=== PATIENT | male | born 1935 | race Caucasian/White ===

== ENCOUNTER 2017-05-26 14:59 | Emergency (ER) | payer OTHER, MEDICARE ==
[2017-05-26] VITALS (9 sets, daily range): BP systolic 110–152; BP diastolic 53–69; PULSE 61–81; TEMP 36.5–37; O2SAT 95–99; Ht 182.9 cm; Wt 109.0 kg
[~2017-05-26] VITALS: Ht 182.9 cm; Wt 109.0 kg
[~2017-05-26 14:59] MED LIST: AMX500 PO; ASPI81TA28 PO; CYAN10005 PO; FOLI1TAB7 PO; FRS/40 PO; METO5TAB25 PO; POTA1POW PO; SIMV20TA5 PO
[2017-05-26 15:56] LABS: HEMATOCRIT 15.9 % (42-52); INR 1.1 (0.9-1.1); MEAN CELL VOLUME 101.3 fL (80-100); MEAN CORPUSCULAR HEMOGLOBIN 36.3 pg (25-34); MEAN CORPUSCULAR HGB CONC 35.8 g/dl (32-36); MEAN PLATELET VOLUME 9.2 fL (7.4-10.4); PARTIAL THROMBOPLASTIN RATIO 1.1; PLATELET COUNT 248 K/uL (130-400); PROTHROMBIN TIME (PATIENT) 11.4 SECONDS (9.0-12.0); RED BLOOD COUNT 1.57 M/uL (4.7-6.1); WHITE BLOOD COUNT 3.09 K/uL (4.8-10.8)
[2017-05-26 16:06] LABS: BUN/CREATININE RATIO 25.3 (10-20); CALCIUM 8.8 mg/dl (8.5-10.1); CREATININE 0.95 mg/dl (0.60-1.40)
[2017-05-26] MEDS ORDERED: PRED20TA PO (16:29)
[2017-05-26] MEDS ORDERED: POTA20TA16 PO (16:29)
[2017-05-26 16:52] LABS: ANISOCYTOSIS PRESENT; COMPLETE YES; IG% 1.3 %; LYMPH % 52.1 %; LYMPH ABS # 1.61 K/uL (1.2-3.4); MONO % 2.9 %; NEUT % 43.7 %
--- NOTE | 2017-05-26 17:55 | EMERGENCY ROOM VISIT NOTE ---
History Report prepared by Umm: Alesia Mcneil Under the Supervision of: Dr. Blade Junior D.O. First contact with patient: 15:11 Chief Complaint: REFERRED BY DOCTOR Stated Complaint: SENT FROM DR ROXANN WOOD FOR BLOOD TRANSFUSION History of Present Illness The patient is a 82 year old male who presents to the Emergency Room with complaints of a low hemoglobin level. The patient was diagnosed with CLL earlier this year. Since that time he has had 3 blood transfusions. Over the past few days the patient has been feeling dizzy and short of breath. He had blood work done this morning and his hemoglobin level was 5.2. His PCP sent him to the ED for a blood transfusion. The patient does not take any blood thinners. He denies melena and hematochezia. 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 Review of Systems See HPI for pertinent positives & negatives. A total of 10 systems reviewed and were otherwise negative. Past Medical & Surgical Medical Problems: (1) Anemia (2) CLL (chronic lymphocytic leukemia) Family History Non-pertinent due to advanced age. Social History Smoking Status: Former Smoker Marital Status: Housing Status: lives with significant other Occupation Status: retired Current/Historical Medications Scheduled Amoxicillin (Amoxicillin), 1 CAP PO Q2D Aspirin (Aspirin Ec), 81 MG PO DAILY Cyanocobalamin (Vitamin B-12), 2,000 MCG PO DAILY Folic Acid (Folvite), 1 TAB PO DAILY Furosemide (Lasix), 40 MG PO DAILY Potassium Ext Rel (Klor-Con), 80 MEQ PO DAILY Prednisone (Prednisone), 40 MG PO DAILY Simvastatin (Zocor), 1 TAB PO HS Scheduled PRN Metolazone (Zaroxolyn), 5 MG PO UD PRN for . Allergies Coded Allergies: No Known Allergies (Unverified , 05/26/17) Physical Exam Vital Signs Date Time Temp Pulse Resp B/P (MAP) Pulse Ox O2 Delivery O2 Flow Rate FiO2 05/26/17 17:46 36.7 81 18 110/53 99 Room Air 05/26/17 17:46 36.7 81 18 110/53 99 0.0 05/26/17 17:31 36.5 75 18 140/63 99 11/14/17 17:18 36.8 71 16 115/61 98 05/26/17 17:05 73 16 115/61 98 Room Air 05/26/17 15:01 36.6 79 20 157/73 98 Physical Exam CONSTITUTIONAL/VITAL SIGNS: Reviewed / noted above. GENERAL: Non-toxic in appearance. INTEGUMENTARY: Warm, dry, and [place]. HEAD: Normocephalic. EYES: without scleral icterus or trauma. ENT/OROPHARYNX: clear and moist. LYMPHADENOPATHY/NECK: Is supple without lymphadenopathy or meningismus. RESPIRATORY: Lungs clear and equal. CARDIOVASCULAR: Regular rate and rhythm. GI/ABDOMEN: Soft and nontender. No organomegaly or pulsatile mass. No rebound or guarding. Normal bowel sounds. EXTREMITIES: Warm and well perfused. BACK: No CVA tenderness. NEUROLOGICAL: Intact without focal deficits. PSYCHIATRIC: normal affect. MUSCULOSKELETAL: Normally developed with good muscle tone. Medical Decision & Procedures Laboratory Results 05/26/17 15:31 Red Blood Count 1.57, Mean Corpuscular Volume 101.3, Mean Corpuscular Hemoglobin 36.3, Mean Corpuscular Hemoglobin Concent 35.8, Mean Platelet Volume 9.2, Neutrophils (%) (Auto) 43.7, Lymphocytes (%) (Auto) 52.1, Monocytes (%) ( Auto) 2.9, Eosinophils (%) (Auto) 0.0, Basophils (%) (Auto) 0.0, Neutrophils # ( Auto) 1.35, Lymphocytes # (Auto) 1.61, Monocytes # (Auto) 0.09, Eosinophils # ( Auto) 0.00, Basophils # (Auto) 0.00 05/26/17 15:31 Test 05/26/17 15:31 White Blood Count 3.09 K/uL (4.8-10.8) Red Blood Count 1.57 M/uL (4.7-6.1) Hemoglobin 5.7 g/dL (14.0-18.0) Hematocrit 15.9 % (42-52) Mean Corpuscular Volume 101.3 fL (80-100) Mean Corpuscular Hemoglobin 36.3 pg (25-34) Mean Corpuscular Hemoglobin Concent 35.8 g/dl (32-36) Platelet Count 248 K/uL (130-400) Mean Platelet Volume 9.2 fL (7.4-10.4) Neutrophils (%) (Auto) 43.7 % Lymphocytes (%) (Auto) 52.1 % Monocytes (%) (Auto) 2.9 % Eosinophils (%) (Auto) 0.0 % Basophils (%) (Auto) 0.0 % Neutrophils # (Auto) 1.35 K/uL (1.4-6.5) Lymphocytes # (Auto) 1.61 K/uL (1.2-3.4) Monocytes # (Auto) 0.09 K/uL (0.11-0.59) Eosinophils # (Auto) 0.00 K/uL (0-0.5) Basophils # (Auto) 0.00 K/uL (0-0.2) RDW Standard Deviation 73.7 fL (36.4-46.3) RDW Coefficient of Variation 21.3 % (11.5-14.5) Immature Granulocyte % (Auto) 1.3 % Immature Granulocyte # (Auto) 0.04 K/uL (0.00-0.02) Nucleated RBC Absolute Count (auto) 0.02 K/uL (0-0) Nucleated Red Blood Cells % 0.7 % Anisocytosis PRESENT Prothrombin Time 11.4 SECONDS (9.0-12.0) Prothromb Time International Ratio 1.1 (0.9-1.1) Activated Partial Thromboplast Time 27.3 SECONDS (21.0-31.0) Partial Thromboplastin Ratio 1.1 Anion Gap 10.0 mmol/L (3-11) Est Creatinine Clear Calc Drug Dose 73.8 ml/min Estimated GFR () 84.9 Estimated GFR (Non- 73.2 BUN/Creatinine Ratio 25.3 (10-20) Calcium Level 8.8 mg/dl (8.5-10.1) Laboratory results as stated above per my review. ECG Indication: other Rate (beats per minute): 81 Rhythm: normal sinus Findings: no acute ischemic change, no ectopy ED Course 1511: Previous medical records were reviewed. The patient was evaluated in room B3B. A complete history and physical examination was performed. 1714: I consented the patient for blood and updated him on the results. He is in agreement with the treatment plan. 1800: The patient was signed out to Dr. Mcmahon at the change of shift. Medical Decision Differentials include: Acute coronary syndrome, myocardial infarction, CVA, TIA , anemia, infection, pneumonia, UTI, pyelonephritis, poor nutrition, dehydration , electrolyte disturbance, and hypoglycemia. This is an 82-year-old male who presents to the ED with a chief complaint of anemia. The patient had some outpatient blood work that revealed a hemoglobin around 5. The patient was sent here for blood transfusion by Dr. Acuna, the oncologist. The patient has no specific complaints other than some dizziness on occasion and exertional dyspnea. His vital signs here are normal. His physical exam was unremarkable. An EKG shows a normal sinus rhythm. Hemoglobin is 5.7. BUN is 24.. PRP is normal otherwise. The patient was transfused 2 units of packed RBCs. After this he will be discharged. He was told to have his blood rechecked in 1-2 days to see if he requires additional transfusion. Medication Reconcilliation Current Medication List: was personally reviewed by me Blood Pressure Screening Patient's blood pressure: Elevated blood pressure Blood pressure disposition: Referred to PCP Impression Primary Impression: Anemia Scribe Attestation The scribe's documentation has been prepared under my direction and personally reviewed by me in its entirety. I confirm that the note above accurately reflects all work, treatment, procedures, and medical decision making performed by me. Departure Information Dispostion Home / Self-Care Referrals No Doctor, Assigned (PCP) Patient Instructions My [facility] Additional Instructions See your doctor for recheck of your hemoglobin level in 1-2 days. Return for any concerns or new symptoms.
[2017-06-11] MEDS ORDERED: PRLSR20 PO (07:35)
--- NOTE | 2017-06-17 18:16 | EMERGENCY ROOM VISIT NOTE ---
ED Visit Note First contact with patient: 18:15 Pt signed out to me by Dr. Junior. Getting transfusion in the ER. Pt scheduled to be discharged and close outpt follow-up and repeat H/H. No transfusion reactions noted thus far.
== END 2017-05-26 20:37 | disposition home or self-care (01) ==
LOC: C.EDB 15:00
DX: D64.9 Anemia, unspecified (principal); C91.10 Chronic lymphocytic leukemia of B-cell type not having achieved remission; Z87.891 Personal history of nicotine dependence; Z79.82 Long term (current) use of aspirin

== ENCOUNTER → 2017-07-21 | Outpatient (CLI) | payer OTHER, MEDICARE ==
[~2017-07-21] MED LIST changes: -AMX500 PO; -CYAN10005 PO; -FOLI1TAB7 PO; -POTA1POW PO; +POTA20TA16 PO; +PRED20TA PO; +PRLSR20 PO
[2017-07-21 17:40] LABS: EOS % 0.3 %; EOS ABS # 0.01 K/uL (0-0.5); HEMOGLOBIN 7.9 g/dL (14.0-18.0); IG# 0.02 K/uL (0.00-0.02); LYMPH % 37.1 %; LYMPH ABS # 1.31 K/uL (1.2-3.4); MEAN CELL VOLUME 87.8 fL (80-100); MEAN CORPUSCULAR HEMOGLOBIN 30.2 pg (25-34); MEAN CORPUSCULAR HGB CONC 34.3 g/dl (32-36); MONO ABS # 0.07 K/uL (0.11-0.59); NEUT ABS # 2.12 K/uL (1.4-6.5); PLATELET COUNT 273 K/uL (130-400); RED CELL DISTRIBUTION WIDTH CV 16.5 % (11.5-14.5); WHITE BLOOD COUNT 3.53 K/uL (4.8-10.8)
[2017-07-21 17:45] LABS: ALT/SGPT 29 U/L (12-78); AST/SGOT 12 U/L (15-37); BLOOD UREA NITROGEN 32 mg/dl (7-18); CALCIUM 8.4 mg/dl (8.5-10.1); CARBON DIOXIDE 28 mmol/L (21-32); CREATININE 1.02 mg/dl (0.60-1.40); GLUCOSE 163 mg/dl (70-99); POTASSIUM 3.6 mmol/L (3.5-5.1); SODIUM 132 mmol/L (136-145)
[2017-07-21 17:48] LABS: ALKALINE PHOSPHATASE 66 U/L (45-117); TOTAL PROTEIN 7.4 gm/dl (6.4-8.2)
== END | disposition home or self-care (01) ==
LOC: C.LABPBG 13:25
PROVIDERS: ATTEND Internal Medicine Hematology & Oncology
DX: C91.Z0 Other lymphoid leukemia not having achieved remission (principal)

== ENCOUNTER 2017-08-17 20:02 | Inpatient (IN) | payer OTHER, MEDICARE ==
[~2017-08-17] VITALS: Ht 182.9 cm; Wt 106.3 kg
[2017-08-17 21:18] LABS: HEMATOCRIT 22.4 % (42-52); HEMOGLOBIN 7.6 g/dL (14.0-18.0); MEAN CELL VOLUME 88.2 fL (80-100); MEAN CORPUSCULAR HEMOGLOBIN 29.9 pg (25-34); MEAN CORPUSCULAR HGB CONC 33.9 g/dl (32-36); MEAN PLATELET VOLUME 10.1 fL (7.4-10.4); NUCLEATED RED BLOOD CELL ABS 0.15 K/uL (0-0); PLATELET COUNT 282 K/uL (130-400); RED CELL DISTRIBUTION WIDTH CV 16.3 % (11.5-14.5); RED CELL DISTRIBUTION WIDTH SD 52.3 fL (36.4-46.3); WHITE BLOOD COUNT 12.02 K/uL (4.8-10.8)
--- NOTE | 2017-08-17 21:27 | DIAGNOSTIC IMAGING REPORT ---
CHEST ONE VIEW PORTABLE CLINICAL HISTORY: shortness of breath COMPARISON STUDY: No previous studies for comparison. FINDINGS: The heart is enlarged. There is nonspecific basilar interstitial thickening. This could either be inflammatory, secondary to pulmonary vascular congestion, or atelectatic. Clinical correlation in this regard will be necessary. There are no significant pleural effusions. IMPRESSION: Cardiomegaly and nonspecific by basilar interstitial thickening Electronically signed by: Ran Celaya M.D. 08/17/2017 9:25 PM Dictated Date/Time: 08/17/2017 9:24 PM
[2017-08-17 21:29] LABS: ALBUMIN 2.8 gm/dl (3.4-5.0); CALCIUM 8.1 mg/dl (8.5-10.1); CREATININE 1.62 mg/dl (0.60-1.40); POTASSIUM 4.5 mmol/L (3.5-5.1)
[2017-08-17 21:31] LABS: TOTAL PROTEIN 7.6 gm/dl (6.4-8.2)
[2017-08-17 21:32] LABS: INR 1.2 (0.9-1.1); PTT PATIENT 29.6 SECONDS (21.0-31.0)
[2017-08-17] MEDS ORDERED: SODIUM CHLORIDE 0.9% 1000ML 1,000 ML IV STA (21:34)
[2017-08-17] MEDS ORDERED: ALBUT/IPRATROP 3MG/0.5MG NEB 3 ML VIAL INH STA (21:34)
[2017-08-17] MEDS ORDERED: ACETAMINOPHEN 500 MG TAB PO STA (21:34)
[2017-08-17 21:42] LABS: BASO % 0.1 %; BASO ABS # 0.01 K/uL (0-0.2); LYMPH % 20.5 %; LYMPH ABS # 2.47 K/uL (1.2-3.4); MONO % 5.1 %; MONO ABS # 0.61 K/uL (0.11-0.59); NEUT % 73.5 %; NEUT ABS # 8.83 K/uL (1.4-6.5)
[2017-08-17 22:27] LABS: INFLUENZA B ANTIGEN Neg for Influ B (NEG)
[2017-08-17 22:47] LABS: CKMB < 0.5 ng/ml (0.5-3.6)
[2017-08-17] MEDS ORDERED: LEVAQUIN 750MG / 150ML D5W IV STA (23:12)
[2017-08-18] VITALS (21 sets, daily range): BP systolic 95–128; BP diastolic 44–65; PULSE 75–97; TEMP 36.4–37; O2SAT 92–100; Ht 182.9 cm; Wt 106.3 kg
--- NOTE | 2017-08-18 00:18 | History and Physical ---
History & Physical Date & Time of Service: Aug 18, 2017 at 00:06 Chief Complaint: SOB Primary Care Physician: Ritesh Ervin M.D. History of Present Illness Source: patient 82 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 Patient started feeling acutely unwell around noon today. He was experiencing a sore throat, a loose cough with intermittent dyspnea for 2-3 days, but symptoms and weakness were worse today. At the point where he was unable to get up from a chair, even with the assistance of his , she called the ambulance and brought the patient to the ED for assessment. He did get the flu shot this year, and denies any sick contacts. Patient otherwise denies fevers/chills, headaches, CP, palpitations, abdominal pain, myalgias or rashes. He has had diminished appetite, but is denying nausea or vomiting. He has been unable to ambulate today, and usually ambulates independently. He states he is voiding and stooling appropriately. Patient lives at home with . 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 Patient states he is not currently taking any chemotherapy but is on steroids. He state he is "due for an injection on Thursday". ROS is unremarkable except as noted above. Past Medical/Surgical History Medical Problems: CLL (chronic lymphocytic leukemia) Anemia Edema HLD Surgical Problems: Right hip replacement 2 years ago Family History Non contributory Social History Smoking Status: Former Smoker Smokeless Tobacco Use: No Alcohol Use: none Drug Use: none Marital Status: Housing status: lives with significant other Occupational Status: retired Immunizations History of Influenza Vaccine: Unknown History of Tetanus Vaccine?: Unknown History of Pneumococcal: Unknown Multi-Drug Resistant Organisms History of MDRO: No Allergies Coded Allergies: No Known Allergies (Unverified , 08/17/17) Home Medications Scheduled Aspirin (Aspirin Ec), 81 MG PO DAILY Furosemide (Lasix), 40 MG PO DAILY Omeprazole (Prilosec), 20 MG PO DAILY Potassium Ext Rel (Klor-Con), 80 MEQ PO DAILY Prednisone (Prednisone), 40 MG PO DAILY Simvastatin (Zocor), 1 TAB PO HS Scheduled PRN Metolazone (Zaroxolyn), 5 MG PO UD PRN for . Physical Exam Vital Signs Date Time Temp Pulse Resp B/P (MAP) Pulse Ox O2 Delivery O2 Flow Rate FiO2 08/18/17 00:05 100 24 114/46 97 Nasal Cannula 2.0 08/17/17 21:59 108 25 98/47 97 Nasal Cannula 2.0 08/17/17 21:12 92 2.0 08/17/17 20:23 113 08/17/17 20:12 98 Nasal Cannula 2.0 08/17/17 20:12 38.8 118 24 101/65 99 Nasal Cannula 2.0 General Appearance: WD/WN, + mild distress Head: normocephalic, atraumatic Eyes: normal inspection ENT: + pertinent finding (Hard of hearing) Neck: supple, no carotid bruits Respiratory/Chest: no accessory muscle use, + respiratory distress (with coughing), + decreased breath sounds, + crackles, + rales, + rhonchi Cardiovascular: no murmur, + tachycardia Abdomen/GI: normal bowel sounds, non tender, + distended (with some early signs of caput medusa) Back: normal inspection Extremities/Musculoskelatal: no calf tenderness, no pedal edema (blisters on anterior [place]), + pedal edema, + swelling (2+ pitting to below knee) Neurologic/Psych: alert, normal mood/affect Skin: normal color, + pertinent finding Diagnostics Laboratory Results Results Past 24 Hours Test 08/17/17 19:32 08/17/17 21:32 08/17/17 22:04 Range/Units White Blood Count 12.02 4.8-10.8 K/uL Red Blood Count 2.54 4.7-6.1 M/uL Hemoglobin 7.6 14.0-18.0 g/dL Hematocrit 22.4 42-52 % Mean Corpuscular Volume 88.2 80-100 fL Mean Corpuscular Hemoglobin 29.9 25-34 pg Mean Corpuscular Hemoglobin Concent 33.9 32-36 g/dl Platelet Count 282 130-400 K/uL Mean Platelet Volume 10.1 7.4-10.4 fL Neutrophils (%) (Auto) 73.5 % Lymphocytes (%) (Auto) 20.5 % Monocytes (%) (Auto) 5.1 % Eosinophils (%) (Auto) 0.0 % Basophils (%) (Auto) 0.1 % Neutrophils # (Auto) 8.83 1.4-6.5 K/uL Lymphocytes # (Auto) 2.47 1.2-3.4 K/uL Monocytes # (Auto) 0.61 0.11-0.59 K/uL Eosinophils # (Auto) 0.00 0-0.5 K/uL Basophils # (Auto) 0.01 0-0.2 K/uL RDW Standard Deviation 52.3 36.4-46.3 fL RDW Coefficient of Variation 16.3 11.5-14.5 % Immature Granulocyte % (Auto) 0.8 % Immature Granulocyte # (Auto) 0.10 0.00-0.02 K/uL Nucleated RBC Absolute Count (auto) 0.15 0-0 K/uL Nucleated Red Blood Cells % 1.3 % Red Blood Cell Morphology Unremarkable Prothrombin Time 12.3 9.0-12.0 SECONDS Prothromb Time International Ratio 1.2 0.9-1.1 Activated Partial Thromboplast Time 29.6 21.0-31.0 SECONDS Partial Thromboplastin Ratio 1.1 Sodium Level 133 136-145 mmol/L Potassium Level 4.5 3.5-5.1 mmol/L Chloride Level 99 98-107 mmol/L Carbon Dioxide Level 21 21-32 mmol/L Anion Gap 13.0 3-11 mmol/L Blood Urea Nitrogen 26 7-18 mg/dl Creatinine 1.62 0.60-1.40 mg/dl Est Creatinine Clear Calc Drug Dose 43.9 ml/min Estimated GFR () 44.5 Estimated GFR (Non- 38.4 BUN/Creatinine Ratio 15.7 10-20 Random Glucose 158 70-99 mg/dl Calcium Level 8.1 8.5-10.1 mg/dl Total Bilirubin 0.8 0.2-1 mg/dl Aspartate Amino Transf (AST/SGOT) 13 15-37 U/L Alanine Aminotransferase (ALT/SGPT) 27 12-78 U/L Alkaline Phosphatase 76 45-117 U/L Total Creatine Kinase 40 39-308 U/L Creatine Kinase MB < 0.5 0.5-3.6 ng/ml Creatine Kinase MB Ratio 0-3.0 Troponin I 0.069 0-0.045 ng/ml Total Protein 7.6 6.4-8.2 gm/dl Albumin 2.8 3.4-5.0 gm/dl Globulin 4.8 2.5-4.0 gm/dl Albumin/Globulin Ratio 0.6 0.9-2 Influenza Type A Antigen Neg for Influ A NEG Influenza Type B Antigen Neg for Influ B NEG Lactic Acid Level 2.2 0.4-2.0 mmol/L Microbiology Results 08/17/17 Blood Culture, Received Pending 08/17/17 Blood Culture, Received Pending Diagnostic Radiology CHEST ONE VIEW PORTABLE CLINICAL HISTORY: shortness of breath COMPARISON STUDY: No previous studies for comparison. FINDINGS: The heart is enlarged. There is nonspecific basilar interstitial thickening. This could either be inflammatory, secondary to pulmonary vascular congestion, or atelectatic. Clinical correlation in this regard will be necessary. There are no significant pleural effusions. IMPRESSION: Cardiomegaly and nonspecific by basilar interstitial thickening Impression Assessment and Plan 82 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 Sepsis secondary to respiratory infection with acute hypoxic failure - febrile, tachycardic, hypotensive, leukocytosis. lactic acid 2.2. Flu negative. - O2 via NC as per protocol, wean as tolerated keeping sats >92% - IV abx: Levaquin to cover community acquired and atypical infection - IVF NSS @ 100cc/hr - Duonebs, guaifenesin ordered - Trace blood cultures. Sputum culture ordered - Trend CBC, lactic acid Elevated troponin 0.069 on admission - Serial troponin - ECHO ordered - Cardio consulted Chronic anemia - Type and cross matched, and for transfusion of 2 units pRBC given Hb 7.6 with evidence of ischemia (elevated troponin) - Trend CBC Hyponatremia - IVF as above - Trend BMP CLL - Hold prednisone for now, stress dose hydrocortisone as above Lower extremity pitting edema - Wound consulted - Unable to order Lasix post pRBC transfusion given hypotension - Consider replacing albumin if worsening swelling VTE ppx - SCDs Attending addendum: I have physically seen this patient, have supervised the medical residents activities, and agree with the H&P unless as otherwise noted. Assessment and Plan: Acute respiratory failure with hypoxia/sepsis-- Levaquin IV Guaifenesin 600 mg by mouth twice a day Duonebs every 4 hours while awake and every 2 hours when necessary. Sputum Gram stain and culture Titrate oxygen to keep pulse ox greater than or equal to 92%, humidify if above 2 L Elevated troponin-- The patient will be admitted to telemetry for serial cardiac enzymes, serial EKG's, cardiac rhythm monitoring and a 2-D echocardiogram with Dopplers. Consult cardiology CLL/anemia requiring transfusion-- Hemoglobin 7.6, transfusion orders written for 2 units. Repeat H&H after second unit completed Level of Care Telemetry Advanced Directives Existing Advance Directive: No Existing Living Will: No Existing Power of Medicaid Specialist: No Existing Health Care Proxy: Yes (: Kay) Resuscitation Status FULL RESUSCITATION VTE Prophylaxis VTE Risk Assessment Done? Y/N: Yes Risk Level: Moderate Given or contraindicated: SCD's Resident Tracking Resident Involvement: Resident Care Provided Care Provided: Adult Hospital Medicine
[2017-08-18] MEDS ORDERED: ONDANSETRON INJ 2 MG/ML 2 ML VIAL IV PRN (01:15)
[2017-08-18] MEDS ORDERED: MAGNESIUM HYDROXIDE SUSP 30 ML UDC PO PRN (01:15)
[2017-08-18] MEDS ORDERED: POLYETHYLENE (MIRALAX) 17 GM PACK PO PRN (01:15)
[2017-08-18] MEDS ORDERED: ALUMINUM/MAGNESIUM/SIMETH (MAALOX MAX) 30 ML UDC PO PRN (01:15)
[2017-08-18] MEDS ORDERED: NITROGLYCERIN 0.4 MG SL PER TAB CHARGE SL PRN (01:15)
[2017-08-18] MEDS ORDERED: ACETAMINOPHEN 325 MG TAB PO PRN (01:15)
[2017-08-18] MEDS ORDERED: SODIUM CHLORIDE 0.9% 1000ML 1,000 ML IV SCH (03:00)
--- NOTE | 2017-08-18 03:12 | EMERGENCY ROOM VISIT NOTE ---
History Report prepared by Umm: Seng Hernandez Under the Supervision of: Miguel A KerrO. First contact with patient: 21:30 Chief Complaint: SHORTNESS OF BREATH Stated Complaint: SOB Nursing Triage Summary: shortness of breath off and on all day. increased weakness History of Present Illness The patient is a 82 year old male who presents to the Emergency Room with complaints of intermittent shortness of breath that started 12 hours ago. His states that he is currently being treated for chronic leukemia. Per the , the states the patient has congestion, weakness, sore throat, and runny nose. She denies cough, chest pain, and body aches. He denies a history of Atrial Fibrillation. Source of History: patient, spouse/significant other Onset: 12 hours ago Position: other (global) Timing: intermittent Associated Symptoms: + sorethroat, + SOB, + weakness, No cough, No chest pain Note: Patient reports congestion. Patient denies body aches. Review of Systems See HPI for pertinent positives & negatives. A total of 10 systems reviewed and were otherwise negative. Past Medical & Surgical Medical Problems: (1) Anemia (2) CLL (chronic lymphocytic leukemia) (3) Elevated troponin (4) Symptomatic anemia Social History Smoking Status: Never Smoker Marital Status: Housing Status: lives with significant other Occupation Status: retired Current/Historical Medications Scheduled Aspirin (Aspirin Ec), 81 MG PO DAILY Furosemide (Lasix), 40 MG PO DAILY Omeprazole (Prilosec), 20 MG PO DAILY Potassium Ext Rel (Klor-Con), 80 MEQ PO DAILY Prednisone (Prednisone), 40 MG PO DAILY Simvastatin (Zocor), 1 TAB PO HS Scheduled PRN Metolazone (Zaroxolyn), 5 MG PO UD PRN for . Allergies Coded Allergies: No Known Allergies (Unverified , 08/17/17) Physical Exam Vital Signs Date Time Temp Pulse Resp B/P (MAP) Pulse Ox O2 Delivery O2 Flow Rate FiO2 08/18/17 00:12 94 08/18/17 00:05 100 24 114/46 97 Nasal Cannula 2.0 08/17/17 21:59 108 25 98/47 97 Nasal Cannula 2.0 08/17/17 21:12 92 2.0 08/17/17 20:23 113 08/17/17 20:12 98 Nasal Cannula 2.0 08/17/17 20:12 38.8 118 24 101/65 99 Nasal Cannula 2.0 Physical Exam CONSTITUTIONAL/VITAL SIGNS: Reviewed / noted above. GENERAL: Non-toxic in appearance. INTEGUMENTARY: Warm, dry, and [place]. HEAD: Normocephalic. EYES: without scleral icterus or trauma. ENT/OROPHARYNX: clear and moist. Mucous sounds in the throat. LYMPHADENOPATHY/NECK: Is supple without lymphadenopathy or meningismus. RESPIRATORY: Lungs clear and equal. Diminished breath sound bilaterally. Tachypnea. Mild increased work of breathing. CARDIOVASCULAR: Tachycardia and irregular rhythm. GI/ABDOMEN: Soft and nontender. No organomegaly or pulsatile mass. No rebound or guarding. Normal bowel sounds. EXTREMITIES: Warm and well perfused. BACK: No CVA tenderness. NEUROLOGICAL: Intact without focal deficits. PSYCHIATRIC: normal affect. MUSCULOSKELETAL: Normally developed with good muscle tone. Medical Decision & Procedures ER Provider Diagnostic Interpretation: Radiology results as stated below per my review and radiologist interpretation: CHEST ONE VIEW PORTABLE CLINICAL HISTORY: shortness of breath COMPARISON STUDY: No previous studies for comparison. FINDINGS: The heart is enlarged. There is nonspecific basilar interstitial thickening. This could either be inflammatory, secondary to pulmonary vascular congestion, or atelectatic. Clinical correlation in this regard will be necessary. There are no significant pleural effusions. IMPRESSION: Cardiomegaly and nonspecific by basilar interstitial thickening Electronically signed by: Ran Celaya M.D. 08/17/2017 9:25 PM Dictated Date/Time: 08/17/2017 9:24 PM Laboratory Results Test 08/17/17 19:32 08/17/17 21:32 RDW Standard Deviation 52.3 fL (36.4-46.3) RDW Coefficient of Variation 16.3 % (11.5-14.5) White Blood Count 12.02 K/uL (4.8-10.8) Red Blood Count 2.54 M/uL (4.7-6.1) Hemoglobin 7.6 g/dL (14.0-18.0) Hematocrit 22.4 % (42-52) Mean Corpuscular Volume 88.2 fL (80-100) Mean Corpuscular Hemoglobin 29.9 pg (25-34) Mean Corpuscular Hemoglobin Concent 33.9 g/dl (32-36) Platelet Count 282 K/uL (130-400) Mean Platelet Volume 10.1 fL (7.4-10.4) Neutrophils (%) (Auto) 73.5 % Lymphocytes (%) (Auto) 20.5 % Monocytes (%) (Auto) 5.1 % Eosinophils (%) (Auto) 0.0 % Basophils (%) (Auto) 0.1 % Neutrophils # (Auto) 8.83 K/uL (1.4-6.5) Lymphocytes # (Auto) 2.47 K/uL (1.2-3.4) Monocytes # (Auto) 0.61 K/uL (0.11-0.59) Eosinophils # (Auto) 0.00 K/uL (0-0.5) Basophils # (Auto) 0.01 K/uL (0-0.2) Immature Granulocyte % (Auto) 0.8 % Immature Granulocyte # (Auto) 0.10 K/uL (0.00-0.02) Nucleated RBC Absolute Count (auto) 0.15 K/uL (0-0) Nucleated Red Blood Cells % 1.3 % Red Blood Cell Morphology Unremarkable Prothrombin Time 12.3 SECONDS (9.0-12.0) Prothromb Time International Ratio 1.2 (0.9-1.1) Activated Partial Thromboplast Time 29.6 SECONDS (21.0-31.0) Partial Thromboplastin Ratio 1.1 Est Creatinine Clear Calc Drug Dose 43.9 ml/min Total Bilirubin 0.8 mg/dl (0.2-1) Aspartate Amino Transf (AST/SGOT) 13 U/L (15-37) Alanine Aminotransferase (ALT/SGPT) 27 U/L (12-78) Alkaline Phosphatase 76 U/L (45-117) Total Creatine Kinase 40 U/L (39-308) Creatine Kinase MB < 0.5 ng/ml (0.5-3.6) Creatine Kinase MB Ratio (0-3.0) Total Protein 7.6 gm/dl (6.4-8.2) Albumin 2.8 gm/dl (3.4-5.0) Globulin 4.8 gm/dl (2.5-4.0) Albumin/Globulin Ratio 0.6 (0.9-2) Influenza Type A Antigen Neg for Influ A (NEG) Influenza Type B Antigen Neg for Influ B (NEG) Laboratory results as stated above per my review. Medications Administered Medications (Trade) Dose Ordered Sig/Rosendo Route Start Time Stop Time Status Last Admin Dose Admin Sodium Chloride 1,000 ml @ 999 mls/hr Q1H1M STAT IV 08/17/17 21:34 08/17/17 22:34 DC 08/17/17 21:50 999 MLS/HR Acetaminophen (Tylenol Tab) 1,000 mg NOW STAT PO 08/17/17 21:34 08/17/17 21:36 DC 08/17/17 21:44 1,000 MG Albuterol/ Ipratropium (Duoneb) 3 ml NOW STAT INH 08/17/17 21:34 08/17/17 21:36 DC 08/17/17 21:44 3 ML Levofloxacin (Levaquin / D5W) 750 mg NOW STAT IV 08/17/17 23:12 08/17/17 23:13 DC 08/18/17 00:03 750 MG ECG Indication: SOB/dyspnea Rate (beats per minute): 112 Rhythm: sinus tachycardia Findings: PAC, PVC, other (No acute injury) Change: Patient's EKG interpreted by me. ED Course 0: Previous medical records were reviewed. The patient was evaluated in room B8. A complete history and physical examination was performed. 2134: Duoneb 3 ml INH, Tylenol Tab 1,000 mg, Sodium Chloride 1000 ml @ 999 mls/ hr IV. 2312: Levaquin/D5W 750 mg IV. 2313: I discussed the patient's case with Dr. Derrick Woo. The patient will be evaluated for further treatment and disposition. 2330: On reevaluation, the patient is doing well. I discussed the results and findings with the patient. He verbalized agreement of the treatment plan. I spoke with Dr. Derrick Woo of the [facility] Hospitalist Service. The patient will be evaluated for further management and care. Medical Decision the differential was considered includes acute myocardial infarction, acute coronary syndrome, myocarditis, pericarditis, pericardial effusions /tamponad, esophageal perforation, pulmonary embolism, pneumonia, pneumothorax, cardiomyopathy, congestive heart, anemia , COPD/asthma exacerbation. This is an 82-year-old male who presents to the ED with a chief complaint of fever, cough, congestion, shortness of breath and weakness as well as a sore throat. The patient has had the symptoms for several days. He is currently being treated for leukemia as well. Temperature is 38.8. Patient is tachycardic. Blood pressure is 101/65. Oxygen saturations are 99% on supplemental oxygen. The patient's exam is noted above. EKG shows sinus tach. Troponin is slightly elevated. Hemoglobin reveals anemia with hemoglobin is 7.6. Creatinine is 1.6. The patient was treated as above with IV fluids, IV antibiotics he was given a DuoNeb treatment. He was also given oral Tylenol. He was given IV Levaquin. Because of the significant anemia and elevated troponin, the patient was ordered 2 units of packed RBCs and a transfusion was started here in the ED. Consent was signed. The patient will be seen by the hospital service for further care and evaluation. Medication Reconcilliation Current Medication List: was personally reviewed by me Blood Pressure Screening Patient's blood pressure: Normal blood pressure Blood pressure disposition: Did not require urgent referral Consults Time Called: 2311 Consulting Physician: Dr. Derrick Woo Returned Call: [phone] Discussed the patient's case. The patient will be evaluated for further treatment and disposition. Impression Primary Impression: Flu-like symptoms Additional Impressions: Elevated troponin Anemia Critical Care I have personally spent 35 minutes of critical care time in the direct management of this patient. This includes bedside care, interpretation of diagnostic studies, and testing, discussion with consultants, patient, and family members, and other required patient management activities. This 30 minutes is in excess of all separately billable procedures. Scribe Attestation The scribe's documentation has been prepared under my direction and personally reviewed by me in its entirety. I confirm that the note above accurately reflects all work, treatment, procedures, and medical decision making performed by me. Departure Information Referrals Ritesh Ervin M.D. (PCP) Patient Instructions My [facility] Problem Qualifiers
[2017-08-18] MEDS: HYDROCORTISONE IV 100 MG in SYRINGE 0 ML IV SCH ×3 (03:47→19:54)
[2017-08-18] MEDS: GUAIFENESIN 200 MG TAB PO SCH ×6 (05:01→23:43)
[2017-08-18 07:08] LABS: CALCIUM 7.8 mg/dl (8.5-10.1); CREATININE 0.91 mg/dl (0.60-1.40); POTASSIUM 3.9 mmol/L (3.5-5.1)
--- NOTE | 2017-08-18 07:42 | Family Medicine Progress Note ---
Progress Note Date of Service Aug 18, 2017. Subjective Pt evaluation today including: conversation w/ patient, physical exam, chart review, conversation w/ securities consultant, review of inpatient medication list Pain: none PO Intake: poor Voiding: no voiding problems Patient is feeling a little better this morning Still short of breath with exertion and with a productive cough Denies any fevers chills or chest pain Constitutional: No fever, No chills Respiratory: + cough, + sputum, + dyspnea on exertion, No hemoptysis Cardiovascular: + edema, No chest pain, No palpitations Abdomen: No pain, No nausea, No vomiting, No diarrhea Male : No dysuria, No urinary frequency, No incontinence Medications Current Inpatient Medications Medications (Trade) Dose Ordered Sig/Rosendo Route Start Time Stop Time Status Last Admin Dose Admin Sodium Chloride 1,000 ml @ 100 mls/hr Q10H IV 08/18/17 03:00 09/17/17 02:59 08/18/17 05:01 100 MLS/HR Acetaminophen (Tylenol Tab) 650 mg Q4H PRN PO 08/18/17 01:15 09/17/17 01:14 Al Hydrox/Mg Hydrox/Simethicone (Maalox Max Susp) 15 ml Q4H PRN PO 08/18/17 01:15 09/17/17 01:14 Magnesium Hydroxide (Milk Of Magnesia Susp) 30 ml Q12H PRN PO 08/18/17 01:15 09/17/17 01:14 Ondansetron HCl (Zofran Inj) 4 mg Q6H PRN IV 08/18/17 01:15 09/17/17 01:14 Nitroglycerin (Nitrostat Tab) 0.4 mg UD PRN SL 08/18/17 01:15 09/17/17 01:14 Polyethylene (Miralax Powder Packet) 17 gm DAILY PRN PO 08/18/17 01:15 09/17/17 01:14 Levofloxacin 500 mg/Prmx 100 ml @ 100 mls/hr Q24H IV 08/19/17 00:00 08/24/17 00:59 Hydrocortisone Sodium Succinate 100 mg/Syringe 2 ml @ 4 mls/min Q8H IV 08/18/17 03:00 08/21/17 02:59 08/18/17 03:47 4 MLS/MIN Guaifenesin (Organidin Nr Tab) 200 mg Q4H PO 08/18/17 04:00 09/17/17 03:59 08/18/17 05:01 200 MG Aspirin (Ecotrin Tab) 81 mg DAILY PO 08/18/17 09:00 09/17/17 08:59 UNV Potassium Chloride (Klor-Con Tab) 80 meq DAILY PO 08/18/17 09:00 09/17/17 08:59 UNV Simvastatin (Zocor Tab) 20 mg HS PO 08/18/17 21:00 09/17/17 20:59 UNV Non-Formulary Medication (Omeprazole (Prilosec)) 20 mg DAILY PO 08/18/17 09:00 09/17/17 08:59 UNV Objective Vital Signs Date Time Temp Pulse Resp B/P (MAP) Pulse Ox O2 Delivery O2 Flow Rate FiO2 08/18/17 06:37 75 104/56 08/18/17 05:37 75 97/46 08/18/17 05:07 36.7 82 111/58 08/18/17 04:49 36.7 89 22 126/59 98 2.0 08/18/17 04:15 36.7 90 18 120/54 99 2.0 08/18/17 04:00 Nasal Cannula 2.0 08/18/17 03:15 85 18 103/49 97 2.0 08/18/17 02:40 36.5 86 22 95/44 95 Nasal Cannula 2.0 08/18/17 02:15 36.8 77 22 105/53 100 08/18/17 02:02 36.6 92 22 103/50 99 08/18/17 01:58 36.8 85 19 99/49 96 08/18/17 01:53 36.6 97 22 96/49 96 08/18/17 01:46 36.6 98 22 96/49 97 Nasal Cannula 2.0 08/18/17 00:12 94 08/18/17 00:05 100 24 114/46 97 Nasal Cannula 2.0 08/17/17 21:59 108 25 98/47 97 Nasal Cannula 2.0 08/17/17 21:12 92 2.0 08/17/17 20:23 113 08/17/17 20:12 98 Nasal Cannula 2.0 08/17/17 20:12 38.8 118 24 101/65 99 Nasal Cannula 2.0 Physical Exam General Appearance: WD/WN, no apparent distress ENT: hearing grossly normal, pharynx normal Neck: no JVD, trachea midline Respiratory/Chest: + crackles, + rhonchi Cardiovascular: regular rate, rhythm, no murmur Abdomen: normal bowel sounds, non tender, soft Extremities: no calf tenderness, normal capillary refill, + pedal edema (+2 to mid valencia with lower extremity blisters of anterior valencia) Neurologic/Psychiatric: alert, normal mood/affect, oriented x 3 Skin: normal color, warm/dry, no rash Laboratory Results Results Past 24 Hours Test 08/17/17 19:32 08/17/17 21:32 08/17/17 22:04 08/18/17 04:44 Range/Units White Blood Count 12.02 4.8-10.8 K/uL Red Blood Count 2.54 4.7-6.1 M/uL Hemoglobin 7.6 14.0-18.0 g/dL Hematocrit 22.4 42-52 % Mean Corpuscular Volume 88.2 80-100 fL Mean Corpuscular Hemoglobin 29.9 25-34 pg Mean Corpuscular Hemoglobin Concent 33.9 32-36 g/dl Platelet Count 282 130-400 K/uL Mean Platelet Volume 10.1 7.4-10.4 fL Neutrophils (%) (Auto) 73.5 % Lymphocytes (%) (Auto) 20.5 % Monocytes (%) (Auto) 5.1 % Eosinophils (%) (Auto) 0.0 % Basophils (%) (Auto) 0.1 % Neutrophils # (Auto) 8.83 1.4-6.5 K/uL Lymphocytes # (Auto) 2.47 1.2-3.4 K/uL Monocytes # (Auto) 0.61 0.11-0.59 K/uL Eosinophils # (Auto) 0.00 0-0.5 K/uL Basophils # (Auto) 0.01 0-0.2 K/uL RDW Standard Deviation 52.3 36.4-46.3 fL RDW Coefficient of Variation 16.3 11.5-14.5 % Immature Granulocyte % (Auto) 0.8 % Immature Granulocyte # (Auto) 0.10 0.00-0.02 K/uL Nucleated RBC Absolute Count (auto) 0.15 0-0 K/uL Nucleated Red Blood Cells % 1.3 % Red Blood Cell Morphology Unremarkable Prothrombin Time 12.3 9.0-12.0 SECONDS Prothromb Time International Ratio 1.2 0.9-1.1 Activated Partial Thromboplast Time 29.6 21.0-31.0 SECONDS Partial Thromboplastin Ratio 1.1 Sodium Level 133 136-145 mmol/L Potassium Level 4.5 3.5-5.1 mmol/L Chloride Level 99 98-107 mmol/L Carbon Dioxide Level 21 21-32 mmol/L Anion Gap 13.0 3-11 mmol/L Blood Urea Nitrogen 26 7-18 mg/dl Creatinine 1.62 0.60-1.40 mg/dl Est Creatinine Clear Calc Drug Dose 43.9 ml/min Estimated GFR () 44.5 Estimated GFR (Non- 38.4 BUN/Creatinine Ratio 15.7 10-20 Random Glucose 158 70-99 mg/dl Calcium Level 8.1 8.5-10.1 mg/dl Total Bilirubin 0.8 0.2-1 mg/dl Aspartate Amino Transf (AST/SGOT) 13 15-37 U/L Alanine Aminotransferase (ALT/SGPT) 27 12-78 U/L Alkaline Phosphatase 76 45-117 U/L Total Creatine Kinase 40 39-308 U/L Creatine Kinase MB < 0.5 0.5-3.6 ng/ml Creatine Kinase MB Ratio 0-3.0 Troponin I 0.069 0-0.045 ng/ml Total Protein 7.6 6.4-8.2 gm/dl Albumin 2.8 3.4-5.0 gm/dl Globulin 4.8 2.5-4.0 gm/dl Albumin/Globulin Ratio 0.6 0.9-2 Influenza Type A Antigen Neg for Influ A NEG Influenza Type B Antigen Neg for Influ B NEG Lactic Acid Level 2.2 0.4-2.0 mmol/L Test 08/18/17 06:17 Range/Units Sodium Level 134 136-145 mmol/L Potassium Level 3.9 3.5-5.1 mmol/L Chloride Level 102 98-107 mmol/L Carbon Dioxide Level 24 21-32 mmol/L Anion Gap 8.0 3-11 mmol/L Blood Urea Nitrogen 23 7-18 mg/dl Creatinine 0.91 0.60-1.40 mg/dl Est Creatinine Clear Calc Drug Dose 77.3 ml/min Estimated GFR () 89.4 Estimated GFR (Non- 77.1 BUN/Creatinine Ratio 25.2 10-20 Random Glucose 177 70-99 mg/dl Lactic Acid Level 1.7 0.4-2.0 mmol/L Calcium Level 7.8 8.5-10.1 mg/dl Troponin I 0.039 0-0.045 ng/ml Microbiology Results 08/17/17 Blood Culture, Received Pending 08/17/17 Blood Culture, Received Pending 08/18/17 Gram Stain, Received Pending 08/18/17 Sputum Culture, Received Pending Assessment and Plan 82 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 Sepsis - ? sec to Community acquired pneumonia - IV abx: Levaquin to cover community acquired and atypical infection - IVF NSS @ 100cc/hr - Duonebs, guaifenesin ordered - Trace blood cultures. 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 Consider restarting as dehydration improves - Consider replacing albumin if worsening swelling - echo pending VTE ppx - SCDs FULL Code Dispo: not ready for PT, but will order when ready Continued [facility] stay due to: ambulation difficulties, multiple IV medications needed Discharge planning: uncertain Reviewed: Pt Seen/Exam by Me History still feeling very sick. coughing a lot. unable to bring up phlegm. Constitutional: denies: fever Cardiovascular: denies chest pain Gastrointestinal/Abdominal: negative: abdominal pain General Appearance: mild distress Respiratory: no respiratory distress, decreased breath sounds, rhonchi Cardiovascular: regular rate, rhythm Neurologic/Psychiatric: alert, oriented x 3 Skin Characteristics: warm/dry Assessment/Plan Resident Physician Supervision Note: I independently interviewed and examined the patient and verified the more history and physical, reviewed labs and image studies, discussed the case with the resident Dr. Lyle and agree with the findings and care plan.
[2017-08-18] MEDS ORDERED: BENZONATATE 100MG CAP PO ONE (08:00)
[2017-08-18 08:45] LABS: HEMATOCRIT 23.8 % (42-52); HEMOGLOBIN 8.4 g/dL (14.0-18.0); MEAN CELL VOLUME 85.3 fL (80-100); MEAN CORPUSCULAR HEMOGLOBIN 30.1 pg (25-34); MEAN CORPUSCULAR HGB CONC 35.3 g/dl (32-36); MEAN PLATELET VOLUME 9.2 fL (7.4-10.4); PLATELET COUNT 189 K/uL (130-400); RED CELL DISTRIBUTION WIDTH CV 16.1 % (11.5-14.5); RED CELL DISTRIBUTION WIDTH SD 49.6 fL (36.4-46.3); WHITE BLOOD COUNT 11.22 K/uL (4.8-10.8)
[2017-08-18 08:52] LABS: INFLUENZA A PCR Neg for Influ A (NEG); INFLUENZA B PCR Neg for Influ B (NEG)
[2017-08-18] MEDS ORDERED: POTASSIUM CHLORIDE 20 MEQ TABCR PO SCH (09:00)
[2017-08-18 09:14] LABS: IG# 0.07 K/uL (0.00-0.02); LYMPH % 12.4 %; LYMPH ABS # 1.39 K/uL (1.2-3.4); MONO % 2.8 %; MONO ABS # 0.31 K/uL (0.11-0.59); NEUT % 84.2 %; NEUT ABS # 9.45 K/uL (1.4-6.5)
[2017-08-18] MEDS: PANTOprazole SOD 40 MG TAB PO SCH (09:56)
[2017-08-18] MEDS: ASPIRIN 81 MG ECTAB PO SCH (09:56)
[2017-08-18] MEDS: ALBUT/IPRATROP 3MG/0.5MG NEB 3 ML VIAL INH SCH ×4 (10:01→20:00)
[2017-08-18] MEDS ORDERED: LIDOCAINE HCL 2% 2 ML VIAL (20MG/ML) ONE (11:04)
[2017-08-18] MEDS ORDERED: PROPOFOL IV EMULSION 10 MG/ML 20 ML VIAL IV ONE ×2 (11:04→12:47)
[2017-08-18] MEDS ORDERED: MIDAZOLAM HCL 1 MG/ML 2ML VIAL ONE ×2 (11:05→11:45)
[2017-08-18] MEDS ORDERED: FENTANYL CITRATE INJ 50 MCG/1 ML 2 ML VIAL ONE (11:05)
[2017-08-18 11:17] LABS: HEMATOCRIT 24.6 % (42-52); HEMOGLOBIN 8.6 g/dL (14.0-18.0)
[2017-08-18] MEDS ORDERED: ENDOSCOPIC MARKER 5 ML SYR ONE (12:38)
[2017-08-18] MEDS ORDERED: EpHEDrine SULFATE INJ 50 MG/ML AMP ONE (12:39)
[2017-08-18] MEDS ORDERED: VANCOMYCIN IV STA (13:07)
[2017-08-18] MEDS ORDERED: SODIUM CHLORIDE 0.9% IV STA (13:07)
[2017-08-18] MEDS ORDERED: VANCOMYCIN CONSULT ACTIVE PRN ×2 (13:15)
[2017-08-18] MEDS ORDERED: VANCOMYCIN INJ 2,750 MG in SODIUM CHLORIDE 0.9% 500ML 500 ML IV STA (13:28)
--- NOTE | 2017-08-18 14:11 | Pharmacy Progress Note ---
Pharmacy Antibiotic Consult Date of Service: Aug 18, 2017. Pharmacy Dosing Scope Pharmacy is consulted to initiate vancomycin IV dosing therapy, order appropriate labs and adjust drug dose/frequency. Subjective The patient is a 82 year old male admitted on Aug 18, 2017 at 01:32. Objective Height (Feet): 6 Height (Inches): 0.00 Weight (Kilograms): 109.600 Lab Results (24hrs): Test 08/17/17 19:32 08/17/17 21:32 08/17/17 22:04 08/18/17 00:00 White Blood Count 12.02 K/uL (4.8-10.8) Red Blood Count 2.54 M/uL (4.7-6.1) Hemoglobin 7.6 g/dL (14.0-18.0) Hematocrit 22.4 % (42-52) Mean Corpuscular Volume 88.2 fL (80-100) Mean Corpuscular Hemoglobin 29.9 pg (25-34) Mean Corpuscular Hemoglobin Concent 33.9 g/dl (32-36) Platelet Count 282 K/uL (130-400) Mean Platelet Volume 10.1 fL (7.4-10.4) Neutrophils (%) (Auto) 73.5 % Lymphocytes (%) (Auto) 20.5 % Monocytes (%) (Auto) 5.1 % Eosinophils (%) (Auto) 0.0 % Basophils (%) (Auto) 0.1 % Neutrophils # (Auto) 8.83 K/uL (1.4-6.5) Lymphocytes # (Auto) 2.47 K/uL (1.2-3.4) Monocytes # (Auto) 0.61 K/uL (0.11-0.59) Eosinophils # (Auto) 0.00 K/uL (0-0.5) Basophils # (Auto) 0.01 K/uL (0-0.2) RDW Standard Deviation 52.3 fL (36.4-46.3) RDW Coefficient of Variation 16.3 % (11.5-14.5) Immature Granulocyte % (Auto) 0.8 % Immature Granulocyte # (Auto) 0.10 K/uL (0.00-0.02) Nucleated RBC Absolute Count (auto) 0.15 K/uL (0-0) Nucleated Red Blood Cells % 1.3 % Red Blood Cell Morphology Unremarkable Prothrombin Time 12.3 SECONDS (9.0-12.0) Prothromb Time International Ratio 1.2 (0.9-1.1) Activated Partial Thromboplast Time 29.6 SECONDS (21.0-31.0) Partial Thromboplastin Ratio 1.1 Sodium Level 133 mmol/L (136-145) Potassium Level 4.5 mmol/L (3.5-5.1) Chloride Level 99 mmol/L (98-107) Carbon Dioxide Level 21 mmol/L (21-32) Anion Gap 13.0 mmol/L (3-11) Blood Urea Nitrogen 26 mg/dl (7-18) Creatinine 1.62 mg/dl (0.60-1.40) Est Creatinine Clear Calc Drug Dose 43.9 ml/min Estimated GFR () 44.5 Estimated GFR (Non- 38.4 BUN/Creatinine Ratio 15.7 (10-20) Random Glucose 158 mg/dl (70-99) Calcium Level 8.1 mg/dl (8.5-10.1) Total Bilirubin 0.8 mg/dl (0.2-1) Aspartate Amino Transf (AST/SGOT) 13 U/L (15-37) Alanine Aminotransferase (ALT/SGPT) 27 U/L (12-78) Alkaline Phosphatase 76 U/L (45-117) Total Creatine Kinase 40 U/L (39-308) Creatine Kinase MB < 0.5 ng/ml (0.5-3.6) Creatine Kinase MB Ratio (0-3.0) Total Protein 7.6 gm/dl (6.4-8.2) Albumin 2.8 gm/dl (3.4-5.0) Globulin 4.8 gm/dl (2.5-4.0) Albumin/Globulin Ratio 0.6 (0.9-2) Influenza Type A Antigen Neg for Influ A (NEG) Influenza Type B Antigen Neg for Influ B (NEG) Lactic Acid Level 2.2 mmol/L (0.4-2.0) Influenza Type A (RT-PCR) Neg for Influ A (NEG) Influenza Type B (RT-PCR) Neg for Influ B (NEG) Test 08/18/17 06:17 08/18/17 08:32 08/18/17 11:02 Sodium Level 134 mmol/L (136-145) Potassium Level 3.9 mmol/L (3.5-5.1) Chloride Level 102 mmol/L (98-107) Carbon Dioxide Level 24 mmol/L (21-32) Anion Gap 8.0 mmol/L (3-11) Blood Urea Nitrogen 23 mg/dl (7-18) Creatinine 0.91 mg/dl (0.60-1.40) Est Creatinine Clear Calc Drug Dose 77.3 ml/min Estimated GFR () 89.4 Estimated GFR (Non- 77.1 BUN/Creatinine Ratio 25.2 (10-20) Random Glucose 177 mg/dl (70-99) Lactic Acid Level 1.7 mmol/L (0.4-2.0) Calcium Level 7.8 mg/dl (8.5-10.1) Troponin I 0.039 ng/ml (0-0.045) 0.034 ng/ml (0-0.045) White Blood Count 11.22 K/uL (4.8-10.8) Red Blood Count 2.79 M/uL (4.7-6.1) Hemoglobin 8.4 g/dL (14.0-18.0) 8.6 g/dL (14.0-18.0) Hematocrit 23.8 % (42-52) 24.6 % (42-52) Mean Corpuscular Volume 85.3 fL (80-100) Mean Corpuscular Hemoglobin 30.1 pg (25-34) Mean Corpuscular Hemoglobin Concent 35.3 g/dl (32-36) Platelet Count 189 K/uL (130-400) Mean Platelet Volume 9.2 fL (7.4-10.4) Neutrophils (%) (Auto) 84.2 % Lymphocytes (%) (Auto) 12.4 % Monocytes (%) (Auto) 2.8 % Eosinophils (%) (Auto) 0.0 % Basophils (%) (Auto) 0.0 % Neutrophils # (Auto) 9.45 K/uL (1.4-6.5) Lymphocytes # (Auto) 1.39 K/uL (1.2-3.4) Monocytes # (Auto) 0.31 K/uL (0.11-0.59) Eosinophils # (Auto) 0.00 K/uL (0-0.5) Basophils # (Auto) 0.00 K/uL (0-0.2) RDW Standard Deviation 49.6 fL (36.4-46.3) RDW Coefficient of Variation 16.1 % (11.5-14.5) Immature Granulocyte % (Auto) 0.6 % Immature Granulocyte # (Auto) 0.07 K/uL (0.00-0.02) Toxic Granulation 1+ Dohle Bodies 1+ Spherocytes 1+ Assessment & Plan Assessment * 82 yo M admitted with sepsis 2nd pulmonary source (?CAP) on 08/17, started on levofloxacin. Now with 2/2 blood cultures with GPC - vancomycin added. Hx CLL diagnosed 3 months ago - no chemotherapy. * SCr acutely elevated yesterday, now back to baseline. Vancomycin * Goal vancomycin trough 15-20 mcg/mL * Will be aggressive with dosing (dose on t1/2) 2nd immunocompromised state and confirmed 2/2 GPC bacteremia. * 25 mg/kg IV loading dose * 14 mg/kg IV q10h maintenance dose * Will obtain early level (prior to 3rd overall dose) to ensure dosing is not too aggressive - note that this will not be a steady state level Plan * Vancomycin 2750 mg IV x1 then 1500 mg IV q10h * Trough 08/19 @ 0930 Pharmacy will continue to follow and will adjust dose/frequency as necessary. Thank you
--- NOTE | 2017-08-18 15:10 | Progress Note ---
Progress Note Date of Service Aug 18, 2017. 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 He has been treated with MTX once weekly and prednisone for immunosuppression for the hope of improvement in hgb levels recommendations include continuing steroids with taper up to his home dose of 40 mg once appropriate To continue his once weekly PO dose of MTX of 20 mg To initiate as Procrit as already decided at 40,000 IU Sq once tomorrow The patient is completely unaware of which day he takes his MTX so will attempt to contact next of kin for this information. The patient was also was found to have two positive for gram positive cocci. Most likely source is lesions that were noted by Dr Lyle on bilat LE shins. Addition of Vanco and cultures pending. Wound care consult had already melanie placed previously Patient also received a lot of IVF for septic protocol and exp wheezes and LS were decreased throughout. CXR more reflective of cephalization, will give his prn Metolazone dose with lasix 40 mg home dose and reassess his respiratory status in the am. Without any consolidation it seems unlikely that the patient is suffering from a pulmonary source of bacteremia especially with gram positive cocci however the current abx will cover well for lung infection from strep and MRSA as well as atypical source
[2017-08-18] MEDS ORDERED: METOLAZONE 5 MG TAB PO ONE (15:15)
[2017-08-18] MEDS ORDERED: METH10TA32 PO (15:21)
[2017-08-18] MEDS ORDERED: FUROSEMIDE 40 MG TAB PO ONE (15:30)
--- NOTE | 2017-08-18 15:41 | ECHOCARDIOGRAM REPORT ---
*NOTICE TO RECEIVING LIBERTARIAN AGENCY This information is strictly Confidential and protected under [place] law. [place] law prohibits you from making any further disclosure of this information unless further disclosure is expressly permitted by the written consent of the person to whom it pertains or is authorized by law. A general authorization for the release of medical or other information is not sufficient for this purpose. Hospital accepts no responsibility if the information is made available to any other person, INCLUDING THE PATIENT. Interpretation Summary * Name: QUINCY PAUL Study Date: 08/18/2017 06:22 AM BP: 97/46 mmHg * Patient Location: C.2E\S\E205\S\1 HR: 70 * : 1935 (M/d/yyyy) Gender: Male Height: 72 in * Age: 82 yrs Ethnicity: [place] Weight: 247 lb * Ordering Physician: Yumiko Dominguez. * Referring Physician: Self, Referred * Performed By: Sherie Salinas RCS * * Reason For Study: ELEVATED TROPONIN * BSA: 2.3 m2 * -- Conclusions -- * Left ventricular systolic function is normal. * No regional wall motion abnormalities noted. * Ejection Fraction = 55-60%. * There is borderline concentric left ventricular hypertrophy. * Grade I diastolic dysfunction, (abnormal relaxation pattern). * There is mild mitral regurgitation. * There is mild tricuspid regurgitation. Procedure Details * A complete two-dimensional transthoracic echocardiogram was performed (2D, M-mode, Doppler and color flow Doppler). * The study was technically difficult. * There were technical limitations due to patient'spoor positioning * A contrast injection of Definity was performed to improve assessment of LV function. * Contrast was injected into an intravenous site in the right arm. * One vial of Definity ultrasound contrast was diluted in normal saline to a total volume of 10 ml. A total of '2' ml of solution was administered during imaging. * Lot # [id number] of Definity utilized for procedure. * Expiration date 1 AUG 31. * The attending nurse who injected the contrast agent was BERHANE HEART RN. Left Ventricle * The left ventricle is normal in size. * There is borderline concentric left ventricular hypertrophy. * Left ventricular systolic function is normal. * Ejection Fraction = 55-60%. * No regional wall motion abnormalities noted. Right Ventricle * The right ventricle is not well visualized. Atria * The left atrial size is normal. * Right atrium not well visualized. * No ASD detected; PFO is not assessed. Mitral Valve * The mitral valve is grossly normal. * There is no mitral valve stenosis. * There is mild mitral regurgitation. Tricuspid Valve * The tricuspid valve is not well visualized, but is grossly normal. * There is mild tricuspid regurgitation. Aortic Valve * The aortic valve is trileaflet. * The aortic valve opens well. * Aortic valve sclerosis mild, without significant aortic valvular stenosis. * Trace aortic regurgitation. Pulmonic Valve * The pulmonary valve is not well seen, but the Doppler examination is normal without significant regurgitation or stenosis. Great Vessels * The aortic root is normal size. * The pulmonary is not well visualized. Pericardium/Pleural * There is no pericardial effusion. Great Vessels * Normal inferior vena cava size and collapsability with sniff indicates a normal right atrial pressure of 3 mmHg Left Ventricular Diastolic Function * Grade I diastolic dysfunction, (abnormal relaxation pattern). MMode 2D Measurements and Calculations IVSd 1.7 cm IVSs 1.7 cm LVIDd 5.0 cm LVIDs 3.2 cm LVPWd 1.2 cm LVPWs 1.6 cm IVS/LVPW 1.4 FS 36.2 % EDV(Teich) 118.2 ml ESV(Teich) 40.6 ml EF(Teich) 65.6 % EDV(cubed) 124.9 ml ESV(cubed) 32.4 ml EF(cubed) 74.0 % % IVS thick 2.4 % % LVPW thick 32.5 % LV mass(C)d 308.7 grams LV mass(C)dI 132.5 grams/m\S\2 LV mass(C)s 206.0 grams LV mass(C)sI 88.4 grams/m\S\2 SV(Teich) 77.6 ml SI(Teich) 33.3 ml/m\S\2 SV(cubed) 92.5 ml SI(cubed) 39.7 ml/m\S\2 Ao root diam 3.8 cm Ao root area 11.5 cm\S\2 ACS 2.1 cm LA dimension 2.6 cm LA/Ao 0.67 LVOT diam 2.0 cm LVOT area 3.1 cm\S\2 LVAd ap4 40.0 cm\S\2 LVLd ap4 8.8 cm EDV(MOD-sp4) 147.2 ml EDV(sp4-el) 154.0 ml LVAs ap4 27.8 cm\S\2 LVLs ap4 7.6 cm ESV(MOD-sp4) 83.8 ml ESV(sp4-el) 86.0 ml EF(MOD-sp4) 43.1 % EF(sp4-el) 44.1 % LVAd ap2 33.4 cm\S\2 LVLd ap2 7.8 cm EDV(MOD-sp2) 115.8 ml EDV(sp2-el) 121.2 ml LVAs ap2 19.1 cm\S\2 LVLs ap2 6.7 cm ESV(MOD-sp2) 45.0 ml ESV(sp2-el) 46.3 ml EF(MOD-sp2) 61.1 % EF(sp2-el) 61.8 % LVLd %diff -12.63 % EDV(MOD-bp) 138.8 ml LVLs %diff -13.99 % ESV(MOD-bp) 64.0 ml EF(MOD-bp) 53.9 % SV(MOD-sp4) 63.4 ml SI(MOD-sp4) 27.2 ml/m\S\2 SV(MOD-sp2) 70.8 ml SI(MOD-sp2) 30.4 ml/m\S\2 SV(MOD-bp) 74.8 ml SI(MOD-bp) 32.1 ml/m\S\2 SV(sp4-el) 67.9 ml SI(sp4-el) 29.2 ml/m\S\2 SV(sp2-el) 74.9 ml SI(sp2-el) 32.2 ml/m\S\2 Doppler Measurements and Calculations MV E max gualberto 88.4 cm/sec MV A max gualberto 110.4 cm/sec MV E/A 0.80 MV P1/2t max gualberto 97.5 cm/sec MV P1/2t 98.5 msec MVA(P1/2t) 2.2 cm\S\2 MV dec slope 289.9 cm/sec\S\2 MV dec time 0.25 sec Ao V2 max 155.4 cm/sec Ao max PG 9.7 mmHg Ao max PG (full) 4.8 mmHg FELIPE(V,A) 2.2 cm\S\2 FELIPE(V,D) 2.2 cm\S\2 AI max gualberto 274.3 cm/sec AI max PG 30.1 mmHg AI dec slope 107.3 cm/sec\S\2 AI P1/2t 748.7 msec LV V1 max PG 4.8 mmHg LV V1 max 110.0 cm/sec TR max gualberto 270.9 cm/sec
[2017-08-18] MEDS: BENZONATATE 100MG CAP PO SCH ×2 (16:20→21:14)
[2017-08-18 19:08] LABS: HEMATOCRIT 22.5 % (42-52); HEMOGLOBIN 7.9 g/dL (14.0-18.0)
[2017-08-18] MEDS ORDERED: VANCOMYCIN INJ 1,000 MG in SODIUM CHLORIDE 0.9% 250ML 250 ML IV SCH (21:00)
--- NOTE | 2017-08-18 21:03 | CARDIOLOGY CONSULTATION ---
DATE OF CONSULTATION: 08/18/2017 REFERRING PHYSICIAN: Yumiko Dominguez M.D. ATTENDING PHYSICIAN: Vidhi Winn M.D. CONSULTATION: Stepan Benjamin MD HISTORY OF PRESENT ILLNESS: The patient is an 82-year-old white male. No prior history of any heart disease. No history of cerebrovascular or peripheral vascular disease. No history of hypertension or diabetes mellitus. He does have a history of dyslipidemia. Remote history of cigarette smoking. No family history of premature coronary artery disease. The patient's history is significant for chronic lymphocytic leukemia. This does cause him to have severe anemia. This has required blood transfusions over the past 3 months. His hemoglobin has been as low as 5.7 on 05/26/2017. His CLL is being [facility] It is being treated with steroidal injections. The patient states that when his hemoglobin is low, he has weakness and increased dyspnea. He has had these symptoms over the past few days. They were progressively worsening. He was short of breath just walking a few feet. Over the past few days, he has also developed a cough. He has a sensation of congestion. Yesterday, he had a sore throat. He also reports that he felt that he had a fever. The cough has been productive of relatively clear sputum. He describes the sputum as a scant amount. No hemoptysis. He has chronic peripheral edema in his legs, ankles, and feet. This is worse at the end of the day. The edema has been present for at least 3-4 years. He states that he has been stable in that timeframe. He denies edema elsewhere in his body. Prior cardiac testing included a transesophageal echocardiogram, approximately 5 years ago. Performed at [facility]. This was following what was felt to be an embolic event to his left eye. No cardiac embolic source was identified. He was not placed on anticoagulation therapy. He denies any history of arrhythmia. Despite his severe weakness and dyspnea yesterday, he had no complaints of any chest pain. No other anginal type pains. Because of his symptoms, he came to the Emergency Department for evaluation. On arrival to the Emergency Department, his blood pressure was 101/65. His pulse rate was 118 beats per minute. His pulse oximetry on 2 liters permanent nasal cannula oxygen was 98%. An electrocardiogram was performed in the Emergency Department and revealed sinus tachycardia at a rate of 112 beats per minute. Premature ventricular beats and premature supraventricular beats. No ischemic ST or T-wave abnormalities. A troponin I was obtained and was mildly elevated at 0.069. Repeat troponin I since then have been 0.039 and 0.034. His hemoglobin on arrival to the Emergency Department was 7.6. Since then, he has been transfused 2 units of packed red blood cells. He was admitted to the telemetry unit. Since admission, he continues to deny any chest pain or other anginal type pains. He feels that his dyspnea and weakness have improved. He still has dyspnea with minimal exertion. He also continues to complain of coughing and congestion in his chest. He no longer has a sore throat. He denies any headache. No earache. He denies any myalgias. No pain in his legs. His peripheral edema in his legs is stable compared to edema over the past few years. He denies any acute cerebrovascular complaints. 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 This involves the lower eye field. PAST MEDICAL HISTORY: 1. Chronic lymphocytic leukemia. 2. Dyslipidemia. 3. Anemia requiring blood transfusions. 4. Status post right hip replacement. ALLERGIES AND ADVERSE DRUG REACTIONS: None. SOCIAL HISTORY: The patient is . Lives with his . Remote history of cigarette smoking. He has not smoked cigarettes for 30-40 years. He states that at most, he smoked 1 pack a week. FAMILY HISTORY: No history of coronary artery disease. ADDITIONAL REVIEW OF SYSTEMS: He denies any palpitations. No syncope. He does have occasional lightheadedness. CURRENT MEDICATIONS: Levofloxacin 500 mg IV daily, vancomycin 1500 mg IV q. 10 hours, simvastatin 20 mg at bedtime, Tessalon Perles 100 mg t.i.d., DuoNeb 3 mL q.i.d., aspirin 81 mg daily, potassium 8 mEq daily, pantoprazole 40 mg daily, guaifenesin 200 mg q. 4 hours, hydrocortisone 100 mg IV q. 8 hours, and several p.r.n. medications. PHYSICAL EXAMINATION: GENERAL: The patient was sitting up in his bed. He appears slightly dyspneic. Frequent episodes of coughing. VITAL SIGNS: This morning with oral temperature 36.7, pulse 81, blood pressure 112/65, pulse oximetry 100% on 2 liters per nasal cannula oxygen. Monitor history reviewed by me. Sinus rhythm with premature supraventricular beats. HEAD: Normal. EYES: Pupils equal and round. Anicteric. Conjunctivae normal. NECK: No obvious jugular venous distention. Assessment of jugular venous pressure difficult secondary to neck size. Carotids 2/2 bilaterally. Normal upstroke. No bruits. LUNGS: Increased respiratory rate. Mild increased respiratory effort. Scattered rhonchi. Wheezes in lower lung donato. No rales. HEART: PMI normal. No lifts or heaves. Regular rate and rhythm. S1, S2 normal. No murmur, gallop or rub. ABDOMEN: Soft. Nontender. No palpable masses or organomegaly. No bruits. EXTREMITIES: No cyanosis or clubbing. 3+ pitting pretibial, ankle, and pedal edema bilaterally. NEUROLOGIC: Alert and oriented x3. Motor grossly intact. PSYCHIATRIC: Affect is normal. DATA: Electrocardiograms as reported above. Sinus rhythm and sinus tachycardia. Premature supraventricular and premature ventricular beats on the August 17 electrocardiogram. PACs on today's electrocardiogram. No ischemic ST or T-wave abnormalities on either electrocardiogram. Chest x-ray on admission revealed increased heart size. Increased interstitial markings at the bases. Chest x-ray reviewed by me. No evidence of congestive heart failure. CBC on admission with WBC 12.02, hemoglobin 7.6, hematocrit 22.4, platelet count 282. INR yesterday 1.2, PTT 29.6. Metabolic profile today was sodium 134, potassium 3.9, chloride 102, carbon dioxide 24, BUN 23, creatinine 0.91, random glucose 177. Troponin I's on this admission 0.069, 0.039, and 0.034. CK-MB yesterday less than 0.5. Albumin yesterday 2.8. Total protein was 7.6. AST 13. ALT 27. His CK total yesterday was 40. ASSESSMENT: 1. Minimally increased initial troponin I. Repeat troponin I is normal. The minimally increased troponin I consistent with demand ischemia. He had a very low hemoglobin on arrival to the Emergency Department. This was in the presence of an elevated heart rate. He has had no anginal type pains. Electrocardiogram without any ischemic ST or T-wave abnormalities. No history of coronary artery disease. 2. Pulmonary infection. This is associated with bronchospasm. Evidence of bronchospasm on exam this morning. Serology for influenza has been negative. 3. No symptoms of pulmonary vascular congestion in regards to heart failure. He normally has no orthopnea or PND. No evidence of any significant valvular disease on exam. 4. Chronic peripheral edema. Likely significant primary venous insufficiency in both legs. The edema could be exacerbated by his low serum albumin. Cannot exclude elevated right heart pressures. The patient does have a habitus for sleep apnea. Cannot exclude that he has pulmonary hypertension at this time. Echocardiogram is still pending. RECOMMENDATIONS: 1. No further cardiac workup. 2. Management of underlying infection and anemia. 3. Await echocardiogram results. This is mostly to evaluate right heart function and right heart pressures. The minimal troponin I elevation would not be high enough to cause any new left ventricular wall motion abnormalities. Certainly cannot exclude previously existing LV wall motion abnormalities. However, no history of myocardial infarction. No evidence of prior myocardial infarction on his electrocardiogram. At this time, cardiology will sign off this patient's case. If any further cardiology assistance is necessary, please contact the covering physician for [facility]. Thank you for asking us to see this patient in cardiology consultation.
[2017-08-18] MEDS: SIMVASTATIN 20 MG TAB PO SCH (21:14)
[2017-08-18] MEDS: LEVOFLOXACIN / D5W 500 MG in PREMIXED IN D5W 100 ML IV SCH (23:43)
[2017-08-19] VITALS (10 sets, daily range): BP systolic 94–125; BP diastolic 46–59; PULSE 59–95; TEMP 36.4–36.8; O2SAT 91–97
[2017-08-19 00:57] LABS: HEMATOCRIT 23.1 % (42-52)
[2017-08-19] MEDS: VANCOMYCIN INJ 1,500 MG in SODIUM CHLORIDE 0.9% 500ML 500 ML IV SCH ×3 (01:06→19:09)
[2017-08-19] MEDS: GUAIFENESIN 200 MG TAB PO SCH ×5 (03:52→18:22)
[2017-08-19] MEDS: HYDROCORTISONE IV 100 MG in SYRINGE 0 ML IV SCH ×2 (03:52→11:22)
[2017-08-19 06:55] LABS: HEMOGLOBIN 7.6 g/dL (14.0-18.0); MEAN CELL VOLUME 84.3 fL (80-100); MEAN CORPUSCULAR HEMOGLOBIN 29.1 pg (25-34); MEAN CORPUSCULAR HGB CONC 34.5 g/dl (32-36); MEAN PLATELET VOLUME 9.1 fL (7.4-10.4); PLATELET COUNT 182 K/uL (130-400); RED CELL DISTRIBUTION WIDTH CV 16.2 % (11.5-14.5); WHITE BLOOD COUNT 5.55 K/uL (4.8-10.8)
[2017-08-19 07:16] LABS: INR 1.1 (0.9-1.1); PTT PATIENT 29.9 SECONDS (21.0-31.0)
[2017-08-19] MEDS: ALBUT/IPRATROP 3MG/0.5MG NEB 3 ML VIAL INH SCH ×4 (07:20→19:07)
[2017-08-19 07:34] LABS: ALBUMIN 2.2 gm/dl (3.4-5.0); CALCIUM 8.3 mg/dl (8.5-10.1); CREATININE 0.81 mg/dl (0.60-1.40); POTASSIUM 2.4 mmol/L (3.5-5.1); TOTAL PROTEIN 6.3 gm/dl (6.4-8.2)
[2017-08-19] MEDS: BENZONATATE 100MG CAP PO SCH ×3 (07:51→18:22)
[2017-08-19] MEDS: ASPIRIN 81 MG ECTAB PO SCH (07:52)
[2017-08-19] MEDS: PANTOprazole SOD 40 MG TAB PO SCH (07:52)
[2017-08-19] MEDS ORDERED: NURSING VERBAL MED ORDER ONE (08:00)
[2017-08-19] MEDS ORDERED: POTASSIUM CHLORIDE PWD 20 MEQ PACK PO ONE ×2 (08:15→17:30)
--- NOTE | 2017-08-19 08:29 | Family Medicine Progress Note ---
Progress Note Date of Service Aug 19, 2017. Subjective Pt evaluation today including: conversation w/ patient, physical exam, chart review, lab review, conversation w/ consultant teacher, review of inpatient medication list Pain: none PO Intake: good Voiding: no voiding problems Patient notes that he is feeling much better today, shortness of breath has improved. Cough also improved. Denies any fevers or chills overnight Having difficulty swallowing meds and food as he feels that food sticks in throat Constitutional: No fever, No chills ENT: + sore throat, No hearing loss, No nasal symptoms Respiratory: + cough, No sputum, No shortness of breath, No hemoptysis Cardiovascular: + edema, No chest pain, No palpitations Abdomen: No pain, No nausea, No vomiting, No diarrhea, No constipation, No GI bleeding Male : No dysuria, No urinary frequency, No hematuria Skin: No rash, No itch Medications Current Inpatient Medications Medications (Trade) Dose Ordered Sig/Rosendo Route Start Time Stop Time Status Last Admin Dose Admin Acetaminophen (Tylenol Tab) 650 mg Q4H PRN PO 08/18/17 01:15 09/17/17 01:14 Al Hydrox/Mg Hydrox/Simethicone (Maalox Max Susp) 15 ml Q4H PRN PO 08/18/17 01:15 09/17/17 01:14 Magnesium Hydroxide (Milk Of Magnesia Susp) 30 ml Q12H PRN PO 08/18/17 01:15 09/17/17 01:14 Ondansetron HCl (Zofran Inj) 4 mg Q6H PRN IV 08/18/17 01:15 09/17/17 01:14 Nitroglycerin (Nitrostat Tab) 0.4 mg UD PRN SL 08/18/17 01:15 09/17/17 01:14 Polyethylene (Miralax Powder Packet) 17 gm DAILY PRN PO 08/18/17 01:15 09/17/17 01:14 Levofloxacin 500 mg/Prmx 100 ml @ 100 mls/hr Q24H IV 08/19/17 00:00 08/24/17 00:59 08/18/17 23:43 100 MLS/HR Hydrocortisone Sodium Succinate 100 mg/Syringe 2 ml @ 4 mls/min Q8H IV 08/18/17 03:00 08/21/17 02:59 08/19/17 03:52 4 MLS/MIN Guaifenesin (Organidin Nr Tab) 200 mg Q4H PO 08/18/17 04:00 09/17/17 03:59 08/19/17 07:51 200 MG Aspirin (Ecotrin Tab) 81 mg DAILY PO 08/18/17 09:00 09/17/17 08:59 08/19/17 07:52 81 MG Potassium Chloride (Klor-Con Tab) 80 meq DAILY PO 08/18/17 09:00 09/17/17 08:59 08/18/17 09:57 80 MEQ Simvastatin (Zocor Tab) 20 mg HS PO 08/18/17 21:00 09/17/17 20:59 08/18/17 21:14 20 MG Pantoprazole Sodium (Protonix Tab) 40 mg QAM PO 08/18/17 09:00 09/17/17 08:59 08/19/17 07:52 40 MG Benzonatate (Tessalon Perles Cap) 100 mg TID PO 08/18/17 14:00 09/17/17 13:59 08/19/17 07:51 100 MG Albuterol/ Ipratropium (Duoneb) 3 ml QIDR INH 08/18/17 12:00 09/17/17 11:59 08/19/17 07:20 3 ML Miscellaneous Information (Consult) 1 ea UD PRN N/A 08/18/17 13:15 09/17/17 13:14 Vancomycin HCl 1500 mg/Sodium Chloride 530 ml @ 200 mls/hr Q10H IV 08/19/17 00:00 09/02/17 00:00 08/19/17 01:06 200 MLS/HR Epoetin Andrea (Procrit Inj) 40,000 units TODAY@1500 SQ 08/19/17 15:00 08/19/17 18:00 Furosemide (Lasix Tab) 40 mg DAILY PO 08/19/17 09:00 09/18/17 08:59 08/19/17 07:52 40 MG Miscellaneous Information (Nursing Verbal Med Order) 1 ea ONE ONCE N/A 08/19/17 08:00 08/19/17 08:01 UNV Potassium Chloride (Klor-Con Pwd) 80 meq ONE ONCE PO 08/19/17 08:15 08/19/17 08:16 Objective Vital Signs Date Time Temp Pulse Resp B/P (MAP) Pulse Ox O2 Delivery O2 Flow Rate FiO2 08/19/17 07:59 36.5 82 20 125/59 (81) 94 Room Air 08/19/17 07:20 89 18 93 Room Air 08/19/17 04:00 Room Air 08/19/17 03:50 36.7 89 20 96/53 (67) 92 Room Air 08/19/17 00:01 Room Air 08/18/17 23:40 37.0 85 19 106/54 (71) 92 Room Air 08/18/17 20:00 95 Room Air 08/18/17 18:55 36.4 78 24 128/56 (80) 95 Room Air 08/18/17 16:00 95 Room Air 08/18/17 15:54 81 16 95 Room Air 08/18/17 15:22 36.5 82 22 117/53 (74) 96 Room Air 08/18/17 12:32 36.7 83 23 124/55 (78) 97 Room Air 08/18/17 12:00 Nasal Cannula 2.0 08/18/17 11:24 85 16 97 Room Air 08/18/17 10:01 78 20 94 Room Air Physical Exam General Appearance: WD/WN, no apparent distress ENT: hearing grossly normal, pharynx normal Neck: supple, no carotid bruits, trachea midline Respiratory/Chest: lungs clear, no respiratory distress, no accessory muscle use Cardiovascular: no JVD, no murmur, + irregularly irregular Abdomen: normal bowel sounds, non tender, soft Extremities: non-tender, no calf tenderness, + pedal edema (+2 to just below knee), + pertinent finding (blister like lesions on anterior valencia) Neurologic/Psychiatric: alert, normal mood/affect, oriented x 3 Laboratory Results Results Past 24 Hours Test 08/18/17 08:32 08/18/17 11:02 08/18/17 18:35 08/19/17 00:14 Range/Units White Blood Count 11.22 4.8-10.8 K/uL Red Blood Count 2.79 4.7-6.1 M/uL Hemoglobin 8.4 8.6 7.9 8.0 14.0-18.0 g/dL Hematocrit 23.8 24.6 22.5 23.1 42-52 % Mean Corpuscular Volume 85.3 80-100 fL Mean Corpuscular Hemoglobin 30.1 25-34 pg Mean Corpuscular Hemoglobin Concent 35.3 32-36 g/dl Platelet Count 189 130-400 K/uL Mean Platelet Volume 9.2 7.4-10.4 fL Neutrophils (%) (Auto) 84.2 % Lymphocytes (%) (Auto) 12.4 % Monocytes (%) (Auto) 2.8 % Eosinophils (%) (Auto) 0.0 % Basophils (%) (Auto) 0.0 % Neutrophils # (Auto) 9.45 1.4-6.5 K/uL Lymphocytes # (Auto) 1.39 1.2-3.4 K/uL Monocytes # (Auto) 0.31 0.11-0.59 K/uL Eosinophils # (Auto) 0.00 0-0.5 K/uL Basophils # (Auto) 0.00 0-0.2 K/uL RDW Standard Deviation 49.6 36.4-46.3 fL RDW Coefficient of Variation 16.1 11.5-14.5 % Immature Granulocyte % (Auto) 0.6 % Immature Granulocyte # (Auto) 0.07 0.00-0.02 K/uL Toxic Granulation 1+ Dohle Bodies 1+ Spherocytes 1+ Troponin I 0.034 0.027 0-0.045 ng/ml Test 08/19/17 06:39 08/19/17 08:04 Range/Units White Blood Count 5.55 4.8-10.8 K/uL Red Blood Count 2.61 4.7-6.1 M/uL Hemoglobin 7.6 14.0-18.0 g/dL Hematocrit 22.0 42-52 % Mean Corpuscular Volume 84.3 80-100 fL Mean Corpuscular Hemoglobin 29.1 25-34 pg Mean Corpuscular Hemoglobin Concent 34.5 32-36 g/dl RDW Standard Deviation 49.0 36.4-46.3 fL RDW Coefficient of Variation 16.2 11.5-14.5 % Platelet Count 182 130-400 K/uL Mean Platelet Volume 9.1 7.4-10.4 fL Prothrombin Time 11.4 9.0-12.0 SECONDS Prothromb Time International Ratio 1.1 0.9-1.1 Activated Partial Thromboplast Time 29.9 21.0-31.0 SECONDS Partial Thromboplastin Ratio 1.2 Sodium Level 136 136-145 mmol/L Potassium Level 2.4 3.5-5.1 mmol/L Chloride Level 101 98-107 mmol/L Carbon Dioxide Level 26 21-32 mmol/L Anion Gap 9.0 3-11 mmol/L Blood Urea Nitrogen 22 7-18 mg/dl Creatinine 0.81 0.60-1.40 mg/dl Est Creatinine Clear Calc Drug Dose 86.4 ml/min Estimated GFR () 94.6 Estimated GFR (Non- 81.6 BUN/Creatinine Ratio 26.9 10-20 Random Glucose 150 70-99 mg/dl Lactic Acid Level 1.0 0.4-2.0 mmol/L Calcium Level 8.3 8.5-10.1 mg/dl Total Bilirubin 0.7 0.2-1 mg/dl Aspartate Amino Transf (AST/SGOT) 15 15-37 U/L Alanine Aminotransferase (ALT/SGPT) 29 12-78 U/L Alkaline Phosphatase 53 45-117 U/L Total Protein 6.3 6.4-8.2 gm/dl Albumin 2.2 3.4-5.0 gm/dl Globulin 4.1 2.5-4.0 gm/dl Albumin/Globulin Ratio 0.5 0.9-2 Procalcitonin 1.17 0-0.5 ng/ml Vancomycin Level Trough 13.6 SEE COMMENT mcg/ml Assessment and Plan 82 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 Patient went into atrial fibrillation this morning. Was given 5mg of metoprolol and 12.5mg of metoprolol orally. He reconverted to sinus rhythm. Discussed this with Dr. Nguyen and Dr. Patterson. Due to patients low hgb, it was suggested by Cardiology to hold off on anticoagulation today and to discuss case with Dr. Benjamin tomorrow. GBS Bacteremia ? secondary to lower valencia ulcers versus respiratory source in the setting of immunosuppression - Positive sputum culture with GBS - Continue Levaquin and vanco until final culture sensitivity back. - Duken ingramaifenesin ordered - Trend CBC 12 --->5.5 - Lactic acid improved from 2.2 to 1.7 to 1.0 - No longer needing oxygen via nasal cannula - gisellesalon pearles for cough Atrial fibrillation - Paroxysmal Afib this morning - 5mg of IV metoprolol given and 12.5 mg of metoprolol po - Reconverted back to sinus rhythm - [id number] of 2 - Discuss anticoagulation tomorrow w/ Zoda Hypokalemia - 2.4 this morning - ordered repeat lab and stat EKG - supplement with 80 meq PO Elevated troponin 0.069 on admission - Repeat trop .039 and .027 likely demand ischaemia from infection - ECHO showed grade 1 DD - Cardio consulted - continue aspirin and statin 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 ? Pyoderma Gangrenosum? source of bacteremia? VTE ppx - SCDs - Heparin FULL Code Dispo: PT/OT Continued [facility] stay due to: multiple IV medications needed Discharge planning: uncertain Reviewed: Pt Seen/Exam by Me History breathing much improved. no fever Constitutional: denies: fever Respiratory: negative: short of breath Cardiovascular: denies chest pain General Appearance: no apparent distress (sitting at the edge of bed) Respiratory: no respiratory distress, crackles (base) Cardiovascular: irregularly irregular Extremities: other (bilateral valencia - with raised plaqued patches) Neurologic/Psychiatric: alert, oriented x 3 Assessment/Plan Resident Physician Supervision Note: I independently interviewed and examined the patient and verified the more history and physical, reviewed labs and image studies, discussed the case with the resident Dr. Lyle and agree with the findings and care plan.
[2017-08-19] MEDS ORDERED: FUROSEMIDE 40 MG TAB PO SCH (09:00)
[2017-08-19] MEDS ORDERED: METOPROLOL TARTRATE 1 MG/ML VIAL IV STA (09:03)
[2017-08-19] MEDS ORDERED: VANCOMYCIN TROUGH ONE (09:30)
--- NOTE | 2017-08-19 09:51 | Pharmacy Progress Note ---
Pharmacy Abx Dose Short Note Date of Service Aug 19, 2017. Assessment & Plan Assessment 82 year old male receiving vancomycin for treatment of Gm pos bacteremia due to CAP vs lower valencia ulcers. Also on Levaquin. Day # 2 of antimicrobial therapy. WBC is down and patient feels better. Trough level drawn several hours earlier than ordered so difficult to interpret. Plan Vancomycin * Trough level of 13.6 mcg/mL is not supratherapeutic or steady-state, so it should be safe, and renal function is improving. * Will continue dose of vancomycin 1500 mg IV every 10 hours, and recheck trough level tomorrow at steady state. * Goal trough level for bacteremia/pneumonia : 15 to 20 mcg/mL * Trough ordered for: 08/20/17 before 0600 dose. Pharmacy will continue to follow and will adjust dose/frequency as necessary. Thank you.
--- NOTE | 2017-08-19 09:55 | Clinical Documentation Query ---
PATRICIA Gagnon : CLINICAL DOCUMENTATION QUERY Admission BUN, creatinine, and estimated GFR were 26 mg/dl, 1.62 mg/dl, and 38 ml/min. No documented history of CKD. He was treated with IVF and repeat testing 08/18 demonstrated improvement to 23 mg/dl, 0.91 mg/dl, and 77 ml/min. Please clarify as clinically appropriate. In your clinical opinion is this patient being managed for: ( x ) Acute kidney failure, POA, resolved ( ) Not Agree ( ) Other explanation of clinical findings (Please Explain) ( ) Unable to determine (Please Define) ( ) Need to Discuss The medical record reflects the following clinical findings, treatment, and risk factors. Clinical Indicators: As above Treatment: IVF, serial chemistries Risk Factors: Sepsis, poor intake Please clarify and document your clinical opinion in the progress notes and discharge summary. Terms such as "probable", "suspected", "likely", "questionable", "possible", or "still to be ruled out" are acceptable. IF IN AGREEMENT, YOU MUST DOCUMENT ABOVE DIAGNOSTIC STATEMENT IN DAILY PROGRESS NOTES AND DISCHARGE SUMMARY. This document is not part of the patient's record. Thank You, Salty Mendez, RN [phone]
--- NOTE | 2017-08-19 09:56 | Clinical Documentation Query ---
Dr. SUÁREZ [facility] : CLINICAL DOCUMENTATION QUERY Admission BUN, creatinine, and estimated GFR were 26 mg/dl, 1.62 mg/dl, and 38 ml/min. No documented history of CKD. He was treated with IVF and repeat testing 08/18 demonstrated improvement to 23 mg/dl, 0.91 mg/dl, and 77 ml/min. Please clarify as clinically appropriate. In your clinical opinion is this patient being managed for: ( x) Acute kidney failure, POA, resolved ( ) Not Agree ( ) Other explanation of clinical findings (Please Explain) ( ) Unable to determine (Please Define) ( ) Need to Discuss The medical record reflects the following clinical findings, treatment, and risk factors. Clinical Indicators: As above Treatment: IVF, serial chemistries Risk Factors: Sepsis, poor intake Please clarify and document your clinical opinion in the progress notes and discharge summary. Terms such as "probable", "suspected", "likely", "questionable", "possible", or "still to be ruled out" are acceptable. IF IN AGREEMENT, YOU MUST DOCUMENT ABOVE DIAGNOSTIC STATEMENT IN DAILY PROGRESS NOTES AND DISCHARGE SUMMARY. This document is not part of the patient's record. Thank You, Salty Mendez, RN [phone]
[2017-08-19] MEDS: POTASSIUM CHLR 10 MEQ / WTR 10 MEQ in PREMIXED WATER 100 ML IV SCH ×4 (10:14→13:28)
[2017-08-19 12:17] LABS: CALCIUM 8.6 mg/dl (8.5-10.1); CREATININE 0.93 mg/dl (0.60-1.40); POTASSIUM 2.9 mmol/L (3.5-5.1)
[2017-08-19] MEDS ORDERED: METOPROLOL TARTRATE 25 MG TAB PO ONE (12:45)
[2017-08-19] MEDS ORDERED: EPOETIN ALFA 40,000 UNITS/ML VIAL SQ SCH (15:00)
[2017-08-19 17:17] LABS: CALCIUM 8.4 mg/dl (8.5-10.1); CREATININE 0.85 mg/dl (0.60-1.40)
[2017-08-19 17:19] LABS: POTASSIUM 2.5 mmol/L (3.5-5.1)
[2017-08-19] MEDS: SIMVASTATIN 20 MG TAB PO SCH (18:22)
[2017-08-19] MEDS: HEPARIN SOD 5000 UNIT/0.5 ML CARP SQ SCH (20:50)
[2017-08-19] MEDS ORDERED: METOPROLOL TARTRATE 25 MG TAB PO SCH (21:00)
[2017-08-19] MEDS ORDERED: HYDROCORTISONE IV 75 MG in SYRINGE 0 ML IV SCH (21:00)
[2017-08-19 22:21] LABS: CALCIUM 8.4 mg/dl (8.5-10.1); POTASSIUM 2.7 mmol/L (3.5-5.1)
[2017-08-20] VITALS (11 sets, daily range): BP systolic 101–132; BP diastolic 51–72; PULSE 69–91; TEMP 36.7–36.8; O2SAT 94–100
[2017-08-20] MEDS: GUAIFENESIN 200 MG TAB PO SCH ×7 (00:04→23:47)
[2017-08-20] MEDS: LEVOFLOXACIN / D5W 500 MG in PREMIXED IN D5W 100 ML IV SCH (00:04)
[2017-08-20] MEDS ORDERED: POTASSIUM CHLORIDE PWD 20 MEQ PACK PO ONE ×3 (01:15→17:00)
[2017-08-20] MEDS ORDERED: VANCOMYCIN TROUGH ONE (05:30)
[2017-08-20 06:04] LABS: HEMATOCRIT 22.3 % (42-52); HEMOGLOBIN 7.7 g/dL (14.0-18.0); IG# 0.01 K/uL (0.00-0.02); LYMPH % 18.3 %; LYMPH ABS # 0.59 K/uL (1.2-3.4); MEAN CELL VOLUME 85.4 fL (80-100); MEAN CORPUSCULAR HEMOGLOBIN 29.5 pg (25-34); MEAN CORPUSCULAR HGB CONC 34.5 g/dl (32-36); MEAN PLATELET VOLUME 9.4 fL (7.4-10.4); MONO % 9.3 %; NEUT % 72.1 %; NEUT ABS # 2.32 K/uL (1.4-6.5); NUCLEATED RED BLOOD CELL ABS 0.02 K/uL (0-0); PLATELET COUNT 166 K/uL (130-400); RED CELL DISTRIBUTION WIDTH CV 16.1 % (11.5-14.5); RED CELL DISTRIBUTION WIDTH SD 49.5 fL (36.4-46.3); WHITE BLOOD COUNT 3.22 K/uL (4.8-10.8)
[2017-08-20] MEDS: VANCOMYCIN INJ 1,500 MG in SODIUM CHLORIDE 0.9% 500ML 500 ML IV SCH (06:09)
[2017-08-20] MEDS: HEPARIN SOD 5000 UNIT/0.5 ML CARP SQ SCH ×3 (06:14→20:34)
[2017-08-20 06:38] LABS: CALCIUM 8.5 mg/dl (8.5-10.1); CREATININE 0.81 mg/dl (0.60-1.40); POTASSIUM 2.8 mmol/L (3.5-5.1)
[2017-08-20] MEDS: ALBUT/IPRATROP 3MG/0.5MG NEB 3 ML VIAL INH SCH ×4 (07:32→19:10)
[2017-08-20] MEDS: METOPROLOL TARTRATE 25 MG TAB PO SCH ×2 (07:37→20:33)
[2017-08-20] MEDS: PANTOprazole SOD 40 MG TAB PO SCH (07:38)
[2017-08-20] MEDS: BENZONATATE 100MG CAP PO SCH ×3 (07:38→20:33)
[2017-08-20] MEDS: POTASSIUM CHLORIDE PWD 20 MEQ PACK PO SCH (07:39)
[2017-08-20] MEDS: ASPIRIN 81 MG ECTAB PO SCH (07:39)
--- NOTE | 2017-08-20 07:47 | Family Medicine Progress Note ---
Progress Note Date of Service Aug 20, 2017. Subjective Pt evaluation today including: conversation w/ patient, physical exam, chart review, review of studies, conversation w/ sustainable design consultant, review of inpatient medication list Pain: none PO Intake: good Voiding: no voiding problems Patient still has a cough but is feeling much better. Denies any shortness of breath, chest pain or fevers/chills He is irritated that he has not been getting good sleep and is frustrated with all the interruptions (eg. blood draws, lovenox injections etc) Constitutional: No fever, No chills Respiratory: + cough, No sputum, No shortness of breath, No hemoptysis Cardiovascular: + edema, No chest pain, No palpitations Abdomen: No pain, No nausea, No vomiting, No diarrhea Musculoskeletal: No joint pain, No swelling, No calf pain Male : No dysuria, No urinary frequency, No incontinence Medications Current Inpatient Medications Medications (Trade) Dose Ordered Sig/Rosendo Route Start Time Stop Time Status Last Admin Dose Admin Acetaminophen (Tylenol Tab) 650 mg Q4H PRN PO 08/18/17 01:15 09/17/17 01:14 Al Hydrox/Mg Hydrox/Simethicone (Maalox Max Susp) 15 ml Q4H PRN PO 08/18/17 01:15 09/17/17 01:14 Magnesium Hydroxide (Milk Of Magnesia Susp) 30 ml Q12H PRN PO 08/18/17 01:15 09/17/17 01:14 Ondansetron HCl (Zofran Inj) 4 mg Q6H PRN IV 08/18/17 01:15 09/17/17 01:14 Nitroglycerin (Nitrostat Tab) 0.4 mg UD PRN SL 08/18/17 01:15 09/17/17 01:14 Polyethylene (Miralax Powder Packet) 17 gm DAILY PRN PO 08/18/17 01:15 09/17/17 01:14 Levofloxacin 500 mg/Prmx 100 ml @ 100 mls/hr Q24H IV 08/19/17 00:00 08/24/17 00:59 08/20/17 00:04 100 MLS/HR Guaifenesin (Organidin Nr Tab) 200 mg Q4H PO 08/18/17 04:00 09/17/17 03:59 08/20/17 03:31 200 MG Aspirin (Ecotrin Tab) 81 mg DAILY PO 08/18/17 09:00 09/17/17 08:59 08/19/17 07:52 81 MG Simvastatin (Zocor Tab) 20 mg HS PO 08/18/17 21:00 09/17/17 20:59 08/19/17 18:22 20 MG Pantoprazole Sodium (Protonix Tab) 40 mg QAM PO 08/18/17 09:00 09/17/17 08:59 08/19/17 07:52 40 MG Benzonatate (Tessalon Perles Cap) 100 mg TID PO 08/18/17 14:00 09/17/17 13:59 08/19/17 18:22 100 MG Albuterol/ Ipratropium (Duoneb) 3 ml QIDR INH 08/18/17 12:00 09/17/17 11:59 08/20/17 07:32 3 ML Miscellaneous Information (Consult) 1 ea UD PRN N/A 08/18/17 13:15 09/17/17 13:14 Vancomycin HCl 1500 mg/Sodium Chloride 530 ml @ 200 mls/hr Q10H IV 08/19/17 00:00 09/02/17 00:00 08/20/17 06:09 200 MLS/HR Furosemide (Lasix Tab) 40 mg DAILY PO 08/19/17 09:00 09/18/17 08:59 Future Hold 08/19/17 07:52 40 MG Potassium Chloride (Klor-Con Pwd) 80 meq DAILY PO 08/20/17 09:00 09/19/17 08:59 Methotrexate (Methotrexate Tab) 20 mg Fr@0900 PO 08/21/17 09:00 09/20/17 08:59 Hydrocortisone Sodium Succinate 75 mg/Syringe 1.5 ml @ 4 mls/min BID@0900,2100 IV 08/19/17 21:00 08/22/17 20:59 08/19/17 19:10 4 MLS/MIN Metoprolol Tartrate (Lopressor Tab) 12.5 mg BID PO 08/20/17 09:00 09/18/17 20:59 Heparin Sodium (Porcine) (Heparin Sq 5000 Unit/0.5ml) 5,000 unit Q8 SQ 08/19/17 22:00 09/18/17 21:59 08/20/17 06:14 5,000 UNIT Objective Vital Signs Date Time Temp Pulse Resp B/P (MAP) Pulse Ox O2 Delivery O2 Flow Rate FiO2 08/20/17 07:32 69 16 95 Room Air 08/20/17 07:16 36.8 80 22 132/72 (92) 100 Room Air 2.0 Nasal Cannula 08/20/17 04:00 96 Room Air 08/20/17 03:26 36.7 80 19 110/63 (79) 94 Room Air 08/20/17 00:00 96 Room Air 08/19/17 23:36 36.8 83 19 94/46 (62) 95 Room Air 08/19/17 20:00 Room Air 08/19/17 19:20 36.4 82 20 110/56 (74) 97 Room Air 08/19/17 19:11 71 16 96 Room Air 08/19/17 16:00 Room Air 08/19/17 15:48 59 16 91 Room Air 08/19/17 15:20 36.5 66 20 96/54 (68) 97 Room Air 08/19/17 12:00 Room Air 08/19/17 11:15 72 18 94 Room Air 08/19/17 10:55 36.8 95 18 112/56 (74) 95 Room Air 08/19/17 09:14 82 125/59 08/19/17 08:00 Room Air 08/19/17 07:59 36.5 82 20 125/59 (81) 94 Room Air Physical Exam Notes: General Appearance: WD/WN, no apparent distress ENT: hearing grossly normal, pharynx normal Neck: supple, no carotid bruits, trachea midline Respiratory/Chest: lungs clear, no respiratory distress, no accessory muscle use Cardiovascular: no JVD, no murmur, + irregularly irregular Abdomen: normal bowel sounds, non tender, soft Extremities: non-tender, no calf tenderness, + pedal edema (+2 to just below knee), + pertinent finding (blister like lesions on anterior valencia) Neurologic/Psychiatric: alert, normal mood/affect, oriented x 3 Laboratory Results Results Past 24 Hours Test 08/19/17 08:04 08/19/17 11:00 08/19/17 15:44 08/19/17 21:50 Range/Units Potassium Level 2.6 2.9 2.5 2.7 3.5-5.1 mmol/L Sodium Level 136 135 136 136-145 mmol/L Chloride Level 101 100 102 98-107 mmol/L Carbon Dioxide Level 24 30 28 21-32 mmol/L Anion Gap 11.0 5.0 6.0 3-11 mmol/L Blood Urea Nitrogen 23 24 24 7-18 mg/dl Creatinine 0.93 0.85 1.00 0.60-1.40 mg/dl Est Creatinine Clear Calc Drug Dose 75.2 82.3 69.9 ml/min Estimated GFR () 87.1 92.7 79.7 Estimated GFR (Non- 75.1 80.0 68.8 BUN/Creatinine Ratio 25.0 27.6 23.8 10-20 Random Glucose 156 165 158 70-99 mg/dl Calcium Level 8.6 8.4 8.4 8.5-10.1 mg/dl Magnesium Level 2.2 1.8-2.4 mg/dl Test 08/20/17 05:49 Range/Units White Blood Count 3.22 4.8-10.8 K/uL Red Blood Count 2.61 4.7-6.1 M/uL Hemoglobin 7.7 14.0-18.0 g/dL Hematocrit 22.3 42-52 % Mean Corpuscular Volume 85.4 80-100 fL Mean Corpuscular Hemoglobin 29.5 25-34 pg Mean Corpuscular Hemoglobin Concent 34.5 32-36 g/dl Platelet Count 166 130-400 K/uL Mean Platelet Volume 9.4 7.4-10.4 fL Neutrophils (%) (Auto) 72.1 % Lymphocytes (%) (Auto) 18.3 % Monocytes (%) (Auto) 9.3 % Eosinophils (%) (Auto) 0.0 % Basophils (%) (Auto) 0.0 % Neutrophils # (Auto) 2.32 1.4-6.5 K/uL Lymphocytes # (Auto) 0.59 1.2-3.4 K/uL Monocytes # (Auto) 0.30 0.11-0.59 K/uL Eosinophils # (Auto) 0.00 0-0.5 K/uL Basophils # (Auto) 0.00 0-0.2 K/uL RDW Standard Deviation 49.5 36.4-46.3 fL RDW Coefficient of Variation 16.1 11.5-14.5 % Immature Granulocyte % (Auto) 0.3 % Immature Granulocyte # (Auto) 0.01 0.00-0.02 K/uL Nucleated RBC Absolute Count (auto) 0.02 0-0 K/uL Nucleated Red Blood Cells % 0.6 % Toxic Granulation 1+ Dohle Bodies 1+ Giant Platelets 1+ Sodium Level 138 136-145 mmol/L Potassium Level 2.8 3.5-5.1 mmol/L Chloride Level 103 98-107 mmol/L Carbon Dioxide Level 28 21-32 mmol/L Anion Gap 7.0 3-11 mmol/L Blood Urea Nitrogen 26 7-18 mg/dl Creatinine 0.81 0.60-1.40 mg/dl Est Creatinine Clear Calc Drug Dose 85.4 ml/min Estimated GFR () 94.6 Estimated GFR (Non- 81.6 BUN/Creatinine Ratio 31.5 10-20 Random Glucose 136 70-99 mg/dl Calcium Level 8.5 8.5-10.1 mg/dl Phosphorus Level 3.0 2.5-4.9 mg/dl Magnesium Level 2.4 1.8-2.4 mg/dl Vancomycin Level Trough 18.3 SEE COMMENT mcg/ml Assessment and Plan 82 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 Patient went into atrial fibrillation this morning. Was given 5mg of metoprolol and 12.5mg of metoprolol orally. He reconverted to sinus rhythm. Discussed this with Dr. Nguyen and Dr. Patterson. Due to patients low hgb, it was suggested by Cardiology to hold off on anticoagulation today and to discuss case with Dr. Benjamin tomorrow. GBS Bacteremia - respiratory source in the setting of immunosuppression - Positive sputum culture with GBS and blood cultures with GBS - ID consulted. Switched abx to rocephin. Total duration of IV abx for 10-14 days. No concern of endocarditis at this time. - Duoneken grayaifenesin ordered - Trend CBC 12 --->5.5 --> 3.2 - Lactic acid improved from 2.2 to 1.7 to 1.0 - No longer needing oxygen via nasal cannula - gisellesaljuan f mederos for cough Paroxysmal Atrial fibrillation - Paroxysmal Afib this morning - 5mg of IV metoprolol given and 12.5 mg of metoprolol po bid - Reconverted back to sinus rhythm - Considering one episode of a fib sec to stress response from acute illness and hypokalemia - plan to not anticoagulate. Hypokalemia - 2.8 this morning - repeat EKG without any changes, QTC 459 - supplement with 80 meq PO Elevated troponin 0.069 on admission - Repeat trop .039 and .027 likely demand ischaemia from infection - ECHO showed grade 1 DD - Cardio consulted - continue aspirin and statin Anemia secondary to LGL leukemia - Type and cross matched, and for transfusion of 2 units pRBC given Hb 7.6 with evidence of ischemia (elevated troponin) - Ordered procrit subq per oncology 13785 units - Trend CBC LGL Leukemia - Hold prednisone for now, stress dose hydrocortisone being given DAY #3 ---> will switch to home dose of prednisone today - methotrexate once weekly on Thursday - receives procrit once weekly 81285 units Lower extremity pitting edema secondary to venous insufficiency vs heart failure - Wound consulted - On lasix and metolazone at home, lasix and metolazone restarted - echo showed grade 1 DD - Wounds on lower leg showed ulcer on anterior shins. ? Pyoderma Gangrenosum? source of bacteremia? VTE ppx - SCDs - Heparin FULL Code Dispo: PT/OT Continued [facility] stay due to: multiple IV medications needed Discharge planning: uncertain Reviewed: Pt Seen/Exam by Me History breathing much improved. Constitutional: denies: fever Respiratory: negative: cough, short of breath General Appearance: no apparent distress (sitting in chair) Respiratory: no respiratory distress, decreased breath sounds Cardiovascular: regular rate, rhythm Neurologic/Psychiatric: alert, oriented x 3 Skin Characteristics: warm/dry Assessment/Plan Resident Physician Supervision Note: I independently interviewed and examined the patient and verified the more history and physical, reviewed labs and image studies, discussed the case with the resident Dr. Lyle and agree with the findings and care plan.
--- NOTE | 2017-08-20 11:26 | CARDIOLOGY CONSULTATION ---
DATE OF CONSULTATION: 08/20/2017 HISTORY OF PRESENT ILLNESS: The patient was seen by me this morning in his telemetry unit room. I last saw him on August 18. He states that since then, he feels much stronger. He denies any weakness this morning. He still has a cough. It is now productive of thickish green sputum. This is in contrast to the clear scant sputum that he reported 2 days ago. No chest pain. No fevers or chills. No palpitations. Yesterday, he did have an episode of paroxysmal atrial fibrillation. Spontaneous conversion. He did receive a dose of metoprolol. He denies any prior history of arrhythmia. He denies any dyspnea at rest. He states he walked in the light this morning and had no dyspnea. No orthopnea or PND overnight. His appetite is decreased. No abdominal pain or nausea. He denies any symptoms of bleeding. No focal neurologic symptoms. Chronic peripheral edema. He denies any pain in his legs. CURRENT MEDICATIONS: Methotrexate 20 mg p.o. on Thursday, potassium chloride 80 mEq p.o. daily, metoprolol tartrate 12.5 mg p.o. b.i.d., prednisone 40 mg daily, subQ heparin 5000 units q. 8 hours, levofloxacin 500 mg IV q. 24 hours, vancomycin 1500 mg IV q. 10 hours, simvastatin 20 mg at bedtime, Tessalon Perles 100 mg p.o. t.i.d., DuoNeb 3 mL q.i.d., aspirin 81 mg daily, pantoprazole 40 mg daily, guaifenesin 200 mg q. 4 hours, and several p.r.n. medications. ALLERGIES AND ADVERSE DRUG REACTIONS: None. MONITOR: Monitor reviewed by me. Currently in sinus rhythm. Occasional premature supraventricular beat. Yesterday, atrial fibrillation with rapid ventricular response. PHYSICAL EXAMINATION: VITAL SIGNS: This morning with oral temperature of 36.8, pulse 80, blood pressure 132/72 and pulse oximetry on room air 100%. GENERAL APPEARANCE: Shows him to be in no distress. No respiratory distress. MOUTH: Dry mucous membranes. NECK: No obvious jugular venous distention. Difficult to evaluate JVP secondary to neck size. LUNGS: Normal respiratory effort. Clear. No rales or wheezes. No rhonchi. HEART: Regular rate and rhythm with occasional premature beat. S1 and S2 normal. No S3 or S4. No murmur or rub heard. ABDOMEN: Soft. Nontender. No palpable masses or organomegaly. EXTREMITIES: 2-3+ pretibial, ankle, and pedal edema bilaterally. NEUROLOGIC: Alert and oriented x3. Motor grossly intact. PSYCHIATRIC: Affect is normal. LABORATORY DATA: This morning with WBC 3.22, hemoglobin 7.7, hematocrit 22.3, and platelet count 166. Metabolic profile today with sodium 138, potassium 2.8, chloride 103, carbon dioxide 28, BUN 26, creatinine 0.81, random glucose 136 and magnesium 2.4. Yesterday, the magnesium was as low as 2.4. He received potassium supplementation thereafter. Today's weight 105.9 kg. Admission weight on August 17 was 112.2 kg. Both blood and sputum cultures have returned positive for group A beta strep. ASSESSMENT: 1. Admission with pneumonia and sepsis. Group A beta strep. 2. Respiratory status improved since admission. No evidence of bronchospasm on exam today. He denies any dyspnea. Oxygen saturation on room air is normal. 3. Echocardiogram on August 18 reveals normal biventricular systolic function, borderline left ventricular hypertrophy, grade 1 left ventricular diastolic dysfunction, and mild mitral and mild tricuspid regurgitation. 4. Very mildly elevated troponin I on admission. Secondary to demand ischemia. He had low a hemoglobin, increased heart rate, and probable hypoxemia prior to admission. Subsequent troponin I's were normal. Electrocardiograms revealed no ischemic ST or T-wave abnormalities. Echocardiography reveals normal LV wall motion. 5. Atrial fibrillation with rapid ventricular response yesterday. This is not unexpected and that he had significant underlying illness with his infection and anemia. Then, he had a low potassium level. He had received a dose of metolazone. He reports he had excessive urination. His I's and O's did not correlate with his weights. Suspect that the I's and O's over the past few days are inaccurate. His weight has significantly decreased since admission. On exam today, he appears to be dehydrated. Dry mucous membranes. His BUN is elevated in comparison to his creatinine. He has converted spontaneously to sinus rhythm. He reports no prior history of arrhythmias. 6. Chronic peripheral edema. His right ventricle was not well visualized on his echo. However, suspect that his peripheral edema is secondary to venous insufficiency. Can also not exclude a component of lymphedema. Hypoalbuminemia would also contribute to development of his edema. RECOMMENDATIONS: 1. If he develops any sustained atrial fibrillation, could consider temporary anticoagulation with heparin. Would need to closely monitor his hemoglobin with this. He has a baseline low hemoglobin. Anticoagulation therapy could precipitate GI bleeding. 2. If he develops recurrent atrial fibrillation, we will consider use of amiodarone to help prevent further episodes of AFib. 3. Long-term anticoagulation with an oral agent would be of increased risk in this patient. 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 Chronic anticoagulation therapy could predispose him to GI bleeding. 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 4. Continue metoprolol. The above assessment and recommendations were discussed with Dr. Winn and Dr. Duron. MARICHUY
--- NOTE | 2017-08-20 11:42 | Medical Consult ---
Consultation Date of Consultation: Aug 20, 2017. Attending Physician: Vidhi Winn M.D. Reason for Consultation: Bacteremia History of Present Illness 82-year-old male with history of chronic granulocytic leukemia was in usual state of approximately 3 weeks ago when he developed respiratory tract infection symptoms, was told he possibly had early pneumonia was treated with amoxicillin with improvement. He was well until early this week when he became increasingly weak and fatigued, unable to get out of a chair and brought to the hospital for further management. He also developed severe cough with whites thick sputum. He was found to have evidence of sepsis with elevated lactate mildly elevated procalcitonin. Chest x-ray, reviewed by me, showed possible early changes at the base. Was found to have positive blood and sputum cultures for group a Streptococcus, and has improved significantly since on antibiotic therapy. Currently afebrile and hemodynamically stable. Past Medical/Surgical History Medical Problems: (1) Anemia Status: Chronic (2) Flu-like symptoms Status: Acute Medical Problems: (1) Anemia (2) Elevated troponin (3) Large granular lymphocytic leukemia (4) Symptomatic anemia Surgical Problems: Right hip replacement 2 years ago Family History Noncontributory Social History Smoking Status: Never Smoker Smokeless Tobacco Use: No Alcohol Use: none Drug Use: none Marital Status: Housing Status: lives with significant other Occupation Status: retired Allergies Coded Allergies: No Known Allergies (Unverified , 08/17/17) Current Inpatient Medications Current Inpatient Medications Medications (Trade) Dose Ordered Sig/Rosendo Route Start Time Stop Time Status Last Admin Dose Admin Acetaminophen (Tylenol Tab) 650 mg Q4H PRN PO 08/18/17 01:15 09/17/17 01:14 Al Hydrox/Mg Hydrox/Simethicone (Maalox Max Susp) 15 ml Q4H PRN PO 08/18/17 01:15 09/17/17 01:14 Magnesium Hydroxide (Milk Of Magnesia Susp) 30 ml Q12H PRN PO 08/18/17 01:15 09/17/17 01:14 Ondansetron HCl (Zofran Inj) 4 mg Q6H PRN IV 08/18/17 01:15 09/17/17 01:14 Nitroglycerin (Nitrostat Tab) 0.4 mg UD PRN SL 08/18/17 01:15 09/17/17 01:14 Polyethylene (Miralax Powder Packet) 17 gm DAILY PRN PO 08/18/17 01:15 09/17/17 01:14 Levofloxacin 500 mg/Prmx 100 ml @ 100 mls/hr Q24H IV 08/19/17 00:00 08/24/17 00:59 08/20/17 00:04 100 MLS/HR Guaifenesin (Organidin Nr Tab) 200 mg Q4H PO 08/18/17 04:00 09/17/17 03:59 08/20/17 07:36 200 MG Aspirin (Ecotrin Tab) 81 mg DAILY PO 08/18/17 09:00 09/17/17 08:59 08/20/17 07:39 81 MG Simvastatin (Zocor Tab) 20 mg HS PO 08/18/17 21:00 09/17/17 20:59 08/19/17 18:22 20 MG Pantoprazole Sodium (Protonix Tab) 40 mg QAM PO 08/18/17 09:00 09/17/17 08:59 08/20/17 07:38 40 MG Benzonatate (Tessalon Perles Cap) 100 mg TID PO 08/18/17 14:00 09/17/17 13:59 08/20/17 07:38 100 MG Albuterol/ Ipratropium (Duoneb) 3 ml QIDR INH 08/18/17 12:00 09/17/17 11:59 08/20/17 07:32 3 ML Miscellaneous Information (Consult) 1 ea UD PRN N/A 08/18/17 13:15 09/17/17 13:14 Vancomycin HCl 1500 mg/Sodium Chloride 530 ml @ 200 mls/hr Q10H IV 08/19/17 00:00 09/02/17 00:00 08/20/17 06:09 200 MLS/HR Furosemide (Lasix Tab) 40 mg DAILY PO 08/19/17 09:00 09/18/17 08:59 Future Hold 08/19/17 07:52 40 MG Potassium Chloride (Klor-Con Pwd) 80 meq DAILY PO 08/20/17 09:00 09/19/17 08:59 08/20/17 07:39 80 MEQ Methotrexate (Methotrexate Tab) 20 mg Fr@0900 PO 08/21/17 09:00 09/20/17 08:59 Metoprolol Tartrate (Lopressor Tab) 12.5 mg BID PO 08/20/17 09:00 09/18/17 20:59 08/20/17 07:37 12.5 MG Heparin Sodium (Porcine) (Heparin Sq 5000 Unit/0.5ml) 5,000 unit Q8 SQ 08/19/17 22:00 09/18/17 21:59 08/20/17 06:14 5,000 UNIT Prednisone (PredniSONE TAB) 40 mg DAILY PO 08/20/17 09:00 09/19/17 08:59 Review of Systems Constitutional: + fatigue, No fever Eyes: No problem reported ENT: No problem reported Respiratory: + cough, No hemoptysis Cardiovascular: + edema, No chest pain Abdomen: No problem reported Musculoskeletal: No problem reported Genitourinary - Male: No problem reported Neurologic: No problem reported Psychiatric: No problem reported Endocrine: No problem reported Hematologic / Lymphatic: No problem reported Integumentary: No problem reported Allergic / Immunologic: No problem reported Physical Exam Date Time Temp Pulse Resp B/P (MAP) Pulse Ox O2 Delivery O2 Flow Rate FiO2 08/20/17 08:10 Room Air 08/20/17 08:00 Room Air 08/20/17 07:32 69 16 95 Room Air 08/20/17 07:16 36.8 80 22 132/72 (92) 100 Room Air 2.0 Nasal Cannula 08/20/17 04:00 96 Room Air 08/20/17 03:26 36.7 80 19 110/63 (79) 94 Room Air 08/20/17 00:00 96 Room Air 08/19/17 23:36 36.8 83 19 94/46 (62) 95 Room Air 08/19/17 20:00 Room Air 08/19/17 19:20 36.4 82 20 110/56 (74) 97 Room Air 08/19/17 19:11 71 16 96 Room Air 08/19/17 16:00 Room Air 08/19/17 15:48 59 16 91 Room Air 08/19/17 15:20 36.5 66 20 96/54 (68) 97 Room Air 08/19/17 12:00 Room Air General Appearance: WD/WN, no apparent distress Head: normocephalic, atraumatic Eyes: normal inspection, EOMI, sclerae normal ENT: normal ENT inspection, pharynx normal Neck: supple, no adenopathy, thyroid normal, trachea midline Respiratory/Chest: chest non-tender, no respiratory distress, no accessory muscle use, + rales Cardiovascular: no gallop, no murmur, + irregularly irregular Abdomen/GI: normal bowel sounds, non tender, soft, no organomegaly Back: normal inspection, no CVA tenderness Extremities/Musculoskelatal: no calf tenderness, non-tender, + swelling Neurologic/Psych: alert, oriented x 3 Skin: normal color, warm/dry, no rash, + pertinent finding (Right lower extremity with a scab in superficial clean wound) Lymphatic: no adenopathy Laboratory Results RUN DATE: 08/20/17 [facility] LAB PAGE 1 RUN TIME: 0940 Specimen Inquiry PATIENT: QUINCY PAUL Jo Ann LOC: Jayshree U # : [id number] AGE/SX: 82/M ROOM: [facility] REG : 08/18/[address]: Vidhi Winn M.D. : 1935 BED: 1 DIS : STATUS: ADM IN TLOC: SPEC #: [id number] ARGELIA: 08/17/17 STATUS: RES REQ #: [id number] RECD: 08/17/[address]: Mishock,Blade, D.O. SOURCE: BLOOD ENTR: 08/17/17-[address] [facility] [address]: Ritesh Ervin M.D. [facility]: ORDERED: BLOOD CULTURE COMMENTS: Comments to Learning And Development Analyst SAME TIME DIFFERENT SITES Procedure Result Verified Site BLD CULT Preliminary 08/20/17-40 Organism 1 GROUP A BETA STREP SENS SENSITIVITY TO FOLLOW Phoned results to EZ WATKINS on 08/19/17 at 1030 by Veena Cuellar. Results were verbalized back to J LUIS. Phoned Positive Blood Culture Gram Stain Report to SUE SHOOK on 08/18/17 At 1257 By SAMANTHA. Results were verbalized back to SAMANTHA. 1. GROUP A BETA STREP Target Route Dose RX AB Cost M.I.C. IQ ------ ----- ------ -- ------ -------- - ------ AMPICILLIN S <=0.06 CEFOTAXIME S <=0.25 CEFTRIAXONE S <=0.25 CEFEPIME S <=0.25 CHLORAMPHENICOL S 4 VANCOMYCIN S 0.5 PENICILLIN S <=0.03 ERYTHROMYCIN S <=0.06 CLINDAMYCIN S <=0.06 AZITHROMYCIN S <=0.25 S = SENSITIVE I = INTERMEDIATE R = RESISTANT END OF REPORT Last 24 Hours Test 08/19/17 15:44 08/19/17 21:50 08/20/17 05:49 Sodium Level 135 mmol/L 136 mmol/L 138 mmol/L Potassium Level 2.5 mmol/L 2.7 mmol/L 2.8 mmol/L Chloride Level 100 mmol/L 102 mmol/L 103 mmol/L Carbon Dioxide Level 30 mmol/L 28 mmol/L 28 mmol/L Anion Gap 5.0 mmol/L 6.0 mmol/L 7.0 mmol/L Blood Urea Nitrogen 24 mg/dl 24 mg/dl 26 mg/dl Creatinine 0.85 mg/dl 1.00 mg/dl 0.81 mg/dl Est Creatinine Clear Calc Drug Dose 82.3 ml/min 69.9 ml/min 85.4 ml/min Estimated GFR () 92.7 79.7 94.6 Estimated GFR (Non- 80.0 68.8 81.6 BUN/Creatinine Ratio 27.6 23.8 31.5 Random Glucose 165 mg/dl 158 mg/dl 136 mg/dl Calcium Level 8.4 mg/dl 8.4 mg/dl 8.5 mg/dl White Blood Count 3.22 K/uL Red Blood Count 2.61 M/uL Hemoglobin 7.7 g/dL Hematocrit 22.3 % Mean Corpuscular Volume 85.4 fL Mean Corpuscular Hemoglobin 29.5 pg Mean Corpuscular Hemoglobin Concent 34.5 g/dl Platelet Count 166 K/uL Mean Platelet Volume 9.4 fL Neutrophils (%) (Auto) 72.1 % Lymphocytes (%) (Auto) 18.3 % Monocytes (%) (Auto) 9.3 % Eosinophils (%) (Auto) 0.0 % Basophils (%) (Auto) 0.0 % Neutrophils # (Auto) 2.32 K/uL Lymphocytes # (Auto) 0.59 K/uL Monocytes # (Auto) 0.30 K/uL Eosinophils # (Auto) 0.00 K/uL Basophils # (Auto) 0.00 K/uL RDW Standard Deviation 49.5 fL RDW Coefficient of Variation 16.1 % Immature Granulocyte % (Auto) 0.3 % Immature Granulocyte # (Auto) 0.01 K/uL Nucleated RBC Absolute Count (auto) 0.02 K/uL Nucleated Red Blood Cells % 0.6 % Toxic Granulation 1+ Dohle Bodies 1+ Giant Platelets 1+ Phosphorus Level 3.0 mg/dl Magnesium Level 2.4 mg/dl Vancomycin Level Trough 18.3 mcg/ml Patient Name: QUINCY PAUL Unit Number: [id number] Dictated: 08/17/[id number] Transcribed: 08/17/172123 ARG Printed Date/Time: [~ rep prt dt]/[~ rep prt tm] [~ rep ct labl] - [~ rep ct ivnm] [facility] [place] [address] Dictated: 08/17/172123 Transcribed: 08/17/172123 ARG Printed Date/Time: [~ rep prt dt]/[~ rep prt tm] [~ rep ct labl] - [~ rep ct ivnm] [~ rep ct add3]] CHEST ONE VIEW PORTABLE CLINICAL HISTORY: shortness of breath COMPARISON STUDY: No previous studies for comparison. FINDINGS: The heart is enlarged. There is nonspecific basilar interstitial thickening. This could either be inflammatory, secondary to pulmonary vascular congestion, or atelectatic. Clinical correlation in this regard will be necessary. There are no significant pleural effusions. IMPRESSION: Cardiomegaly and nonspecific by basilar interstitial thickening Electronically signed by: Ran Celaya M.D. 08/17/2017 9:25 PM Dictated Date/Time: 08/17/2017 9:24 PM The status of this report is Signed. Draft = Not yet reviewed or approved by Radiologist. Signed = Reviewed and approved by Radiologist. <AttendingPhy></AttendingPhy> <FamilyPhy>Ritesh Ervin M.D.</FamilyPhy > <PrimaryPhy>Ritesh Ervin M.D.</PrimaryPhy> <UnitNumber>[id number]</ UnitNumber> <VisitNumber>[id number]</VisitNumber> <PatientName>QUINCY PAUL</PatientName> <DateOfBirth>1935</DateOfBirth> <Location>C.EDB</Location > <ServiceDate>08/17/17</ServiceDate> <MNE>ESINDI</MNE> <OrderingPhy>ED, PROTOCOL</OrderingPhy> <OrderingPhyMNE>f rep ord dr bangura</OrderingPhyMNE> < DictatingPhyMNE>f rep dict dr bangura</DictatingPhyMNE> <CCListMNE>f rep ct sveta</ CCListMNE> <AdmittingPhyMNE>f pt admit dr bangura</AdmittingPhyMNE> <AttendingPhyMNE >f pt attend dr bangura</AttendingPhyMNE> <ConsultingPhyMNE>f pt consult dr bangura</ConsultingPhyMNE> <FamilyPhyMNE>f pt fam dr bangura</FamilyPhyMNE> <OtherPhyMNE>f pt other dr bangura</OtherPhyMNE> < PrimaryPhyMNE>f pt prim care dr bangura</PrimaryPhyMNE> <ReferringPhyMNE>f pt referring dr bangura</ReferringPhyMNE> Assessment & Plan 82-year-old male with group a streptococcal sepsis with possible developing respiratory infection, less likely from lower extremity source. Endocarditis appears unlikely.And change patient to IV ceftriaxone 2 g daily, and will likely need in the range of 10-14 days of IV antibiotics given positive blood cultures. Would obtain follow-up chest x-ray as well as follow-up procalcitonin level. Will follow.
[2017-08-20] MEDS: CEFTRIAXONE SOD INJ 2,000 MG in DEXTROSE 5% 50ML 50 ML IV SCH (12:45)
[2017-08-20 15:55] LABS: CALCIUM 8.6 mg/dl (8.5-10.1); CREATININE 0.83 mg/dl (0.60-1.40); POTASSIUM 2.9 mmol/L (3.5-5.1)
[2017-08-20] MEDS: SIMVASTATIN 20 MG TAB PO SCH (20:32)
[2017-08-21] VITALS (7 sets, daily range): BP systolic 101–131; BP diastolic 56–66; PULSE 68–83; TEMP 36.5–36.7; O2SAT 92–100
[2017-08-21] MEDS: GUAIFENESIN 200 MG TAB PO SCH ×4 (05:24→16:00)
[2017-08-21] MEDS: HEPARIN SOD 5000 UNIT/0.5 ML CARP SQ SCH ×2 (05:25→14:00)
[2017-08-21 05:54] LABS: HEMATOCRIT 22.8 % (42-52); HEMOGLOBIN 7.7 g/dL (14.0-18.0); IG# 0.02 K/uL (0.00-0.02); LYMPH % 30.6 %; LYMPH ABS # 0.71 K/uL (1.2-3.4); MEAN CELL VOLUME 86.7 fL (80-100); MEAN CORPUSCULAR HEMOGLOBIN 29.3 pg (25-34); MEAN CORPUSCULAR HGB CONC 33.8 g/dl (32-36); MEAN PLATELET VOLUME 9.5 fL (7.4-10.4); MONO % 12.9 %; NEUT % 55.6 %; NEUT ABS # 1.29 K/uL (1.4-6.5); PLATELET COUNT 187 K/uL (130-400); RED CELL DISTRIBUTION WIDTH CV 16.4 % (11.5-14.5); RED CELL DISTRIBUTION WIDTH SD 50.4 fL (36.4-46.3); WHITE BLOOD COUNT 2.32 K/uL (4.8-10.8)
[2017-08-21 06:12] LABS: CALCIUM 8.6 mg/dl (8.5-10.1); CREATININE 0.83 mg/dl (0.60-1.40)
[2017-08-21] MEDS ORDERED: POTASSIUM CHLORIDE PWD 20 MEQ PACK PO STA (06:45)
[2017-08-21] MEDS: ALBUT/IPRATROP 3MG/0.5MG NEB 3 ML VIAL INH SCH ×3 (07:06→15:25)
[2017-08-21] MEDS: ASPIRIN 81 MG ECTAB PO SCH (07:38)
[2017-08-21] MEDS: BENZONATATE 100MG CAP PO SCH ×2 (07:38→14:00)
[2017-08-21] MEDS: PANTOprazole SOD 40 MG TAB PO SCH (07:39)
[2017-08-21] MEDS: METOPROLOL TARTRATE 25 MG TAB PO SCH (07:41)
[2017-08-21] MEDS ORDERED: METHOTREXATE 2.5 MG TAB PO SCH (09:00)
[2017-08-21] MEDS ORDERED: CEFT1INJ57 IV (10:28)
[2017-08-21] MEDS ORDERED: LPR25 PO (10:28)
[2017-08-21] MEDS: POTASSIUM CHLORIDE PWD 20 MEQ PACK PO SCH (10:59)
--- NOTE | 2017-08-21 12:03 | CARDIOLOGY PROGRESS NOTE ---
DATE: 08/21/2017 SUBJECTIVE: The patient was seen by me this morning in his telemetry room. He states he is feeling very well. He was able to sleep well overnight. He denies any dyspnea this morning. He still has a minimally productive cough. No chest pain. No palpitations or lightheadedness. No abdominal pain or nausea. No leg pain. No neurologic symptoms. Monitor history over the past 24 hours reveals sinus rhythm, frequent premature supraventricular beats, aberrantly conducted premature supraventricular beats versus ventricular ectopic beats. Suspect that the beats are aberrant lead conducted PACs. PHYSICAL EXAMINATION: VITAL SIGNS: This morning with oral temperature of 36.6, pulse 83, blood pressure 120/66. Pulse oximetry on room air 100%. NECK: No jugular venous distention. LUNGS: Decreased breath sounds and crackles right base. Left lung donato clear. No wheezes. HEART: Regular rate and rhythm with occasional premature beat. No murmur, gallop, or rub. ABDOMEN: Soft. No palpable masses or organomegaly. No bruits. EXTREMITIES: 2-3+ pretibial, ankle, and pedal edema bilaterally. No calf tenderness. NEUROLOGIC: Alert and oriented x3. He can move all extremities well. PSYCHIATRIC: Affect is normal. IMAGING STUDIES: Electrocardiogram this morning with sinus rhythm with premature supraventricular beats. LABORATORY DATA: Today with WBC 2.32, hemoglobin 7.7, platelet count 187. Metabolic profile with sodium 139, potassium 3.0, chloride 102, carbon dioxide 29, BUN 23, creatinine 0.83, random glucose 104. ASSESSMENT: 1. Group A beta strep sepsis. He is afebrile. 2. Improving respiratory status. His cough is decreasing. He has excellent oxygen saturation on room air. Exam today is consistent with atelectasis at the right base. 3. Mildly elevated troponin I initially, secondary to demand ischemia. 4. Frequent premature supraventricular beats. Episode of paroxysmal atrial fibrillation. This occurred when he had acute hypokalemia. His potassium level is still decreased. It is improving. 5. Chronic lymphocytic leukemia. CURRENT MEDICATIONS: Include metoprolol tartrate 12.5 mg b.i.d., methotrexate 20 mg p.o. Fridays, ceftriaxone 2 grams IV q. 24 hours, potassium 8 mEq daily, prednisone 40 mg daily, subQ heparin 5000 units q. 8 hours, simvastatin 20 mg at bedtime, Tessalon Perles 100 mg t.i.d., DuoNeb 3 mL q.i.d., aspirin 81 mg daily, pantoprazole 40 mg daily, guaifenesin 200 mg q. 4 hours, and several p.r.n. medications. ALLERGIES: No known drug allergies. RECOMMENDATIONS: 1. Continue potassium supplementation. Ideally, we would like potassium level reach 4.0 or greater. 2. Continue metoprolol. 3. No new cardiac recommendations at this time. MTDD
--- NOTE | 2017-08-21 13:37 | Discharge Instructions ---
Discharge Instructions Date of Service Aug 21, 2017. Admission Reason for Admission: Elevated Troponin,Symptomatic Anemia Discharge Discharge Diagnosis / Problem: Sepsis from a respiratory source Discharge Goals Goal(s): Improve function, Improve disease control, Therapeutic intervention Activity Recommendations Activity Limitations: resume your previous activity . Instructions / Follow-Up Instructions / Follow-Up You were admitted to the hospital for the evaluation of your generalized weakness and respiratory symptoms. You were very ill when you had arrived and required fluids and antibiotics. The presenting symptoms and your lab work reflected that you were "septic" and you had blood cultures which were found to positive for bacteria. This bacteria is called Group A beta hemolytic strep and was grown. This was treated with the appropriate antibiotics and recommendations was for continued IV antibiotics (Rocephin) for a total of 10 days of antibiotics. A home health agency will be arranged to continue this service for you. You were also found to have a slightly elevated troponin level on your initial visit to the ED which could have partially been from the sepsis but also because of your anemia. You did receive 2 units of blood while in the hospital. Dr Sanjuana Prather was made aware and he was also able to help confirm your normal medical regimen. A follow up with him is recommended. While on inpatient we did monitor your heart and there were short episodes of your heart rate being slightly elevated as well as irregular in a heart arrhythmia called atrial fibrillation. We discussed with cardiology and because of your chronic anemia and recurrent need for transfusion it is not advised at this time to start you on any anticoagulation. The medication metoprolol has helped control the rate of the arrhythmia and may very well be because of the recent illness. This can be revisited with your PCP. Finally, when given your home dose of diuretic you developed low potassium. We recommend holding these diuretics at this time while your potassium has time to improve and revisit the need for these diuretics on a daily basis in the future. This can also be done with your PCP. A repeat blood test for potassium is recommended for thursday. In summary, 1. IV antibiotics ( Rocephin) for 5 more days 2. New medicine to help control heart rate for atrial fibrillation, Metoprolol 1 /2 tab twice a day 3. Hold Lasix until you follow up with your PCP and repeat labs 4. Follow up with Dr Jairon Prather We wish you stefano Owens Current Hospital Diet Patient's current hospital diet: AHA Diet (Heart Healthy) Discharge Diet Recommended Diet: Regular Diet Pending Studies Studies pending at discharge: no Laboratory Results Results Past 24 Hours Test 08/20/17 15:16 08/21/17 05:25 Range/Units Sodium Level 136 139 136-145 mmol/L Potassium Level 2.9 3.0 3.5-5.1 mmol/L Chloride Level 101 102 98-107 mmol/L Carbon Dioxide Level 25 29 21-32 mmol/L Anion Gap 10.0 8.0 3-11 mmol/L Blood Urea Nitrogen 25 23 7-18 mg/dl Creatinine 0.83 0.83 0.60-1.40 mg/dl Est Creatinine Clear Calc Drug Dose 83.3 83.3 ml/min Estimated GFR () 93.6 93.6 Estimated GFR (Non- 80.8 80.8 BUN/Creatinine Ratio 29.9 27.4 10-20 Random Glucose 153 104 70-99 mg/dl Calcium Level 8.6 8.6 8.5-10.1 mg/dl White Blood Count 2.32 4.8-10.8 K/uL Red Blood Count 2.63 4.7-6.1 M/uL Hemoglobin 7.7 14.0-18.0 g/dL Hematocrit 22.8 42-52 % Mean Corpuscular Volume 86.7 80-100 fL Mean Corpuscular Hemoglobin 29.3 25-34 pg Mean Corpuscular Hemoglobin Concent 33.8 32-36 g/dl Platelet Count 187 130-400 K/uL Mean Platelet Volume 9.5 7.4-10.4 fL Neutrophils (%) (Auto) 55.6 % Lymphocytes (%) (Auto) 30.6 % Monocytes (%) (Auto) 12.9 % Eosinophils (%) (Auto) 0.0 % Basophils (%) (Auto) 0.0 % Neutrophils # (Auto) 1.29 1.4-6.5 K/uL Lymphocytes # (Auto) 0.71 1.2-3.4 K/uL Monocytes # (Auto) 0.30 0.11-0.59 K/uL Eosinophils # (Auto) 0.00 0-0.5 K/uL Basophils # (Auto) 0.00 0-0.2 K/uL RDW Standard Deviation 50.4 36.4-46.3 fL RDW Coefficient of Variation 16.4 11.5-14.5 % Immature Granulocyte % (Auto) 0.9 % Immature Granulocyte # (Auto) 0.02 0.00-0.02 K/uL Red Blood Cell Morphology Unremarkable Procalcitonin 0.28 0-0.5 ng/ml Medical Emergencies . Who to Call and When: Medical Emergencies: If at any time you feel your situation is an emergency, please call 911 immediately. . Non-Emergent Contact Non-Emergency issues call your: Primary Care Provider Call Non-Emergent contact if: you have a fever, your pain is worsening, you have any medication questions . . "Provider Documentation" section prepared by Lulu Owens. . VTE Core Measure Inpt VTE Proph given/why not?: SCD's
[2017-08-21] MEDS: CEFTRIAXONE SOD INJ 2,000 MG in DEXTROSE 5% 50ML 50 ML IV SCH (14:20)
--- NOTE | 2017-08-21 14:45 | Infectious Disease Progress Nt ---
Progress Note Date of Service Aug 21, 2017. Subjective Pt evaluation today including: conversation w/ patient, conversation w/ family , physical exam, chart review, lab review, review of studies, conversation w/ marketing operations consultant Patient comfortable today. Offers no new complaints. Remains afebrile. Has tolerated 1st dose of ceftriaxone without apparent difficulty. All Other Systems: Reviewed and Negative Medications Current Inpatient Medications Medications (Trade) Dose Ordered Sig/Rosendo Route Start Time Stop Time Status Last Admin Dose Admin Acetaminophen (Tylenol Tab) 650 mg Q4H PRN PO 08/18/17 01:15 09/17/17 01:14 Al Hydrox/Mg Hydrox/Simethicone (Maalox Max Susp) 15 ml Q4H PRN PO 08/18/17 01:15 09/17/17 01:14 Magnesium Hydroxide (Milk Of Magnesia Susp) 30 ml Q12H PRN PO 08/18/17 01:15 09/17/17 01:14 Ondansetron HCl (Zofran Inj) 4 mg Q6H PRN IV 08/18/17 01:15 09/17/17 01:14 Nitroglycerin (Nitrostat Tab) 0.4 mg UD PRN SL 08/18/17 01:15 09/17/17 01:14 Polyethylene (Miralax Powder Packet) 17 gm DAILY PRN PO 08/18/17 01:15 09/17/17 01:14 Guaifenesin (Organidin Nr Tab) 200 mg Q4H PO 08/18/17 04:00 09/17/17 03:59 08/21/17 12:00 200 MG Aspirin (Ecotrin Tab) 81 mg DAILY PO 08/18/17 09:00 09/17/17 08:59 08/21/17 07:38 81 MG Simvastatin (Zocor Tab) 20 mg HS PO 08/18/17 21:00 09/17/17 20:59 08/20/17 20:32 20 MG Pantoprazole Sodium (Protonix Tab) 40 mg QAM PO 08/18/17 09:00 09/17/17 08:59 08/21/17 07:39 40 MG Benzonatate (Tessalon Perles Cap) 100 mg TID PO 08/18/17 14:00 09/17/17 13:59 08/21/17 07:38 100 MG Albuterol/ Ipratropium (Duoneb) 3 ml QIDR INH 08/18/17 12:00 09/17/17 11:59 08/21/17 11:14 3 ML Furosemide (Lasix Tab) 40 mg DAILY PO 08/19/17 09:00 09/18/17 08:59 Future Hold 08/19/17 07:52 40 MG Potassium Chloride (Klor-Con Pwd) 80 meq DAILY PO 08/20/17 09:00 09/19/17 08:59 08/21/17 10:59 80 MEQ Methotrexate (Methotrexate Tab) 20 mg Fr@0900 PO 08/21/17 09:00 09/20/17 08:59 08/21/17 10:57 20 MG Metoprolol Tartrate (Lopressor Tab) 12.5 mg BID PO 08/20/17 09:00 09/18/17 20:59 08/21/17 07:41 12.5 MG Heparin Sodium (Porcine) (Heparin Sq 5000 Unit/0.5ml) 5,000 unit Q8 SQ 08/19/17 22:00 09/18/17 21:59 08/21/17 05:25 5,000 UNIT Prednisone (PredniSONE TAB) 40 mg DAILY PO 08/20/17 09:00 09/19/17 08:59 08/21/17 07:39 40 MG Ceftriaxone Sodium 2000 mg/ Dextrose 70 ml @ 100 mls/hr Q24H IV 08/20/17 13:00 09/03/17 12:59 08/20/17 12:45 100 MLS/HR Metoprolol Tartrate (Lopressor Tab) 12.5 mg BID PO 08/21/17 21:00 08/25/17 08:59 No refill Miscellaneous Information (Nursing Heparin Flush Order) 1 ea PRN PRN N/A 08/21/17 14:45 09/20/17 14:44 UNV Objective Vital Signs Date Time Temp Pulse Resp B/P (MAP) Pulse Ox O2 Delivery O2 Flow Rate FiO2 08/21/17 14:14 36.5 79 23 96 Nasal Cannula 08/21/17 12:00 Room Air 08/21/17 11:45 36.5 79 23 126/56 (79) 96 Room Air 08/21/17 11:14 68 16 92 Room Air 08/21/17 08:00 Room Air 08/21/17 07:17 36.6 83 22 120/66 (84) 100 Room Air 08/21/17 07:07 80 16 95 Room Air 08/21/17 05:00 36.5 79 18 131/61 (84) 94 Room Air 08/21/17 04:00 Room Air 08/21/17 00:01 Room Air 08/20/17 23:30 36.7 70 20 122/60 (80) 94 Room Air 08/20/17 20:40 Room Air 08/20/17 20:03 36.7 89 22 101/51 (68) 94 Room Air 08/20/17 19:11 81 14 95 Room Air 08/20/17 16:00 Room Air 08/20/17 15:46 36.7 85 20 115/57 (76) 95 Room Air 08/20/17 14:50 76 16 95 Room Air Physical Exam General Appearance: WD/WN, no apparent distress Eyes: normal inspection, EOMI, sclerae normal ENT: normal ENT inspection, hearing grossly normal, pharynx normal Neck: supple, no adenopathy, thyroid normal, trachea midline Respiratory/Chest: chest non-tender, lungs clear, normal breath sounds, no respiratory distress Cardiovascular: regular rate, rhythm, no gallop, no murmur Abdomen: normal bowel sounds, non tender, soft, no organomegaly, no pulsatile mass Extremities: normal range of motion, non-tender, no calf tenderness, normal capillary refill Neurologic/Psychiatric: alert, normal mood/affect, oriented x 3 Skin: normal color, warm/dry, + pertinent finding (Bilateral lower extremity chronic skin changes without cellulitis) Lymphatic: no adenopathy Laboratory Results RUN DATE: 08/22/17 [facility] LAB PAGE 1 RUN TIME: 07 Specimen Inquiry PATIENT: QUINCY PAUL LOC: [facility] U # : [id number] AGE/SX: 82/M ROOM: E205 REG : 08/18/[address]: Vidhi Winn M.D. : 1935 BED: 1 DIS : 08/21/17 STATUS: DIS IN TLOC: SPEC #: [id number] ARGELIA: 08/20/17 STATUS: RES REQ #: [id number] RECD: 08/20/[address]: Lulu Owens MD SOURCE: BLOOD ENTR: 08/20/17-[address]: Randy Lyle MD SPDESC: Ulysses Franco MD Pasquariello, Rick D M.D. Pericherla, Venkata R., M.D. Singh, Madhavi, M.D. Zoda, Albert R M.D. ORDERED: BLOOD CULTURE Procedure Result Verified Site BLD CULT Preliminary 08/22/17-33 NO GROWTH TO DATE. Last 24 Hours Test 08/20/17 15:16 08/21/17 05:25 Sodium Level 136 mmol/L 139 mmol/L Potassium Level 2.9 mmol/L 3.0 mmol/L Chloride Level 101 mmol/L 102 mmol/L Carbon Dioxide Level 25 mmol/L 29 mmol/L Anion Gap 10.0 mmol/L 8.0 mmol/L Blood Urea Nitrogen 25 mg/dl 23 mg/dl Creatinine 0.83 mg/dl 0.83 mg/dl Est Creatinine Clear Calc Drug Dose 83.3 ml/min 83.3 ml/min Estimated GFR () 93.6 93.6 Estimated GFR (Non- 80.8 80.8 BUN/Creatinine Ratio 29.9 27.4 Random Glucose 153 mg/dl 104 mg/dl Calcium Level 8.6 mg/dl 8.6 mg/dl White Blood Count 2.32 K/uL Red Blood Count 2.63 M/uL Hemoglobin 7.7 g/dL Hematocrit 22.8 % Mean Corpuscular Volume 86.7 fL Mean Corpuscular Hemoglobin 29.3 pg Mean Corpuscular Hemoglobin Concent 33.8 g/dl Platelet Count 187 K/uL Mean Platelet Volume 9.5 fL Neutrophils (%) (Auto) 55.6 % Lymphocytes (%) (Auto) 30.6 % Monocytes (%) (Auto) 12.9 % Eosinophils (%) (Auto) 0.0 % Basophils (%) (Auto) 0.0 % Neutrophils # (Auto) 1.29 K/uL Lymphocytes # (Auto) 0.71 K/uL Monocytes # (Auto) 0.30 K/uL Eosinophils # (Auto) 0.00 K/uL Basophils # (Auto) 0.00 K/uL RDW Standard Deviation 50.4 fL RDW Coefficient of Variation 16.4 % Immature Granulocyte % (Auto) 0.9 % Immature Granulocyte # (Auto) 0.02 K/uL Red Blood Cell Morphology Unremarkable Procalcitonin 0.28 ng/ml Assessment and Plan 82-year-old male with group a streptococcal sepsis with possible developing respiratory infection, less likely from lower extremity source. Endocarditis appears unlikely. Patient to receive 10 days IV ceftriaxone. Discussed with hospitalist service. Will follow.
--- NOTE | 2017-08-21 14:46 | Discharge Summary ---
Discharge Summary Date of Service Aug 21, 2017. 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 Bilat LE edema hypokalemia paroxysmal A fibb with RVR Immunizations: Have You Had Influenza Vaccine: Unknown History of Tetanus Vaccine?: Unknown History of Pneumococcal: Unknown Consultations: Dr Benjamin Cardiology Dr Win infectious disease Medication Reconciliation New Medications: Ceftriaxone Sod (Rocephin) 1 Gm Inj 2 GM IV DAILY for 6 Days, VIAL Metoprolol Tartrate (Lopressor) 25 Mg Tab 0.5 TAB PO BID for 30 Days, #30 TAB Continued Medications: Aspirin (Aspirin Ec) 81 Mg Tab 81 MG PO DAILY Methotrexate (Trexall) 10 Mg Tab 20 MG PO WK, TAB Omeprazole (Prilosec) 20 Mg Capcr 20 MG PO DAILY, CAP to take with Prednisone Potassium Ext Rel (Klor-Con) 20 Meq Tabcr 80 MEQ PO DAILY PER PATIENT AND , FOUR 20 MEQ TABLETS DAILY. Prednisone (Prednisone) 20 Mg Tab 40 MG PO DAILY PER PATIENT, TWO 20 MG TABLETS. Simvastatin (Zocor) 20 Mg Tab 1 TAB PO HS for 30 Days, #30 TAB 5 Refills Discontinued Medications: Furosemide (Lasix) 40 Mg Tab 40 MG PO DAILY, TAB Metolazone (Zaroxolyn) 5 Mg Tab 5 MG PO UD PRN for . Discharge Exam Patient was feeling well this morning and denies any chest pain/ palpitations We discussed the discharge instructions in detail and patient reflected understanding and felt comfortable with discharge and the plan All questions patient had was discussed Review of Systems: Constitutional: No fever Eyes: No worsening of vision ENT: No hearing loss Respiratory: No cough, No sputum, No wheezing, No shortness of breath, No dyspnea on exertion, No dyspnea at rest Cardiovascular: No chest pain, No orthopnea, No palpitations Abdomen: No pain, No nausea, No vomiting, No diarrhea, No constipation, No GI bleeding Musculoskeletal: No joint pain, No muscle pain Genitourinary - Male: No hematuria, No dysuria Neurologic: No weakness, No numbness/tingling, No balance problems Psychiatric: No depression symptoms Endocrine: + fatigue (poor sleep at night) Hematologic / Lymphatic: No abnormal bleeding/bruising Integumentary: No rash, No new/changing skin lesions Physical Exam: General Appearance: no apparent distress Eyes: normal inspection ENT: normal ENT inspection Neck: supple, no adenopathy, no JVD, no carotid bruits, trachea midline Respiratory/Chest: no respiratory distress, no accessory muscle use, + decreased breath sounds (bilat bases), + pertinent finding (very occasional crackle in the bases) Cardiovascular: regular rate, rhythm, no murmur, normal peripheral pulses, + pertinent finding (occasional skipped beat) Abdomen / GI: normal bowel sounds, non tender, soft Extremities: normal inspection, no calf tenderness, + pedal edema (+3 bilat to ankles) Neurologic/Psychiatric: alert, normal mood/affect, oriented x 3 Skin: normal color, no rash, + pertinent finding (two circular lesions on the bilat valencia, non weeping, eschar above ) Lymphatic: no adenopathy Hospital Course 82 year old with LGL leukemia on immunosuppressants presented to ED with flu- like symptoms, dyspnea and extreme weakness. The patient was found to be septic with an elevated lactate, SIRS criteria even toxic changes to blood cells. He received fluids as well as IV antibiotics. On admission he was also found to have a slightly elevated troponin and anemia so he was transfused 2 unit of rbc for concern of end organ damage exacerbated by anemia. While in house the patient was found to have two positive blood cultures for group A beta hemolytic strep and IV antibiotics were transitioned to Rocephin with a plan to continue in outpatient setting to complete a full 10 days of antibiotics. He also had a short episode of PAF which responded well and converted with the addition of 12.5 mg of Metoprolol PO. [facility] was consulted and taking into consideration the patient's CHASVASC, nonsustained characteristics of the arrhythmia, diagnosis of leukemia resulting in bouts of profound anemia and risk of bleeding it was advised to not initiate anticoagulation as this may be associated to a more metabolic/ infectious cause vs structural and sustained. Once patient was stabilized d/c instructions given and patient was d/c home with home health. Sepsis most likely secondary to a respiratory source/ Group A beta strep bacteremia - Sputum culture and blood culture positive for pansensitive group A strep NOT GBS - ID recommends a full 10 days of antibiotics; IV rocephin x 5 more days via PICC Paroxysmal Atrial fibrillation, nonsustained - Continue 12.5 mg bid Metoprolol tartrate - Follow up 1 week with PCP - See above for discussion regarding anticoag; in summary to defer anticoag at this time Acute renal failure - POA - resolved. 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 Discharge Instructions Please refer to the electronic Patient Visit Report (Discharge Instructions) for additional information. Additional Copies To Dinesh Richards M.D. Reviewed: Pt Seen/Exam by Me History no concerns overnight Constitutional: denies: fever Respiratory: negative: short of breath Cardiovascular: denies chest pain Gastrointestinal/Abdominal: negative: abdominal pain General Appearance: no apparent distress Respiratory: lungs clear, no respiratory distress Cardiovascular: regular rate, rhythm Gastrointestinal: soft Neurologic/Psychiatric: alert, oriented x 3 Skin Characteristics: warm/dry Assessment/Plan Resident Physician Supervision Note: I independently interviewed and examined the patient and verified the more history and physical, reviewed labs and image studies, discussed the case with the resident Dr. Owens and agree with the findings and care plan.
[2017-08-21] MEDS ORDERED: METOPROLOL TARTRATE 25 MG TAB PO SCH ×2 (21:00)
== END 2017-08-21 16:50 | disposition home or self-care (01) | DRG 871 ==
LOC: EDBD 20:02 → C.EDB 20:03 → C.2E 08-18 01:32 → ENRESERV 08-18 01:51
PROVIDERS: ADMIT Hospitalist; ATTEND Family Medicine
DX: A41.9 Sepsis, unspecified organism (principal); J96.01 Acute respiratory failure with hypoxia; I21.4 Non-ST elevation (NSTEMI) myocardial infarction; C91.10 Chronic lymphocytic leukemia of B-cell type not having achieved remission; I24.8 Other forms of acute ischemic heart disease; C91.Z0 Other lymphoid leukemia not having achieved remission; N17.9 Acute kidney failure, unspecified; E87.1 Hypo-osmolality and hyponatremia; E87.6 Hypokalemia; D64.9 Anemia, unspecified; Z96.641 Presence of right artificial hip joint; Z87.891 Personal history of nicotine dependence; Z79.82 Long term (current) use of aspirin

== ENCOUNTER → 2017-08-24 | Outpatient (CLI) | payer OTHER, MEDICARE ==
[~2017-08-24] MED LIST changes: +CEFT1INJ57 IV; -FRS/40 PO; +LPR25 PO; +METH10TA32 PO; -METO5TAB25 PO
[2017-08-24 18:03] LABS: BLOOD UREA NITROGEN 21 mg/dl (7-18); CALCIUM 8.2 mg/dl (8.5-10.1); CARBON DIOXIDE 26 mmol/L (21-32); CREATININE 0.69 mg/dl (0.60-1.40); GLUCOSE 122 mg/dl (70-99); POTASSIUM 4.3 mmol/L (3.5-5.1); SODIUM 137 mmol/L (136-145)
== END | disposition home or self-care (01) ==
LOC: C.LABSPEC 10:29
PROVIDERS: ATTEND Internal Medicine
DX: E87.6 Hypokalemia (principal)

== ENCOUNTER 2017-09-03 07:35 | Inpatient (IN) | payer OTHER, MEDICARE ==
[~2017-09-03] VITALS: Ht 182.9 cm; Wt 105.8 kg
[2017-09-03] VITALS (19 sets, daily range): BP systolic 88–136; BP diastolic 38–65; PULSE 71–96; TEMP 36.5–37.4; O2SAT 94–100; BMI 31.6
[~2017-09-03 07:35] MED LIST changes: -CEFT1INJ57 IV
[2017-09-03] MEDS ORDERED: SODIUM CHLORIDE 0.9% 500ML 500 ML IV STA (07:47)
--- NOTE | 2017-09-03 07:59 | EMERGENCY ROOM VISIT NOTE ---
History Report prepared by Umm: Caren Gentile Under the Supervision of: Dr. Dinesh Jones D.O. First contact with patient: 07:37 Stated Complaint: FALL/ALTERED MENTAL STATUS History of Present Illness The patient is a 82 year old male who presents to the Emergency Room with complaints of a sudden fall occurring this morning. Per EMS, the patient collapsed sometime after midnight. Per EMS, the patient's found him on the floor this morning and stated that he soiled himself and had a bloody nose. Per EMS, the patient was weak and was having difficulty answering questions when they found him but then was able to answer questions appropriately once he was off the floor. The patient denies having a headache, neck pain, shortness of breath, and chest pain. The patient also denies having hip pain or any pain. He reports that he has edema in his legs but that this is chronic. The patient reports that he was recently being treated for pneumonia, and states that he has been coughing a lot. He states that he has chronic leukemia. Source of History: patient, EMS Onset: this morning Position: other (global) Quality: other (fall) Timing: other (sudden ) Associated Symptoms: + weakness, No headache, No neck pain, No chest pain, No SOB Note: also denies: hip pain Review of Systems See HPI for pertinent positives & negatives. A total of 10 systems reviewed and were otherwise negative. Past Medical & Surgical Medical Problems: (1) Anemia (2) Elevated troponin (3) Large granular lymphocytic leukemia (4) Symptomatic anemia (5) Syncope and collapse Family History No pertinent family history Social History Smoking Status: Never Smoker Drug Use: none Marital Status: Housing Status: lives with significant other Occupation Status: retired Current/Historical Medications Scheduled Aspirin (Aspirin Ec), 81 MG PO DAILY Furosemide (Lasix), 40 MG PO DAILY Methotrexate (Trexall), 20 MG PO WK Metoprolol Tartrate (Lopressor) (Lopressor), 12.5 MG PO BID Omeprazole (Prilosec), 20 MG PO DAILY Potassium Ext Rel (Klor-Con), 80 MEQ PO DAILY Prednisone (Prednisone), 40 MG PO DAILY Simvastatin (Zocor), 20 MG PO HS Allergies Coded Allergies: No Known Allergies (Unverified , 08/17/17) Physical Exam Vital Signs Date Time Temp Pulse Resp B/P (MAP) Pulse Ox O2 Delivery O2 Flow Rate FiO2 09/03/17 10:47 124/59 09/03/17 10:45 36.9 83 22 121/57 99 09/03/17 10:41 77 97 09/03/17 10:36 36.9 79 121/57 96 Room Air 09/03/17 10:31 77 121/57 97 09/03/17 10:26 77 95 09/03/17 10:21 89 95 09/03/17 10:16 73 97 09/03/17 10:11 83 96 09/03/17 10:06 79 96 09/03/17 10:01 118/44 09/03/17 09:36 80 95 09/03/17 09:31 113/59 09/03/17 09:08 120/46 09/03/17 09:08 120/46 09/03/17 08:31 123/51 09/03/17 08:31 123/51 09/03/17 08:30 88 19 87 09/03/17 08:25 94 32 93 09/03/17 08:20 92 19 99 09/03/17 08:20 92 19 99 09/03/17 08:15 84 23 98 09/03/17 08:10 91 15 92 09/03/17 08:05 83 17 100 09/03/17 08:05 90 09/03/17 08:05 83 17 100 09/03/17 08:01 106/51 09/03/17 08:01 106/51 09/03/17 08:00 89 14 97 09/03/17 07:48 36.9 99 22 91/49 97 Room Air 09/03/17 07:48 96 Room Air 09/03/17 07:42 94/49 09/03/17 07:42 94/49 Physical Exam GENERAL: Patient is awake, alert, and in no acute distress. Patient is resting comfortably and showing no signs of anxiety EYES: The conjunctivae are clear. The pupils are round and reactive. EARS, NOSE, MOUTH AND THROAT: Clotted blood in both naris. No tenderness and no septal hematoma was noted. Mucous membranes are moist tongue is midline NECK: The neck is nontender and supple. RESPIRATORY: Normal respiratory effort is noted there is no evidence of wheezing or rales. Scattered rhonchi noted throughout. No tachypnea or conversational dyspnea noted. CARDIOVASCULAR: Regular rate and rhythm noted there no murmurs rubs or gallops normal S1 normal S2 GASTROINTESTINAL: Abdomen is mildly distended. The abdomen is soft. Bowel sounds are present in all quadrants. Abdomen is nontender. There is no guarding or rigidity noted. MUSCULOSKELETAL/EXTREMITIES: There is no evidence of gross deformity full range of motion is noted in the hips and shoulders SKIN: There is no obvious evidence of any rash. There are no petechiae, pallor or cyanosis noted. Significant pedal edema noted bilaterally. Skin tear with dressing intact in left upper extremity. NEUROLOGIC: Patient is awake alert and oriented x3 strength was diminished but symmetric patellar reflexes are 2+ bilaterally Medical Decision & Procedures ER Provider Diagnostic Interpretation: Radiology results as stated below per my review and radiologist interpretation: PELVIS 1 OR 2 VIEW ROUTINE CLINICAL HISTORY: fall trauma. Pain. COMPARISON: None. DISCUSSION: Prior total right hip arthroplasty. Moderate degenerative change of the sacroiliac joints. Mild degenerative change of the left hip. No evidence for acetabular protrusion. There is no evidence for soft tissue swelling. IMPRESSION: No acute process. Degenerative and postoperative change as noted. The above report was generated using voice recognition software. It may contain grammatical, syntax or spelling errors. Electronically signed by: Pranav Javier M.D. 09/03/2017 9:09 AM Dictated Date/Time: 09/03/2017 9:06 AM FACIAL BONES-MXILLOFAC WITHOUT CT DOSE: HISTORY: Trauma. Pain. fall TECHNIQUE: Multiaxial CT images of the maxillofacial region were performed and reformatted in the coronal plane without the use of contrast. A dose lowering technique was utilized adhering to the principles of ALARA. COMPARISON: None. FINDINGS: The visualized cervical spine, skull base, pterygoid plates, nasal bones, lamina papyracea, orbital floors, mandible, and zygomatic arches are intact. No fractures. The orbits are unremarkable. IMPRESSION: No fractures within the maxillofacial region. The above report was generated using voice recognition software. It may contain grammatical, syntax or spelling errors. Electronically signed by: Pranav Javier M.D. 09/03/2017 9:17 AM Dictated Date/Time: 09/03/2017 9:[address] HEAD WITHOUT CONTRAST (CT) CLINICAL HISTORY: Head pain status post trauma. Weakness. COMPARISON STUDY: No previous studies for comparison. TECHNIQUE: Axial CT of the brain is performed from the vertex to the skull base. IV contrast was not administered for this examination. A dose lowering technique was utilized adhering to the principles of ALARA. CT DOSE: FINDINGS: No intra or extra-axial mass lesions are visualized. There is no CT evidence of acute cortical infarction. There is no evidence of midline shift. There is no acute hemorrhage. No calvarial fractures are visualized. There are patchy white matter hypodensities likely on a small vessel basis. There is no evidence of pathologic ventricular dilatation. There is no evidence of acute sinusitis IMPRESSION: No acute intracranial findings Electronically signed by: Ran Celaya M.D. 09/03/2017 9:09 AM Dictated Date/Time: 09/03/2017 9:08 AM CHEST ONE VIEW PORTABLE CLINICAL HISTORY: fall trauma COMPARISON STUDY: 08/17/2017 FINDINGS: PICC catheter ends. Cava. Lungs are clear. Diaphragms smooth. IMPRESSION: No acute process. The above report was generated using voice recognition software. It may contain grammatical, syntax or spelling errors. Electronically signed by: Pranav Javier M.D. 09/03/2017 9:03 AM Dictated Date/Time: 09/03/2017 9:01 AM CERVICAL SPINE W/O CT DOSE: 3303.04 mGy.cm HISTORY: Trauma fall TECHNIQUE: Multiaxial CT images of the cervical spine were performed and reformatted in the sagittal and coronal plane without the use of contrast. A dose lowering technique was utilized adhering to the principles of ALARA. COMPARISON: None. FINDINGS: No fractures. No subluxation. Prevertebral soft tissues and the C1-C2 interval are intact. No pneumothorax. Considerable degenerative changes throughout. Small old cortical fracture right first rib posteriorly. IMPRESSION: Considerable degenerative change. No acute bony abnormality. The above report was generated using voice recognition software. It may contain grammatical, syntax or spelling errors. Electronically signed by: Pranav Javier M.D. 09/03/2017 9:13 AM Dictated Date/Time: 09/03/2017 9:[address] ABD/PELVIS IV CONTRAST ONLY CLINICAL HISTORY: anemia, fall ABDOMINAL PAIN COMPARISON STUDY: None. TECHNIQUE: Following the IV administration of 120 mL of Optiray-320, CT scan of the abdomen and pelvis was performed from the lung bases to the proximal femurs. Images are reviewed in the axial, sagittal, and coronal planes. IV contrast was administered without complication. A dose lowering technique was utilized adhering to the principles of ALARA. CT DOSE: FINDINGS: Lower chest: There are right basal airspace opacities, likely atelectatic although an inflammatory process could appear similar Liver: The contrast-enhanced liver is normal in size, contour, and attenuation. There is no intrahepatic biliary ductal dilatation. The hepatic veins and portal veins are patent. There is minimal infiltration the fat adjacent to the tip of the right lobe of the liver Gallbladder: Cholelithiasis Spleen: Normal in size and attenuation. Pancreas: Unremarkable. Adrenal glands: Unremarkable. Kidneys: There is a 36 mm left renal mass. This slightly exceeds water attenuation and is therefore indeterminate. There is a suspected wall calcification. A nonemergent renal CT scan is recommended in follow-up to exclude a hypodense solid neoplasm Bowel: There are no transition zones indicate bowel obstruction. There is no acute diverticulitis. There are multiple appendicoliths. There are no periappendiceal inflammatory changes. Peritoneum: There is no intraperitoneal free air or abdominal ascites. Vasculature: The abdominal aorta is normal in course and caliber. Adenopathy: None. Pelvic viscera: The bladder, and pelvic viscera are unremarkable. Skeletal structures: No destructive osseous lesions are seen. IMPRESSION: 1. No evidence of acute intra-abdominal or pelvic injury 2. Right lower lobe airspace opacities, atelectasis versus infectious/inflammatory 3. Cholelithiasis 4. Multiple appendicoliths 5. 36 mm hypodense left renal lesion which exceeds water attenuation. A nonemergent dedicated renal CT scan is recommended in follow-up to differentiate a hyperdense cyst from a hypodense solid renal neoplasm Electronically signed by: Ran Celaya M.D. 09/03/2017 9:16 AM Dictated Date/Time: 09/03/2017 9:09 AM Laboratory Results 09/03/17 07:30 Red Blood Count 2.14, Mean Corpuscular Volume 85.0, Mean Corpuscular Hemoglobin 30.4, Mean Corpuscular Hemoglobin Concent 35.7, Mean Platelet Volume 9.7, Neutrophils (%) (Auto) 66.6, Lymphocytes (%) (Auto) 24.5, Monocytes (%) (Auto) 7.7, Eosinophils (%) (Auto) 0.3, Basophils (%) (Auto) 0.0, Neutrophils # (Auto) 2.34, Lymphocytes # (Auto) 0.86, Monocytes # (Auto) 0.27, Eosinophils # (Auto) 0.01, Basophils # (Auto) 0.00 09/03/17 07:30 Test 09/03/17 07:30 White Blood Count 3.51 K/uL (4.8-10.8) Red Blood Count 2.14 M/uL (4.7-6.1) Hemoglobin 6.5 g/dL (14.0-18.0) Hematocrit 18.2 % (42-52) Mean Corpuscular Volume 85.0 fL (80-100) Mean Corpuscular Hemoglobin 30.4 pg (25-34) Mean Corpuscular Hemoglobin Concent 35.7 g/dl (32-36) Platelet Count 148 K/uL (130-400) Mean Platelet Volume 9.7 fL (7.4-10.4) Neutrophils (%) (Auto) 66.6 % Lymphocytes (%) (Auto) 24.5 % Monocytes (%) (Auto) 7.7 % Eosinophils (%) (Auto) 0.3 % Basophils (%) (Auto) 0.0 % Neutrophils # (Auto) 2.34 K/uL (1.4-6.5) Lymphocytes # (Auto) 0.86 K/uL (1.2-3.4) Monocytes # (Auto) 0.27 K/uL (0.11-0.59) Eosinophils # (Auto) 0.01 K/uL (0-0.5) Basophils # (Auto) 0.00 K/uL (0-0.2) RDW Standard Deviation 47.8 fL (36.4-46.3) RDW Coefficient of Variation 16.4 % (11.5-14.5) Immature Granulocyte % (Auto) 0.9 % Immature Granulocyte # (Auto) 0.03 K/uL (0.00-0.02) Ovalocytes 1+ Prothrombin Time 12.0 SECONDS (9.0-12.0) Prothromb Time International Ratio 1.1 (0.9-1.1) Activated Partial Thromboplast Time 25.4 SECONDS (21.0-31.0) Partial Thromboplastin Ratio 1.0 Anion Gap 10.0 mmol/L (3-11) Est Creatinine Clear Calc Drug Dose 67.3 ml/min Estimated GFR () 74.3 Estimated GFR (Non- 64.1 BUN/Creatinine Ratio 24.5 (10-20) Calcium Level 8.1 mg/dl (8.5-10.1) Magnesium Level 2.0 mg/dl (1.8-2.4) Total Bilirubin 0.8 mg/dl (0.2-1) Direct Bilirubin 0.2 mg/dl (0-0.2) Aspartate Amino Transf (AST/SGOT) 18 U/L (15-37) Alanine Aminotransferase (ALT/SGPT) 33 U/L (12-78) Alkaline Phosphatase 69 U/L (45-117) Total Creatine Kinase 22 U/L (39-308) Creatine Kinase MB 0.9 ng/ml (0.5-3.6) Creatine Kinase MB Ratio 4.1 (0-3.0) Troponin I 0.018 ng/ml (0-0.045) Total Protein 6.6 gm/dl (6.4-8.2) Albumin 2.9 gm/dl (3.4-5.0) Lipase 270 U/L (73-393) Laboratory results per my review. Medications Administered Medications (Trade) Dose Ordered Sig/Rosendo Route Start Time Stop Time Status Last Admin Dose Admin Sodium Chloride 500 ml @ 999 mls/hr Q31M STAT IV 09/03/17 07:47 09/03/17 08:17 DC 09/03/17 07:57 999 MLS/HR ECG Per My Interpretation Indication: weakness Rate (beats per minute): 92 Rhythm: normal sinus Findings: no ectopy, other (high lateral T wave abnormalities) Change: no significant change Change: ECG interpreted by me. ED Course 0740: The patient was evaluated in room B4B. A complete history and physical examination were performed. 0747: Ordered Sodium Chloride 500 ml @ 999 mls/hr IV. 1011: Upon reevaluation, the patient is resting. I discussed results and treatment plan with the patient. He verbalizes agreement and understanding. I spoke with Dr. Brady of the [facility]. The patient will be evaluated for further management and care. Medical Decision Differential diagnosis: Etiologies such as metabolic, infection, hypo/hyperglycemia, electrolyte abnormalities, cardiac sources, intracerebral event, toxicologic, neurologic, as well as others were entertained. Nursing notes reviewed. Patient's previous electronic medical records reviewed. The patient is an 82-year-old male who presented to the emergency department for an evaluation of generalized weakness. The patient has a history of leukemia. He has had blood transfusions in the past. He was recently in our facility but had a fall. The patient was found on the floor. He was having difficulty ambulating and appeared to stay on the floor most of the evening. The ambulance was called initially for a lift assist. The patient was found to have very significant weakness and had difficulty ambulating. The patient was found to have anemia which appears to be worsening compared to previous. Type and screen was ordered and the patient had a blood transfusion ordered. I discussed patient's laboratory and radiographic studies with him. No source for bleeding could be found so I assume this is due to his chronic anemia. I discussed his case with the on-call [facility] hospitalist. They have agreed to evaluate patient in the emergency department for further management and disposition. Medication Reconcilliation Current Medication List: was personally reviewed by me Blood Pressure Screening Patient's blood pressure: Low blood pressure will be monitored by hospitalist Consults Time Called: [phone] Consulting Physician: Dr. Brady- [facility] Returned Call: [phone] I discussed the patient's case with Dr. Brady. The patient will be evaluated for further management. Impression Primary Impression: Anemia Additional Impression: Weakness Scribe Attestation The scribe's documentation has been prepared under my direction and personally reviewed by me in its entirety. I confirm that the note above accurately reflects all work, treatment, procedures, and medical decision making performed by me. Departure Information Dispostion Being Evaluated By Hospitalist Referrals Dinesh Richards M.D. (PCP) Problem Qualifiers Primary Impression: Anemia Anemia type: unspecified type Qualified Codes: D64.9 - Anemia, unspecified
[2017-09-03 08:08] LABS: INR 1.1 (0.9-1.1); PTT PATIENT 25.4 SECONDS (21.0-31.0)
[2017-09-03 08:13] LABS: ALBUMIN 2.9 gm/dl (3.4-5.0); CALCIUM 8.1 mg/dl (8.5-10.1); CREATININE 1.06 mg/dl (0.60-1.40); POTASSIUM 3.7 mmol/L (3.5-5.1)
[2017-09-03 08:17] LABS: CKMB 0.9 ng/ml (0.5-3.6); TOTAL PROTEIN 6.6 gm/dl (6.4-8.2)
[2017-09-03 08:22] LABS: HEMATOCRIT 18.2 % (42-52); HEMOGLOBIN 6.5 g/dL (14.0-18.0); MEAN CORPUSCULAR HEMOGLOBIN 30.4 pg (25-34); MEAN CORPUSCULAR HGB CONC 35.7 g/dl (32-36); MEAN PLATELET VOLUME 9.7 fL (7.4-10.4); PLATELET COUNT 148 K/uL (130-400); RED CELL DISTRIBUTION WIDTH CV 16.4 % (11.5-14.5); RED CELL DISTRIBUTION WIDTH SD 47.8 fL (36.4-46.3); WHITE BLOOD COUNT 3.51 K/uL (4.8-10.8)
[2017-09-03 08:38] LABS: EOS % 0.3 %; EOS ABS # 0.01 K/uL (0-0.5); IG# 0.03 K/uL (0.00-0.02); LYMPH % 24.5 %; LYMPH ABS # 0.86 K/uL (1.2-3.4); MONO % 7.7 %; MONO ABS # 0.27 K/uL (0.11-0.59); NEUT % 66.6 %; NEUT ABS # 2.34 K/uL (1.4-6.5)
[2017-09-03] MEDS ORDERED: METO25TA56 PO (08:54)
[2017-09-03] MEDS ORDERED: FRS/40 PO (08:54)
--- NOTE | 2017-09-03 09:04 | DIAGNOSTIC IMAGING REPORT ---
CHEST ONE VIEW PORTABLE CLINICAL HISTORY: fall trauma COMPARISON STUDY: 08/17/2017 FINDINGS: PICC catheter ends. Cava. Lungs are clear. Diaphragms smooth. IMPRESSION: No acute process. The above report was generated using voice recognition software. It may contain grammatical, syntax or spelling errors. Electronically signed by: Pranav Javier M.D. 09/03/2017 9:03 AM Dictated Date/Time: 09/03/2017 9:01 AM
--- NOTE | 2017-09-03 09:10 | DIAGNOSTIC IMAGING REPORT ---
PELVIS 1 OR 2 VIEW ROUTINE CLINICAL HISTORY: fall trauma. Pain. COMPARISON: None. DISCUSSION: Prior total right hip arthroplasty. Moderate degenerative change of the sacroiliac joints. Mild degenerative change of the left hip. No evidence for acetabular protrusion. There is no evidence for soft tissue swelling. IMPRESSION: No acute process. Degenerative and postoperative change as noted. The above report was generated using voice recognition software. It may contain grammatical, syntax or spelling errors. Electronically signed by: Pranav Javier M.D. 09/03/2017 9:09 AM Dictated Date/Time: 09/03/2017 9:06 AM
--- NOTE | 2017-09-03 09:10 | DIAGNOSTIC IMAGING REPORT ---
CT HEAD WITHOUT CONTRAST (CT) CLINICAL HISTORY: Head pain status post trauma. Weakness. COMPARISON STUDY: No previous studies for comparison. TECHNIQUE: Axial CT of the brain is performed from the vertex to the skull base. IV contrast was not administered for this examination. A dose lowering technique was utilized adhering to the principles of ALARA. CT DOSE: FINDINGS: No intra or extra-axial mass lesions are visualized. There is no CT evidence of acute cortical infarction. There is no evidence of midline shift. There is no acute hemorrhage. No calvarial fractures are visualized. There are patchy white matter hypodensities likely on a small vessel basis. There is no evidence of pathologic ventricular dilatation. There is no evidence of acute sinusitis IMPRESSION: No acute intracranial findings Electronically signed by: Ran Celaya M.D. 09/03/2017 9:09 AM Dictated Date/Time: 09/03/2017 9:08 AM
--- NOTE | 2017-09-03 09:15 | DIAGNOSTIC IMAGING REPORT ---
CERVICAL SPINE W/O CT DOSE: 3303.04 mGy.cm HISTORY: Trauma fall TECHNIQUE: Multiaxial CT images of the cervical spine were performed and reformatted in the sagittal and coronal plane without the use of contrast. A dose lowering technique was utilized adhering to the principles of ALARA. COMPARISON: None. FINDINGS: No fractures. No subluxation. Prevertebral soft tissues and the C1-C2 interval are intact. No pneumothorax. Considerable degenerative changes throughout. Small old cortical fracture right first rib posteriorly. IMPRESSION: Considerable degenerative change. No acute bony abnormality. The above report was generated using voice recognition software. It may contain grammatical, syntax or spelling errors. Electronically signed by: Pranav Javier M.D. 09/03/2017 9:13 AM Dictated Date/Time: 09/03/2017 9:09 AM
--- NOTE | 2017-09-03 09:17 | DIAGNOSTIC IMAGING REPORT ---
CT ABD/PELVIS IV CONTRAST ONLY CLINICAL HISTORY: anemia, fall ABDOMINAL PAIN COMPARISON STUDY: None. TECHNIQUE: Following the IV administration of 120 mL of Optiray-320, CT scan of the abdomen and pelvis was performed from the lung bases to the proximal femurs. Images are reviewed in the axial, sagittal, and coronal planes. IV contrast was administered without complication. A dose lowering technique was utilized adhering to the principles of ALARA. CT DOSE: FINDINGS: Lower chest: There are right basal airspace opacities, likely atelectatic although an inflammatory process could appear similar Liver: The contrast-enhanced liver is normal in size, contour, and attenuation. There is no intrahepatic biliary ductal dilatation. The hepatic veins and portal veins are patent. There is minimal infiltration the fat adjacent to the tip of the right lobe of the liver Gallbladder: Cholelithiasis Spleen: Normal in size and attenuation. Pancreas: Unremarkable. Adrenal glands: Unremarkable. Kidneys: There is a 36 mm left renal mass. This slightly exceeds water attenuation and is therefore indeterminate. There is a suspected wall calcification. A nonemergent renal CT scan is recommended in follow-up to exclude a hypodense solid neoplasm Bowel: There are no transition zones indicate bowel obstruction. There is no acute diverticulitis. There are multiple appendicoliths. There are no periappendiceal inflammatory changes. Peritoneum: There is no intraperitoneal free air or abdominal ascites. Vasculature: The abdominal aorta is normal in course and caliber. Adenopathy: None. Pelvic viscera: The bladder, and pelvic viscera are unremarkable. Skeletal structures: No destructive osseous lesions are seen. IMPRESSION: 1. No evidence of acute intra-abdominal or pelvic injury 2. Right lower lobe airspace opacities, atelectasis versus infectious/inflammatory 3. Cholelithiasis 4. Multiple appendicoliths 5. 36 mm hypodense left renal lesion which exceeds water attenuation. A nonemergent dedicated renal CT scan is recommended in follow-up to differentiate a hyperdense cyst from a hypodense solid renal neoplasm Electronically signed by: Ran Celaya M.D. 09/03/2017 9:16 AM Dictated Date/Time: 09/03/2017 9:09 AM
--- NOTE | 2017-09-03 09:19 | DIAGNOSTIC IMAGING REPORT ---
FACIAL BONES-MXILLOFAC WITHOUT CT DOSE: HISTORY: Trauma. Pain. fall TECHNIQUE: Multiaxial CT images of the maxillofacial region were performed and reformatted in the coronal plane without the use of contrast. A dose lowering technique was utilized adhering to the principles of ALARA. COMPARISON: None. FINDINGS: The visualized cervical spine, skull base, pterygoid plates, nasal bones, lamina papyracea, orbital floors, mandible, and zygomatic arches are intact. No fractures. The orbits are unremarkable. IMPRESSION: No fractures within the maxillofacial region. The above report was generated using voice recognition software. It may contain grammatical, syntax or spelling errors. Electronically signed by: Pranav Javier M.D. 09/03/2017 9:17 AM Dictated Date/Time: 09/03/2017 9:15 AM
[2017-09-03] MEDS ORDERED: MAGNESIUM HYDROXIDE SUSP 30 ML UDC PO PRN (11:00)
[2017-09-03] MEDS ORDERED: ACETAMINOPHEN 325 MG TAB PO PRN (11:00)
[2017-09-03] MEDS ORDERED: POLYETHYLENE (MIRALAX) 17 GM PACK PO PRN (11:00)
[2017-09-03] MEDS ORDERED: ONDANSETRON INJ 2 MG/ML 2 ML VIAL IV PRN (11:00)
[2017-09-03] MEDS ORDERED: MoRPHine SULFATE 2 MG/ML CARP IV PRN (11:00)
[2017-09-03] MEDS ORDERED: ALUMINUM/MAGNESIUM/SIMETH (MAALOX MAX) 30 ML UDC PO PRN (11:00)
[2017-09-03] MEDS ORDERED: IV FLUIDS COMPLETED PRN (11:45)
--- NOTE | 2017-09-03 11:59 | History and Physical ---
History & Physical Date & Time of Service: Sep 03, 2017 at 11:29 Chief Complaint: Fall/Altered Mental Status Primary Care Physician: Dinesh Richards M.D. History of Present Illness Source: patient, spouse, hospital records 82 y/o M Hx CLL, chronic anemia, chronic anasarca, HPL, diastolic dysfunction. Pt was found on floor by . He had a bloody nose and was mostly oriented but does not recall the events preceding his fall. He denies significant musculoskeletal pain. Imaging including a CT cervical spine and maxillofacial CT did not reveal any acute abnormalities. Initial labs are notable for an Hb of 6.5. The pt describes weakness, denies CP, N/V, diarrhea or dysuria. He has a cough which has persisted since a recent PNM diagnosis. He was admitted for PNM and anemia 08/18 and received 2 units PRBC at the time. Past Medical/Surgical History 1) HPL 2) CLL - receives monthly infusions in addition to MTX and prednisone 3) Anasarca 4) Chronic anemia 5) Grade 1 diastolic dysfunction on echo 08/30 Surgical R THR Family History No pertinent family history Noncontributory Social History Quit smoking 40 yrs ago, does not drink Smoking Status: Former Smoker Drug Use: none Marital Status: Housing status: lives with significant other Occupational Status: retired Immunizations History of Influenza Vaccine: Unknown History of Tetanus Vaccine?: Unknown History of Pneumococcal: Unknown Multi-Drug Resistant Organisms History of MDRO: No Allergies Coded Allergies: No Known Allergies (Unverified , 08/17/17) Home Medications Scheduled Aspirin (Aspirin Ec), 81 MG PO DAILY Furosemide (Lasix), 40 MG PO DAILY Methotrexate (Trexall), 20 MG PO WK Metoprolol Tartrate (Lopressor) (Lopressor), 12.5 MG PO BID Omeprazole (Prilosec), 20 MG PO DAILY Potassium Ext Rel (Klor-Con), 80 MEQ PO DAILY Prednisone (Prednisone), 40 MG PO DAILY Simvastatin (Zocor), 20 MG PO HS Review of Systems Constitutional: + weakness, + fatigue, No fever, No chills, No sweats Eyes: No worsening of vision ENT: + problem reported (epistaxis - possibly due to trauma), No hearing loss, No nasal symptoms Respiratory: + cough, + sputum, No wheezing, No shortness of breath Cardiovascular: No chest pain, No orthopnea, No PND Abdomen: No pain Musculoskeletal: No joint pain Genitourinary - Male: No hematuria, No dysuria Neurologic: No memory loss, No paralysis, No weakness Psychiatric: No depression symptoms Endocrine: No fatigue Hematologic / Lymphatic: + problem reported (chornic anemia - recent transfusions) Integumentary: No rash Allergic / Immunologic: No environmental allergies Physical Exam Vital Signs Date Time Temp Pulse Resp B/P (MAP) Pulse Ox O2 Delivery O2 Flow Rate FiO2 09/03/17 11:15 36.9 82 20 126/53 99 09/03/17 11:01 109/49 09/03/17 11:00 36.9 77 20 109/49 95 09/03/17 10:56 85 96 09/03/17 10:47 124/59 09/03/17 10:45 36.9 83 22 121/57 99 09/03/17 10:41 77 97 09/03/17 10:36 36.9 79 121/57 96 Room Air 09/03/17 10:31 77 121/57 97 09/03/17 10:26 77 95 09/03/17 10:21 89 95 09/03/17 10:16 73 97 09/03/17 10:11 83 96 09/03/17 10:06 79 96 09/03/17 10:01 118/44 09/03/17 09:36 80 95 09/03/17 09:31 113/59 09/03/17 09:08 120/46 09/03/17 09:08 120/46 09/03/17 08:31 123/51 09/03/17 08:31 123/51 09/03/17 08:30 88 19 87 09/03/17 08:25 94 32 93 09/03/17 08:20 92 19 99 09/03/17 08:20 92 19 99 09/03/17 08:15 84 23 98 09/03/17 08:10 91 15 92 09/03/17 08:05 83 17 100 09/03/17 08:05 90 09/03/17 08:05 83 17 100 09/03/17 08:01 106/51 09/03/17 08:01 106/51 09/03/17 08:00 89 14 97 09/03/17 07:48 36.9 99 22 91/49 97 Room Air 09/03/17 07:48 96 Room Air 09/03/17 07:42 94/49 09/03/17 07:42 94/49 General Appearance: + obese, + pertinent finding (overweight, elderly male - lethargic, pale, no distress) Head: normocephalic, + pertinent finding (Dry blood underneath nose - ) Eyes: normal inspection ENT: normal ENT inspection, pharynx normal Neck: supple, + pertinent finding (JVD exam limited by habitus) Respiratory/Chest: chest non-tender, lungs clear, normal breath sounds Cardiovascular: regular rate, rhythm, no edema, no gallop Abdomen/GI: normal bowel sounds, non tender, soft Back: normal inspection Extremities/Musculoskelatal: + pertinent finding Neurologic/Psych: excellence coach II-XII nml as tested, no motor/sensory deficits, alert, oriented x 3 Skin: + pertinent finding (Stage 3 ulcers on shins ant BL) Diagnostics Laboratory Results Results Past 24 Hours Test 09/03/17 07:30 Range/Units White Blood Count 3.51 4.8-10.8 K/uL Red Blood Count 2.14 4.7-6.1 M/uL Hemoglobin 6.5 14.0-18.0 g/dL Hematocrit 18.2 42-52 % Mean Corpuscular Volume 85.0 80-100 fL Mean Corpuscular Hemoglobin 30.4 25-34 pg Mean Corpuscular Hemoglobin Concent 35.7 32-36 g/dl Platelet Count 148 130-400 K/uL Mean Platelet Volume 9.7 7.4-10.4 fL Neutrophils (%) (Auto) 66.6 % Lymphocytes (%) (Auto) 24.5 % Monocytes (%) (Auto) 7.7 % Eosinophils (%) (Auto) 0.3 % Basophils (%) (Auto) 0.0 % Neutrophils # (Auto) 2.34 1.4-6.5 K/uL Lymphocytes # (Auto) 0.86 1.2-3.4 K/uL Monocytes # (Auto) 0.27 0.11-0.59 K/uL Eosinophils # (Auto) 0.01 0-0.5 K/uL Basophils # (Auto) 0.00 0-0.2 K/uL RDW Standard Deviation 47.8 36.4-46.3 fL RDW Coefficient of Variation 16.4 11.5-14.5 % Immature Granulocyte % (Auto) 0.9 % Immature Granulocyte # (Auto) 0.03 0.00-0.02 K/uL Ovalocytes 1+ Prothrombin Time 12.0 9.0-12.0 SECONDS Prothromb Time International Ratio 1.1 0.9-1.1 Activated Partial Thromboplast Time 25.4 21.0-31.0 SECONDS Partial Thromboplastin Ratio 1.0 Sodium Level 137 136-145 mmol/L Potassium Level 3.7 3.5-5.1 mmol/L Chloride Level 104 98-107 mmol/L Carbon Dioxide Level 24 21-32 mmol/L Anion Gap 10.0 3-11 mmol/L Blood Urea Nitrogen 26 7-18 mg/dl Creatinine 1.06 0.60-1.40 mg/dl Est Creatinine Clear Calc Drug Dose 67.3 ml/min Estimated GFR () 74.3 Estimated GFR (Non- 64.1 BUN/Creatinine Ratio 24.5 10-20 Random Glucose 100 70-99 mg/dl Calcium Level 8.1 8.5-10.1 mg/dl Magnesium Level 2.0 1.8-2.4 mg/dl Total Bilirubin 0.8 0.2-1 mg/dl Direct Bilirubin 0.2 0-0.2 mg/dl Aspartate Amino Transf (AST/SGOT) 18 15-37 U/L Alanine Aminotransferase (ALT/SGPT) 33 12-78 U/L Alkaline Phosphatase 69 45-117 U/L Total Creatine Kinase 22 39-308 U/L Creatine Kinase MB 0.9 0.5-3.6 ng/ml Creatine Kinase MB Ratio 4.1 0-3.0 Troponin I 0.018 0-0.045 ng/ml Total Protein 6.6 6.4-8.2 gm/dl Albumin 2.9 3.4-5.0 gm/dl Lipase 270 73-393 U/L Diagnostic Radiology CT abdomen 1. No evidence of acute intra-abdominal or pelvic injury 2. Right lower lobe airspace opacities, atelectasis versus infectious/ inflammatory 3. Cholelithiasis 4. Multiple appendicoliths 5. 36 mm hypodense left renal lesion which exceeds water attenuation. A nonemergent dedicated renal CT scan is recommended in follow-up to differentiate a hyperdense cyst from a hypodense solid renal neoplasm EKG Sinus, PACs Impression Assessment and Plan 82 y/o M Hx CLL, chronic anemia, chronic anasarca, HPL, diastolic dysfunction. Pt was found on floor by . He had a bloody nose and was mostly oriented but does not recall the events preceding his fall. He denies significant musculoskeletal pain. Imaging including a CT cervical spine and maxillofacial CT did not reveal any acute abnormalities. Initial labs are notable for an Hb of 6.5. The pt describes weakness, denies CP, N/V, diarrhea or dysuria. He has a cough which has persisted since a recent PNM diagnosis. He was admitted for PNM and anemia 08/18 and received 2 units PRBC at the time. 1) Syncope - pt has no specific recollection but was found on floor - it is likely that he got up and was orthostatic, possibly due to anemia. We will monitor on telemetry overnight. No further workup at present - orthostatics requested with vitals. 2) Anemia - due to CLL - no evidence of acute blood loss aside from minimal epistaxis - pt will receive 2 units PRBC 3) Anasarca - cont Lasix daily 4) HPL - cont Statin 5) CLL - can f/u with oncology on discharge 6) There is a L renal lesion on CT of the abdomen which should be addressed in the outpt setting 7) Diastolic CHF - Pt is likely intravascularly depleted - transfusion may help with this - he remains on daily Lasix 8) Duet to persistent weakness - pt and are requesting acute rehab - PT/OT requested. 9) There are ulcers on the pt's shins - wound care is consulted Full code - SCDs Total time for this admit including review of labs, meds, imaging, records, EKG - discussion with pt, , ER attending 38 min Level of Care Telemetry Resuscitation Status FULL RESUSCITATION VTE Prophylaxis VTE Risk Assessment Done? Y/N: Yes Risk Level: Moderate Given or contraindicated: SCD's
[2017-09-03] MEDS: METOPROLOL TARTRATE 25 MG TAB PO SCH (20:32)
[2017-09-03] MEDS: SIMVASTATIN 20 MG TAB PO SCH (20:32)
[2017-09-03 20:55] LABS: HEMOGLOBIN 7.1 g/dL (14.0-18.0)
[2017-09-04] VITALS (12 sets, daily range): BP systolic 90–111; BP diastolic 40–65; PULSE 68–94; TEMP 36.3–37.4; O2SAT 93–98
[2017-09-04 06:22] LABS: HEMATOCRIT 24.4 % (42-52); HEMOGLOBIN 8.6 g/dL (14.0-18.0); MEAN CORPUSCULAR HEMOGLOBIN 29.3 pg (25-34); MEAN CORPUSCULAR HGB CONC 35.2 g/dl (32-36); MEAN PLATELET VOLUME 9.3 fL (7.4-10.4); PLATELET COUNT 109 K/uL (130-400); RED CELL DISTRIBUTION WIDTH CV 15.3 % (11.5-14.5); RED CELL DISTRIBUTION WIDTH SD 45.4 fL (36.4-46.3); WHITE BLOOD COUNT 2.06 K/uL (4.8-10.8)
[2017-09-04 07:01] LABS: CALCIUM 7.7 mg/dl (8.5-10.1); CREATININE 0.71 mg/dl (0.60-1.40)
[2017-09-04] MEDS: METOPROLOL TARTRATE 25 MG TAB PO SCH ×2 (07:18→19:23)
[2017-09-04] MEDS ORDERED: POTASSIUM CHLORIDE 20 MEQ TABCR PO STA (07:59)
[2017-09-04] MEDS: PANTOprazole SOD 40 MG TAB PO SCH (08:26)
[2017-09-04] MEDS: POTASSIUM CHLORIDE 20 MEQ TABCR PO SCH (08:27)
[2017-09-04] MEDS ORDERED: FUROSEMIDE 40 MG TAB PO SCH (09:00)
[2017-09-04] MEDS ORDERED: ASPIRIN 81 MG ECTAB PO SCH (09:00)
[2017-09-04] MEDS ORDERED: NURSING VERBAL MED ORDER ONE ×2 (09:30→09:45)
[2017-09-04] MEDS: CHLORASEPTIC 1.4% SOLN 180 ML BTL MT PRN (11:40)
[2017-09-04] MEDS ORDERED: FLUCONAZOLE 50 MG TAB PO ONE (15:45)
[2017-09-04] MEDS: NYSTATIN SUSP 500,000 U/5 ML UDC PO SCH ×2 (15:50→19:48)
--- NOTE | 2017-09-04 18:00 | DIAGNOSTIC IMAGING REPORT ---
BILATERAL LOWER EXTREMITY VENOUS DOPPLER CLINICAL HISTORY: severe edema of both legs; eval DVT COMPARISON STUDY: None. TECHNIQUE: Sonography of the deep venous system of the bilateral lower extremities was performed. Compression and augmentation were evaluated. FINDINGS: There is deep venous thrombus within the right popliteal vein. There is also deep venous thrombus within the right posterior tibial vein. Note is made of deep venous thrombus within the left superficial femoral vein as well as left posterior tibial and peroneal veins. IMPRESSION: Deep venous thrombus within the right popliteal vein, left superficial femoral vein and multiple bilateral calf vessels, as described above. Electronically signed by: Eamon Pop M.D. 09/04/2017 5:59 PM Dictated Date/Time: 09/04/2017 5:57 PM
--- NOTE | 2017-09-04 18:02 | DIAGNOSTIC IMAGING REPORT ---
RIGHT UPPER EXTREMITY VENOUS DOPPLER ULTRASOUND CLINICAL HISTORY: PICC line RUE; severe edema; eval DVT right arm COMPARISON STUDY: No previous studies for comparison. FINDINGS: A right PICC is in place. Note is made of deep venous thrombus within the right axillary vein. There is superficial thrombus within the right basilic vein. This thrombus is adjacent to the right PICC. IMPRESSION: Right PICC in place. Deep venous thrombus within the right axillary vein and superficial thrombus within the right basilic vein. Electronically signed by: Eamon Pop M.D. 09/04/2017 6:00 PM Dictated Date/Time: 09/04/2017 5:59 PM
[2017-09-04] MEDS ORDERED: METHOTREXATE 2.5 MG TAB PO ONE (18:30)
[2017-09-04] MEDS ORDERED: HEPARIN IV BOLUS 7,000 UNIT in SYRINGE 0 ML IV ONE (19:00)
[2017-09-04 19:17] LABS: INR 1.2 (0.9-1.1); PTT PATIENT 30.2 SECONDS (21.0-31.0)
[2017-09-04] MEDS: SIMVASTATIN 20 MG TAB PO SCH (19:23)
[2017-09-04] MEDS: HEPARIN 25,000 UNIT/500ML D5W 500 ML IV PRN (19:47)
[2017-09-04] MEDS: NSS + 20MEQ KCL 1000ML 1,000 ML IV SCH (21:10)
[2017-09-04] MEDS: CHOLESTYRAMINE LIGHT 4 GM PKT PO SCH (22:02)
--- NOTE | 2017-09-04 22:32 | Progress Note ---
Subjective Date of Service: Sep 04, 2017. Subjective Pt evaluation today including: conversation w/ patient, conversation w/ family ( by phone), physical exam, chart review, lab review, review of studies ( dopplers of legs, right arm), conversation w/ senior research consultant (heme/onc), review of inpatient medication list Pain: denies PO Intake: fair Voiding: no voiding problems tele stable since admission patient reports copious diarrhea yesterday/today and foul-smelling he had the diarrhea "for a few days" prior to admission when asked how long he has had swollen legs and a swollen right arm he stated "oh - long time I guess" denied any dyspnea states he just finished his rocephin course for recent group A strep bacteremia - thinks he may have had 14+ days of Rx has sore throat Problem List Medical Problems: (1) Anemia Status: Chronic (2) Flu-like symptoms Status: Acute (3) Weakness Status: Acute Review of Systems Constitutional: No fever, No chills Respiratory: + cough, No shortness of breath Cardiac: No chest pain Abdomen: + diarrhea, No pain, No nausea, No vomiting Objective Vital Signs Date Time Temp Pulse Resp B/P (MAP) Pulse Ox O2 Delivery O2 Flow Rate FiO2 09/04/17 20:00 Room Air 09/04/17 19:18 36.3 94 18 90/49 (63) 97 Room Air 09/04/17 16:00 Room Air 09/04/17 15:45 36.4 84 18 108/55 (72) 98 Room Air 09/04/17 12:00 Room Air 09/04/17 11:48 37.4 90 24 96/51 (66) 95 Room Air 09/04/17 08:00 Room Air 09/04/17 07:56 37.0 83 18 99/54 (69) 93 Room Air 09/04/17 05:45 36.9 78 18 102/55 (71) 98 Room Air 09/04/17 04:45 36.8 79 20 97/47 (64) 96 Room Air 09/04/17 04:15 36.8 78 22 96/54 (68) 98 Room Air 09/04/17 04:00 Room Air 09/04/17 03:53 36.7 86 20 90/40 96 09/04/17 01:53 36.7 80 20 110/55 98 09/04/17 00:53 36.8 77 18 111/65 95 09/04/17 00:00 Room Air 09/04/17 00:00 37.1 80 20 110/48 (68) 96 09/03/17 23:53 36.8 78 20 122/65 96 09/03/17 23:23 36.8 83 20 111/48 95 09/03/17 23:01 37.4 86 19 111/44 95 Physical Exam General Appearance: no apparent distress ENT: + pertinent finding (thrush on posterior throat, tongue) Neck: no JVD Respiratory/Chest: lungs clear, no respiratory distress, no accessory muscle use Cardiovascular: regular rate, rhythm, no gallop Abdomen: normal bowel sounds, non tender, soft, no organomegaly Extremities: + pedal edema, + swelling (2-3+ b/l legs; 2-3+ RUE; LUE w/o edema) Neurologic/Psychiatric: alert, oriented x 3 Skin: + pallor, + pertinent finding (PICC line, RIGHT arm, clean; no erythema ) Laboratory Results Last 24 Hours Test 09/04/17 00:42 09/04/17 06:07 09/04/17 18:50 Stool Occult Blood NEGATIVE White Blood Count 2.06 K/uL Red Blood Count 2.94 M/uL Hemoglobin 8.6 g/dL Hematocrit 24.4 % Mean Corpuscular Volume 83.0 fL Mean Corpuscular Hemoglobin 29.3 pg Mean Corpuscular Hemoglobin Concent 35.2 g/dl RDW Standard Deviation 45.4 fL RDW Coefficient of Variation 15.3 % Platelet Count 109 K/uL Mean Platelet Volume 9.3 fL Sodium Level 134 mmol/L Potassium Level 3.0 mmol/L Chloride Level 102 mmol/L Carbon Dioxide Level 24 mmol/L Anion Gap 8.0 mmol/L Blood Urea Nitrogen 19 mg/dl Creatinine 0.71 mg/dl Est Creatinine Clear Calc Drug Dose 98.2 ml/min Estimated GFR () 99.9 Estimated GFR (Non- 86.2 BUN/Creatinine Ratio 26.2 Random Glucose 92 mg/dl Calcium Level 7.7 mg/dl Magnesium Level 1.9 mg/dl Prothrombin Time 12.7 SECONDS Prothromb Time International Ratio 1.2 Activated Partial Thromboplast Time 30.2 SECONDS Partial Thromboplastin Ratio 1.2 Assessment and Plan 82yo male with: 1. syncope - suspect 2nd to hypotension. Hypotension likely due to dehydration /volume depletion in setting of severe diarrhea. BPs continue to be low today s/p 4 units of PRBCs yesterday. Will provide small amount of additional fluid as well as stress-dose steroids ( increase prednisone to 40mg BID). Leave on telemetry. 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 Whittington to consult in am. baseline Hb 7's. Methotrexate 20mg weekly (due today - I have ordered). Prednisone. Other recs - defer to Dr. Whittington. 3. b/l LE edema 2nd to b/l DVTs - start standard dose heparin. Stools heme negative. 4. RUE DVT - 2nd to PICC line - PICC is no longer needed as he has finished rocephin course; d/c the PICC. 5. severe diarrhea - check c. diff and stool cx; if c diff is negative can use cholestyramine to cut down on frequency of stools. 6. acute kidney injury - 2nd to dehydration - improved; BMP am. 7. hypokalemia - replace, repeat BMP am. 8. anemia 2nd to #2 - s/p PRBCs - H/H acceptable. 9. recent RLL pneumonia - clinically resolved. 10. recent group A strep bacteremia - clinically resolved. 11. chronic diastolic CHF - compensated at this time. Due to volume depletion hold lasix at this time. 12. thrush - diflucan + nystatin solution QID. will need PT, OT In my clinical judgment this beneficiary meets acute admission criteria, established by [facility], that includes being hospitalized through two midnights. Thus, change to full admission status today. updated by phone. Continued [facility] stay due to: ambulation difficulties, multiple IV medications needed Discharge planning: uncertain
[2017-09-05] VITALS (8 sets, daily range): BP systolic 95–134; BP diastolic 46–59; PULSE 61–76; TEMP 36.3–36.9; O2SAT 96–98
[2017-09-05 01:10] LABS: PTT PATIENT 164.1 SECONDS (21.0-31.0)
[2017-09-05 02:40] LABS: PTT PATIENT 96.1 SECONDS (21.0-31.0)
[2017-09-05] MEDS: HEPARIN 25,000 UNIT/500ML D5W 500 ML IV PRN ×2 (03:59→15:20)
[2017-09-05 05:05] LABS: HEMATOCRIT 22.6 % (42-52); HEMOGLOBIN 7.8 g/dL (14.0-18.0); IG# 0.03 K/uL (0.00-0.02); LYMPH ABS # 0.64 K/uL (1.2-3.4); MEAN CELL VOLUME 82.8 fL (80-100); MEAN CORPUSCULAR HEMOGLOBIN 28.6 pg (25-34); MEAN CORPUSCULAR HGB CONC 34.5 g/dl (32-36); MEAN PLATELET VOLUME 9.6 fL (7.4-10.4); MONO % 5.1 %; MONO ABS # 0.09 K/uL (0.11-0.59); NEUT % 57.2 %; NEUT ABS # 1.02 K/uL (1.4-6.5); NUCLEATED RED BLOOD CELL ABS 0.03 K/uL (0-0); PLATELET COUNT 130 K/uL (130-400); RED CELL DISTRIBUTION WIDTH CV 15.7 % (11.5-14.5); RED CELL DISTRIBUTION WIDTH SD 46.3 fL (36.4-46.3); WHITE BLOOD COUNT 1.78 K/uL (4.8-10.8)
[2017-09-05 05:24] LABS: CALCIUM 7.4 mg/dl (8.5-10.1); CREATININE 0.61 mg/dl (0.60-1.40); POTASSIUM 3.5 mmol/L (3.5-5.1)
[2017-09-05 05:34] LABS: PTT PATIENT 46.7 SECONDS (21.0-31.0)
[2017-09-05] MEDS: NYSTATIN SUSP 500,000 U/5 ML UDC PO SCH ×3 (08:29→16:28)
[2017-09-05] MEDS: PANTOprazole SOD 40 MG TAB PO SCH (08:30)
[2017-09-05] MEDS: FLUCONAZOLE 100 MG TAB PO SCH (08:31)
[2017-09-05] MEDS: POTASSIUM CHLORIDE 20 MEQ TABCR PO SCH (08:32)
[2017-09-05] MEDS: METOPROLOL TARTRATE 25 MG TAB PO SCH ×2 (08:32→21:50)
[2017-09-05] MEDS: CHOLESTYRAMINE LIGHT 4 GM PKT PO SCH ×2 (08:33→22:00)
[2017-09-05] MEDS: NSS + 20MEQ KCL 1000ML 1,000 ML IV SCH (10:21)
[2017-09-05 10:53] LABS: PTT PATIENT 56.8 SECONDS (21.0-31.0)
--- NOTE | 2017-09-05 12:09 | Oncology Consultation ---
Oncology/Heme Consultation Date of Consultation: Sep 05, 2017. 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 He is being treated with weekly Procrit and with Methotrexate weekly and oral prednisone daily. He's been on treatment for 2-3 months and has not yet had a robust response. He was hospitalized from 08/17-08/21 for pneumonia and GAS bacteremia resulting in sepsis. He was discharged on IV Rocephin, though it appears he was on it longer than the initially prescribed 5 days. He developed profuse watery diarrhea over the last few days. On the night of admission, he walked to his kitchen and fell, losing consciousness briefly. He was then on the floor of his kitchen for several hours before his found him. He was brought to [facility], where a trauma workup was negative. He was found to be anemic, as he usually is , and was given 4 units of PRBCs. He has bilateral pedal edema and some edema in the arm where his PICC line was placed. Dopplers revealed DVTs in both legs and at the PICC site. He is now on heparin and the PICC was removed. He feels better now. His diarrhea was less today. His energy is fair but closer to his baseline. Past Medical/Surgical History Medical Problems: (1) Anemia Status: Chronic (2) Flu-like symptoms Status: Acute (3) Weakness Status: Acute Family History No pertinent family history Social History Smoking Status: Never Smoker Drug Use: none Marital Status: Housing Status: lives with significant other Occupation Status: retired Allergies Coded Allergies: No Known Allergies (Unverified , 08/17/17) Home Medications Scheduled Aspirin (Aspirin Ec), 81 MG PO DAILY Furosemide (Lasix), 40 MG PO DAILY Methotrexate (Trexall), 20 MG PO WK Metoprolol Tartrate (Lopressor) (Lopressor), 12.5 MG PO BID Omeprazole (Prilosec), 20 MG PO DAILY Potassium Ext Rel (Klor-Con), 80 MEQ PO DAILY Prednisone (Prednisone), 40 MG PO DAILY Simvastatin (Zocor), 20 MG PO HS Current Inpatient Medications Current Inpatient Medications Medications (Trade) Dose Ordered Sig/Rosendo Route Start Time Stop Time Status Last Admin Dose Admin Acetaminophen (Tylenol Tab) 650 mg Q4H PRN PO 09/03/17 11:00 10/03/17 10:59 Al Hydrox/Mg Hydrox/Simethicone (Maalox Max Susp) 15 ml Q4H PRN PO 09/03/17 11:00 10/03/17 10:59 Magnesium Hydroxide (Milk Of Magnesia Susp) 30 ml Q12H PRN PO 09/03/17 11:00 10/03/17 10:59 Ondansetron HCl (Zofran Inj) 4 mg Q6H PRN IV 09/03/17 11:00 10/03/17 10:59 Morphine Sulfate (MoRPHine SULFATE INJ) 2 mg Q30M PRN IV 09/03/17 11:00 09/17/17 10:59 Polyethylene (Miralax Powder Packet) 17 gm DAILY PRN PO 09/03/17 11:00 10/03/17 10:59 Aspirin (Ecotrin Tab) 81 mg DAILY PO 09/04/17 09:00 10/04/17 08:59 Future Hold 09/04/17 08:26 81 MG Furosemide (Lasix Tab) 40 mg DAILY PO 09/04/17 09:00 10/04/17 08:59 Future Hold 09/04/17 08:27 40 MG Metoprolol Tartrate (Lopressor Tab) 12.5 mg BID PO 09/03/17 21:00 10/03/17 20:59 09/05/17 08:32 12.5 MG Potassium Chloride (Klor-Con Tab) 80 meq DAILY PO 09/04/17 09:00 10/04/17 08:59 09/05/17 08:32 80 MEQ Prednisone (PredniSONE TAB) 40 mg DAILY PO 09/04/17 09:00 10/04/17 08:59 09/05/17 08:30 40 MG Simvastatin (Zocor Tab) 20 mg HS PO 09/03/17 21:00 10/03/17 20:59 09/04/17 19:23 20 MG Pantoprazole Sodium (Protonix Tab) 40 mg DAILY PO 09/04/17 09:00 10/04/17 08:59 09/05/17 08:30 40 MG Miscellaneous (Iv Fluids Completed) 1 ea PRN PRN N/A 09/03/17 11:45 09/03/18 11:44 Phenol (Chloraseptic 1.4% [place]) 1 sprays TID PRN MT 09/04/17 10:00 10/04/17 09:59 09/04/17 11:40 1 SPRAYS Nystatin (Mycostatin Susp) 5 ml ACHS PO 09/04/17 16:15 09/14/17 16:14 09/05/17 10:39 5 ML Fluconazole (Diflucan Tab) 100 mg QAM PO 09/05/17 09:00 09/14/17 08:59 09/05/17 08:31 100 MG Heparin Sodium/ Dextrose 500 ml @ 27 mls/hr [id number] PRN IV 09/04/17 19:00 10/04/17 18:59 09/05/17 03:59 27 MLS/HR Potassium Chloride/Sodium Chloride 1,000 ml @ 75 mls/hr [id number] IV 09/04/17 21:00 10/04/17 20:59 09/05/17 10:21 75 MLS/HR Cholestyramine Resin (Questran Powder Light) 4 gm BID@10,22 PO 09/04/17 22:00 10/04/17 21:59 09/05/17 08:33 4 GM Review of Systems Constitutional: + weakness, + fatigue, No fever, No chills Respiratory: No cough, No shortness of breath Cardiovascular: + edema, No chest pain Abdomen: No pain, No nausea, No vomiting Musculoskeletal: No joint pain, No muscle pain Hematologic / Lymphatic: No abnormal bleeding/bruising, No night sweats Integumentary: No rash Physical Exam Date Time Temp Pulse Resp B/P (MAP) Pulse Ox O2 Delivery O2 Flow Rate FiO2 09/05/17 11:35 36.7 70 18 95/46 (62) 97 Room Air 09/05/17 08:00 Room Air 09/05/17 07:36 36.7 76 18 109/56 (73) 96 Room Air 09/05/17 04:00 Room Air 09/05/17 03:38 36.9 64 19 109/52 (71) 97 Room Air 09/05/17 00:00 Room Air 09/04/17 23:33 36.8 68 20 110/60 (77) 97 Room Air 09/04/17 20:00 Room Air 09/04/17 19:18 36.3 94 18 90/49 (63) 97 Room Air 09/04/17 16:00 Room Air 09/04/17 15:45 36.4 84 18 108/55 (72) 98 Room Air 09/04/17 12:00 Room Air General Appearance: no apparent distress, + obese Eyes: EOMI, sclerae normal (anicteric) ENT: pharynx normal (mucous membranes moist) Respiratory/Chest: lungs clear Cardiovascular: regular rate, rhythm Abdomen/GI: non tender, soft Extremities/Musculoskelatal: + pedal edema (2+ bilateral pedal edema to calves) Neurologic/Psych: alert, oriented x 3 Skin: no rash Laboratory Results Last 24 Hours Test 09/04/17 18:50 09/05/17 00:33 09/05/17 02:02 09/05/17 04:58 Prothrombin Time 12.7 SECONDS Prothromb Time International Ratio 1.2 Activated Partial Thromboplast Time 30.2 SECONDS 164.1 SECONDS 96.1 SECONDS 46.7 SECONDS Partial Thromboplastin Ratio 1.2 6.3 3.7 1.8 White Blood Count 1.78 K/uL Red Blood Count 2.73 M/uL Hemoglobin 7.8 g/dL Hematocrit 22.6 % Mean Corpuscular Volume 82.8 fL Mean Corpuscular Hemoglobin 28.6 pg Mean Corpuscular Hemoglobin Concent 34.5 g/dl Platelet Count 130 K/uL Mean Platelet Volume 9.6 fL Neutrophils (%) (Auto) 57.2 % Lymphocytes (%) (Auto) 36.0 % Monocytes (%) (Auto) 5.1 % Eosinophils (%) (Auto) 0.0 % Basophils (%) (Auto) 0.0 % Neutrophils # (Auto) 1.02 K/uL Lymphocytes # (Auto) 0.64 K/uL Monocytes # (Auto) 0.09 K/uL Eosinophils # (Auto) 0.00 K/uL Basophils # (Auto) 0.00 K/uL RDW Standard Deviation 46.3 fL RDW Coefficient of Variation 15.7 % Immature Granulocyte % (Auto) 1.7 % Immature Granulocyte # (Auto) 0.03 K/uL Nucleated RBC Absolute Count (auto) 0.03 K/uL Nucleated Red Blood Cells % 1.8 % Large Platelets 1+ Anisocytosis PRESENT Sodium Level 135 mmol/L Potassium Level 3.5 mmol/L Chloride Level 105 mmol/L Carbon Dioxide Level 21 mmol/L Anion Gap 9.0 mmol/L Blood Urea Nitrogen 17 mg/dl Creatinine 0.61 mg/dl Est Creatinine Clear Calc Drug Dose 116.4 ml/min Estimated GFR () 106.3 Estimated GFR (Non- 91.7 BUN/Creatinine Ratio 27.2 Random Glucose 173 mg/dl Calcium Level 7.4 mg/dl Magnesium Level 2.0 mg/dl Test 09/05/17 09:15 09/05/17 10:11 Urine Color DK YELLOW Urine Appearance CLEAR Urine pH 5.5 Urine Specific [place] 1.025 Urine Protein TRACE Urine Glucose (UA) NEG Urine Ketones NEG Urine Occult Blood NEG Urine Nitrite NEG Urine Bilirubin NEG Urine Urobilinogen NEG Urine Leukocyte Esterase NEG Urine WBC (Auto) 1-5 /hpf Urine RBC (Auto) 0-4 /hpf Urine Hyaline Casts (Auto) 1-5 /lpf Urine Epithelial Cells (Auto) 10-20 /lpf Urine Bacteria (Auto) NEG Activated Partial Thromboplast Time 56.8 SECONDS Partial Thromboplastin Ratio 2.2 Assessment & Plan Mr. Merlos had a syncopal event, likely secondary to dehydration from his diarrhea. The origin of his diarrhea isn't clear, though a C. diff assay was negative. It may have been antibiotic-related. If it doesn't improve, we may need to investigate infectious sources further. He has extensive DVTs. These were likely triggered by a combination of his recent hospitalization, dehydration, impaired mobility, malignancy, and possibly his prolonged time on the floor (close to 5 hours before being discovered). He is now on a heparin drip and will be transitioned to Lovenox. With regard to his anemia, it is chronic and very stable. He has received a number of transfusions in the last few months and we are trying to minimize them moving forward. Unless he is bleeding or severely symptomatic, I would not transfuse him more than 1 unit and would only do so for a hemoglobin of 6.5 or less.
[2017-09-05] MEDS: CHLORASEPTIC 1.4% SOLN 180 ML BTL MT PRN (14:26)
--- NOTE | 2017-09-05 17:23 | Progress Note ---
Subjective Date of Service: Sep 05, 2017. Subjective Pt evaluation today including: conversation w/ patient, conversation w/ family ( at bedside; son by phone), physical exam, chart review, lab review, review of studies (doppler studies), conversation w/ data consultant (heme/onc), review of inpatient medication list Pain: denies PO Intake: fair; sore throat is impeding his eating Voiding: fernandez catheter in place fernandez placed for significant urinary retention today - 1000cc of urine was in the bladder at time of insertion he is much more comfortable following insertion denies any dyspnea diarrhea still present but much improved no fever no dizziness ambulating to bathroom therapy recommending rehab tele stable overnight Problem List Medical Problems: (1) Anemia Status: Chronic (2) Flu-like symptoms Status: Acute (3) Weakness Status: Acute Review of Systems Constitutional: No fever, No chills ENT: + sore throat Respiratory: No shortness of breath, No dyspnea on exertion Cardiac: No chest pain Abdomen: + diarrhea, No pain, No nausea, No vomiting Objective Vital Signs Date Time Temp Pulse Resp B/P (MAP) Pulse Ox O2 Delivery O2 Flow Rate FiO2 09/05/17 16:00 Room Air 09/05/17 15:08 36.3 61 24 103/59 (74) 96 Room Air 09/05/17 12:00 Room Air 09/05/17 11:35 36.7 70 18 95/46 (62) 97 Room Air 09/05/17 08:00 Room Air 09/05/17 07:36 36.7 76 18 109/56 (73) 96 Room Air 09/05/17 04:00 Room Air 09/05/17 03:38 36.9 64 19 109/52 (71) 97 Room Air 09/05/17 00:00 Room Air 09/04/17 23:33 36.8 68 20 110/60 (77) 97 Room Air 09/04/17 20:00 Room Air 09/04/17 19:18 36.3 94 18 90/49 (63) 97 Room Air Physical Exam General Appearance: no apparent distress ENT: + pertinent finding (thrush improved posterior pharynx) Neck: no JVD Respiratory/Chest: lungs clear, no respiratory distress, no accessory muscle use Cardiovascular: regular rate, rhythm, no gallop, no murmur, + extra beats Abdomen: normal bowel sounds, non tender, soft, no organomegaly Extremities: + pedal edema, + swelling (no change from yesterday's exam; RUE swelling unchanged) Neurologic/Psychiatric: alert, oriented x 3 Skin: + pallor, + pertinent finding (healing bruise on nose) Laboratory Results Last 24 Hours Test 09/04/17 18:50 09/05/17 00:33 09/05/17 02:02 09/05/17 04:58 Prothrombin Time 12.7 SECONDS Prothromb Time International Ratio 1.2 Activated Partial Thromboplast Time 30.2 SECONDS 164.1 SECONDS 96.1 SECONDS 46.7 SECONDS Partial Thromboplastin Ratio 1.2 6.3 3.7 1.8 White Blood Count 1.78 K/uL Red Blood Count 2.73 M/uL Hemoglobin 7.8 g/dL Hematocrit 22.6 % Mean Corpuscular Volume 82.8 fL Mean Corpuscular Hemoglobin 28.6 pg Mean Corpuscular Hemoglobin Concent 34.5 g/dl Platelet Count 130 K/uL Mean Platelet Volume 9.6 fL Neutrophils (%) (Auto) 57.2 % Lymphocytes (%) (Auto) 36.0 % Monocytes (%) (Auto) 5.1 % Eosinophils (%) (Auto) 0.0 % Basophils (%) (Auto) 0.0 % Neutrophils # (Auto) 1.02 K/uL Lymphocytes # (Auto) 0.64 K/uL Monocytes # (Auto) 0.09 K/uL Eosinophils # (Auto) 0.00 K/uL Basophils # (Auto) 0.00 K/uL RDW Standard Deviation 46.3 fL RDW Coefficient of Variation 15.7 % Immature Granulocyte % (Auto) 1.7 % Immature Granulocyte # (Auto) 0.03 K/uL Nucleated RBC Absolute Count (auto) 0.03 K/uL Nucleated Red Blood Cells % 1.8 % Large Platelets 1+ Anisocytosis PRESENT Sodium Level 135 mmol/L Potassium Level 3.5 mmol/L Chloride Level 105 mmol/L Carbon Dioxide Level 21 mmol/L Anion Gap 9.0 mmol/L Blood Urea Nitrogen 17 mg/dl Creatinine 0.61 mg/dl Est Creatinine Clear Calc Drug Dose 116.4 ml/min Estimated GFR () 106.3 Estimated GFR (Non- 91.7 BUN/Creatinine Ratio 27.2 Random Glucose 173 mg/dl Calcium Level 7.4 mg/dl Magnesium Level 2.0 mg/dl Test 09/05/17 09:15 09/05/17 10:11 Urine Color DK YELLOW Urine Appearance CLEAR Urine pH 5.5 Urine Specific [place] 1.025 Urine Protein TRACE Urine Glucose (UA) NEG Urine Ketones NEG Urine Occult Blood NEG Urine Nitrite NEG Urine Bilirubin NEG Urine Urobilinogen NEG Urine Leukocyte Esterase NEG Urine WBC (Auto) 1-5 /hpf Urine RBC (Auto) 0-4 /hpf Urine Hyaline Casts (Auto) 1-5 /lpf Urine Epithelial Cells (Auto) 10-20 /lpf Urine Bacteria (Auto) NEG Activated Partial Thromboplast Time 56.8 SECONDS Partial Thromboplastin Ratio 2.2 Assessment and Plan 82yo male with: 1. syncope - suspect 2nd to hypotension. Hypotension likely due to dehydration /volume depletion in setting of severe diarrhea. BPs slowly improving with stress dose steroids and fluids. Leave on telemetry 1 more day. I cannot exclude he could have had a PE that led to his syncope (in light of extensive DVTs). 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 Whittington consult appreciated. s/p MTx yesterday (20mg x 1) cont prednisone s/p PRBCs this admission CBC in am 3. b/l LE DVTs - transition from heparin infusion to lovenox 1mg/kg BID. These are likely malignancy-related in setting of immobility. 4. RUE DVT - 2nd to PICC line - PICC d/c. See #3 above. 5. severe diarrhea - c diff negative. Stool cx thus far neg. Cholestyramine BID. Likely abx-associated as the diarrhea started in the midst of his recent rocephin course. 6. acute kidney injury - 2nd to dehydration - resolved. 7. hypokalemia - resolved. 8. anemia 2nd to #2 - s/p PRBCs - H/H acceptable. 9. recent RLL pneumonia - clinically resolved. 10. recent group A strep bacteremia - clinically resolved. Rocephin d/c. 11. chronic diastolic CHF - compensated at this time. d/c fluids today and then resume lasix tomorrow. 12. thrush - diflucan + magic mouthwash ac/hs. Improving. son - Dr. Ulysses Merlos - updated by phone ([phone]) updated at bedside hopefully to med/surg tomorrow PT/OT both recommending rehab - he is agreeable Continued [facility] stay due to: abnormal vital signs, inadequate po fluid intake, voiding difficulties, ambulation difficulties, multiple IV medications needed Discharge planning: rehab hospital (vs SNF for rehab)
[2017-09-05] MEDS: ENOXAPARIN 120 MG/0.8 ML SYR SQ SCH (17:54)
[2017-09-05] MEDS ORDERED: ENOXAPARIN 1 MG/KG SQ SCH (19:00)
[2017-09-05] MEDS ORDERED: MAGIC MOUTHWASH PO SCH (21:00)
[2017-09-05] MEDS: DEXAMETHASONE CONC SOLN 3.75 MG, NYSTATIN SUSP 30 ML, DiphenhydrAMINE HCL SYRUP 300 MG,... PO SCH ×5 (21:47)
[2017-09-05] MEDS: SIMVASTATIN 20 MG TAB PO SCH (21:50)
[2017-09-06] VITALS (10 sets, daily range): BP systolic 98–176; BP diastolic 48–98; PULSE 60–75; TEMP 36.2–36.8; O2SAT 96–99; Ht 182.9 cm; Wt 105.8 kg
[2017-09-06 04:39] LABS: HEMATOCRIT 21.8 % (42-52); HEMOGLOBIN 7.6 g/dL (14.0-18.0); MEAN CELL VOLUME 82.3 fL (80-100); MEAN CORPUSCULAR HEMOGLOBIN 28.7 pg (25-34); MEAN PLATELET VOLUME 9.3 fL (7.4-10.4); PLATELET COUNT 136 K/uL (130-400); RED CELL DISTRIBUTION WIDTH CV 15.8 % (11.5-14.5); RED CELL DISTRIBUTION WIDTH SD 46.6 fL (36.4-46.3); WHITE BLOOD COUNT 2.08 K/uL (4.8-10.8)
[2017-09-06 04:40] LABS: MEAN CORPUSCULAR HGB CONC 34.9 g/dl (32-36)
[2017-09-06 04:57] LABS: CALCIUM 7.7 mg/dl (8.5-10.1); CREATININE 0.64 mg/dl (0.60-1.40); POTASSIUM 3.9 mmol/L (3.5-5.1)
[2017-09-06] MEDS: ENOXAPARIN 120 MG/0.8 ML SYR SQ SCH ×2 (06:44→20:14)
[2017-09-06] MEDS: DEXAMETHASONE CONC SOLN 3.75 MG, NYSTATIN SUSP 30 ML, DiphenhydrAMINE HCL SYRUP 300 MG,... PO SCH ×20 (07:41→20:19)
[2017-09-06] MEDS: CHOLESTYRAMINE LIGHT 4 GM PKT PO SCH ×2 (08:57→21:05)
[2017-09-06] MEDS: METOPROLOL TARTRATE 25 MG TAB PO SCH ×2 (08:58→20:16)
[2017-09-06] MEDS: PANTOprazole SOD 40 MG TAB PO SCH (08:59)
[2017-09-06] MEDS: FLUCONAZOLE 100 MG TAB PO SCH (09:00)
[2017-09-06] MEDS: POTASSIUM CHLORIDE 20 MEQ TABCR PO SCH (09:01)
[2017-09-06] MEDS: BOOST VANILLA PO SCH ×2 (10:32→18:13)
[2017-09-06] MEDS: CEROVITE ADV FORMULA TAB PO SCH (10:32)
[2017-09-06] MEDS: FUROSEMIDE 40 MG TAB PO SCH (10:32)
--- NOTE | 2017-09-06 15:20 | Progress Note ---
Subjective Date of Service: Sep 06, 2017. Subjective Pt evaluation today including: conversation w/ patient, physical exam, chart review, lab review, review of inpatient medication list Pain: denies cp, abd pain PO Intake: improving; ate well at breakfast Voiding: fernandez catheter in place tele stable overnight; no dysrhythmia feels much better diarrhea improved; stools starting to form throat pain is improved; able to swallow more easily denies any dyspnea still agreeable to rehab Problem List Medical Problems: (1) Anemia Status: Chronic (2) Flu-like symptoms Status: Acute (3) Weakness Status: Acute Review of Systems Constitutional: No fever, No chills Respiratory: + cough, No sputum, No wheezing, No shortness of breath Cardiac: + edema, No chest pain, No orthopnea Abdomen: + diarrhea, No pain, No nausea, No vomiting, No GI bleeding Objective Vital Signs Date Time Temp Pulse Resp B/P (MAP) Pulse Ox O2 Delivery O2 Flow Rate FiO2 09/06/17 14:30 Room Air 09/06/17 14:27 36.8 60 18 96 09/06/17 12:00 Room Air 09/06/17 11:20 36.8 60 18 103/61 (75) 96 Room Air 09/06/17 08:00 Room Air 09/06/17 07:27 36.4 60 20 122/48 (72) 97 Room Air 09/06/17 04:21 36.2 66 20 98/59 (72) 96 Room Air 09/06/17 04:00 96 Room Air 09/06/17 00:00 98 Room Air 09/05/17 23:59 36.3 69 20 134/59 (84) 98 Room Air 09/05/17 21:42 66 111/59 (76) 09/05/17 20:00 97 Room Air 09/05/17 18:44 36.3 67 22 115/56 (75) 97 Room Air 09/05/17 16:00 Room Air Physical Exam General Appearance: no apparent distress, + pertinent finding (awake, alert, oriented ) ENT: pharynx normal (thrush resolved) Neck: no JVD Respiratory/Chest: no respiratory distress, no accessory muscle use, + rales ( focal, right base only; otherwise CTA b/l ) Cardiovascular: regular rate, rhythm, no gallop, no murmur Abdomen: normal bowel sounds, non tender, soft, no organomegaly, + distended ( mild, but again nontender) Extremities: + pedal edema, + swelling (severe - b/l legs - 3+ at minimum; RUE with 3+ edema as well; none in the LUE; pulses both legs 2+ ) Neurologic/Psychiatric: alert, oriented x 3 Skin: + pallor, + pertinent finding (psoriatic patches on shins vs stasis dermatitis ) Laboratory Results Last 24 Hours Test 09/06/17 04:30 White Blood Count 2.08 K/uL Red Blood Count 2.65 M/uL Hemoglobin 7.6 g/dL Hematocrit 21.8 % Mean Corpuscular Volume 82.3 fL Mean Corpuscular Hemoglobin 28.7 pg Mean Corpuscular Hemoglobin Concent 34.9 g/dl RDW Standard Deviation 46.6 fL RDW Coefficient of Variation 15.8 % Platelet Count 136 K/uL Mean Platelet Volume 9.3 fL Sodium Level 135 mmol/L Potassium Level 3.9 mmol/L Chloride Level 107 mmol/L Carbon Dioxide Level 22 mmol/L Anion Gap 6.0 mmol/L Blood Urea Nitrogen 17 mg/dl Creatinine 0.64 mg/dl Est Creatinine Clear Calc Drug Dose 111.0 ml/min Estimated GFR () 104.2 Estimated GFR (Non- 89.9 BUN/Creatinine Ratio 26.9 Random Glucose 144 mg/dl Calcium Level 7.7 mg/dl Assessment and Plan 82yo male with: 1. syncope - suspect 2nd to hypotension which was due in part from dehydration/ volume depletion in setting of severe diarrhea. BPs have improved. He is now off stress dose steroids and fluids. I cannot exclude he could have had a PE that led to his syncope (in light of extensive DVTs) but less likely as he has no pulmonary symptoms. 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 Whittington consult appreciated. s/p MTx (20mg) on 09/04. cont prednisone 40mg daily. s/p PRBCs this admission CBC in am ONLY TRANSFUSE IF SYMPTOMATIC OR HEMOGLOBIN IS ABOUT <6.5. IF PRBCS ARE NEEDED ONLY GIVE 1 UNIT IF POSSIBLE. 3. b/l LE DVTs - continue lovenox 1mg/kg BID. These are likely malignancy- related in setting of immobility. 4. RUE DVT - 2nd to PICC line - PICC d/c. See #3 above. 5. severe diarrhea - c diff negative. Stool cx thus far neg. Cholestyramine BID. Likely abx-associated as the diarrhea started in the midst of his recent rocephin course. Diarrhea much improved with cholestyramine. 6. acute kidney injury - 2nd to dehydration - resolved. 7. hypokalemia - resolved. Continue daily PO supplementation. 8. anemia 2nd to #2 - s/p PRBCs - H/H acceptable. See discussion above. 9. recent RLL pneumonia - clinically resolved. 10. recent group A strep bacteremia - clinically resolved. Rocephin d/c. 11. chronic diastolic CHF - lungs are clear, no JVD - all despite severe peripheral edema. Resume lasix 40mg qam today. Check TSH to ensure he is not hypothyroid. Recent u/a without any proteinuria. Recent albumin was 2.9. 12. thrush - diflucan + magic mouthwash ac/hs. Improved. Day #3 of diflucan. Plan 7-10 days of Rx. son - Dr. Ulysses Merlos - updated by phone ([phone]) ok to transfer to med/surg today PT/OT both recommending rehab - he is agreeable Continued [facility] stay due to: voiding difficulties, ambulation difficulties, multiple IV medications needed Discharge planning: rehab hospital (vs SNF for rehab)
[2017-09-06] MEDS: SIMVASTATIN 20 MG TAB PO SCH (20:16)
[2017-09-07] VITALS (10 sets, daily range): BP systolic 104–119; BP diastolic 54–67; PULSE 63–87; TEMP 36.2–36.5; O2SAT 94–98
[2017-09-07] MEDS: DEXAMETHASONE CONC SOLN 3.75 MG, NYSTATIN SUSP 30 ML, DiphenhydrAMINE HCL SYRUP 300 MG,... PO SCH ×20 (05:58→20:42)
[2017-09-07] MEDS: ENOXAPARIN 120 MG/0.8 ML SYR SQ SCH ×2 (05:59→17:27)
[2017-09-07 06:35] LABS: EOS % 1.1 %; EOS ABS # 0.02 K/uL (0-0.5); HEMATOCRIT 24.2 % (42-52); HEMOGLOBIN 8.4 g/dL (14.0-18.0); IG# 0.02 K/uL (0.00-0.02); LYMPH % 29.8 %; LYMPH ABS # 0.53 K/uL (1.2-3.4); MEAN CELL VOLUME 85.2 fL (80-100); MEAN CORPUSCULAR HEMOGLOBIN 29.6 pg (25-34); MEAN CORPUSCULAR HGB CONC 34.7 g/dl (32-36); MEAN PLATELET VOLUME 9.8 fL (7.4-10.4); MONO % 7.3 %; MONO ABS # 0.13 K/uL (0.11-0.59); NEUT % 60.7 %; NEUT ABS # 1.08 K/uL (1.4-6.5); PLATELET COUNT 166 K/uL (130-400); RED CELL DISTRIBUTION WIDTH SD 48.3 fL (36.4-46.3); WHITE BLOOD COUNT 1.78 K/uL (4.8-10.8)
[2017-09-07 07:08] LABS: CALCIUM 7.8 mg/dl (8.5-10.1); CREATININE 0.64 mg/dl (0.60-1.40); POTASSIUM 3.5 mmol/L (3.5-5.1)
[2017-09-07] MEDS: FUROSEMIDE 40 MG TAB PO SCH (07:49)
[2017-09-07] MEDS: PANTOprazole SOD 40 MG TAB PO SCH (07:49)
[2017-09-07] MEDS: FLUCONAZOLE 100 MG TAB PO SCH (07:49)
[2017-09-07] MEDS: METOPROLOL TARTRATE 25 MG TAB PO SCH ×2 (07:49→20:42)
[2017-09-07] MEDS: CEROVITE ADV FORMULA TAB PO SCH (07:49)
[2017-09-07] MEDS: POTASSIUM CHLORIDE 20 MEQ TABCR PO SCH (07:50)
[2017-09-07] MEDS: BOOST VANILLA PO SCH ×2 (07:51→17:31)
--- NOTE | 2017-09-07 08:19 | Clinical Documentation Query ---
RICARDO Worthington : CLINICAL DOCUMENTATION QUERY Please document explicitly the POA status of the following diagnosis as this represents a complication of care and directly impacts accurate DRG assignment if present on admission. Thank you. In your clinical opinion is this patient being managed for: ( ) Right arm DVT secondary to right PICC, POA ( ) Not Agree ( ) Other explanation of clinical findings (Please Explain) ( ) Unable to determine (Please Define) ( ) Need to Discuss Please clarify and document your clinical opinion in the progress notes and discharge summary. Terms such as "probable", "suspected", "likely", "questionable", "possible", or "still to be ruled out" are acceptable. IF IN AGREEMENT, YOU MUST DOCUMENT ABOVE DIAGNOSTIC STATEMENT IN DAILY PROGRESS NOTES AND DISCHARGE SUMMARY. This document is not part of the patient's record. Thank You, Salty Mendez, RN [phone]
[2017-09-07] MEDS: CHOLESTYRAMINE LIGHT 4 GM PKT PO SCH (10:00)
--- NOTE | 2017-09-07 11:21 | Hematology/Oncology Prog Note ---
Hematology/Onc Progress Note Date of Service Sep 07, 2017. Diagnoses T-cell LGL Anemia Refractory diarrhea Deep venous thrombosis Medications Medications Administered Medications (Trade) Dose Ordered Sig/Rosendo Route Start Time Stop Time Status Last Admin Dose Admin Sodium Chloride 500 ml @ 999 mls/hr Q31M STAT IV 09/03/17 07:47 09/03/17 08:17 DC 09/03/17 07:57 999 MLS/HR Aspirin (Ecotrin Tab) 81 mg DAILY PO 09/04/17 09:00 10/04/17 08:59 Future Hold 09/04/17 08:26 81 MG Furosemide (Lasix Tab) 40 mg DAILY PO 09/04/17 09:00 09/06/17 19:16 DC 09/04/17 08:27 40 MG Metoprolol Tartrate (Lopressor Tab) 12.5 mg BID PO 09/03/17 21:00 10/03/17 20:59 09/07/17 07:49 12.5 MG Potassium Chloride (Klor-Con Tab) 80 meq DAILY PO 09/04/17 09:00 10/04/17 08:59 09/07/17 07:50 80 MEQ Prednisone (PredniSONE TAB) 40 mg DAILY PO 09/04/17 09:00 10/04/17 08:59 09/07/17 07:50 40 MG Simvastatin (Zocor Tab) 20 mg HS PO 09/03/17 21:00 10/03/17 20:59 09/06/17 20:16 20 MG Pantoprazole Sodium (Protonix Tab) 40 mg DAILY PO 09/04/17 09:00 10/04/17 08:59 09/07/17 07:49 40 MG Potassium Chloride (Klor-Con Tab) 20 meq NOW STAT PO 09/04/17 07:59 09/04/17 08:15 DC 09/04/17 08:25 20 MEQ Phenol (Chloraseptic 1.4% [place]) 1 sprays TID PRN MT 09/04/17 10:00 10/04/17 09:59 09/05/17 14:26 1 SPRAYS Nystatin (Mycostatin Susp) 5 ml ACHS PO 09/04/17 16:15 09/05/17 17:16 DC 09/05/17 16:28 5 ML Fluconazole (Diflucan Tab) 100 mg QAM PO 09/05/17 09:00 09/14/17 08:59 09/07/17 07:49 100 MG Fluconazole (Diflucan Tab) 100 mg NOW ONCE PO 09/04/17 15:45 09/04/17 15:46 DC 09/04/17 15:52 100 MG Methotrexate (Methotrexate Tab) 20 mg ONE ONCE PO 09/04/17 18:30 09/04/17 18:37 DC 09/04/17 19:29 20 MG Heparin Sodium/ Dextrose 500 ml @ 27 mls/hr [id number] PRN IV 09/04/17 19:00 09/05/17 17:12 DC 09/05/17 15:20 27 MLS/HR Heparin Sodium (Porcine) 7000 unit/Syringe 7 ml @ 10 mls/min NOW ONCE IV 09/04/17 19:00 09/04/17 19:01 DC 09/04/17 19:46 10 MLS/MIN Prednisone (PredniSONE TAB) 40 mg NOW ONCE PO 09/04/17 20:35 09/04/17 20:36 DC 09/04/17 21:00 40 MG Potassium Chloride/Sodium Chloride 1,000 ml @ 75 mls/hr [id number] IV 09/04/17 21:00 09/05/17 12:47 DC 09/05/17 10:21 75 MLS/HR Cholestyramine Resin (Questran Powder Light) 4 gm BID@10,22 PO 09/04/17 22:00 10/04/17 21:59 09/06/17 21:05 4 GM Prednisone (PredniSONE TAB) 20 mg ONE ONCE PO 09/05/17 16:00 09/05/17 16:01 DC 09/05/17 16:27 20 MG Enoxaparin Sodium (Lovenox Inj) 111 mg Q12H SQ 09/05/17 18:00 10/05/17 17:59 09/07/17 05:59 111 MG Dexamethasone/ Nystatin/ Diphenhydramine HCl/Sucrose/ Microcrystalline Cellulose/Barcode ACHS PO 09/05/17 21:00 10/05/17 20:59 09/07/17 05:58 5 ML Furosemide (Lasix Tab) 40 mg QAM PO 09/06/17 10:45 10/06/17 10:44 09/07/17 07:49 40 MG Multivitamins/ Minerals (Multivitamin W/ Minerals Tab) 1 tab QAM PO 09/06/17 10:45 10/06/17 10:44 09/07/17 07:49 1 TAB Enteral Nutritional Formula (Boost) 1 can BIDM PO 09/06/17 10:45 10/06/17 10:44 09/07/17 07:51 1 CAN Subjective Alert and oriented. He states that his diarrhea has subsided. Review of Systems: Constitutional: Negative for night sweats, or fever Eyes: Negative for event change of vision ENT: Negative for epistaxis, nasal discharge, sore throat, or deafness Cardiovascular: Negative for chest pain, palpitations, dizziness, diaphoresis Respiratory: Negative for new shortness of breath,hemoptysis, or purulent cough Gastrointestinal: Negative for diarrhea now, negative for hematemesis, melena , nausea, vomiting, or dyspepsia Integumentary (skin): Negative for rash or jaundice discoloration Genitourinary: Negative for urinary frequency, hematuria, or dysuria Neurological: Negative for weakness, seizure activity, headache, or dizziness Lymphatic/Hematologic: Negative for petechiae, bleeding or new adenopathy Musculoskeletal: Negative for new joint or back pain Allergic/Immunologic: Negative for unusual rash or pruritis. Vital Signs Vital Signs Past 12 Hours Date Time Temp Pulse Resp B/P (MAP) Pulse Ox O2 Delivery O2 Flow Rate FiO2 09/07/17 09:32 97 Room Air 09/07/17 08:30 97 Room Air 09/07/17 08:10 36.5 63 26 110/62 (78) 97 Room Air 09/07/17 04:57 36.2 78 19 119/67 (84) 98 Room Air 09/07/17 00:55 Room Air 09/06/17 23:52 36.3 72 20 122/66 (84) 97 Room Air Physical Exam Constitutional: vitals are stable. Eyes: Eyes are JOLIE EOMI without conjuctival erythema or icterus. ENT: External examination was negative for masses. Neck: Negative for masses or palpable thyromegaly Respiratory: Lung sounds were generally clear bilaterally Cardiovascular: Heart was RRR without significant murmur, gallops aoe rubs Gastrointestinal: No palpable hepatic or splenomegaly. The abdomen was soft with normal bowel sounds. Lymphatic system: there was no palpable peripheral lymphadenopathy Musculoskeletal System: The musculoskeletal system seemed concordant with age. Skin: The skin was negative for jaundice. Neurologic exam: The exam was negative for any focal findings. Deep tendon reflexes were equal and symmetrical. Psychiatric exam: Was essentially negative with normal mood and effect. Laboratory Last 24 Hours Test 09/07/17 06:07 White Blood Count 1.78 K/uL Red Blood Count 2.84 M/uL Hemoglobin 8.4 g/dL Hematocrit 24.2 % Mean Corpuscular Volume 85.2 fL Mean Corpuscular Hemoglobin 29.6 pg Mean Corpuscular Hemoglobin Concent 34.7 g/dl Platelet Count 166 K/uL Mean Platelet Volume 9.8 fL Neutrophils (%) (Auto) 60.7 % Lymphocytes (%) (Auto) 29.8 % Monocytes (%) (Auto) 7.3 % Eosinophils (%) (Auto) 1.1 % Basophils (%) (Auto) 0.0 % Neutrophils # (Auto) 1.08 K/uL Lymphocytes # (Auto) 0.53 K/uL Monocytes # (Auto) 0.13 K/uL Eosinophils # (Auto) 0.02 K/uL Basophils # (Auto) 0.00 K/uL RDW Standard Deviation 48.3 fL RDW Coefficient of Variation 16.0 % Immature Granulocyte % (Auto) 1.1 % Immature Granulocyte # (Auto) 0.02 K/uL Red Blood Cell Morphology Unremarkable Sodium Level 133 mmol/L Potassium Level 3.5 mmol/L Chloride Level 100 mmol/L Carbon Dioxide Level 26 mmol/L Anion Gap 7.0 mmol/L Blood Urea Nitrogen 15 mg/dl Creatinine 0.64 mg/dl Est Creatinine Clear Calc Drug Dose 109.2 ml/min Estimated GFR () 104.2 Estimated GFR (Non- 89.9 BUN/Creatinine Ratio 23.5 Random Glucose 89 mg/dl Calcium Level 7.8 mg/dl Thyroid Stimulating Hormone (TSH) 0.711 uIu/ml Assessment & Plan Presumably the diarrhea was secondary to recent antibiotics. This has subsided. Hemoglobin (and CBC) is stable. Will require intermittent transfusion for now. 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 Spleen n ot enlarged on recent CT.
[2017-09-07] MEDS ORDERED: POTASSIUM CHLORIDE 20 MEQ TABCR PO SCH (17:00)
[2017-09-07] MEDS: SIMVASTATIN 20 MG TAB PO SCH (20:42)
[2017-09-07] MEDS: COLESTIPOL HCL 1 GM TAB PO SCH (22:01)
--- NOTE | 2017-09-07 22:51 | Progress Note ---
Subjective Date of Service: Sep 07, 2017. Subjective Pt evaluation today including: conversation w/ patient, physical exam, chart review, lab review Pain: none voiced PO Intake: improved/doing well Voiding: fernandez catheter in place no events overnight throat pain fully resolved swallowing easily/normally still with diarrhea, but only having 1-2 BMs/day refused dose of cholestyramine earlier today still wanting rehab - wants [facility] Problem List Medical Problems: (1) Anemia Status: Chronic (2) Flu-like symptoms Status: Acute (3) Weakness Status: Acute Review of Systems Constitutional: No fever, No chills, No sweats Respiratory: No cough, No shortness of breath, No dyspnea on exertion Cardiac: + edema, No chest pain, No orthopnea Abdomen: + diarrhea, No pain, No nausea, No vomiting Objective Vital Signs Date Time Temp Pulse Resp B/P (MAP) Pulse Ox O2 Delivery O2 Flow Rate FiO2 09/07/17 20:05 Room Air 09/07/17 19:46 36.4 81 19 108/54 (72) 94 Room Air 09/07/17 16:30 98 Room Air 09/07/17 15:03 36.4 73 18 106/63 (77) 98 09/07/17 12:18 110/54 (72) 09/07/17 09:32 97 Room Air 09/07/17 08:30 97 Room Air 09/07/17 08:10 36.5 63 26 110/62 (78) 97 Room Air 09/07/17 04:57 36.2 78 19 119/67 (84) 98 Room Air 09/07/17 00:55 Room Air 09/06/17 23:52 36.3 72 20 122/66 (84) 97 Room Air Physical Exam General Appearance: no apparent distress ENT: pharynx normal, + pertinent finding (thrush resolved) Neck: no JVD Respiratory/Chest: no respiratory distress, no accessory muscle use, + decreased breath sounds (slight, bases) Cardiovascular: regular rate, rhythm, no gallop, no murmur Abdomen: normal bowel sounds, non tender, soft, no organomegaly, + distended ( mild - no change ) Extremities: + pedal edema, + swelling (b/l legs - unchanged; swelling in RUE - improved; can move hand better today) Neurologic/Psychiatric: alert, oriented x 3 Skin: + pallor, + pertinent finding (stasis changes b/l shins) Laboratory Results Last 24 Hours Test 09/07/17 06:07 White Blood Count 1.78 K/uL Red Blood Count 2.84 M/uL Hemoglobin 8.4 g/dL Hematocrit 24.2 % Mean Corpuscular Volume 85.2 fL Mean Corpuscular Hemoglobin 29.6 pg Mean Corpuscular Hemoglobin Concent 34.7 g/dl Platelet Count 166 K/uL Mean Platelet Volume 9.8 fL Neutrophils (%) (Auto) 60.7 % Lymphocytes (%) (Auto) 29.8 % Monocytes (%) (Auto) 7.3 % Eosinophils (%) (Auto) 1.1 % Basophils (%) (Auto) 0.0 % Neutrophils # (Auto) 1.08 K/uL Lymphocytes # (Auto) 0.53 K/uL Monocytes # (Auto) 0.13 K/uL Eosinophils # (Auto) 0.02 K/uL Basophils # (Auto) 0.00 K/uL RDW Standard Deviation 48.3 fL RDW Coefficient of Variation 16.0 % Immature Granulocyte % (Auto) 1.1 % Immature Granulocyte # (Auto) 0.02 K/uL Red Blood Cell Morphology Unremarkable Sodium Level 133 mmol/L Potassium Level 3.5 mmol/L Chloride Level 100 mmol/L Carbon Dioxide Level 26 mmol/L Anion Gap 7.0 mmol/L Blood Urea Nitrogen 15 mg/dl Creatinine 0.64 mg/dl Est Creatinine Clear Calc Drug Dose 109.2 ml/min Estimated GFR () 104.2 Estimated GFR (Non- 89.9 BUN/Creatinine Ratio 23.5 Random Glucose 89 mg/dl Calcium Level 7.8 mg/dl Thyroid Stimulating Hormone (TSH) 0.711 uIu/ml Assessment and Plan 82yo male with: 1. syncope - suspect 2nd to hypotension which was due in part from dehydration/ volume depletion in setting of severe diarrhea. BPs have improved. He is now off stress dose steroids and fluids. I cannot exclude he could have had a PE that led to his syncope (in light of extensive DVTs) but less likely as he has no pulmonary symptoms. No dizziness reported. 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 Whittington consult appreciated. s/p MTx (20mg) on 09/04. Takes every Thursday. cont prednisone 40mg daily. s/p PRBCs this admission CBC in am ONLY TRANSFUSE IF SYMPTOMATIC OR HEMOGLOBIN IS ABOUT <6.5. IF PRBCS ARE NEEDED ONLY GIVE 1 UNIT IF POSSIBLE (per instructions from heme/onc). 3. b/l LE DVTs - continue lovenox 1mg/kg BID. These are likely malignancy- related in setting of immobility. 4. RUE DVT - 2nd to PICC line - PICC d/c. See #3 above. 5. severe diarrhea - c diff negative. Stool cx thus far neg. change cholestyramine to colestipol since latter is in capsule form - more palatable. Likely abx-associated as the diarrhea started in the midst of his recent rocephin course. Diarrhea much improved with bile acid sequestrant. Could use immodium prn as well. 6. acute kidney injury - 2nd to dehydration - resolved. 7. hypokalemia - resolved. Continue daily PO supplementation (80meq AM, 20meq afternoon). 8. anemia 2nd to #2 - s/p PRBCs - H/H acceptable. See discussion above. 9. recent RLL pneumonia - clinically resolved. 10. recent group A strep bacteremia - clinically resolved. Rocephin d/c and PICC removed. 11. chronic diastolic CHF - lungs are clear, no JVD - all despite severe peripheral edema. Cont lasix 40mg qam today. Cont BB 12.5mg BID. TSH wnl. no proteinuria and albumin is near 3. 12. thrush - diflucan + magic mouthwash ac/hs. Improved. Day #4 of diflucan. Plan 7-10 days of Rx. 13. hyponatremia - likely from lasix and/or diarrhea; BMP am. son - Dr. Ulysses Merlos - updated by phone ([phone]) [facility] Continued [facility] stay due to: voiding difficulties, ambulation difficulties Discharge planning: rehab hospital
[2017-09-08] VITALS: O2SAT 98
[2017-09-08 04:29] LABS: HEMATOCRIT 25.4 % (42-52); HEMOGLOBIN 8.7 g/dL (14.0-18.0); MEAN CELL VOLUME 84.1 fL (80-100); MEAN CORPUSCULAR HEMOGLOBIN 28.8 pg (25-34); MEAN PLATELET VOLUME 9.4 fL (7.4-10.4); NUCLEATED RED BLOOD CELL ABS 0.02 K/uL (0-0); PLATELET COUNT 169 K/uL (130-400); RED CELL DISTRIBUTION WIDTH CV 15.9 % (11.5-14.5); RED CELL DISTRIBUTION WIDTH SD 47.6 fL (36.4-46.3); WHITE BLOOD COUNT 1.81 K/uL (4.8-10.8)
[2017-09-08 04:31] VITALS: BP 119/68; PULSE 65; TEMP 36.2; O2SAT 98
[2017-09-08 04:31] LABS: MEAN CORPUSCULAR HGB CONC 34.3 g/dl (32-36)
[2017-09-08 04:53] LABS: CALCIUM 7.6 mg/dl (8.5-10.1); CREATININE 0.7 mg/dl (0.60-1.40)
[2017-09-08] MEDS: ENOXAPARIN 120 MG/0.8 ML SYR SQ SCH (06:29)
[2017-09-08 07:08] VITALS: BP 122/74; PULSE 67; TEMP 36.3; O2SAT 96
[2017-09-08] MEDS: FUROSEMIDE 40 MG TAB PO SCH (07:50)
[2017-09-08] MEDS: FLUCONAZOLE 100 MG TAB PO SCH (07:50)
[2017-09-08] MEDS: METOPROLOL TARTRATE 25 MG TAB PO SCH (07:51)
[2017-09-08] MEDS: POTASSIUM CHLORIDE 20 MEQ TABCR PO SCH (07:51)
[2017-09-08] MEDS: CEROVITE ADV FORMULA TAB PO SCH (07:52)
[2017-09-08] MEDS: PANTOprazole SOD 40 MG TAB PO SCH (07:52)
[2017-09-08] MEDS: DEXAMETHASONE CONC SOLN 3.75 MG, NYSTATIN SUSP 30 ML, DiphenhydrAMINE HCL SYRUP 300 MG,... PO SCH ×15 (07:59→12:00)
[2017-09-08] MEDS: BOOST VANILLA PO SCH (07:59)
[2017-09-08] MEDS: COLESTIPOL HCL 1 GM TAB PO SCH (10:10)
[2017-09-08 11:57] VITALS: BP 100/63; PULSE 73; TEMP 36.4; O2SAT 96
[2017-09-08 13:44] VITALS: BP 100/63; PULSE 73; TEMP 36.4; O2SAT 96
[2017-09-08] MEDS ORDERED: Boost PO (14:26)
[2017-09-08] MEDS ORDERED: CNT PO (14:26)
[2017-09-08] MEDS ORDERED: MCRK20 PO (14:26)
[2017-09-08] MEDS ORDERED: LVNIS120 SQ (14:26)
[2017-09-08] MEDS ORDERED: DFL100 PO (14:26)
[2017-09-08] MEDS ORDERED: CLS1 PO (14:26)
--- NOTE | 2017-09-08 14:32 | Discharge Instructions ---
Discharge Instructions Date of Service Sep 08, 2017. Admission Reason for Admission: Symptomatic Anemia, Snycope And Collapse Discharge Discharge Diagnosis / Problem: Syncope, Symptomatic anemia, antibiotic associated diarrhea Discharge Goals Goal(s): Improve disease control, Diagnostic testing, Therapeutic intervention Activity Recommendations Activity Level: Assistance Required Therapies: Physical Therapy, Occupational Therapy Shower/Bathe: no limitations (With assistance) . Additional Information Patient informed of condition: Yes Advance Directives: No DNR: No Level of Care: Acute Rehab Communicable Disease: No Prognosis: Stable Oxygen at (LPM): NA [place] Catheter: No Instructions / Follow-Up Instructions / Follow-Up 82yo male with: 1. syncope - suspect 2nd to hypotension which was due in part from dehydration/ volume depletion in setting of severe diarrhea. BPs have improved. He is now off stress dose steroids and fluids. I cannot exclude he could have had a PE that led to his syncope (in light of extensive DVTs) but less likely as he has no pulmonary symptoms. No dizziness reported. 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 Whittington/hematology/oncology consult appreciated. s/p MTx (20mg) on 09/04. Takes every Thursday. cont prednisone 40mg daily. s/p PRBCs this admission Follow CBC with hematology/oncology ONLY TRANSFUSE IF SYMPTOMATIC OR HEMOGLOBIN IS ABOUT <6.5. IF PRBCS ARE NEEDED ONLY GIVE 1 UNIT IF POSSIBLE (per instructions from heme/onc). 3. b/l LE DVTs - continue lovenox 1mg/kg BID indefinitely. These are likely malignancy-related in setting of immobility. 4. RUE DVT - 2nd to PICC line - PICC d/c. See #3 above. 5. severe diarrhea - c diff negative. Stool cx neg. continue colestipol. Likely abx-associated as the diarrhea started in the midst of his recent rocephin course. Diarrhea much improved with bile acid sequestrant. Could use immodium prn as well. 6. acute kidney injury - 2nd to dehydration - resolved. 7. hypokalemia - resolved. Continue daily PO supplementation (80meq AM, 20meq afternoon). 8. anemia 2nd to #2 - s/p PRBCs - H/H acceptable. See discussion above. 9. recent RLL pneumonia - clinically resolved. 10. recent group A strep bacteremia - clinically resolved. Rocephin d/c and PICC removed. 11. chronic diastolic CHF - lungs are clear, no JVD - all despite severe peripheral edema. Cont lasix 40mg qam. Cont BB 12.5mg BID. TSH wnl. no proteinuria and albumin is near 3. 12. thrush - diflucan + magic mouthwash ac/hs. Improved. Day #5 of diflucan. Plan 7days of Rx. 13. hyponatremia -resolved, sodium 134 today-likely from lasix and/or diarrhea ; follow BMP periodically Disposition-to [facility] today Current Hospital Diet Patient's current hospital diet: Regular Diet Discharge Diet Recommended Diet: Regular Diet Procedures Procedures Performed: Pelvis x-ray Maxillofacial CT Head CT Chest x-ray CT cervical spine CT abdomen/pelvis Venous Doppler of bilateral lower extremities and right upper extremity Pending Studies Studies pending at discharge: no Physician Orders On Transfer POLST Discussion: Not Applicable Medical Emergencies . Who to Call and When: Medical Emergencies: If at any time you feel your situation is an emergency, please call 911 immediately. . Non-Emergent Contact Non-Emergency issues call your: Primary Care Provider, Oncologist Call Non-Emergent contact if: temperature is above 100.5, you have any medication questions . . "Provider Documentation" section prepared by Mary Denise. . Core Measure Problem Core Measures: None
--- NOTE | 2017-09-08 14:34 | HEME/ONC PROGRESS NOTE ---
DATE: 09/08/2017 DIAGNOSES: 1. T T-cell large granular lymphocyte. 2. Anemia. 3. Refractory diarrhea. 4. Deep vein thrombosis. SUBJECTIVE: I had the pleasure of visiting [facility] at bedside today. Clinically, doing reasonably well, awaiting placement. He reports no pain and discomfort or other symptoms at this time. Diarrhea has certainly lessened. Diarrhea presumably secondary to recent antibiotics. The patient still requires occasional transfusional support. We will make plans for him to follow up in our clinic as he is currently under Dr. Tommy Whittington's management. Nursing reports no overnight difficulties. PHYSICAL EXAMINATION: GENERAL: He is in no acute distress. VITAL SIGNS: Temperature 36.4, pulse 73, respirations 16, and blood pressure 100/63. SKIN: Without rash or lesion. HEENT: Oral mucosa without erythema or ulceration. NECK: Supple. HEART: Regular rate and rhythm. LUNGS: Clear to auscultation bilaterally. ABDOMEN: Soft, nontender, nondistended. EXTREMITIES: 1-2+ peripheral edema bilaterally. NEUROLOGIC: Grossly intact. LABORATORY DATA: WBC count 1810, hemoglobin 8.7, and platelet count 169,000. Sodium 134, potassium 4.0, chloride 100, carbon dioxide 28, BUN 16, and creatinine 0.7. IMPRESSION: 1. Intractable diarrhea. 2. T T-cell large granular lymphocyte. 3. Chronic anemia. PLAN: I had the pleasure of seeing Mr. Merlos at the bedside. Seems to be making slow clinical progress. His diarrhea has lessened. Pending placement to a step down unit. We will ensure outpatient followup as appropriate. He will continue anticoagulation upon discharge. I have nothing further to add. His hemoglobin is stable today, does not require transfusional support, presently. Thank you for assisting us in the care of this very pleasant gentleman. MARICHUY
--- NOTE | 2017-09-09 06:40 | Discharge Summary ---
Discharge Summary Date of Service Sep 08, 2017. Discharge Summary Admission Date: Sep 04, 2017 at 14:48 Discharge Date: Sep 08, 2017 Discharge Disposition: Rehab ([facility]) Principal Diagnosis: Symptomatic anemia, syncope, antibiotic associated diarrhea, acute DVT Problems/Secondary Diagnoses: Pancytopenia T-cell LGL Diarrhea Acute kidney injury Hypokalemia Recent RLL Group A Streptococcus pneumonia and bacteremia Chronic diastolic CHF Peripheral edema. Oral candidiasis Hyponatremia Immunizations: Have You Had Influenza Vaccine: Unknown History of Tetanus Vaccine?: Unknown History of Pneumococcal: Unknown Procedures: Pelvis x-ray Maxillofacial CT Head CT Chest x-ray CT cervical spine CT abdomen/pelvis Venous Doppler of bilateral lower extremities and right upper extremity Consultations: Hematology/oncology Medication Reconciliation New Medications: Colestipol HCl (Colestid) 1 Gm Tab 1 GM PO BID@1000,2200 for 30 Days, TAB Enoxaparin (Lovenox) 120 Mg/0.8 Ml Inj 111 MG SQ Q12H for 90 Days Fluconazole (Fluconazole) 100 Mg Tab 100 MG PO QAM for 3 Days, TAB Multivitamins/Minerals (Certavite/Antioxidants) 1 Tab Tab 1 TAB PO QAM for 30 Days, TAB Potassium Chloride (Klor-Con M20) 20 Meq Tabcr 20 MEQ PO QD@1700 for 30 Days [Boost] () 1 CAN LIQD 1 CAN PO BIDM for 30 Days Continued Medications: Aspirin (Aspirin Ec) 81 Mg Tab 81 MG PO DAILY Furosemide (Lasix) 40 Mg Tab 40 MG PO DAILY Methotrexate (Trexall) 10 Mg Tab 20 MG PO WK, TAB Metoprolol Tartrate (Lopressor) (Lopressor) 25 Mg Tab 12.5 MG PO BID Omeprazole (Prilosec) 20 Mg Capcr 20 MG PO DAILY, CAP to take with Prednisone Potassium Ext Rel (Klor-Con) 20 Meq Tabcr 80 MEQ PO DAILY Prednisone (Prednisone) 20 Mg Tab 40 MG PO DAILY Simvastatin (Zocor) 20 Mg Tab 20 MG PO HS Discharge Exam Feeling well. Still having some loose stool but only once so far today. Denies chest pain or shortness of breath, denies abdominal pain. Still unsteady on his feet. Review of Systems: Constitutional: No fever Eyes: No problem reported ENT: No problem reported Respiratory: No shortness of breath Cardiovascular: No chest pain Abdomen: No pain Musculoskeletal: No problem reported Genitourinary - Male: No problem reported Neurologic: No problem reported Psychiatric: No problem reported Endocrine: No problem reported Hematologic / Lymphatic: No problem reported Integumentary: No problem reported Physical Exam: General Appearance: WD/WN, no apparent distress Eyes: normal inspection, sclerae normal ENT: hearing grossly normal Neck: trachea midline Respiratory/Chest: lungs clear, normal breath sounds, no respiratory distress, no accessory muscle use Cardiovascular: regular rate, rhythm, no murmur, normal peripheral pulses Abdomen / GI: normal bowel sounds, non tender, soft Extremities: + swelling (Bilateral lower extremity edema 1+, right upper extremity 2+ pitting edema) Neurologic/Psychiatric: alert, normal mood/affect, oriented x 3 Skin: normal color, warm/dry, no rash, + pertinent finding (Some scabbed over wounds on the anterior tibia bilaterally) Hospital Course 82yo male with: 1. syncope - suspect 2nd to hypotension which was due in part from dehydration/ volume depletion in setting of severe diarrhea. BPs have improved. He is now off stress dose steroids and fluids. I cannot exclude he could have had a PE that led to his syncope (in light of extensive DVTs) but less likely as he has no pulmonary symptoms. No dizziness reported. 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 Whittington/hematology/oncology consult appreciated. s/p MTx (20mg) on 09/04. Takes every Thursday. cont prednisone 40mg daily. s/p PRBCs this admission Follow CBC with hematology/oncology ONLY TRANSFUSE IF SYMPTOMATIC OR HEMOGLOBIN IS ABOUT <6.5. IF PRBCS ARE NEEDED ONLY GIVE 1 UNIT IF POSSIBLE (per instructions from heme/onc). 3. b/l LE DVTs - continue lovenox 1mg/kg BID indefinitely. These are likely malignancy-related in setting of immobility. 4. RUE DVT - 2nd to PICC line - PICC d/c. See #3 above. 5. severe diarrhea - c diff negative. Stool cx neg. continue colestipol. Likely abx-associated as the diarrhea started in the midst of his recent rocephin course. Diarrhea much improved with bile acid sequestrant. Could use immodium prn as well. 6. acute kidney injury - 2nd to dehydration - resolved. 7. hypokalemia - resolved. Continue daily PO supplementation (80meq AM, 20meq afternoon). 8. anemia 2nd to #2 - s/p PRBCs - H/H acceptable. See discussion above. 9. recent RLL pneumonia - clinically resolved. 10. recent group A strep bacteremia - clinically resolved. Rocephin d/c and PICC removed. 11. chronic diastolic CHF - lungs are clear, no JVD - all despite severe peripheral edema. Cont lasix 40mg qam. Cont BB 12.5mg BID. TSH wnl. no proteinuria and albumin is near 3. 12. thrush - diflucan + magic mouthwash ac/hs. Improved. Day #5 of diflucan. Plan 7days of Rx. 13. hyponatremia -resolved, sodium 134 today-likely from lasix and/or diarrhea ; follow BMP periodically Disposition-to [facility] [place] today Total Time Spent: Greater than 30 minutes This includes examination of the patient, discharge planning, medication reconciliation, and communication with other providers. Discharge Instructions Please refer to the electronic Patient Visit Report (Discharge Instructions) for additional information. Follow-Up PCP within 1-2 weeks after discharge Oncology in 2 days Additional Copies To [facility] [place]; Tommy Whittington MD; Pro,Dinesh Teixeira M.D.
[2017-09-14] MEDS ORDERED: ATOR10TA82 PO (11:36)
[2017-09-14] MEDS ORDERED: lovenox SC (11:37)
[2017-09-14] MEDS ORDERED: COLE1TAB PO (11:42)
[2017-09-14] MEDS ORDERED: TRAM-10 PO (11:45)
[2017-09-14] MEDS ORDERED: OSEL75CA12 PO (11:47)
[2017-09-14] MEDS ORDERED: PANT40TA PO (12:39)
[2017-09-14] MEDS ORDERED: SENN-61 PO (12:40)
[2017-09-14] MEDS ORDERED: TYLOTC500 PO (12:41)
== END 2017-09-08 16:02 | DRG 315 ==
LOC: EDBD 07:35 → C.EDB 07:36 → C.2E 10:50 → EDBEDREQ 11:11 → ENRESERV 12:31 → CANRESERV 12:32 → OBSVTOIN 09-04 14:48 → C.4E 09-06 13:00 → ENRESERV 09-06 13:55
PROVIDERS: ADMIT Internal Medicine; ATTEND Family Medicine
DX: T82.868A Thrombosis due to vascular prosthetic devices, implants and grafts, initial encounter (principal); C91.Z0 Other lymphoid leukemia not having achieved remission; D61.818 Other pancytopenia; I82.443 Acute embolism and thrombosis of tibial vein, bilateral; I82.431 Acute embolism and thrombosis of right popliteal vein; I82.812 Embolism and thrombosis of superficial veins of left lower extremity; I82.A11 Acute embolism and thrombosis of right axillary vein; I82.611 Acute embolism and thrombosis of superficial veins of right upper extremity; N17.9 Acute kidney failure, unspecified; B37.0 Candidal stomatitis; I50.32 Chronic diastolic (congestive) heart failure; E87.1 Hypo-osmolality and hyponatremia; R55 Syncope and collapse; I95.9 Hypotension, unspecified; R19.7 Diarrhea, unspecified; T36.1X5A Adverse effect of cephalosporins and other beta-lactam antibiotics, initial encounter; E87.6 Hypokalemia; R33.9 Retention of urine, unspecified; R93.422 Abnormal radiologic findings on diagnostic imaging of left kidney; E78.5 Hyperlipidemia, unspecified; Z87.891 Personal history of nicotine dependence; Z87.01 Personal history of pneumonia (recurrent); Z86.19 Personal history of other infectious and parasitic diseases; Z96.641 Presence of right artificial hip joint; Z79.52 Long term (current) use of systemic steroids; Z79.82 Long term (current) use of aspirin; Z79.899 Other long term (current) drug therapy

== ENCOUNTER → 2017-09-14 | Day surgery (SDC) | payer OTHER, MEDICARE ==
[~2017-09-14] VITALS: Ht 182.9 cm; Wt 102.0 kg
[2017-09-14] VITALS (10 sets, daily range): BP systolic 96–121; BP diastolic 40–72; PULSE 59–76; TEMP 36.3–36.9; O2SAT 95–98; Ht 182.9 cm; Wt 102.0 kg
[~2017-09-14] MED LIST changes: +AMOX1TAB43 PO; +ATOR10TA82 PO; +BENZ1LOZ PO; +BISACODYL SUPP RE; +Boost PO; +CLS1 PO; +CNT PO; +COLE1TAB PO; +DFL100 PO; +DXY100 PO; +ENOX100I INJ; +FRS/40 PO; +FUROSEMIDE 40 MG/4 ML VIAL IV SCH; +GUAISYP5 PO; -LPR25 PO; +LVNIS120 SQ; +MCRK20 PO; +METO25TA56 PO; +OSEL75CA12 PO; +PANT40TA PO; +SENN-61 PO; +TRAM-10 PO; +TYLOTC500 PO; +lovenox SC
== END | disposition home or self-care (01) ==
LOC: EDSTATUS 10:30 → C.MTU 10:59
PROVIDERS: ATTEND Internal Medicine
DX: D64.9 Anemia, unspecified (principal); R55 Syncope and collapse; G72.81 Critical illness myopathy; C91.10 Chronic lymphocytic leukemia of B-cell type not having achieved remission; I50.30 Unspecified diastolic (congestive) heart failure; Z87.01 Personal history of pneumonia (recurrent); I82.621 Acute embolism and thrombosis of deep veins of right upper extremity; I82.401 Acute embolism and thrombosis of unspecified deep veins of right lower extremity; E78.5 Hyperlipidemia, unspecified

== ENCOUNTER 2017-10-08 01:00 | Inpatient (IN) | payer OTHER, MEDICARE ==
[2017-10-08] VITALS (8 sets, daily range): BP systolic 90–115; BP diastolic 47–64; PULSE 85–89; TEMP 36.4–37.1; O2SAT 94–97; BMI 31.1
[~2017-10-08] VITALS: Ht 182.9 cm; Wt 106.2 kg
[~2017-10-08 01:00] MED LIST changes: -AMOX1TAB43 PO; -DXY100 PO; -FUROSEMIDE 40 MG/4 ML VIAL IV SCH
--- NOTE | 2017-10-08 01:12 | EMERGENCY ROOM VISIT NOTE ---
History Report prepared by Umm: Caren Gentile Under the Supervision of: Dr. Verónica Elmore M.D. First contact with patient: 01:03 Chief Complaint: FALL Stated Complaint: FALL History of Present Illness The patient is a 82 year old male who presents to the Emergency Room with complaints of a sudden fall occurring shortly prior to arrival. He states that he slid out of his chair at home. The patient reports having a swollen left eye that began at 1400 today. He denies any trauma to his eye. The patient also reports being febrile and having bilateral leg edema, but he states that his edema is chronic. The patient has a past medical history of leukemia. Source of History: patient Onset: shortly prior to arrival Position: other (global) Quality: other (fall) Timing: other (sudden) Associated Symptoms: + fevers Note: additional symptoms: swollen left eye, bilateral leg edema Review of Systems See HPI for pertinent positives & negatives. A total of 10 systems reviewed and were otherwise negative. Past Medical & Surgical Medical Problems: (1) Anemia (2) Elevated troponin (3) Hypotension (4) Large granular lymphocytic leukemia (5) Symptomatic anemia (6) Syncope and collapse Family History No pertinent family history Social History Smoking Status: Never Smoker Drug Use: none Marital Status: Housing Status: lives with significant other Occupation Status: retired Current/Historical Medications Scheduled Aspirin (Aspirin Ec), 81 MG PO DAILY Atorvastatin (Lipitor), 10 MG PO DAILY Colestipol Hcl (Colestid), 1 GM PO BID Enoxaparin (Lovenox), 100 MG INJ BID Furosemide (Lasix), 20 MG PO DAILY Methotrexate (Trexall), 20 MG PO WK Metoprolol Tartrate (Lopressor) (Lopressor), 12.5 MG PO BID Multivitamins/Minerals (Certavite/Antioxidants), 1 TAB PO QAM Pantoprazole (Protonix), 40 MG PO DAILY Potassium Chloride (Klor-Con M20), 20 MEQ PO QD@1700 Potassium Ext Rel (Klor-Con), 80 MEQ PO DAILY Prednisone (Prednisone), 40 MG PO DAILY Scheduled PRN Acetaminophen (Tylenol), 500 MG PO Q4 PRN for Pain or Fever Tramadol (Ultram), 50 MG PO Q4H PRN for Pain Allergies Coded Allergies: No Known Allergies (Unverified , 10/08/17) Physical Exam Vital Signs Date Time Temp Pulse Resp B/P (MAP) Pulse Ox O2 Delivery O2 Flow Rate FiO2 10/08/17 02:35 102/53 10/08/17 02:33 91/39 10/08/17 02:30 117 26 97 Room Air 10/08/17 02:00 115 26 91 Room Air 10/08/17 01:30 128 26 92 Room Air 10/08/17 01:20 37.6 121 28 122/57 94 Room Air 10/08/17 01:20 125 10/08/17 01:09 122/57 Physical Exam Vital signs reviewed. General: Chronically ill-appearing male, in no significant distress. HEENT: Left periorbital edema, pain to palpation. Eye swollen shut, sclera is not injected. There is no drainage from the eye. Extraocular muscles are intact. TM's are clear bilaterally. No scleral icterus, neck supple. Atraumatic. Cardiovascular: Tachycardic with occasional irregularity. Pulmonary: Poor respiratory effort on exam. Crackles at bases bilaterally. Abdomen: Obese, Soft, nontender, nondistended, positive bowel sounds. Musculoskeletal: Atraumatic. 3-4+ pitting edema to the bilateral lower extremities. Neurologic: Patient awake alert and oriented x 3, full strength in all 4 extremities. Cranial nerves 2 through 12 grossly intact. Skin: Warm, dry, no rash Medical Decision & Procedures ER Provider Diagnostic Interpretation: Radiology results as stated below per my review. Chest X-Ray: Cardiomegaly. Poor inspiratory effort. Loop of bowel under diaphragm, not likely to be free air. No failure. No pneumonia. KUB: Contrast in the bladder. No evidence of obstruction. No free air. Hardware in the right hip. CT FACIAL: Left periorbital edema and skin thickening which can be seen in cellulitis. No evidence of abscess. Atherosclerosis at the left carotid bulb. CT HEAD: No ICH mass effect or edema. No evidence of acute cortical stroke. Periventricular small vessel ischemic change. Tiny mucoceles in the maxillary sinuses bilaterally. Left periorbital edema and skin thickening. Laboratory Results Test 10/08/17 01:20 10/08/17 01:28 10/08/17 02:10 RDW Standard Deviation 88.5 fL (36.4-46.3) RDW Coefficient of Variation 28.2 % (11.5-14.5) White Blood Count 9.28 K/uL (4.8-10.8) Red Blood Count 2.54 M/uL (4.7-6.1) Hemoglobin 8.3 g/dL (14.0-18.0) Hematocrit 24.5 % (42-52) Mean Corpuscular Volume 96.5 fL (80-100) Mean Corpuscular Hemoglobin 32.7 pg (25-34) Mean Corpuscular Hemoglobin Concent 33.9 g/dl (32-36) Platelet Count 290 K/uL (130-400) Mean Platelet Volume 9.0 fL (7.4-10.4) Neutrophils (%) (Auto) 79.7 % Lymphocytes (%) (Auto) 11.3 % Monocytes (%) (Auto) 7.9 % Eosinophils (%) (Auto) 0.0 % Basophils (%) (Auto) 0.1 % Neutrophils # (Auto) 7.40 K/uL (1.4-6.5) Lymphocytes # (Auto) 1.05 K/uL (1.2-3.4) Monocytes # (Auto) 0.73 K/uL (0.11-0.59) Eosinophils # (Auto) 0.00 K/uL (0-0.5) Basophils # (Auto) 0.01 K/uL (0-0.2) Immature Granulocyte % (Auto) 1.0 % Immature Granulocyte # (Auto) 0.09 K/uL (0.00-0.02) Nucleated RBC Absolute Count (auto) 0.11 K/uL (0-0) Nucleated Red Blood Cells % 1.2 % Anisocytosis PRESENT Spherocytes 1+ Est Creatinine Clear Calc Drug Dose 79.0 ml/min Magnesium Level 1.9 mg/dl (1.8-2.4) Total Bilirubin 0.9 mg/dl (0.2-1) Direct Bilirubin 0.2 mg/dl (0-0.2) Aspartate Amino Transf (AST/SGOT) 13 U/L (15-37) Alanine Aminotransferase (ALT/SGPT) 37 U/L (12-78) Alkaline Phosphatase 90 U/L (45-117) Total Protein 7.1 gm/dl (6.4-8.2) Albumin 2.6 gm/dl (3.4-5.0) Bedside Lactic Acid Venous 3.29 mmol/L (0.90-1.70) Urine Color DK YELLOW Urine Appearance CLOUDY (CLEAR) Urine pH 5.0 (4.5-7.5) Urine Specific [place] 1.024 (1.000-1.030) Urine Protein 2+ (NEG) Urine Glucose (UA) NEG (NEG) Urine Ketones TRACE (NEG) Urine Occult Blood NEG (NEG) Urine Nitrite POS (NEG) Urine Bilirubin NEG (NEG) Urine Urobilinogen NEG (NEG) Urine Leukocyte Esterase TRACE (NEG) Urine WBC (Auto) 1-5 /hpf (0-5) Urine RBC (Auto) 5-10 /hpf (0-4) Urine Hyaline Casts (Auto) 5-10 /lpf (0-5) Urine Epithelial Cells (Auto) >30 /lpf (0-5) Urine Bacteria (Auto) NEG (NEG) Urine Renal Epithelial Cells 0-5 /lpf (0-5) Urine Pathogenic Casts 0-3 GRANULAR CASTS /lpf (0) Date/Time Source Procedure Growth Status 10/08/17 00:00 Nasal MRSA DNA Surveillance Screen - Final Specimen Negative for MRSA by DNA Probe Complete 10/08/17 02:10 Urine , Clean Catch Urine Culture - Final MORE THAN THREE TYPES OF ORGANISMS [place]... Complete Laboratory results per my review. Medications Administered Medications (Trade) Dose Ordered Sig/Rosendo Route Start Time Stop Time Status Last Admin Dose Admin Sodium Chloride 250 ml @ 999 mls/hr Q16M STAT IV 10/08/17 01:26 10/08/17 01:41 DC 10/08/17 01:26 999 MLS/HR Sodium Chloride 1,000 ml @ 125 mls/hr Q8H STAT IV 10/08/17 01:26 10/08/17 05:36 DC 10/08/17 01:26 125 MLS/HR Acetaminophen (Tylenol Tab) 650 mg NOW STAT PO 10/08/17 01:26 10/08/17 01:31 DC 10/08/17 01:46 650 MG Vancomycin HCl 2800 mg/Sodium Chloride 556 ml @ 200 mls/hr ONE STAT IV 10/08/17 01:26 10/08/17 04:12 DC 10/08/17 02:32 200 MLS/HR Piperacillin Sod/ Tazobactam Sod (Zosyn Iv) 4.5 gm NOW STAT IV 10/08/17 01:26 10/08/17 01:31 DC 10/08/17 01:46 4.5 GM Sodium Chloride 250 ml @ 999 mls/hr Q16M STAT IV 10/08/17 03:11 10/08/17 03:26 DC 10/08/17 03:11 999 MLS/HR ECG Per My Interpretation Indication: SOB/dyspnea Rate (beats per minute): 126 Rhythm: sinus tachycardia Findings: PAC, no acute ischemic change, other (low voltage QRS) ED Course 0118: Past medical records reviewed. The patient was evaluated in room A12B. A complete history and physical examination was performed. 0126: Ordered Zosyn Iv 4.5 gm IV, Vancomycin HCl 2,800 mg/Sodium Chloride 556 ml @ 200 mls/hr IV, Tylenol Tab 650 mg PO, Sodium Chloride 1,000 ml @ 125 mls/ hr IV, Sodium Chloride 250 ml @ 999 mls/hr IV. 0311: Ordered Sodium Chloride 250 ml @ 999 mls/hr IV. 0330: The patient's heart rate and blood pressure have improved. 0342: Upon reevaluation, the patient is resting comfortably. I discussed laboratory and radiographic results with him. He verbalized agreement of the treatment plan. The patient will be evaluated for further management and care. Medical Decision The patient is a 82 year old male who presents to the ED with complaints of a fall. Differentials include preseptal cellulitis, retroorbital hematoma, intracranial mass, sepsis, pneumonia, congestive heart failure, trauma, and urinary tract infection. This patient was evaluated and appeared to be in no significant distress. IV access was obtained and laboratory work was drawn. Patient was hydrated with normal saline solution. Patient was given IV vancomycin, IV Zosyn for his apparent facial cellulitis. CT scan of the head and face reveal no evidence of retro-orbital cellulitis. Given the patient's significant immunocompromise with his leukemia, the rapid onset of the facial cellulitis, elevated lactate and apparent sepsis, the patient will be evaluated by the hospitalist service for further management. Medication Reconcilliation Current Medication List: was personally reviewed by me Blood Pressure Screening Patient's blood pressure: Low blood pressure will be monitored by the hospitalist Consults Time Called: 0245 Consulting Physician: Dr. Griffin[place] Returned Call: [phone] I reviewed the patient's case with Dr. Griffin. He will evaluate the patient for further management. Impression Primary Impression: Preseptal cellulitis Additional Impressions: Chronic anemia Sepsis Scribe Attestation The scribe's documentation has been prepared under my direction and personally reviewed by me in its entirety. I confirm that the note above accurately reflects all work, treatment, procedures, and medical decision making performed by me. Departure Information Dispostion Being Evaluated By Hospitalist Referrals Pro,Dinesh Teixeira M.D. (PCP) Patient Instructions My [facility] Problem Qualifiers
[2017-10-08] MEDS ORDERED: VANCOMYCIN IV 2,800 MG in SODIUM CHLORIDE 0.9% 500ML 500 ML IV STA (01:26)
[2017-10-08] MEDS ORDERED: PIPERACILLIN/TAZOBACTAM 4.5 GM/100ML D5W IV STA (01:26)
[2017-10-08] MEDS ORDERED: ACETAMINOPHEN 325 MG TAB PO STA (01:26)
[2017-10-08] MEDS ORDERED: SODIUM CHLORIDE 0.9% 1000ML 1,000 ML IV STA (01:26)
[2017-10-08] MEDS ORDERED: SODIUM CHLORIDE 0.9% 250ML 250 ML IV STA ×2 (01:26→03:11)
[2017-10-08] MEDS ORDERED: VANCOMYCIN CONSULT ACTIVE PRN ×2 (01:30→09:30)
[2017-10-08 01:38] LABS: HEMATOCRIT 24.5 % (42-52); HEMOGLOBIN 8.3 g/dL (14.0-18.0); MEAN CELL VOLUME 96.5 fL (80-100); MEAN CORPUSCULAR HEMOGLOBIN 32.7 pg (25-34); MEAN CORPUSCULAR HGB CONC 33.9 g/dl (32-36); NUCLEATED RED BLOOD CELL ABS 0.11 K/uL (0-0); PLATELET COUNT 290 K/uL (130-400); RED CELL DISTRIBUTION WIDTH CV 28.2 % (11.5-14.5); RED CELL DISTRIBUTION WIDTH SD 88.5 fL (36.4-46.3); WHITE BLOOD COUNT 9.28 K/uL (4.8-10.8)
[2017-10-08] MEDS ORDERED: OPTIRAY 320 IV PRN (02:00)
[2017-10-08 02:06] LABS: ALBUMIN 2.6 gm/dl (3.4-5.0); CALCIUM 8.3 mg/dl (8.5-10.1); CREATININE 0.9 mg/dl (0.60-1.40)
[2017-10-08 02:08] LABS: TOTAL PROTEIN 7.1 gm/dl (6.4-8.2)
[2017-10-08 02:38] LABS: BASO % 0.1 %; BASO ABS # 0.01 K/uL (0-0.2); IG# 0.09 K/uL (0.00-0.02); LYMPH % 11.3 %; LYMPH ABS # 1.05 K/uL (1.2-3.4); MONO % 7.9 %; MONO ABS # 0.73 K/uL (0.11-0.59); NEUT % 79.7 %
[2017-10-08] MEDS ORDERED: TRAMADOL HCL 50 MG TAB PO PRN (03:45)
[2017-10-08] MEDS ORDERED: ACETAMINOPHEN 325 MG TAB PO PRN (04:00)
[2017-10-08] MEDS ORDERED: ALUMINUM/MAGNESIUM/SIMETH (MAALOX MAX) 30 ML UDC PO PRN (04:00)
[2017-10-08] MEDS ORDERED: ONDANSETRON INJ 2 MG/ML 2 ML VIAL IV PRN (04:00)
--- NOTE | 2017-10-08 04:35 | History and Physical ---
History & Physical Date & Time of Service: Oct 08, 2017 at 04:00 Chief Complaint: FALL Primary Care Physician: Dinesh Richards M.D. History of Present Illness Source: patient Mr. Merlos is a pleasant 82yo C male with history of large granular lymphocytic leukemia presenting to [facility] after a mechanical fall that occurred yesterday AM. The patient states that he was sitting in an automated recliner chair which tipped too far forward and dropped him onto the floor. He reports that he fell softly on his bottom, no head trauma, no LOC. He denies pain at this time. Patient also with left eye swell ing and drainage that began suddenly yesterday afternoon around 1200 and has progressed. The patient denies history of trauma to the eye, no foreign body. He has never had this occur before. 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 He denies fevers/chills/aches/ malaise. Denies nausea/vomiting/abdominal pain/diarrhea or constipation. Additionally he denies chest pain/SOB/palpitation. No additional complaints today. ER Course: Vancomycin, Zosyn, Tylenol, NSS x 1250mL Past Medical/Surgical History Medical Problems: 1. Large granular lymphocytic leukemia 2. Anemia - baseline Hg 7-9 3. CHF 4. Hyponatremia 5. DVT - on Lovenox anticoagulation Past Surgical History: Patient denies prior surgery Family History No pertinent family history Social History Smoking Status: Former Smoker Smokeless Tobacco Use: No Alcohol Use: none Drug Use: none Marital Status: Housing status: lives with significant other Occupational Status: retired Immunizations History of Influenza Vaccine: Unknown History of Tetanus Vaccine?: Unknown History of Pneumococcal: Unknown Allergies Coded Allergies: No Known Allergies (Unverified , 10/08/17) Home Medications Scheduled Aspirin (Aspirin Ec), 81 MG PO DAILY Atorvastatin (Lipitor), 10 MG PO DAILY Colestipol Hcl (Colestid), 1 GM PO BID Enoxaparin (Lovenox), 100 MG INJ BID Furosemide (Lasix), 20 MG PO DAILY Methotrexate (Trexall), 20 MG PO WK Metoprolol Tartrate (Lopressor) (Lopressor), 12.5 MG PO BID Multivitamins/Minerals (Certavite/Antioxidants), 1 TAB PO QAM Pantoprazole (Protonix), 40 MG PO DAILY Potassium Chloride (Klor-Con M20), 20 MEQ PO QD@1700 Potassium Ext Rel (Klor-Con), 80 MEQ PO DAILY Prednisone (Prednisone), 40 MG PO DAILY Scheduled PRN Acetaminophen (Tylenol), 500 MG PO Q4 PRN for Pain or Fever Tramadol (Ultram), 50 MG PO Q4H PRN for Pain Review of Systems Constitutional: No fever, No chills, No sweats, No fatigue Eyes: + eye pain, + problem reported, No worsening of vision ENT: No hearing loss, No unusual epistaxis, No sore throat, No trouble swallowing Respiratory: No cough, No sputum, No wheezing, No shortness of breath Cardiovascular: No chest pain, No edema, No palpitations Abdomen: No pain, No nausea, No vomiting, No diarrhea, No constipation Genitourinary - Male: No hematuria, No dysuria Neurologic: No weakness Endocrine: No fatigue Hematologic / Lymphatic: No abnormal bleeding/bruising Integumentary: No rash Physical Exam Vital Signs Date Time Temp Pulse Resp B/P (MAP) Pulse Ox O2 Delivery O2 Flow Rate FiO2 10/08/17 02:35 102/53 10/08/17 02:33 91/39 10/08/17 02:30 117 26 97 Room Air 10/08/17 02:00 115 26 91 Room Air 10/08/17 01:30 128 26 92 Room Air 10/08/17 01:20 37.6 121 28 122/57 94 Room Air 10/08/17 01:20 125 10/08/17 01:09 122/57 General: Obese, elderly male resting comfortably in bed, NAD Skin: warm, dry, scattered cortez hemangiomas on abdomen, skin flaking on bilateral LEs, no rash HEENT: NC/AT, right pupil round and reactive, unable to assess left pupil due to periorbital swelling, anicteric sclera, left eye with significant periorbital edema, redness and warmth of around the eye and to left side of face , patient is able to move left eye without pain, nares patent, moist mucus membranes, no OP lesions, neck supple, no JVD, no thyromegaly Heart: +S1/S2, slightly tachycardic at 102bpm, no m/r/g Lungs: equal air entry bilaterally, no rales/rhonchi/wheezes Abdomen: obese, normoactive bowel sounds, soft, NT/ND, no masses/organomegaly or ascites Extremities: 2+ pitting edema of bilateral LE, equal, no calf tenderness, palpable distal pulses 2+ Neuro: grossly nonfocal. Patient moves 4 extremities with equal strength Diagnostics Laboratory Results Results Past 24 Hours Test 10/08/17 01:20 10/08/17 01:28 10/08/17 02:10 Range/Units White Blood Count 9.28 4.8-10.8 K/uL Red Blood Count 2.54 4.7-6.1 M/uL Hemoglobin 8.3 14.0-18.0 g/dL Hematocrit 24.5 42-52 % Mean Corpuscular Volume 96.5 80-100 fL Mean Corpuscular Hemoglobin 32.7 25-34 pg Mean Corpuscular Hemoglobin Concent 33.9 32-36 g/dl Platelet Count 290 130-400 K/uL Mean Platelet Volume 9.0 7.4-10.4 fL Neutrophils (%) (Auto) 79.7 % Lymphocytes (%) (Auto) 11.3 % Monocytes (%) (Auto) 7.9 % Eosinophils (%) (Auto) 0.0 % Basophils (%) (Auto) 0.1 % Neutrophils # (Auto) 7.40 1.4-6.5 K/uL Lymphocytes # (Auto) 1.05 1.2-3.4 K/uL Monocytes # (Auto) 0.73 0.11-0.59 K/uL Eosinophils # (Auto) 0.00 0-0.5 K/uL Basophils # (Auto) 0.01 0-0.2 K/uL RDW Standard Deviation 88.5 36.4-46.3 fL RDW Coefficient of Variation 28.2 11.5-14.5 % Immature Granulocyte % (Auto) 1.0 % Immature Granulocyte # (Auto) 0.09 0.00-0.02 K/uL Nucleated RBC Absolute Count (auto) 0.11 0-0 K/uL Nucleated Red Blood Cells % 1.2 % Anisocytosis PRESENT Spherocytes 1+ Sodium Level 135 136-145 mmol/L Potassium Level 4.0 3.5-5.1 mmol/L Chloride Level 102 98-107 mmol/L Carbon Dioxide Level 22 21-32 mmol/L Anion Gap 11.0 3-11 mmol/L Blood Urea Nitrogen 22 7-18 mg/dl Creatinine 0.90 0.60-1.40 mg/dl Est Creatinine Clear Calc Drug Dose 79.0 ml/min Estimated GFR () 90.6 Estimated GFR (Non- 78.2 BUN/Creatinine Ratio 24.2 10-20 Random Glucose 147 70-99 mg/dl Calcium Level 8.3 8.5-10.1 mg/dl Magnesium Level 1.9 1.8-2.4 mg/dl Total Bilirubin 0.9 0.2-1 mg/dl Direct Bilirubin 0.2 0-0.2 mg/dl Aspartate Amino Transf (AST/SGOT) 13 15-37 U/L Alanine Aminotransferase (ALT/SGPT) 37 12-78 U/L Alkaline Phosphatase 90 45-117 U/L Total Protein 7.1 6.4-8.2 gm/dl Albumin 2.6 3.4-5.0 gm/dl Bedside Lactic Acid Venous 3.29 0.90-1.70 mmol/L Urine Color DK YELLOW Urine Appearance CLOUDY CLEAR Urine pH 5.0 4.5-7.5 Urine Specific Beebe 1.024 1.000-1.030 Urine Protein 2+ NEG Urine Glucose (UA) NEG NEG Urine Ketones TRACE NEG Urine Occult Blood NEG NEG Urine Nitrite POS NEG Urine Bilirubin NEG NEG Urine Urobilinogen NEG NEG Urine Leukocyte Esterase TRACE NEG Urine WBC (Auto) 1-5 0-5 /hpf Urine RBC (Auto) 5-10 0-4 /hpf Urine Hyaline Casts (Auto) 5-10 0-5 /lpf Urine Epithelial Cells (Auto) >30 0-5 /lpf Urine Bacteria (Auto) NEG NEG Urine Renal Epithelial Cells 0-5 0-5 /lpf Urine Pathogenic Casts 0-3 GRANULAR CASTS 0 /lpf Microbiology Results 10/08/17 Blood Culture, Received Pending 10/08/17 Blood Culture, Received Pending 10/08/17 Urine Culture, Jn Batch Pending Diagnostic Radiology Awaiting formal read on all studies CXR - rotated, no infiltrate, loop of bowel present under left hemidiaphragm CT face - left preseptal cellulitis Impression Assessment and Plan 82yo C male with history of large granular lymphocytic leukemia presenting to [facility] s/p mechanical fall, found with left sided preseptal cellulitis. 1. Preseptal cellulitis - patient presently afebrile at 37.6, mildly tachycardic at 102 bpm. He was tachypnic upon arrival, however RR has since improved. Also with elevated lactate at 3.29 - secondary to infection vs malignancy. -Will admit to medicine -Clindamycin 300mg IV q 8 hours. Patient with history of antibiotic associated diarrhea - will start Probiotic in conjunction with Clindamycin -NSS at 150mL/hr x 1 liter -Blood cultures x 2 sets sent from ER -Repeat lactate in AM 2. Large granular lymphocytic leukemia - patient is being followed by Dr. Guzman -Consult Heme-Onc -Continue MTX weekly -Continue Prednisone daily 3. Anemia - Hg=8.3 Hct=24.5 which is around patient's baseline. He receives Procrit injections as an outpatient. No active bleeding at present. Continue to monitor. Transfuse if Hg < 7 or patient becomes symptomatic. 4. Hyponatremia - [id number] which is at or near patient's baseline (134, 133 prior ). Asymptomatic. -Continue to monitor 5. History of DVT - patient is on daily Lovenox 100mg BID -Continue Lovenox 6. CHF - stable. No evidence of failure. -Continue home ASA, Lipitor, Lopressor 7. F/E/N - NSS at 150mL/hr x 1 liter, monitor electrolytes and replete as needed, regular diet as tolerated 8. Ppx - patient on full dose Lovenox for h/o DVT 9. Code - DNR per discussion with patient 10. Dispo - admission to medical floor for preseptal cellulitis Resuscitation Status VTE Prophylaxis Will order VTE Prophylaxis: No Reason for no VTE drug order: Treatment not indicated Reason no Mechanical VTE Order: Treatment not indicated
[2017-10-08] MEDS ORDERED: CLINDAMYCIN IV 300 MG in DEXTROSE 5% 50ML 50 ML IV SCH (06:00)
--- NOTE | 2017-10-08 06:03 | DIAGNOSTIC IMAGING REPORT ---
CHEST ONE VIEW PORTABLE CLINICAL HISTORY: fall, tachy, fever, SOB dyspnea COMPARISON STUDY: 09/03/2017 FINDINGS: Mild stable cardiomegaly. Lungs are clear. The diaphragms are smooth. IMPRESSION: Mild stable cardiomegaly. The above report was generated using voice recognition software. It may contain grammatical, syntax or spelling errors. Electronically signed by: Pranav Javier M.D. 10/08/2017 6:01 AM Dictated Date/Time: 10/08/2017 6:00 AM
[2017-10-08] MEDS: SODIUM CHLORIDE 0.9% 1000ML 1,000 ML IV SCH ×2 (06:05→11:11)
--- NOTE | 2017-10-08 06:08 | DIAGNOSTIC IMAGING REPORT ---
KUB CLINICAL HISTORY: abd distention, free air? Pain COMPARISON STUDY: No previous studies for comparison. FINDINGS: Moderate generalized nonobstructive ileus. Contrast within the urinary tracts. Degenerative change of the osseous structures. No secondary evidence for free air. IMPRESSION: Moderate generalized nonobstructive ileus. No secondary evidence for free air. The above report was generated using voice recognition software. It may contain grammatical, syntax or spelling errors. Electronically signed by: Pranav Javier M.D. 10/08/2017 6:06 AM Dictated Date/Time: 10/08/2017 6:05 AM
--- NOTE | 2017-10-08 06:10 | DIAGNOSTIC IMAGING REPORT ---
FACIAL-MAXILLOFACIAL WITH CLINICAL HISTORY: facial swelling, L side, cellulitis pain. Edema. TECHNIQUE: Transaxial acquisition with multi axial reformatted images COMPARISON STUDY: 09/03/2017 FINDINGS: Moderate left periorbital soft tissue edema. The globes are symmetric. No significant retroseptal abnormality. No significant proptosis. No evidence for drainable abscess or collection. No acute bony abnormality is apparent. IMPRESSION: Left preseptal periorbital cellulitis. No evidence for abscess or collection. The above report was generated using voice recognition software. It may contain grammatical, syntax or spelling errors. Electronically signed by: Pranav Javier M.D. 10/08/2017 6:09 AM Dictated Date/Time: 10/08/2017 6:08 AM
--- NOTE | 2017-10-08 07:14 | DIAGNOSTIC IMAGING REPORT ---
CT SCAN OF THE BRAIN WITHOUT IV CONTRAST CLINICAL HISTORY: Fall. Head injury. COMPARISON STUDY: CT of the brain dated 09/03/2017. TECHNIQUE: Unenhanced axial CT scan of the brain is performed from the vertex to the skull base. A dose lowering technique was utilized adhering to the principles of ALARA. CT DOSE: 729.78 mGycm FINDINGS: Brain parenchyma: There are age-related involutional changes noting mild subcortical and periventricular microangiopathic change. There is no hemorrhage, mass effect, or evidence of acute territorial ischemia by CT criteria. Dunaway-white matter is preserved. No extra-axial fluid collection is seen. Ventricles, sulci, cisterns: Prominent secondary to involutional change. Intracranial vasculature: There is atherosclerotic calcification of the cavernous carotid arteries. Calvarium: The skeletal structures are osteopenic. There is no depressed calvarial fracture. Soft tissues: There is left periorbital scalp contusion/hematoma. Sinuses and mastoids: Trace mucosal thickening and a subcentimeter retention cyst are noted in the maxillary antra. The remaining visualized paranasal sinuses are clear. There is a trace right mastoid effusion. The left mastoid air cells are well pneumatized. Orbits: The bony orbits are grossly intact. There are bilateral ocular lens implants. IMPRESSION: 1. There is no hemorrhage, mass effect, or evidence of acute territorial ischemia by CT criteria. 2. Left periorbital soft tissue injury. 3. There is no depressed calvarial fracture. Electronically signed by: Julien Palacio M.D. 10/08/2017 7:13 AM Dictated Date/Time: 10/08/2017 7:10 AM
[2017-10-08] MEDS ORDERED: FUROSEMIDE 20 MG TAB PO SCH (08:00)
[2017-10-08] MEDS: CEROVITE ADV FORMULA TAB PO SCH (08:27)
[2017-10-08] MEDS: METOPROLOL TARTRATE 25 MG TAB PO SCH ×2 (08:27→20:00)
[2017-10-08] MEDS: ATORVASTATIN 10 MG TAB PO SCH (08:28)
[2017-10-08] MEDS: SACCHAROMYCES BOUL (FLORASTOR) 250 MG CAP PO SCH (08:29)
[2017-10-08] MEDS: PANTOprazole SOD 40 MG TAB PO SCH (08:29)
[2017-10-08] MEDS: ASPIRIN 81 MG ECTAB PO SCH (08:30)
[2017-10-08] MEDS: ENOXAPARIN 100 MG/1ML SYR SC SCH ×2 (08:31→19:58)
[2017-10-08] MEDS ORDERED: COLESTIPOL HCL 1 GM TAB PO SCH (09:00)
--- NOTE | 2017-10-08 10:45 | Pharmacy Progress Note ---
Pharmacy Abx Initial Consult Date of Service Oct 08, 2017. Pharmacy Dosing Scope Date of Consult: 10/08/17 Consultation requested by: Jones Alberto, PAC Pharmacy is consulted to initiate vancomycin IV dosing therapy, order appropriate labs and adjust drug dose/frequency. Subjective The patient is a 82 year old male admitted on Oct 08, 2017 Objective Height (Feet): 6 Height (Inches): 0.00 Weight (Kilograms): 104.100 Vital Signs (Past 12Hrs) Vital Signs Past 12 Hours Date Time Temp Pulse Resp B/P (MAP) Pulse Ox O2 Delivery O2 Flow Rate FiO2 10/08/17 07:38 36.7 87 22 115/63 (80) 94 Room Air 10/08/17 05:07 37.1 104 24 104/76 98 Room Air 10/08/17 05:04 104 10/08/17 04:10 36.6 86 18 101/57 97 Room Air 10/08/17 02:35 102/53 10/08/17 02:33 91/39 10/08/17 02:30 117 26 97 Room Air 10/08/17 02:00 115 26 91 Room Air 10/08/17 01:30 128 26 92 Room Air 10/08/17 01:20 37.6 121 28 122/57 94 Room Air 10/08/17 01:20 125 10/08/17 01:09 122/57 Lab Results (24Hrs) Laboratory Tests (24 Hours) Test 10/08/17 01:20 10/08/17 07:30 White Blood Count 9.28 K/uL (4.8-10.8) Red Blood Count 2.54 M/uL (4.7-6.1) L Hemoglobin 8.3 g/dL (14.0-18.0) L Hematocrit 24.5 % (42-52) L Mean Corpuscular Volume 96.5 fL (80-100) Mean Corpuscular Hemoglobin 32.7 pg (25-34) Mean Corpuscular Hemoglobin Concent 33.9 g/dl (32-36) Platelet Count 290 K/uL (130-400) Mean Platelet Volume 9.0 fL (7.4-10.4) Neutrophils (%) (Auto) 79.7 % Lymphocytes (%) (Auto) 11.3 % Monocytes (%) (Auto) 7.9 % Eosinophils (%) (Auto) 0.0 % Basophils (%) (Auto) 0.1 % Neutrophils # (Auto) 7.40 K/uL (1.4-6.5) H Lymphocytes # (Auto) 1.05 K/uL (1.2-3.4) L Monocytes # (Auto) 0.73 K/uL (0.11-0.59) H Eosinophils # (Auto) 0.00 K/uL (0-0.5) Basophils # (Auto) 0.01 K/uL (0-0.2) Lactic Acid Level 1.8 mmol/L (0.4-2.0) Micro Results Date/Time Source Procedure Growth Status 10/08/17 01:24 Blood Blood Culture Pending Received 10/08/17 01:20 Blood Blood Culture Pending Received 10/08/17 02:10 Urine , Clean Catch Urine Culture Pending Received Risk Factors for Resistance * Hospitalization for 48 hours or more within the past 90 days * Immunocompromised (chronic steroid therapy, chemotherapy, immunomodulators) * Antimicrobial use within the last 90 days - vancomycin for sepsis 2/2 pneumonia and bacteremia Assessment & Plan Assessment 82 year old male admitted overnight s/p mechanical fall with L sided preseptal cellulitis. He was given vanc and Zosyn in the ER, then started on Cleocin. This has been changed this AM to Rocephin and vancomycin. Plan Vancomycin IV Previous dosing from last admission was 1500 mg q10h with a similar renal function and weight, and produced a therapeutic trough level - will plan to utilize the same dosing for now * Loading dose: 2800 mg (27 mg/kg) given in the ER * Maintenance dose: 1500 mg IV (14.4 mg/kg) every 10 hours * Goal trough level for cellulitis w/ pending blood cultures : 15 to 20 mcg/mL * Trough level ordered for 10/09/17 prior to the 4th dose Rocephin * Not being dosed by pharmacy but may consider increasing to 2 gm for weight > 80 kg Pharmacy will continue to follow and will adjust dose/frequency as necessary. Thank you.
[2017-10-08] MEDS: CEFTRIAXONE SOD INJ 1 GM in DEXTROSE 5% ADD-VANTAGE 50ML 50 ML IV SCH (11:11)
--- NOTE | 2017-10-08 12:09 | Oncology Consultation ---
Oncology/Heme Consultation Date of Consultation: Oct 08, 2017. Attending Physician: Mary Denise MD Reason for Consultation: Patient with a history of T-cell large granular lymphocytic leukemia History of Present Illness Mr. 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 He originally presented in 2014 with a macrocytic anemia and a differential with 77% lymphocytes. These lymphs were T cells with a TCR gene rearrangement yielding a polyclonal pattern consistent with inflammation. However in December 2016 he presented with progressive anemia. Peripheral blood flow had now a TCR gene rearrangement the diagnosis that of T-cell large granular lymphocytic leukemia was rendered. He was started on prednisone in early May 2017 with improvement in his counts however he has still required red cell transfusions. He currently is on Procrit. Dr. Whittington was also treating him with weekly methotrexate. Is admitted now after developing cellulitis involves primarily the left side of his face. He denies trauma as causing this. He denies headache. Denies any fever or shaking chills. He denies any recent dental work. Past Medical/Surgical History Medical Problems: (1) Chronic anemia Status: Acute (2) Flu-like symptoms Status: Acute (3) Preseptal cellulitis Status: Acute (4) Sepsis Status: Acute (5) Weakness Status: Acute Family History No pertinent family history Social History Smoking Status: Former Smoker Smokeless Tobacco Use: No Alcohol Use: none Drug Use: none Marital Status: Housing Status: lives with significant other Occupation Status: retired Allergies Coded Allergies: No Known Allergies (Unverified , 10/08/17) Home Medications Scheduled Aspirin (Aspirin Ec), 81 MG PO DAILY Atorvastatin (Lipitor), 10 MG PO DAILY Colestipol Hcl (Colestid), 1 GM PO BID Enoxaparin (Lovenox), 100 MG INJ BID Furosemide (Lasix), 20 MG PO DAILY Methotrexate (Trexall), 20 MG PO WK Metoprolol Tartrate (Lopressor) (Lopressor), 12.5 MG PO BID Multivitamins/Minerals (Certavite/Antioxidants), 1 TAB PO QAM Pantoprazole (Protonix), 40 MG PO DAILY Potassium Chloride (Klor-Con M20), 20 MEQ PO QD@1700 Potassium Ext Rel (Klor-Con), 80 MEQ PO DAILY Prednisone (Prednisone), 40 MG PO DAILY Scheduled PRN Acetaminophen (Tylenol), 500 MG PO Q4 PRN for Pain or Fever Tramadol (Ultram), 50 MG PO Q4H PRN for Pain Current Inpatient Medications Current Inpatient Medications Medications (Trade) Dose Ordered Sig/Rosendo Route Start Time Stop Time Status Last Admin Dose Admin Ioversol (Optiray 320) 100 ml UD PRN IV 10/08/17 02:00 10/12/17 01:59 Aspirin (Ecotrin Tab) 81 mg DAILY PO 10/08/17 08:00 11/07/17 08:59 10/08/17 08:30 81 MG Atorvastatin Calcium (Lipitor Tab) 10 mg DAILY PO 10/08/17 08:00 11/07/17 08:59 10/08/17 08:28 10 MG Enoxaparin Sodium (Lovenox Inj) 100 mg BID SC 10/08/17 08:00 11/07/17 08:59 10/08/17 08:31 100 MG Metoprolol Tartrate (Lopressor Tab) 12.5 mg BID PO 10/08/17 08:00 11/07/17 08:59 10/08/17 08:27 12.5 MG Multivitamins/ Minerals (Multivitamin W/ Minerals Tab) 1 tab QAM PO 10/08/17 08:00 11/07/17 08:59 10/08/17 08:27 1 TAB Pantoprazole Sodium (Protonix Tab) 40 mg DAILY PO 10/08/17 08:00 11/07/17 08:59 10/08/17 08:29 40 MG Prednisone (PredniSONE TAB) 40 mg DAILY PO 10/08/17 08:00 11/07/17 08:59 10/08/17 08:29 40 MG Tramadol HCl (Ultram Tab) 50 mg Q4H PRN PO 10/08/17 03:45 11/07/17 03:44 Saccharomyces Boulardii (Florastor Cap) 250 mg DAILY PO 10/08/17 08:00 11/07/17 08:59 10/08/17 08:29 250 MG Acetaminophen (Tylenol Tab) 650 mg Q4H PRN PO 10/08/17 04:00 11/07/17 03:59 Al Hydrox/Mg Hydrox/Simethicone (Maalox Max Susp) 15 ml Q4H PRN PO 10/08/17 04:00 11/07/17 03:59 Ondansetron HCl (Zofran Inj) 4 mg Q6H PRN IV 10/08/17 04:00 11/07/17 03:59 Sodium Chloride 1,000 ml @ 150 mls/hr Q6H40M IV 10/08/17 04:45 10/08/17 18:04 10/08/17 11:11 150 MLS/HR Methotrexate (Methotrexate Tab) 20 mg Fr@0900 PO 10/09/17 09:00 11/08/17 08:59 Vancomycin HCl 1500 mg/Sodium Chloride 530 ml @ 200 mls/hr Q10H IV 10/08/17 13:00 10/18/17 12:59 Miscellaneous Information (Consult) 1 ea UD PRN N/A 10/08/17 09:30 11/07/17 09:29 Ceftriaxone Sodium 1 gm/ Dextrose 50 ml @ 100 mls/hr Q24H IV 10/08/17 10:00 10/18/17 09:59 10/08/17 11:11 100 MLS/HR Review of Systems Constitutional: Negative for weight loss, night sweats, or fever Eyes: He has difficulties opening the left eye due to periorbital and orbital swelling ENT: Negative for epistaxis, nasal discharge, sore throat, or deafness Cardiovascular: Negative for chest pain, palpitations, dizziness, diaphoresis Respiratory: Negative for new shortness of breath,hemoptysis, or purulent cough Gastrointestinal: Negative for diarrhea, hematemesis, melena, nausea, vomiting , or dyspepsia Integumentary (skin): Negative for rash or jaundice discoloration Genitourinary: Negative for urinary frequency, hematuria, or dysuria Neurological: Negative for weakness, seizure activity, headache, or dizziness Lymphatic/Hematologic: Negative for petechiae, bleeding or new adenopathy Musculoskeletal: Negative for new joint or back pain Allergic/Immunologic: Negative for unusual rash or pruritis. Physical Exam Date Time Temp Pulse Resp B/P (MAP) Pulse Ox O2 Delivery O2 Flow Rate FiO2 10/08/17 11:09 37.1 85 20 94/59 (71) 96 Room Air 10/08/17 07:38 36.7 87 22 115/63 (80) 94 Room Air 10/08/17 05:07 37.1 104 24 104/76 98 Room Air 10/08/17 05:04 104 10/08/17 04:10 36.6 86 18 101/57 97 Room Air 10/08/17 02:35 102/53 10/08/17 02:33 91/39 10/08/17 02:30 117 26 97 Room Air 10/08/17 02:00 115 26 91 Room Air 10/08/17 01:30 128 26 92 Room Air 10/08/17 01:20 37.6 121 28 122/57 94 Room Air 10/08/17 01:20 125 10/08/17 01:09 122/57 Constitutional: vitals are stable. Eyes: Due to very prominent periorbital and orbital edema affecting the left I am not able to examine the left eye. Right eye appears PERRLA EOMI ENT: External examination was negative for masses. Neck: Negative for masses or palpable thyromegaly Respiratory: Lung sounds were generally clear bilaterally Cardiovascular: Heart was RRR without significant murmur, gallops aoe rubs Gastrointestinal: No palpable hepatic or splenomegaly. The abdomen was soft with normal bowel sounds. Lymphatic system: there was no palpable peripheral lymphadenopathy Musculoskeletal System: The musculoskeletal system seemed concordant with age. Skin: The skin was negative for jaundice. There is generalized left facial edema/mild erythema Neurologic exam: The exam was negative for any focal findings. Deep tendon reflexes were equal and symmetrical. Psychiatric exam: Was essentially negative with normal mood and effect. Extremities: negative for edema Laboratory Results Last 24 Hours Test 10/08/17 01:20 10/08/17 01:28 10/08/17 02:10 10/08/17 07:30 White Blood Count 9.28 K/uL Red Blood Count 2.54 M/uL Hemoglobin 8.3 g/dL Hematocrit 24.5 % Mean Corpuscular Volume 96.5 fL Mean Corpuscular Hemoglobin 32.7 pg Mean Corpuscular Hemoglobin Concent 33.9 g/dl Platelet Count 290 K/uL Mean Platelet Volume 9.0 fL Neutrophils (%) (Auto) 79.7 % Lymphocytes (%) (Auto) 11.3 % Monocytes (%) (Auto) 7.9 % Eosinophils (%) (Auto) 0.0 % Basophils (%) (Auto) 0.1 % Neutrophils # (Auto) 7.40 K/uL Lymphocytes # (Auto) 1.05 K/uL Monocytes # (Auto) 0.73 K/uL Eosinophils # (Auto) 0.00 K/uL Basophils # (Auto) 0.01 K/uL RDW Standard Deviation 88.5 fL RDW Coefficient of Variation 28.2 % Immature Granulocyte % (Auto) 1.0 % Immature Granulocyte # (Auto) 0.09 K/uL Nucleated RBC Absolute Count (auto) 0.11 K/uL Nucleated Red Blood Cells % 1.2 % Anisocytosis PRESENT Spherocytes 1+ Sodium Level 135 mmol/L Potassium Level 4.0 mmol/L Chloride Level 102 mmol/L Carbon Dioxide Level 22 mmol/L Anion Gap 11.0 mmol/L Blood Urea Nitrogen 22 mg/dl Creatinine 0.90 mg/dl Est Creatinine Clear Calc Drug Dose 79.0 ml/min Estimated GFR () 90.6 Estimated GFR (Non- 78.2 BUN/Creatinine Ratio 24.2 Random Glucose 147 mg/dl Calcium Level 8.3 mg/dl Magnesium Level 1.9 mg/dl Total Bilirubin 0.9 mg/dl Direct Bilirubin 0.2 mg/dl Aspartate Amino Transf (AST/SGOT) 13 U/L Alanine Aminotransferase (ALT/SGPT) 37 U/L Alkaline Phosphatase 90 U/L Total Protein 7.1 gm/dl Albumin 2.6 gm/dl Bedside Lactic Acid Venous 3.29 mmol/L Urine Color DK YELLOW Urine Appearance CLOUDY Urine pH 5.0 Urine Specific [place] 1.024 Urine Protein 2+ Urine Glucose (UA) NEG Urine Ketones TRACE Urine Occult Blood NEG Urine Nitrite POS Urine Bilirubin NEG Urine Urobilinogen NEG Urine Leukocyte Esterase TRACE Urine WBC (Auto) 1-5 /hpf Urine RBC (Auto) 5-10 /hpf Urine Hyaline Casts (Auto) 5-10 /lpf Urine Epithelial Cells (Auto) >30 /lpf Urine Bacteria (Auto) NEG Urine Renal Epithelial Cells 0-5 /lpf Urine Pathogenic Casts 0-3 GRANULAR CASTS /lpf Lactic Acid Level 1.8 mmol/L Assessment & Plan T-cell large granular lymphocytic leukemia being treated with methotrexate weekly and supportive therapy that is Procrit for his anemia Impressive cellulitis affecting the left facial area and periorbital area. I would recommend an infectious disease consult. CBC is acceptable. He has been receiving weekly creatinine and we will ask for that today. He was due for an injection today 40,000 units. Rest of his chemistries look stable and we will follow along with you. Hold methotrexate for now.
[2017-10-08] MEDS ORDERED: EPOETIN ALFA 40,000 UNITS/ML VIAL SQ SCH (12:15)
--- NOTE | 2017-10-08 13:07 | Hospitalist Progress Note ---
Hospitalist Progress Note Date of Service Oct 08, 2017. (Jennifer Alberto ., PAKierraC) Subjective Pt evaluation today including: conversation w/ patient, physical exam, lab review, review of studies, review of inpatient medication list Voiding: no voiding problems Patient resting in bed. Eating and drinking OK. Denies any injuries/foreign object to eye region. Denies any pain. +chronic BLE edema- at baseline per patient. Patient denies any fever, chills, sweats, lightheadedness, dizziness, vision changes, CP, palpitations, SOB, wheezing, cough, abdominal pain, nausea, vomiting, diarrhea, urinary symptoms, melena, numbness/tingling, weakness, muscle/joint pain, anxiety/depression, active bleeding. (Jennifer Alberto ., SUSANNEC) Medications Current Inpatient Medications Medications (Trade) Dose Ordered Sig/Rosendo Route Start Time Stop Time Status Last Admin Dose Admin Ioversol (Optiray 320) 100 ml UD PRN IV 10/08/17 02:00 10/12/17 01:59 Aspirin (Ecotrin Tab) 81 mg DAILY PO 10/08/17 08:00 11/07/17 08:59 10/08/17 08:30 81 MG Atorvastatin Calcium (Lipitor Tab) 10 mg DAILY PO 10/08/17 08:00 11/07/17 08:59 10/08/17 08:28 10 MG Enoxaparin Sodium (Lovenox Inj) 100 mg BID SC 10/08/17 08:00 11/07/17 08:59 10/08/17 08:31 100 MG Metoprolol Tartrate (Lopressor Tab) 12.5 mg BID PO 10/08/17 08:00 11/07/17 08:59 10/08/17 08:27 12.5 MG Multivitamins/ Minerals (Multivitamin W/ Minerals Tab) 1 tab QAM PO 10/08/17 08:00 11/07/17 08:59 10/08/17 08:27 1 TAB Pantoprazole Sodium (Protonix Tab) 40 mg DAILY PO 10/08/17 08:00 11/07/17 08:59 10/08/17 08:29 40 MG Prednisone (PredniSONE TAB) 40 mg DAILY PO 10/08/17 08:00 11/07/17 08:59 10/08/17 08:29 40 MG Tramadol HCl (Ultram Tab) 50 mg Q4H PRN PO 10/08/17 03:45 11/07/17 03:44 Saccharomyces Boulardii (Florastor Cap) 250 mg DAILY PO 10/08/17 08:00 11/07/17 08:59 10/08/17 08:29 250 MG Acetaminophen (Tylenol Tab) 650 mg Q4H PRN PO 10/08/17 04:00 11/07/17 03:59 Al Hydrox/Mg Hydrox/Simethicone (Maalox Max Susp) 15 ml Q4H PRN PO 10/08/17 04:00 11/07/17 03:59 Ondansetron HCl (Zofran Inj) 4 mg Q6H PRN IV 10/08/17 04:00 11/07/17 03:59 Sodium Chloride 1,000 ml @ 150 mls/hr Q6H40M IV 10/08/17 04:45 10/08/17 18:04 10/08/17 11:11 150 MLS/HR Methotrexate (Methotrexate Tab) 20 mg Fr@0900 PO 10/09/17 09:00 11/08/17 08:59 Vancomycin HCl 1500 mg/Sodium Chloride 530 ml @ 200 mls/hr Q10H IV 10/08/17 13:00 10/18/17 12:59 Miscellaneous Information (Consult) 1 ea UD PRN N/A 10/08/17 09:30 11/07/17 09:29 Ceftriaxone Sodium 1 gm/ Dextrose 50 ml @ 100 mls/hr Q24H IV 10/08/17 10:00 10/18/17 09:59 10/08/17 11:11 100 MLS/HR Epoetin Andrea (Procrit Inj) 40,000 units ONE SQ 10/08/17 12:15 11/07/17 12:14 UNV (Jennifer Alberto PA-C) Objective Vital Signs Date Time Temp Pulse Resp B/P (MAP) Pulse Ox O2 Delivery O2 Flow Rate FiO2 10/08/17 11:09 37.1 85 20 94/59 (71) 96 Room Air 10/08/17 08:30 Room Air 10/08/17 07:38 36.7 87 22 115/63 (80) 94 Room Air 10/08/17 05:07 37.1 104 24 104/76 98 Room Air 10/08/17 05:04 104 10/08/17 04:10 36.6 86 18 101/57 97 Room Air 10/08/17 02:35 102/53 10/08/17 02:33 91/39 10/08/17 02:30 117 26 97 Room Air 10/08/17 02:00 115 26 91 Room Air 10/08/17 01:30 128 26 92 Room Air 10/08/17 01:20 37.6 121 28 122/57 94 Room Air 10/08/17 01:20 125 10/08/17 01:09 122/57 (Jennifer Alberto, PA-C) Physical Exam General Appearance: no apparent distress Eyes: + pertinent finding (L eye swollen shut, mild erythema, +warmth) ENT: hearing grossly normal Neck: supple Respiratory/Chest: lungs clear, no respiratory distress, no accessory muscle use Cardiovascular: regular rate, rhythm Abdomen: normal bowel sounds, non tender, soft Extremities: no calf tenderness, + swelling (+2 pitting edema of BLEs ) Neurologic/Psychiatric: alert, normal mood/affect, oriented x 3 Skin: normal color, warm/dry, no rash (Jennifer Alberto ., PA-C) Laboratory Results Last 24 Hours Test 10/08/17 01:20 10/08/17 01:28 10/08/17 02:10 10/08/17 07:30 White Blood Count 9.28 K/uL Red Blood Count 2.54 M/uL Hemoglobin 8.3 g/dL Hematocrit 24.5 % Mean Corpuscular Volume 96.5 fL Mean Corpuscular Hemoglobin 32.7 pg Mean Corpuscular Hemoglobin Concent 33.9 g/dl Platelet Count 290 K/uL Mean Platelet Volume 9.0 fL Neutrophils (%) (Auto) 79.7 % Lymphocytes (%) (Auto) 11.3 % Monocytes (%) (Auto) 7.9 % Eosinophils (%) (Auto) 0.0 % Basophils (%) (Auto) 0.1 % Neutrophils # (Auto) 7.40 K/uL Lymphocytes # (Auto) 1.05 K/uL Monocytes # (Auto) 0.73 K/uL Eosinophils # (Auto) 0.00 K/uL Basophils # (Auto) 0.01 K/uL RDW Standard Deviation 88.5 fL RDW Coefficient of Variation 28.2 % Immature Granulocyte % (Auto) 1.0 % Immature Granulocyte # (Auto) 0.09 K/uL Nucleated RBC Absolute Count (auto) 0.11 K/uL Nucleated Red Blood Cells % 1.2 % Anisocytosis PRESENT Spherocytes 1+ Sodium Level 135 mmol/L Potassium Level 4.0 mmol/L Chloride Level 102 mmol/L Carbon Dioxide Level 22 mmol/L Anion Gap 11.0 mmol/L Blood Urea Nitrogen 22 mg/dl Creatinine 0.90 mg/dl Est Creatinine Clear Calc Drug Dose 79.0 ml/min Estimated GFR () 90.6 Estimated GFR (Non- 78.2 BUN/Creatinine Ratio 24.2 Random Glucose 147 mg/dl Calcium Level 8.3 mg/dl Magnesium Level 1.9 mg/dl Total Bilirubin 0.9 mg/dl Direct Bilirubin 0.2 mg/dl Aspartate Amino Transf (AST/SGOT) 13 U/L Alanine Aminotransferase (ALT/SGPT) 37 U/L Alkaline Phosphatase 90 U/L Total Protein 7.1 gm/dl Albumin 2.6 gm/dl Bedside Lactic Acid Venous 3.29 mmol/L Urine Color DK YELLOW Urine Appearance CLOUDY Urine pH 5.0 Urine Specific [place] 1.024 Urine Protein 2+ Urine Glucose (UA) NEG Urine Ketones TRACE Urine Occult Blood NEG Urine Nitrite POS Urine Bilirubin NEG Urine Urobilinogen NEG Urine Leukocyte Esterase TRACE Urine WBC (Auto) 1-5 /hpf Urine RBC (Auto) 5-10 /hpf Urine Hyaline Casts (Auto) 5-10 /lpf Urine Epithelial Cells (Auto) >30 /lpf Urine Bacteria (Auto) NEG Urine Renal Epithelial Cells 0-5 /lpf Urine Pathogenic Casts 0-3 GRANULAR CASTS /lpf Lactic Acid Level 1.8 mmol/L (Jennifer Alberto, PA-C) Assessment and Plan 82 y/o C male with history of large granular lymphocytic leukemia presenting to [facility] s/p mechanical fall, found with left sided preseptal cellulitis. Periorbital cellulitis: - Admitted to med/surg - IV Vancomycin + Rocephin - NSS @ 150mL/hr x2 bags - Face CT- no evidence of abscess - Lactic acid 3.29--> 1.8 - BCx pending and UA negative - MRSA swab pending - Follow CBC and PRP L buttock ulcer: - Wound care consulted, appreciate recommendations Large granular lymphocytic leukemia, anemia- follows w/ Dr. Whittington: - Continue Prednisone - Hold Methotrexate per oncology recommendations - Procrit 40,000 SQ x1 today per hematology - Hematology/oncology consulted, appreciate recommendations Hyponatremia- STABLE: Follow PRP Chronic diastolic CHF- STABLE, HLD, paroxysmal a.fib: - Continue home ASA, Lipitor, Lopressor - ECHO 08/2017- EF 55-60%, grade I diastolic CHF GERD: Protonix daily h/o DVT: Lovenox 100 mg SQ BID Code status: LEVEL V, DNR Dispo: From home, lives w/ - PT/OT and CM consulted (Jennifer Alberto, SUNDAR) Reviewed: Pt Seen/Exam by Me (Mary Denise MD) History Physician Colon And Rectal Surgeon Supervision Note: I interviewed and examined the patient. Discussed with LYDIA Alberto and agree with findings and plan as documented in the note. Any exceptions or clarifications are listed here: Patient has no pain in the unless it is touched. He reports that about 2 days ago his eyes started feeling "funny." Within a few minutes after that, he feels like his eye got swollen very quickly. He denies fevers or chills at home. He has no long-term eye conditions, last saw his peer support specialist who thinks about a year ago. Vitals reviewed NAD, alert awake and oriented Left with significant edema, erythema, mostly below the lower lid with exquisite tenderness to palpation, when the lower lid is pried open, evelio purulence tripped out from the lower lid, positive tenderness to palpation and lymphadenopathy in the left preauricular and submandibular region. The sclera appears normal, I was able to make out that his extraocular movements were intact for the most part without pain. I could not fully examine the eye due to severe pain with trying to pry the eyelids open Regular rate and rhythm, no murmurs gallops rubs Lungs clear to auscultation Extremities with 2+ pitting edema with some chronic venous stasis changes and mild erythema of the anterior tibia which she reports is chronic Patient is an 82-year-old male with history of large granular lymphocytic leukemia, recent acute bilateral lower extremity and right upper extremity DVTs on chronic Lovenox, pancytopenia, chronic diastolic CHF, lymphedema, history of fairly recent group A streptococcus pneumonia and bacteremia, here with left periorbital cellulitis and sepsis with tachycardia and tachypnea on admission. There is no evidence of abscess or orbital cellulitis on CT scan. -Discussed with nursing care about doing wet warm compresses with gentle lid scrubs 3 times a day -Continue Rocephin and vancomycin to cover for the usual organisms -Discussed his care with his peer support specialist on the phone, Dr. Zhu, who is out of town at the moment-he agreed with the plan of care -Continue to monitor -Is Procrit was not actually given today-discussed with nursing and they will give it now -Discussed his care extensively with his son who is a physician on the phone-he has concerns about his dad's cost of Lovenox being $1200 per month and would like to know if he could be switched to an oral anticoagulant-I will discuss with his oncologist about switching to Coumadin while he is here Documented By: Mary Denise (Mary Denise MD)
[2017-10-08] MEDS: VANCOMYCIN IV 1,500 MG in SODIUM CHLORIDE 0.9% 500ML 500 ML IV SCH ×2 (14:17→23:22)
[2017-10-09] VITALS (14 sets, daily range): BP systolic 86–132; BP diastolic 50–67; PULSE 67–92; TEMP 36.3–36.7; O2SAT 97–100; BMI 31.9
[2017-10-09] MEDS ORDERED: VANCOMYCIN TROUGH ONE (08:30)
[2017-10-09] MEDS ORDERED: METHOTREXATE 2.5 MG TAB PO SCH (09:00)
[2017-10-09 09:02] LABS: HEMATOCRIT 19.8 % (42-52); HEMOGLOBIN 6.6 g/dL (14.0-18.0); MEAN CELL VOLUME 96.1 fL (80-100); MEAN CORPUSCULAR HGB CONC 33.3 g/dl (32-36); MEAN PLATELET VOLUME 8.5 fL (7.4-10.4); PLATELET COUNT 236 K/uL (130-400); RED CELL DISTRIBUTION WIDTH CV 28.1 % (11.5-14.5); RED CELL DISTRIBUTION WIDTH SD 88.5 fL (36.4-46.3); WHITE BLOOD COUNT 4.81 K/uL (4.8-10.8)
--- NOTE | 2017-10-09 09:10 | Clinical Documentation Query ---
CLINICAL DOCUMENTATION QUERY 82 year old male presenting with preseptal cellulitis. Latest progress note state patient has having left buttock ulcer. Type of ulcer is omitted from documentation and cannot be assumed by a professional jet pilot. In your clinical opinion is this patient being managed for: ( x ) Pressure ulcer of left buttock,unstagable ( x ) Pressure ulcer of right buttock, Stage I ( ) Not Agree ( ) Other explanation of clinical findings (Please Explain) ( ) Unable to determine (Please Define) ( ) Need to Discuss The medical record reflects the following clinical findings, treatment, and risk factors. Clinical Indicators: As above. WOCN assessment states following: Left Gluteus/Buttocks Present on Admission Yes Wound Type Pressure Ulcer Stage Unstageable Length 2.0 cm Width 0.7 cm Eschar None % Eschar (Black) None % Slough (Yellow) 1-25% % Granulated (Red) None Structure Exposed None Wound Base Color Yellow Impairment Edges [place] Jacy-impairment Normal Skin Impairment Description DUSTED WITH STOMA POWDER AND APPLIED NICKEL THICK LAYER OF ALOE BARRIER CREAM Dressing Status Applied Drainage Amount 0 - None Drainage Odor 0 - None Irrigant Solution Type Saline (NSS) Progress Of Wound No Change Wound Assessment Label Right Gluteus/Buttocks Present on Admission Yes Wound Type Pressure Ulcer Stage Pressure Ulcer 1 Length 5.0 cm Width 3.0 cm Eschar None % Eschar (Black) None % Slough (Yellow) None % Granulated (Red) None Structure Exposed None Wound Base Color Red Jacy-impairment Non-Blanching Treatment: WOCN consult & care plan, Q2hr repositioning Risk Factors: Age, Hx of pressure ulcers, Please clarify and document your clinical opinion in the progress notes and discharge summary. Terms such as "probable", "suspected", "likely", "questionable", "possible", or "still to be ruled out" are acceptable. IF IN AGREEMENT, YOU MUST DOCUMENT ABOVE DIAGNOSTIC STATEMENT IN DAILY PROGRESS NOTES AND DISCHARGE SUMMARY. This document is not part of the patient's record. Thank You, Boubacar Faith, DIANA [phone]
[2017-10-09 09:18] LABS: CALCIUM 7.9 mg/dl (8.5-10.1); CREATININE 0.69 mg/dl (0.60-1.40); POTASSIUM 3.2 mmol/L (3.5-5.1)
[2017-10-09] MEDS: ATORVASTATIN 10 MG TAB PO SCH (09:50)
[2017-10-09] MEDS: PANTOprazole SOD 40 MG TAB PO SCH (09:51)
[2017-10-09] MEDS: METOPROLOL TARTRATE 25 MG TAB PO SCH ×2 (09:51→20:00)
[2017-10-09] MEDS: CEROVITE ADV FORMULA TAB PO SCH (09:51)
[2017-10-09] MEDS: ASPIRIN 81 MG ECTAB PO SCH (09:52)
[2017-10-09] MEDS: SACCHAROMYCES BOUL (FLORASTOR) 250 MG CAP PO SCH (09:52)
[2017-10-09] MEDS: ENOXAPARIN 100 MG/1ML SYR SC SCH ×2 (09:53→20:18)
[2017-10-09] MEDS: HYDROCORTISONE IV 25 MG in SYRINGE 0 ML IV SCH ×3 (09:53→22:04)
[2017-10-09] MEDS: CEFTRIAXONE SOD INJ 1 GM in DEXTROSE 5% ADD-VANTAGE 50ML 50 ML IV SCH (09:54)
--- NOTE | 2017-10-09 09:55 | Hospitalist Progress Note ---
Hospitalist Progress Note Date of Service Oct 09, 2017. (Jennifer Alberto ., PA-C) Subjective Pt evaluation today including: conversation w/ patient, physical exam, lab review, review of studies, review of inpatient medication list Voiding: no voiding problems Patient resting in bed. Feeling well this AM. L eye seems improved, less swelling and can now open more. Patient notes his had had issues with sinus drainage/blockage recently. Yellowish discharge. Eating and drinking OK. Hgb 6.6 today. Denies any active bleeding. BM yesterday- unsure if dark/blood present as " he didn't look." No blood/dark stool documented per RN. Patient denies any fever, chills, sweats, lightheadedness, dizziness, vision changes, CP, palpitations, edema, SOB, wheezing, cough, abdominal pain, nausea, vomiting, diarrhea, urinary symptoms, melena, numbness/tingling, weakness, muscle/joint pain, anxiety/depression, active bleeding, or new skin discoloration/changes. (Jennifer Alberto ., PA-C) Medications Current Inpatient Medications Medications (Trade) Dose Ordered Sig/Rosenod Route Start Time Stop Time Status Last Admin Dose Admin Ioversol (Optiray 320) 100 ml UD PRN IV 10/08/17 02:00 10/12/17 01:59 Aspirin (Ecotrin Tab) 81 mg DAILY PO 10/08/17 08:00 11/07/17 08:59 10/08/17 08:30 81 MG Atorvastatin Calcium (Lipitor Tab) 10 mg DAILY PO 10/08/17 08:00 11/07/17 08:59 10/08/17 08:28 10 MG Enoxaparin Sodium (Lovenox Inj) 100 mg BID SC 10/08/17 08:00 11/07/17 08:59 10/08/17 19:58 100 MG Metoprolol Tartrate (Lopressor Tab) 12.5 mg BID PO 10/08/17 08:00 11/07/17 08:59 10/08/17 08:27 12.5 MG Multivitamins/ Minerals (Multivitamin W/ Minerals Tab) 1 tab QAM PO 10/08/17 08:00 11/07/17 08:59 10/08/17 08:27 1 TAB Pantoprazole Sodium (Protonix Tab) 40 mg DAILY PO 10/08/17 08:00 11/07/17 08:59 10/08/17 08:29 40 MG Prednisone (PredniSONE TAB) 40 mg DAILY PO 10/08/17 08:00 11/07/17 08:59 Future Hold 10/08/17 08:29 40 MG Tramadol HCl (Ultram Tab) 50 mg Q4H PRN PO 10/08/17 03:45 11/07/17 03:44 Saccharomyces Boulardii (Florastor Cap) 250 mg DAILY PO 10/08/17 08:00 11/07/17 08:59 10/08/17 08:29 250 MG Acetaminophen (Tylenol Tab) 650 mg Q4H PRN PO 10/08/17 04:00 11/07/17 03:59 Al Hydrox/Mg Hydrox/Simethicone (Maalox Max Susp) 15 ml Q4H PRN PO 10/08/17 04:00 11/07/17 03:59 Ondansetron HCl (Zofran Inj) 4 mg Q6H PRN IV 10/08/17 04:00 11/07/17 03:59 Methotrexate (Methotrexate Tab) 20 mg Fr@0900 PO 10/09/17 09:00 11/08/17 08:59 Future Hold Miscellaneous Information (Consult) 1 ea UD PRN N/A 10/08/17 09:30 11/07/17 09:29 Ceftriaxone Sodium 1 gm/ Dextrose 50 ml @ 100 mls/hr Q24H IV 10/08/17 10:00 10/18/17 09:59 10/08/17 11:11 100 MLS/HR Hydrocortisone Sodium Succinate 25 mg/Syringe 0.5 ml @ 4 mls/min TID IV 10/09/17 09:15 11/08/17 09:14 (Jennifer Alberto, SUNDAR) Objective Vital Signs Date Time Temp Pulse Resp B/P (MAP) Pulse Ox O2 Delivery O2 Flow Rate FiO2 10/09/17 07:46 36.4 79 22 93/59 (70) 98 Room Air 10/09/17 03:52 36.7 73 20 105/57 (73) 98 Room Air 10/09/17 00:00 97 Room Air 10/08/17 23:53 36.4 88 20 105/59 (74) 97 Room Air 10/08/17 20:04 90/47 (61) 95/51 (66) 10/08/17 19:27 36.8 89 19 105/59 (74) 97 Room Air 10/08/17 16:00 97 Room Air 10/08/17 15:15 36.5 87 18 103/64 (77) 97 Room Air 10/08/17 11:09 37.1 85 20 94/59 (71) 96 Room Air (Jennifer Alberto PA-C) Physical Exam General Appearance: no apparent distress, + obese Eyes: PERRL, + pertinent finding (L eye with swelling, drainage, mild erythema - improvement since yesterday, able to open eye slightly more/less swelling ) ENT: hearing grossly normal Neck: supple Respiratory/Chest: lungs clear, no respiratory distress, no accessory muscle use Cardiovascular: regular rate, rhythm Abdomen: normal bowel sounds, non tender, soft Extremities: no calf tenderness, + swelling (+2 pitting edema BLEs) Neurologic/Psychiatric: alert, normal mood/affect, oriented x 3 Skin: normal color, warm/dry, no rash (Jennifer Alberto, SUSANNEC) Laboratory Results Last 24 Hours Test 10/09/17 08:33 White Blood Count 4.81 K/uL Red Blood Count 2.06 M/uL Hemoglobin 6.6 g/dL Hematocrit 19.8 % Mean Corpuscular Volume 96.1 fL Mean Corpuscular Hemoglobin 32.0 pg Mean Corpuscular Hemoglobin Concent 33.3 g/dl RDW Standard Deviation 88.5 fL RDW Coefficient of Variation 28.1 % Platelet Count 236 K/uL Mean Platelet Volume 8.5 fL Sodium Level 134 mmol/L Potassium Level 3.2 mmol/L Chloride Level 104 mmol/L Carbon Dioxide Level 24 mmol/L Anion Gap 6.0 mmol/L Blood Urea Nitrogen 17 mg/dl Creatinine 0.69 mg/dl Est Creatinine Clear Calc Drug Dose 100.6 ml/min Estimated GFR () 101.0 Estimated GFR (Non- 87.2 BUN/Creatinine Ratio 24.7 Random Glucose 129 mg/dl Calcium Level 7.9 mg/dl Vancomycin Level Trough 23.2 mcg/ml (Jennifer Alberto PA-C) Assessment and Plan 82 y/o C male with history of large granular lymphocytic leukemia presenting to [facility] s/p mechanical fall, found with left sided preseptal cellulitis. Sepsis secondary to periorbital cellulitis: - Admitted to med/surg - IV Vancomycin + Rocephin- started on 10/08 - NSS @ 150mL/hr x2 bags - Face CT- no evidence of abscess - Lactic acid 3.29--> 1.8 - BCx NGTD; UCx negative; MRSA swab negative - Follow CBC and PRP - Consider ID consultation if no improvement/worsens- showing improvement today L buttock ulcer POA, R stage I buttock ulcer POA: Wound care consulted, appreciate recommendations Large granular lymphocytic leukemia, anemia- follows w/ Dr. Whittington: - Prednisone 40 mg daily- stress dosing w/ IV Hydrocortisone 25 mg TID due low/ normal BPs and sepsis - Hold Methotrexate per oncology recommendations - Procrit 40,000 SQ x1 on 10/08 - Follow H&H- hgb 6.6 today- consent obtained, type and cross completed- transfuse 1 unit today - Hematology/oncology consulted, appreciate recommendations Hyponatremia- STABLE: Follow PRP Chronic diastolic CHF- STABLE, HLD, paroxysmal a.fib: - Continue home ASA, Lipitor, Lopressor w/ hold parameters - Lasix 40 mg daily held at admission- will continue to hold due to low/normal BPs - Hypokalemia- 20 mEq KCL x1 now, resume 20 mEq KCL QPM; continue to hold 80 mEq QAM since holding Lasix - ECHO 08/2017- EF 55-60%, grade I diastolic CHF GERD: Protonix daily h/o DVT: Lovenox 100 mg SQ BID- son would like patient switched to Coumadin due to cost Code status: LEVEL V, DNR Dispo: From home, lives w/ - PT/OT and CM consulted (Jennifer Alberot PA-C) Reviewed: Pt Seen/Exam by Me (Mary Denise MD) History Physician Humidifier Operator Supervision Note: I interviewed and examined the patient. Discussed with LYDIA Alberto and agree with findings and plan as documented in the note. Any exceptions or clarifications are listed here: Patient feeling much better today. Less pain around the eye and he is able to open his lid more. He denies any pain with movement of the eye. He has been afebrile. Blood pressures were a little low this morning and stress dose steroids were started. We discussed switching to Coumadin from Lovenox and he is unsure if he really wants to do that despite the cost of the Lovenox as he does not want to have to get his INR checked frequently. He wants to discuss it with his and son who is a physician. Hemoglobin was quite low this morning at 6.6 and he is just now getting his blood transfusion as it had to be transported in from [place]. Vitals reviewed NAD, alert awake and oriented Left eye with some edema much improved in the upper lid from previous, erythema of the lower lid and left cheek and face which is much improved from previous, mostly below the lower lid with exquisite tenderness to palpation, when the lower lid is pried open, evelio purulence is expressed out from the lower lid, positive tenderness to palpation and reduced size of lymphadenopathy in the left preauricular and submandibular region-overall significantly improved from yesterday. The sclera appears normal, extraocular muscles intact without pain with movement, PERRLA Regular rate and rhythm, no murmurs gallops rubs Lungs clear to auscultation Extremities with 2+ pitting edema with some chronic venous stasis changes and mild erythema of the anterior tibia which she reports is chronic Patient is an 82-year-old male with history of large granular lymphocytic leukemia, recent acute bilateral lower extremity and right upper extremity DVTs on chronic Lovenox, pancytopenia, chronic diastolic CHF, lymphedema, history of fairly recent group A streptococcus pneumonia and bacteremia, here with left periorbital cellulitis and sepsis with tachycardia and tachypnea on admission. There is no evidence of abscess or orbital cellulitis on CT scan. Overall much improved in the periorbital cellulitis. Blood cultures remain with no growth. -Continue wet warm compresses with gentle lid scrubs 3 times a day -Continue Rocephin and vancomycin to cover for the usual organisms -Giving stress dose steroids for low blood pressures in the setting of sepsis and chronic steroid use-his prednisone was inadvertently held this morning-we will give it is a one-time dose this evening and restart for tomorrow morning -Discussed his care with his engine dynamometer tester on the phone, Dr. Zhu, who is out of town at the moment-he agreed with the plan of care -Continue to monitor but will likely need IV antibiotics for at least 2-3 more days -Received Procrit yesterday and transfused 2 units of irradiated PRBCs today -Discussed his care again today on the phone with his son-(with the patient's permission) who is a physician Documented By: Mary Denise (Mary Denise MD)
--- NOTE | 2017-10-09 09:56 | Hematology/Oncology Prog Note ---
Hematology/Onc Progress Note Date of Service Oct 09, 2017. Diagnoses Facial cellulitis T cell LGL leukemia Medications Medications Administered Medications (Trade) Dose Ordered Sig/Rosendo Route Start Time Stop Time Status Last Admin Dose Admin Sodium Chloride 250 ml @ 999 mls/hr Q16M STAT IV 10/08/17 01:26 10/08/17 01:41 DC 10/08/17 01:26 999 MLS/HR Sodium Chloride 1,000 ml @ 125 mls/hr Q8H STAT IV 10/08/17 01:26 10/08/17 05:36 DC 10/08/17 01:26 125 MLS/HR Acetaminophen (Tylenol Tab) 650 mg NOW STAT PO 10/08/17 01:26 10/08/17 01:31 DC 10/08/17 01:46 650 MG Vancomycin HCl 2800 mg/Sodium Chloride 556 ml @ 200 mls/hr ONE STAT IV 10/08/17 01:26 10/08/17 04:12 DC 10/08/17 02:32 200 MLS/HR Piperacillin Sod/ Tazobactam Sod (Zosyn Iv) 4.5 gm NOW STAT IV 10/08/17 01:26 10/08/17 01:31 DC 10/08/17 01:46 4.5 GM Sodium Chloride 250 ml @ 999 mls/hr Q16M STAT IV 10/08/17 03:11 10/08/17 03:26 DC 10/08/17 03:11 999 MLS/HR Aspirin (Ecotrin Tab) 81 mg DAILY PO 10/08/17 08:00 11/07/17 08:59 10/08/17 08:30 81 MG Atorvastatin Calcium (Lipitor Tab) 10 mg DAILY PO 10/08/17 08:00 11/07/17 08:59 10/08/17 08:28 10 MG Enoxaparin Sodium (Lovenox Inj) 100 mg BID SC 10/08/17 08:00 11/07/17 08:59 10/08/17 19:58 100 MG Metoprolol Tartrate (Lopressor Tab) 12.5 mg BID PO 10/08/17 08:00 11/07/17 08:59 10/08/17 08:27 12.5 MG Multivitamins/ Minerals (Multivitamin W/ Minerals Tab) 1 tab QAM PO 3/29/18 08:00 11/07/17 08:59 10/08/17 08:27 1 TAB Pantoprazole Sodium (Protonix Tab) 40 mg DAILY PO 10/08/17 08:00 11/07/17 08:59 10/08/17 08:29 40 MG Prednisone (PredniSONE TAB) 40 mg DAILY PO 10/08/17 08:00 11/07/17 08:59 Future Hold 10/08/17 08:29 40 MG Clindamycin Phosphate 300 mg/ Dextrose 52 ml @ 100 mls/hr Q8H IV 10/08/17 06:00 10/08/17 09:27 DC 10/08/17 06:16 100 MLS/HR Saccharomyces Boulardii (Florastor Cap) 250 mg DAILY PO 10/08/17 08:00 11/07/17 08:59 10/08/17 08:29 250 MG Sodium Chloride 1,000 ml @ 150 mls/hr Q6H40M IV 10/08/17 04:45 10/08/17 18:04 DC 10/08/17 11:11 150 MLS/HR Vancomycin HCl 1500 mg/Sodium Chloride 530 ml @ 200 mls/hr Q10H IV 10/08/17 13:00 10/09/17 09:25 DC 10/08/17 23:22 200 MLS/HR Ceftriaxone Sodium 1 gm/ Dextrose 50 ml @ 100 mls/hr Q24H IV 10/08/17 10:00 10/18/17 09:59 10/08/17 11:11 100 MLS/HR Epoetin Andrea (Procrit Inj) 40,000 units ONE SQ 10/08/17 12:15 10/08/17 18:00 DC 10/08/17 19:53 40,000 UNITS Subjective He seems to be doing somewhat better. He states that the left side of his facial area that is involved with the cellulitis continues to be quite tender however he is able to open his eyelid more than yesterday. He remains afebrile. Review of Systems: Constitutional: Negative for night sweats, or fever Eyes: Negative for event change of vision. As before he has significant periorbital edema and erythema involving the left eye as well as the left hemifacial area ENT: Negative for epistaxis, nasal discharge, sore throat, or deafness Cardiovascular: Negative for chest pain, palpitations, dizziness, diaphoresis Respiratory: Negative for new shortness of breath,hemoptysis, or purulent cough Gastrointestinal: Negative for diarrhea, hematemesis, melena, nausea, vomiting , or dyspepsia Integumentary (skin): Negative for rash or jaundice discoloration Neurological: Negative for weakness, seizure activity, headache, or dizziness Lymphatic/Hematologic: Negative for petechiae, bleeding or new adenopathy Musculoskeletal: Negative for new joint or back pain Allergic/Immunologic: Negative for unusual rash or pruritis. Vital Signs Vital Signs Past 12 Hours Date Time Temp Pulse Resp B/P (MAP) Pulse Ox O2 Delivery O2 Flow Rate FiO2 10/09/17 07:46 36.4 79 22 93/59 (70) 98 Room Air 10/09/17 03:52 36.7 73 20 105/57 (73) 98 Room Air 10/09/17 00:00 97 Room Air 10/08/17 23:53 36.4 88 20 105/59 (74) 97 Room Air Physical Exam Constitutional: vitals are stable. Eyes: Left eye was not able to be examined due to significant periorbital edema and erythema. This edema.erythema again does involve the left side of his face. It seems perhaps slightly less than yesterday ENT: External examination was negative for masses. Neck: Negative for masses or palpable thyromegaly Respiratory: Lung sounds were generally clear bilaterally Cardiovascular: Heart was RRR without significant murmur, gallops aoe rubs Gastrointestinal: No palpable hepatic or splenomegaly. The abdomen was soft with normal bowel sounds. Lymphatic system: there was no palpable peripheral lymphadenopathy Musculoskeletal System: The musculoskeletal system seemed concordant with age. Skin: The skin was negative for jaundice erythem as described. Neurologic exam: The exam was negative for any focal findings. Deep tendon reflexes were equal and symmetrical. Psychiatric exam: Was essentially negative with normal mood and effect. Extremites: negative for edema Laboratory Last 24 Hours Test 10/09/17 08:33 White Blood Count 4.81 K/uL Red Blood Count 2.06 M/uL Hemoglobin 6.6 g/dL Hematocrit 19.8 % Mean Corpuscular Volume 96.1 fL Mean Corpuscular Hemoglobin 32.0 pg Mean Corpuscular Hemoglobin Concent 33.3 g/dl RDW Standard Deviation 88.5 fL RDW Coefficient of Variation 28.1 % Platelet Count 236 K/uL Mean Platelet Volume 8.5 fL Sodium Level 134 mmol/L Potassium Level 3.2 mmol/L Chloride Level 104 mmol/L Carbon Dioxide Level 24 mmol/L Anion Gap 6.0 mmol/L Blood Urea Nitrogen 17 mg/dl Creatinine 0.69 mg/dl Est Creatinine Clear Calc Drug Dose 100.6 ml/min Estimated GFR () 101.0 Estimated GFR (Non- 87.2 BUN/Creatinine Ratio 24.7 Random Glucose 129 mg/dl Calcium Level 7.9 mg/dl Vancomycin Level Trough 23.2 mcg/ml Assessment & Plan T-cell LGL leukemia. He has a worsened hemoglobin today most likely on the basis of the ongoing infection with an already compromised bone marrow. I would recommend a 2 unit red cell transfusion with radiated red cells. Antibiotics ongoing. The facial cellulitis does appear slightly better than yesterday.
[2017-10-09] MEDS ORDERED: POTASSIUM CHLORIDE 20 MEQ TABCR PO ONE (10:00)
--- NOTE | 2017-10-09 11:35 | Pharmacy Progress Note ---
Pharmacy Abx Dose Short Note Date of Service Oct 09, 2017. Assessment & Plan Assessment 82 year old male receiving IV Vancomycin and Ceftriaxone for treatment of L sided preseptal cellulitis Day # 2 of antimicrobial therapy. Plan Vancomycin * Trough level of 23.2 mcg/mL is supratherapeutic. Need to decr' dose and extend dosing interval to target a lower trough. * Change to 1250 mg (~12mg/kg) IV every 12 hours * Goal trough level for cellulitis : 10 to 15 mcg/mL * Trough level ordered for: 10/10 @ 1330 (early level only prior to the 3rd dose and therefore not reflective of steady state, but would like to assess dosing regimen earlier due to recent supratherapeutic level) Pharmacy will continue to follow and will adjust dose/frequency as necessary. Thank you.
[2017-10-09] MEDS: VANCOMYCIN IV 1,250 MG in SODIUM CHLORIDE 0.9% 250ML 250 ML IV SCH (13:42)
[2017-10-09 14:09] LABS: HEMATOCRIT 21.8 % (42-52); HEMOGLOBIN 7.3 g/dL (14.0-18.0)
[2017-10-09] MEDS ORDERED: POTASSIUM CHLORIDE 20 MEQ TABCR PO SCH (17:00)
[2017-10-09] MEDS ORDERED: WARFARIN SOD 5 MG TAB PO ONE (18:52)
[2017-10-09] MEDS ORDERED: POTASSIUM CHLORIDE 10 MEQ TABCR PO STA (19:43)
[2017-10-10] MEDS: VANCOMYCIN IV 1,250 MG in SODIUM CHLORIDE 0.9% 250ML 250 ML IV SCH ×2 (01:59→13:21)
[2017-10-10 03:20] VITALS: BP 124/70; PULSE 70; TEMP 36.4; O2SAT 98
[2017-10-10 06:28] VITALS: BMI 31.5
[2017-10-10 06:39] VITALS: BMI 31.5
[2017-10-10 07:33] LABS: HEMATOCRIT 22.1 % (42-52); HEMOGLOBIN 7.5 g/dL (14.0-18.0); IG# 0.04 K/uL (0.00-0.02); LYMPH % 18.2 %; LYMPH ABS # 0.72 K/uL (1.2-3.4); MEAN CELL VOLUME 93.6 fL (80-100); MEAN CORPUSCULAR HEMOGLOBIN 31.8 pg (25-34); MEAN CORPUSCULAR HGB CONC 33.9 g/dl (32-36); MEAN PLATELET VOLUME 8.6 fL (7.4-10.4); MONO % 3.5 %; MONO ABS # 0.14 K/uL (0.11-0.59); NEUT % 77.3 %; NEUT ABS # 3.06 K/uL (1.4-6.5); PLATELET COUNT 261 K/uL (130-400); RED CELL DISTRIBUTION WIDTH CV 27.2 % (11.5-14.5); RED CELL DISTRIBUTION WIDTH SD 83.7 fL (36.4-46.3); WHITE BLOOD COUNT 3.96 K/uL (4.8-10.8)
[2017-10-10 07:36] VITALS: BP 145/69; PULSE 64; TEMP 36.3; O2SAT 99
[2017-10-10 08:16] LABS: CALCIUM 8.2 mg/dl (8.5-10.1); CREATININE 0.6 mg/dl (0.60-1.40); POTASSIUM 4.1 mmol/L (3.5-5.1)
[2017-10-10] MEDS: METOPROLOL TARTRATE 25 MG TAB PO SCH ×2 (08:29→20:00)
[2017-10-10] MEDS: ASPIRIN 81 MG ECTAB PO SCH (08:29)
[2017-10-10] MEDS: CEROVITE ADV FORMULA TAB PO SCH (08:30)
[2017-10-10] MEDS: PANTOprazole SOD 40 MG TAB PO SCH (08:30)
[2017-10-10] MEDS: ATORVASTATIN 10 MG TAB PO SCH (08:31)
[2017-10-10] MEDS: SACCHAROMYCES BOUL (FLORASTOR) 250 MG CAP PO SCH (08:31)
[2017-10-10] MEDS: HYDROCORTISONE IV 25 MG in SYRINGE 0 ML IV SCH ×2 (08:32→13:21)
[2017-10-10] MEDS: ENOXAPARIN 100 MG/1ML SYR SC SCH ×2 (08:32→20:58)
[2017-10-10] MEDS: CEFTRIAXONE SOD INJ 1 GM in DEXTROSE 5% ADD-VANTAGE 50ML 50 ML IV SCH (10:43)
[2017-10-10 11:57] VITALS: BP 115/63; PULSE 61; TEMP 36.5; O2SAT 98
[2017-10-10] MEDS ORDERED: VANCOMYCIN TROUGH ONE (13:30)
--- NOTE | 2017-10-10 14:24 | Hematology/Oncology Prog Note ---
Hematology/Onc Progress Note Date of Service Oct 10, 2017. Diagnoses Facial cellulitis T cell LGL leukemia Medications Medications Administered Medications (Trade) Dose Ordered Sig/Rosendo Route Start Time Stop Time Status Last Admin Dose Admin Sodium Chloride 250 ml @ 999 mls/hr Q16M STAT IV 10/08/17 01:26 10/08/17 01:41 DC 10/08/17 01:26 999 MLS/HR Sodium Chloride 1,000 ml @ 125 mls/hr Q8H STAT IV 10/08/17 01:26 10/08/17 05:36 DC 10/08/17 01:26 125 MLS/HR Acetaminophen (Tylenol Tab) 650 mg NOW STAT PO 10/08/17 01:26 10/08/17 01:31 DC 10/08/17 01:46 650 MG Vancomycin HCl 2800 mg/Sodium Chloride 556 ml @ 200 mls/hr ONE STAT IV 10/08/17 01:26 10/08/17 04:12 DC 10/08/17 02:32 200 MLS/HR Piperacillin Sod/ Tazobactam Sod (Zosyn Iv) 4.5 gm NOW STAT IV 10/08/17 01:26 10/08/17 01:31 DC 10/08/17 01:46 4.5 GM Sodium Chloride 250 ml @ 999 mls/hr Q16M STAT IV 10/08/17 03:11 10/08/17 03:26 DC 10/08/17 03:11 999 MLS/HR Aspirin (Ecotrin Tab) 81 mg DAILY PO 10/08/17 08:00 11/07/17 08:59 10/10/17 08:29 81 MG Atorvastatin Calcium (Lipitor Tab) 10 mg DAILY PO 10/08/17 08:00 11/07/17 08:59 10/10/17 08:31 10 MG Enoxaparin Sodium (Lovenox Inj) 100 mg BID SC 10/08/17 08:00 11/07/17 08:59 10/10/17 08:32 100 MG Metoprolol Tartrate (Lopressor Tab) 12.5 mg BID PO 10/08/17 08:00 11/07/17 08:59 10/10/17 08:29 12.5 MG Multivitamins/ Minerals (Multivitamin W/ Minerals Tab) 1 tab QAM PO 3/29/18 08:00 11/07/17 08:59 10/10/17 08:30 1 TAB Pantoprazole Sodium (Protonix Tab) 40 mg DAILY PO 10/08/17 08:00 11/07/17 08:59 10/10/17 08:30 40 MG Prednisone (PredniSONE TAB) 40 mg DAILY PO 10/08/17 08:00 11/07/17 08:59 Future hold 10/10/17 08:59 40 MG Clindamycin Phosphate 300 mg/ Dextrose 52 ml @ 100 mls/hr Q8H IV 10/08/17 06:00 10/08/17 09:27 DC 10/08/17 06:16 100 MLS/HR Saccharomyces Boulardii (Florastor Cap) 250 mg DAILY PO 10/08/17 08:00 11/07/17 08:59 10/10/17 08:31 250 MG Sodium Chloride 1,000 ml @ 150 mls/hr Q6H40M IV 10/08/17 04:45 10/08/17 18:04 DC 10/08/17 11:11 150 MLS/HR Vancomycin HCl 1500 mg/Sodium Chloride 530 ml @ 200 mls/hr Q10H IV 10/08/17 13:00 10/09/17 09:25 DC 10/08/17 23:22 200 MLS/HR Ceftriaxone Sodium 1 gm/ Dextrose 50 ml @ 100 mls/hr Q24H IV 10/08/17 10:00 10/18/17 09:59 10/10/17 10:43 100 MLS/HR Epoetin Andrea (Procrit Inj) 40,000 units ONE SQ 10/08/17 12:15 10/08/17 18:00 DC 10/08/17 19:53 40,000 UNITS Hydrocortisone Sodium Succinate 25 mg/Syringe 0.5 ml @ 4 mls/min TID IV 10/09/17 09:15 11/08/17 09:14 10/10/17 13:21 4 MLS/MIN Potassium Chloride (Klor-Con Tab) 20 meq QD@1700 PO 10/09/17 17:00 11/08/17 16:59 10/09/17 16:42 20 MEQ Potassium Chloride (Klor-Con Tab) 20 meq NOW ONCE PO 10/09/17 10:00 10/09/17 10:01 DC 10/09/17 12:19 20 MEQ Vancomycin HCl 1250 mg/Sodium Chloride 275 ml @ 125 mls/hr Q12H IV 10/09/17 14:00 10/18/17 13:59 10/10/17 13:21 125 MLS/HR Prednisone (PredniSONE TAB) 40 mg NOW STAT PO 10/09/17 19:05 10/09/17 19:08 DC 10/09/17 20:17 40 MG Potassium Chloride (Klor-Con M10) 20 meq NOW STAT PO 10/09/17 19:43 10/09/17 19:46 DC 10/09/17 22:04 20 MEQ Subjective He is clearly better. The facial cellulitis has reduced quite a bit. He is able to open his eye now. He Is without fever. Review of Systems: Constitutional: Negative for night sweats, or fever Eyes: Negative for event change of vision ENT: Negative for epistaxis, nasal discharge, sore throat, or deafness Cardiovascular: Negative for chest pain, palpitations, dizziness, diaphoresis Respiratory: Negative for new shortness of breath,hemoptysis, or purulent cough Gastrointestinal: Negative for diarrhea, hematemesis, melena, nausea, vomiting , or dyspepsia Integumentary (skin): Negative for rash or jaundice discoloration Neurological: Negative for weakness, seizure activity, headache, or dizziness Lymphatic/Hematologic: Negative for petechiae, bleeding or new adenopathy Musculoskeletal: Negative for new joint or back pain Allergic/Immunologic: Negative for unusual rash or pruritis. Vital Signs Vital Signs Past 12 Hours Date Time Temp Pulse Resp B/P (MAP) Pulse Ox O2 Delivery O2 Flow Rate FiO2 10/10/17 11:57 36.5 61 18 115/63 (80) 98 Room Air 10/10/17 08:30 Room Air 10/10/17 07:36 36.3 64 18 145/69 (94) 99 Room Air 10/10/17 03:20 36.4 70 18 124/70 (88) 98 Room Air Physical Exam Constitutional: vitals are stable. Eyes: Eyes are JOLIE EOMI. able to examine the left eye today the periorbital edema has been reduced quite a bit. ENT: External examination was negative for masses. Neck: Negative for masses or palpable thyromegaly Respiratory: Lung sounds were generally clear bilaterally Cardiovascular: Heart was RRR without significant murmur, gallops aoe rubs Gastrointestinal: No palpable hepatic or splenomegaly. The abdomen was soft with normal bowel sounds. Lymphatic system: there was no palpable peripheral lymphadenopathy Musculoskeletal System: The musculoskeletal system seemed concordant with age. Skin: The skin was negative for jaundice. Neurologic exam: The exam was negative for any focal findings. Deep tendon reflexes were equal and symmetrical. Psychiatric exam: Was essentially negative with normal mood and effect. Extremitie: Bilateral trace to 1+ dependent edema. Skin changes over the anterior tibia consistent with chronic stasis Laboratory Last 24 Hours Test 10/09/17 19:37 10/10/17 07:24 10/10/17 13:19 Prothrombin Time 10.6 SECONDS Prothromb Time International Ratio 1.0 White Blood Count 3.96 K/uL Red Blood Count 2.36 M/uL Hemoglobin 7.5 g/dL Hematocrit 22.1 % Mean Corpuscular Volume 93.6 fL Mean Corpuscular Hemoglobin 31.8 pg Mean Corpuscular Hemoglobin Concent 33.9 g/dl Platelet Count 261 K/uL Mean Platelet Volume 8.6 fL Neutrophils (%) (Auto) 77.3 % Lymphocytes (%) (Auto) 18.2 % Monocytes (%) (Auto) 3.5 % Eosinophils (%) (Auto) 0.0 % Basophils (%) (Auto) 0.0 % Neutrophils # (Auto) 3.06 K/uL Lymphocytes # (Auto) 0.72 K/uL Monocytes # (Auto) 0.14 K/uL Eosinophils # (Auto) 0.00 K/uL Basophils # (Auto) 0.00 K/uL RDW Standard Deviation 83.7 fL RDW Coefficient of Variation 27.2 % Immature Granulocyte % (Auto) 1.0 % Immature Granulocyte # (Auto) 0.04 K/uL Polychromasia 1+ Anisocytosis PRESENT Rouleau 1+ Sodium Level 137 mmol/L Potassium Level 4.1 mmol/L Chloride Level 107 mmol/L Carbon Dioxide Level 22 mmol/L Anion Gap 9.0 mmol/L Blood Urea Nitrogen 19 mg/dl Creatinine 0.60 mg/dl Est Creatinine Clear Calc Drug Dose 115.0 ml/min Estimated GFR () 107.0 Estimated GFR (Non- 92.3 BUN/Creatinine Ratio 30.7 Random Glucose 164 mg/dl Calcium Level 8.2 mg/dl Magnesium Level 2.4 mg/dl Vancomycin Level Trough 15.5 mcg/ml Assessment & Plan T-cell LGL leukemia. Doing fairly well. I suspect he will have require another red cell transfusion prior to discharge. Antibiotics ongoing. Cellulitis tamara decreased quite a bit. He has a follow-up in our clinic. Methotrexate should be on hold until we have a chance to regroup with him in our clinic. Procrit tends to be given at 40,000 units subcu weekly on . Rest of his blood counts are acceptable. We will sign off for now but please do not hesitate to reconsult if needed.
--- NOTE | 2017-10-10 14:31 | Pharmacy Progress Note ---
Pharmacy Antibiotic Prog Note Date of Service Oct 10, 2017. Subjective The patient is currently receiving VANCOMYCIN 1250mg IV every 12 hours. The patient is currently on day # 3 of VANCOMYCIN/ROCEPHIN IV therapy. Objective Height (Feet): 6 Height (Inches): 0.00 Weight (Kilograms): 105.300 Levels: Item Value Date Time Vancomycin Level Trough 15.5 mcg/ml 10/10/17 1319 Lab Results (24hrs): Test 10/09/17 19:37 10/10/17 07:24 10/10/17 13:19 Prothrombin Time 10.6 SECONDS (9.0-12.0) Prothromb Time International Ratio 1.0 (0.9-1.1) White Blood Count 3.96 K/uL (4.8-10.8) Red Blood Count 2.36 M/uL (4.7-6.1) Hemoglobin 7.5 g/dL (14.0-18.0) Hematocrit 22.1 % (42-52) Mean Corpuscular Volume 93.6 fL (80-100) Mean Corpuscular Hemoglobin 31.8 pg (25-34) Mean Corpuscular Hemoglobin Concent 33.9 g/dl (32-36) Platelet Count 261 K/uL (130-400) Mean Platelet Volume 8.6 fL (7.4-10.4) Neutrophils (%) (Auto) 77.3 % Lymphocytes (%) (Auto) 18.2 % Monocytes (%) (Auto) 3.5 % Eosinophils (%) (Auto) 0.0 % Basophils (%) (Auto) 0.0 % Neutrophils # (Auto) 3.06 K/uL (1.4-6.5) Lymphocytes # (Auto) 0.72 K/uL (1.2-3.4) Monocytes # (Auto) 0.14 K/uL (0.11-0.59) Eosinophils # (Auto) 0.00 K/uL (0-0.5) Basophils # (Auto) 0.00 K/uL (0-0.2) RDW Standard Deviation 83.7 fL (36.4-46.3) RDW Coefficient of Variation 27.2 % (11.5-14.5) Immature Granulocyte % (Auto) 1.0 % Immature Granulocyte # (Auto) 0.04 K/uL (0.00-0.02) Polychromasia 1+ Anisocytosis PRESENT Rouleau 1+ Sodium Level 137 mmol/L (136-145) Potassium Level 4.1 mmol/L (3.5-5.1) Chloride Level 107 mmol/L (98-107) Carbon Dioxide Level 22 mmol/L (21-32) Anion Gap 9.0 mmol/L (3-11) Blood Urea Nitrogen 19 mg/dl (7-18) Creatinine 0.60 mg/dl (0.60-1.40) Est Creatinine Clear Calc Drug Dose 115.0 ml/min Estimated GFR () 107.0 Estimated GFR (Non- 92.3 BUN/Creatinine Ratio 30.7 (10-20) Random Glucose 164 mg/dl (70-99) Calcium Level 8.2 mg/dl (8.5-10.1) Magnesium Level 2.4 mg/dl (1.8-2.4) Vancomycin Level Trough 15.5 mcg/ml (SEE COMMENT) Recent Pertinent Medications Item Value Date Time Ceftriaxone 50 ml @ 100 mls/hr 10/08/17 1000 Sodium 1 gm/ Q24H/IV 10/10/17 1043 Dextrose Assessment & Plan 82yo male receiving VANCOMYCIN & ROCEPHIN for L side preseptal cellulitis. Renal function is stable and good. VANCOMYCIN: * Patient has been receiving VANCOMYCIN 1250mg IV q12h. * Trough level drawn prior to 1400 dose today = 15.5 mcg/mL. * This drug level is Therapeutic. * Continue VANCOMYCIN 1250mg IV every 12 hours. * Goal trough level estimate: between 15 - 20 mcg/mL. * Will recheck a trough level in a few days or with any changes in renal function. Pharmacy will continue to follow and will adjust dose/frequency as necessary. Thank you
--- NOTE | 2017-10-10 15:24 | Hospitalist Progress Note ---
Hospitalist Progress Note Date of Service Oct 10, 2017. Subjective Pt evaluation today including: conversation w/ patient Patient reports pain around his eye is even better today. He is very agitated that he has been in the chair all day and the occupational therapist was to come back and work with him and they did not come back. He denies chest pain shortness of breath. He has been afebrile. All Other Systems: Reviewed and Negative Objective Vital Signs Date Time Temp Pulse Resp B/P (MAP) Pulse Ox O2 Delivery O2 Flow Rate FiO2 10/10/17 11:57 36.5 61 18 115/63 (80) 98 Room Air 10/10/17 08:30 Room Air 10/10/17 07:36 36.3 64 18 145/69 (94) 99 Room Air 10/10/17 03:20 36.4 70 18 124/70 (88) 98 Room Air 10/10/17 00:40 Room Air 10/09/17 23:55 36.3 72 18 117/64 (81) 99 Room Air 10/09/17 22:07 36.7 73 20 115/61 98 10/09/17 21:48 36.3 92 18 119/56 98 10/09/17 20:51 36.4 82 18 106/57 98 10/09/17 20:25 36.7 80 18 109/55 100 10/09/17 20:20 Room Air 10/09/17 19:50 36.4 82 18 93/60 98 10/09/17 19:03 36.5 83 18 132/61 98 Physical Exam General Appearance: WD/WN, no apparent distress Notes: NAD, alert awake and oriented Left eye with lower lid edema mostly at this point and edema much improved in the upper lid from previous, erythema of the lower lid and now only minimal in the left cheek and face which is much improved from previous, positive exquisite tenderness to palpation over the lower lid, when the lower lid is pried open, evelio purulence is expressed out from the lower lid, now only minimal positive tenderness to palpation and reduced size of lymphadenopathy in the left preauricular and submandibular region-overall significantly improved from yesterday. The sclera appears normal, extraocular muscles intact without pain with movement, PERRLA Regular rate and rhythm, no murmurs gallops rubs Lungs clear to auscultation Extremities with 1-2+ pitting edema with some chronic venous stasis changes and mild erythema of the anterior tibia which she reports is chronic Laboratory Results Last 24 Hours Test 10/09/17 19:37 10/10/17 07:24 10/10/17 13:19 Prothrombin Time 10.6 SECONDS Prothromb Time International Ratio 1.0 White Blood Count 3.96 K/uL Red Blood Count 2.36 M/uL Hemoglobin 7.5 g/dL Hematocrit 22.1 % Mean Corpuscular Volume 93.6 fL Mean Corpuscular Hemoglobin 31.8 pg Mean Corpuscular Hemoglobin Concent 33.9 g/dl Platelet Count 261 K/uL Mean Platelet Volume 8.6 fL Neutrophils (%) (Auto) 77.3 % Lymphocytes (%) (Auto) 18.2 % Monocytes (%) (Auto) 3.5 % Eosinophils (%) (Auto) 0.0 % Basophils (%) (Auto) 0.0 % Neutrophils # (Auto) 3.06 K/uL Lymphocytes # (Auto) 0.72 K/uL Monocytes # (Auto) 0.14 K/uL Eosinophils # (Auto) 0.00 K/uL Basophils # (Auto) 0.00 K/uL RDW Standard Deviation 83.7 fL RDW Coefficient of Variation 27.2 % Immature Granulocyte % (Auto) 1.0 % Immature Granulocyte # (Auto) 0.04 K/uL Polychromasia 1+ Anisocytosis PRESENT Rouleau 1+ Sodium Level 137 mmol/L Potassium Level 4.1 mmol/L Chloride Level 107 mmol/L Carbon Dioxide Level 22 mmol/L Anion Gap 9.0 mmol/L Blood Urea Nitrogen 19 mg/dl Creatinine 0.60 mg/dl Est Creatinine Clear Calc Drug Dose 115.0 ml/min Estimated GFR () 107.0 Estimated GFR (Non- 92.3 BUN/Creatinine Ratio 30.7 Random Glucose 164 mg/dl Calcium Level 8.2 mg/dl Magnesium Level 2.4 mg/dl Vancomycin Level Trough 15.5 mcg/ml Assessment and Plan This patient is an 82-year-old male with history of large granular lymphocytic leukemia, recent acute bilateral lower extremity and right upper extremity DVTs on chronic Lovenox, pancytopenia, chronic diastolic CHF, lymphedema, history of fairly recent group A streptococcus pneumonia and bacteremia, here with left periorbital cellulitis and sepsis with tachycardia and tachypnea on admission. There is no evidence of abscess or orbital cellulitis on CT scan. Left periorbital cellulitis/sepsis POA-significantly improved since admission, blood cultures remain with no growth, remains afebrile. - Lactic acid initially high at 3.29--> improved to 1.8 -MRSA swab negative but will continue coverage for MRSA with vancomycin - Follow CBC and PRP -Continue wet warm compresses with gentle lid scrubs 3 times a day -Continue Rocephin and vancomycin to cover for the usual organisms-will likely need at least 2 more days of IV antibiotics before transition to oral antibiotics -Gave stress dose steroids for low blood pressures in the setting of sepsis and chronic steroid use-Will now discontinue stress dosing -Discussed his care with his gear roller on the phone upon admission, Dr. Zhu, who is out of town at the moment-he agreed with the plan of care L buttock ulcer POA, R stage I buttock ulcer POA: Wound care consulted, appreciate recommendations Large granular lymphocytic leukemia, anemia- follows w/ Dr. Whittington: -Continue prednisone 40 mg daily- stress dosing w/ IV Hydrocortisone 25 mg TID due low/normal BPs and sepsis-now stopping hydrocortisone as above -Continue to hold Methotrexate per oncology recommendations until infection completely cleared and seen in follow-up with oncology -Received Procrit 40,000 SQ x1 on 10/08 and continues with this once weekly on --was transfused 1 unit of irradiated PRBCs on 10/09 for a Hgb of 6.6 today- there is still 1 more unit on hold if needed-hemoglobin improved to 7.5 today -Follow CBC daily, no evidence of bleeding - Hematology/oncology consulted, appreciate recommendations and should follow- up with oncology as an outpatient after discharge Hyponatremia-was very mild at 135 and is now resolved after IV fluid hydration Hypokalemia-now resolved after oral replacement -Follow PRP Chronic diastolic CHF/HLD/Paroxysmal a.fib: No evidence of worsening volume overload. - ECHO 08/2017- EF 55-60%, grade I diastolic CHF He had an episode of rapid atrial fibrillation on a previous admission in 2017 when he had pneumonia and sepsis. He has not had any known recurrence since then and was in a sinus rhythm on admission here, albeit sinus tachycardia. Now in normal sinus rhythm with regular rate. - Continue home ASA, Lipitor, Lopressor w/ hold parameters - Lasix 40 mg daily was held at admission due to low/normal BPs-can start again tomorrow GERD: Protonix daily h/o DVT: Lovenox 100 mg SQ BID- son who is a physician inquired about switching to Coumadin due to the very high cost of Lovenox as an outpatient-the patient does not have a part D prescription plan. I discussed this with the patient who is hesitant to switch as he does not want to have to have frequent INR draws. He will further discuss it with his son and and continue on Lovenox for now. Code status: LEVEL V, DNR Dispo: From home, lives w/ - PT/OT and CM consulted-is fairly weak, but he does not want to go back to rehab. PT and OT are both recommending short inpatient rehab stay if he cannot reach specific goals prior to discharge. This will need to be continually reassessed while he is here. Expect he will be ready from a medical standpoint for discharge in about 2-3 days
[2017-10-10] MEDS ORDERED: WARFARIN SOD 5 MG TAB PO SCH (16:00)
[2017-10-10 16:23] VITALS: BP 121/72; PULSE 56; TEMP 36.6; O2SAT 100
[2017-10-10 19:35] VITALS: BP 109/56; PULSE 66; TEMP 36.6; O2SAT 96
[2017-10-10 23:25] VITALS: BP 105/65; PULSE 62; TEMP 36.1; O2SAT 98
[2017-10-11] MEDS: VANCOMYCIN IV 1,250 MG in SODIUM CHLORIDE 0.9% 250ML 250 ML IV SCH ×2 (02:05→13:24)
[2017-10-11 03:10] VITALS: BP 117/67; PULSE 57; TEMP 36.2; O2SAT 98
[2017-10-11 06:31] VITALS: BMI 32.0
[2017-10-11 07:14] LABS: HEMATOCRIT 24.7 % (42-52); HEMOGLOBIN 8.1 g/dL (14.0-18.0); MEAN CELL VOLUME 95.4 fL (80-100); MEAN CORPUSCULAR HEMOGLOBIN 31.3 pg (25-34); MEAN CORPUSCULAR HGB CONC 32.8 g/dl (32-36); MEAN PLATELET VOLUME 9.1 fL (7.4-10.4); NUCLEATED RED BLOOD CELL ABS 0.04 K/uL (0-0); PLATELET COUNT 304 K/uL (130-400); RED CELL DISTRIBUTION WIDTH CV 27.4 % (11.5-14.5); RED CELL DISTRIBUTION WIDTH SD 83.4 fL (36.4-46.3); WHITE BLOOD COUNT 3.52 K/uL (4.8-10.8)
[2017-10-11 07:56] LABS: CALCIUM 8.3 mg/dl (8.5-10.1); CREATININE 0.61 mg/dl (0.60-1.40); POTASSIUM 3.6 mmol/L (3.5-5.1)
[2017-10-11 07:59] VITALS: BP 110/66; PULSE 61; TEMP 36.3; O2SAT 99
[2017-10-11] MEDS: POTASSIUM CHLORIDE 20 MEQ TABCR PO SCH (08:15)
[2017-10-11] MEDS: FUROSEMIDE 20 MG TAB PO SCH (08:15)
[2017-10-11] MEDS: PANTOprazole SOD 40 MG TAB PO SCH (08:16)
[2017-10-11] MEDS: CEROVITE ADV FORMULA TAB PO SCH (08:16)
[2017-10-11] MEDS: METOPROLOL TARTRATE 25 MG TAB PO SCH ×2 (08:16→19:56)
[2017-10-11] MEDS: ATORVASTATIN 10 MG TAB PO SCH (08:16)
[2017-10-11] MEDS: SACCHAROMYCES BOUL (FLORASTOR) 250 MG CAP PO SCH (08:17)
[2017-10-11] MEDS: ENOXAPARIN 100 MG/1ML SYR SC SCH ×2 (08:17→19:56)
[2017-10-11] MEDS: ASPIRIN 81 MG ECTAB PO SCH (08:17)
[2017-10-11] MEDS: CEFTRIAXONE SOD INJ 1 GM in DEXTROSE 5% ADD-VANTAGE 50ML 50 ML IV SCH (10:27)
[2017-10-11 11:52] VITALS: BP 108/63; PULSE 60; TEMP 36.3; O2SAT 99
--- NOTE | 2017-10-11 12:28 | Hospitalist Progress Note ---
Hospitalist Progress Note Date of Service Oct 11, 2017. Subjective Pt evaluation today including: conversation w/ patient, physical exam, chart review, lab review, review of studies, review of inpatient medication list Patient seen and evaluated. No acute events overnight. L periorbital region remains edematous with mild drainage. Compliant with warm/ wet compresses States he has less pain in this region. Has chronic peripheral vision issues in that eye but no acute changes Able to open is eye more today. Constitutional: No fever, No chills Eyes: + redness, + discharge, + problem reported (hola-orbital pressure), No worsening of vision Respiratory: No cough, No shortness of breath Cardiovascular: No chest pain Abdomen: No pain, No nausea, No vomiting, No diarrhea, No constipation Musculoskeletal: No swelling, No calf pain Male : No dysuria Heme: No abnormal bleeding/bruising Medications Current Inpatient Medications Medications (Trade) Dose Ordered Sig/Rosendo Route Start Time Stop Time Status Last Admin Dose Admin Ioversol (Optiray 320) 100 ml UD PRN IV 10/08/17 02:00 10/12/17 01:59 Aspirin (Ecotrin Tab) 81 mg DAILY PO 10/08/17 08:00 11/07/17 08:59 10/11/17 08:17 81 MG Atorvastatin Calcium (Lipitor Tab) 10 mg DAILY PO 10/08/17 08:00 11/07/17 08:59 10/11/17 08:16 10 MG Enoxaparin Sodium (Lovenox Inj) 100 mg BID SC 10/08/17 08:00 11/07/17 08:59 10/11/17 08:17 100 MG Metoprolol Tartrate (Lopressor Tab) 12.5 mg BID PO 10/08/17 08:00 11/07/17 08:59 10/11/17 08:16 12.5 MG Multivitamins/ Minerals (Multivitamin W/ Minerals Tab) 1 tab QAM PO 10/08/17 08:00 11/07/17 08:59 10/11/17 08:16 1 TAB Pantoprazole Sodium (Protonix Tab) 40 mg DAILY PO 10/08/17 08:00 11/07/17 08:59 10/11/17 08:16 40 MG Prednisone (PredniSONE TAB) 40 mg DAILY PO 10/08/17 08:00 11/07/17 08:59 Future hold 10/11/17 08:16 40 MG Tramadol HCl (Ultram Tab) 50 mg Q4H PRN PO 10/08/17 03:45 11/07/17 03:44 Saccharomyces Boulardii (Florastor Cap) 250 mg DAILY PO 10/08/17 08:00 11/07/17 08:59 10/11/17 08:17 250 MG Acetaminophen (Tylenol Tab) 650 mg Q4H PRN PO 10/08/17 04:00 11/07/17 03:59 Al Hydrox/Mg Hydrox/Simethicone (Maalox Max Susp) 15 ml Q4H PRN PO 10/08/17 04:00 11/07/17 03:59 Ondansetron HCl (Zofran Inj) 4 mg Q6H PRN IV 10/08/17 04:00 11/07/17 03:59 Miscellaneous Information (Consult) 1 ea UD PRN N/A 10/08/17 09:30 11/07/17 09:29 Ceftriaxone Sodium 1 gm/ Dextrose 50 ml @ 100 mls/hr Q24H IV 10/08/17 10:00 10/18/17 09:59 10/11/17 10:27 100 MLS/HR Vancomycin HCl 1250 mg/Sodium Chloride 275 ml @ 125 mls/hr Q12H IV 10/09/17 14:00 10/18/17 13:59 10/11/17 02:05 125 MLS/HR Furosemide (Lasix Tab) 20 mg QAM PO 10/11/17 08:00 11/10/17 07:59 10/11/17 08:15 20 MG Potassium Chloride (Klor-Con Tab) 20 meq QAM PO 10/11/17 08:00 11/10/17 07:59 10/11/17 08:15 20 MEQ Objective Vital Signs Date Time Temp Pulse Resp B/P (MAP) Pulse Ox O2 Delivery O2 Flow Rate FiO2 10/11/17 11:52 36.3 60 22 108/63 (78) 99 Room Air 10/11/17 08:15 Room Air 10/11/17 07:59 36.3 61 20 110/66 (81) 99 Room Air 10/11/17 03:10 36.2 57 18 117/67 (84) 98 Room Air 10/11/17 00:25 Room Air 10/10/17 23:25 36.1 62 18 105/65 (78) 98 Room Air 10/10/17 19:45 Room Air 10/10/17 19:35 36.6 66 18 109/56 (73) 96 Room Air 10/10/17 16:23 36.6 56 20 121/72 (88) 100 Room Air 10/10/17 15:48 Room Air Physical Exam General Appearance: WD/WN, no apparent distress Eyes: PERRL, EOMI, sclerae normal, + pertinent finding (L lower lid edema and erythema that does not extending into the L check; no upper lid edema; tenderness to palpation over lower lid; mild purulent drainage) ENT: hearing grossly normal Neck: supple, no JVD, trachea midline Respiratory/Chest: lungs clear, normal breath sounds, no respiratory distress, no accessory muscle use Cardiovascular: regular rate, rhythm, no gallop, no murmur Abdomen: normal bowel sounds, non tender, soft Extremities: no calf tenderness, + swelling (b/l 1-2+ pitting edema) Neurologic/Psychiatric: alert Skin: normal color (other than specified around eye) Laboratory Results Last 24 Hours Test 10/10/17 13:19 10/11/17 06:47 Vancomycin Level Trough 15.5 mcg/ml White Blood Count 3.52 K/uL Red Blood Count 2.59 M/uL Hemoglobin 8.1 g/dL Hematocrit 24.7 % Mean Corpuscular Volume 95.4 fL Mean Corpuscular Hemoglobin 31.3 pg Mean Corpuscular Hemoglobin Concent 32.8 g/dl RDW Standard Deviation 83.4 fL RDW Coefficient of Variation 27.4 % Platelet Count 304 K/uL Mean Platelet Volume 9.1 fL Nucleated RBC Absolute Count (auto) 0.04 K/uL Nucleated Red Blood Cells % 1.1 % Sodium Level 138 mmol/L Potassium Level 3.6 mmol/L Chloride Level 107 mmol/L Carbon Dioxide Level 26 mmol/L Anion Gap 6.0 mmol/L Blood Urea Nitrogen 21 mg/dl Creatinine 0.61 mg/dl Est Creatinine Clear Calc Drug Dose 114.0 ml/min Estimated GFR () 106.3 Estimated GFR (Non- 91.7 BUN/Creatinine Ratio 34.9 Random Glucose 104 mg/dl Calcium Level 8.3 mg/dl Magnesium Level 2.4 mg/dl Assessment and Plan This patient is an 82-year-old male with history of large granular lymphocytic leukemia, recent acute bilateral lower extremity and right upper extremity DVTs on chronic Lovenox, pancytopenia, chronic diastolic CHF, lymphedema, history of fairly recent group A streptococcus pneumonia and bacteremia, here with left periorbital cellulitis and sepsis with tachycardia and tachypnea on admission. There is no evidence of abscess or orbital cellulitis on CT scan. Sepsis 2/2 Left Periorbital Cellulitis - POA: IMPROVING - BCx with NGTD and remains afebrile; Initial elevation in lactic acid but since improved - Rocephin 1 g IV daily and Vancomycin - could consider oral conversion in 1-2 days - Continue wet/warm compresses and gentle lid scrubs TID - Initially given stress dose steroids due to hypotension and sepsis - this has been D/Cd - Follows with Dr. Zhu - who is aware and agrees with current plan L Buttock Ulcer - Stage I - POA: - Wound following - appreciate recommendations Large Granular Lymphocytic Leukemia and Anemia: Follows with Dr. Whittington - Transfused 1 units irradiated PRBCs on 10/09 with stabilization of Hgb; Procrit 40,000 SC weekly () -- No indication for transfusion at this time - Continue Prednisone 40 mg daily; Methotrexate on hold until infection clears - Heme/Onc followed - recommending outpatient F/U and will discuss Methotrexate at that time Chronic Diastolic CHF/Paroxysmal Atrial Fibrillation/HLD: - ASA 81 mg daily - Lasix 20 mg daily, Metoprolol 12.5 mg BID - Atorvastatin 10 mg daily H/O DVT: - Lovenox 100 mg SC BID - Dr. Denise discussed with son for possible transition to Coumadin due to cost of Lovenox; Patient hesitant to switch at this time and this can be continued to be addressed by his PCP/Heme/Onc Code Status: DO NOT RESUSCITATE Disposition: - From home and lives with - recommendations for rehab if goals not met prior to D/C but patient would rather go home; Possible D/C next 1-2 days - PT/OT following Continued [facility] stay due to: multiple IV medications needed Discharge planning: home with home health
[2017-10-11 16:09] VITALS: BP 102/63; PULSE 65; TEMP 36.3; O2SAT 97
[2017-10-11 19:51] VITALS: BP 111/64; PULSE 71; TEMP 36.4; O2SAT 98
[2017-10-12] VITALS (7 sets, daily range): BP systolic 84–144; BP diastolic 42–72; PULSE 57–76; TEMP 36.4–37.1; O2SAT 96–98; Ht 182.9 cm; Wt 106.2 kg
[2017-10-12] MEDS: VANCOMYCIN IV 1,250 MG in SODIUM CHLORIDE 0.9% 250ML 250 ML IV SCH ×2 (01:51→14:12)
[2017-10-12 06:06] LABS: HEMATOCRIT 26.4 % (42-52); HEMOGLOBIN 8.6 g/dL (14.0-18.0); MEAN CELL VOLUME 96.4 fL (80-100); MEAN CORPUSCULAR HEMOGLOBIN 31.4 pg (25-34); MEAN CORPUSCULAR HGB CONC 32.6 g/dl (32-36); MEAN PLATELET VOLUME 8.7 fL (7.4-10.4); NUCLEATED RED BLOOD CELL ABS 0.03 K/uL (0-0); PLATELET COUNT 296 K/uL (130-400); RED CELL DISTRIBUTION WIDTH CV 26.9 % (11.5-14.5); WHITE BLOOD COUNT 3.49 K/uL (4.8-10.8)
[2017-10-12 06:42] LABS: CALCIUM 8.2 mg/dl (8.5-10.1); CREATININE 0.66 mg/dl (0.60-1.40); POTASSIUM 3.6 mmol/L (3.5-5.1)
[2017-10-12] MEDS: ENOXAPARIN 100 MG/1ML SYR SC SCH ×2 (08:33→20:35)
[2017-10-12] MEDS: POTASSIUM CHLORIDE 20 MEQ TABCR PO SCH (08:33)
[2017-10-12] MEDS: METOPROLOL TARTRATE 25 MG TAB PO SCH ×2 (08:34→20:34)
[2017-10-12] MEDS: CEROVITE ADV FORMULA TAB PO SCH (08:34)
[2017-10-12] MEDS: FUROSEMIDE 20 MG TAB PO SCH (08:35)
[2017-10-12] MEDS: ASPIRIN 81 MG ECTAB PO SCH (08:35)
[2017-10-12] MEDS: ATORVASTATIN 10 MG TAB PO SCH (08:35)
[2017-10-12] MEDS: PANTOprazole SOD 40 MG TAB PO SCH (08:35)
[2017-10-12] MEDS: SACCHAROMYCES BOUL (FLORASTOR) 250 MG CAP PO SCH (08:36)
[2017-10-12] MEDS: CEFTRIAXONE SOD INJ 1 GM in DEXTROSE 5% ADD-VANTAGE 50ML 50 ML IV SCH (10:04)
--- NOTE | 2017-10-12 17:15 | Progress Note ---
Subjective Date of Service: Oct 12, 2017. Subjective Pt evaluation today including: conversation w/ patient Pt is feeling overall improved. He feels his eye is much better. He is still having slightly decreased vision in the L eye, but better. Pain is better. Pt denies fever, SOB, chest pain, abd pain, n/v/c/d, LE pain or swelling. Problem List Medical Problems: (1) Chronic anemia Status: Acute (2) Flu-like symptoms Status: Acute (3) Preseptal cellulitis Status: Acute (4) Sepsis Status: Acute (5) Weakness Status: Acute Review of Systems All Other Systems: Reviewed and Negative Objective Vital Signs Date Time Temp Pulse Resp B/P (MAP) Pulse Ox O2 Delivery O2 Flow Rate FiO2 10/12/17 16:00 Room Air 10/12/17 15:39 36.4 65 20 91/51 (64) 98 84/42 (56) 10/12/17 11:33 36.4 57 20 109/64 (79) 97 10/12/17 08:19 36.4 66 20 131/72 (91) 96 10/12/17 08:00 Room Air 10/12/17 04:16 36.7 63 20 144/71 (95) 96 Room Air 10/12/17 00:30 Room Air 10/12/17 00:24 37.1 64 20 107/60 (76) 96 Room Air 10/11/17 19:51 36.4 71 20 111/64 (80) 98 Room Air 10/11/17 19:40 Room Air Physical Exam General Appearance: WD/WN, no apparent distress Eyes: + pertinent finding (L eye with redness and swelling inferior to orbit, eye is visible and moving in coordination with the R) Respiratory/Chest: normal breath sounds, no respiratory distress Cardiovascular: regular rate, rhythm, + normal peripheral pulses Abdomen: non tender, soft Extremities: non-tender, + pedal edema (1+ pitting (states baseline)) Neurologic/Psychiatric: alert, normal mood/affect, oriented x 3 Skin: normal color, warm/dry Laboratory Results Last 24 Hours Test 10/12/17 05:53 White Blood Count 3.49 K/uL Red Blood Count 2.74 M/uL Hemoglobin 8.6 g/dL Hematocrit 26.4 % Mean Corpuscular Volume 96.4 fL Mean Corpuscular Hemoglobin 31.4 pg Mean Corpuscular Hemoglobin Concent 32.6 g/dl RDW Standard Deviation 86.0 fL RDW Coefficient of Variation 26.9 % Platelet Count 296 K/uL Mean Platelet Volume 8.7 fL Nucleated RBC Absolute Count (auto) 0.03 K/uL Nucleated Red Blood Cells % 0.8 % Sodium Level 138 mmol/L Potassium Level 3.6 mmol/L Chloride Level 104 mmol/L Carbon Dioxide Level 28 mmol/L Anion Gap 6.0 mmol/L Blood Urea Nitrogen 19 mg/dl Creatinine 0.66 mg/dl Est Creatinine Clear Calc Drug Dose 104.9 ml/min Estimated GFR () 102.9 Estimated GFR (Non- 88.8 BUN/Creatinine Ratio 29.1 Random Glucose 95 mg/dl Calcium Level 8.2 mg/dl Assessment and Plan This patient is an 82-year-old male with history of large granular lymphocytic leukemia, recent acute bilateral lower extremity and right upper extremity DVTs on chronic Lovenox, pancytopenia, chronic diastolic CHF, lymphedema, history of fairly recent group A streptococcus pneumonia and bacteremia, here with left periorbital cellulitis and sepsis with tachycardia and tachypnea on admission. There is no evidence of abscess or orbital cellulitis on CT scan. Sepsis 2/2 Left Periorbital Cellulitis - POA: IMPROVING - BCx with NGTD and remains afebrile; Initial elevation in lactic acid but since improved - Rocephin 1 g IV daily and Vancomycin - could consider oral conversion in the next, will discuss with pharmacy prior - Continue wet/warm compresses and gentle lid scrubs TID - Initially given stress dose steroids due to hypotension and sepsis - this has been D/Cd - Follows with Dr. Zhu - who is aware and agrees with current plan Blood cx neg L Buttock Ulcer - Stage I - POA: - WCC - appreciate recommendations Abn UA: cx with likely skin contaminant Current abx would cover for UTI, however seems less likely Large Granular Lymphocytic Leukemia and Anemia: Follows with Dr. Whittington - Transfused 1 units irradiated PRBCs on 10/09 with stabilization of Hgb; Procrit 40,000 SC weekly () -- Onc feels will likely need another during hospitalization - Continue Prednisone 40 mg daily; Methotrexate on hold until infection clears - Heme/Onc followed - recommending outpatient F/U and will discuss Methotrexate at that time Chronic Diastolic CHF/Paroxysmal Atrial Fibrillation/HLD: - ASA 81 mg daily - Lasix 20 mg daily, Metoprolol 12.5 mg BID - Atorvastatin 10 mg daily H/O DVT: - Lovenox 100 mg SC BID - Dr. Denise discussed with son for possible transition to Coumadin due to cost of Lovenox; Patient hesitant to switch at this time and this can be continued to be addressed by his PCP/Heme/Onc Code Status: DO NOT RESUSCITATE Disposition: - From home and lives with - recommendations for rehab if goals not met prior to D/C but patient would rather go home PT recs for rehab vs HH, OT recs for rehab. CM is aware Continued [facility] stay due to: multiple IV medications needed Discharge planning: home with home health
[2017-10-13] MEDS: VANCOMYCIN IV 1,250 MG in SODIUM CHLORIDE 0.9% 250ML 250 ML IV SCH (02:08)
[2017-10-13 04:26] VITALS: BP 114/60; PULSE 59; TEMP 36.5; O2SAT 97
[2017-10-13 08:14] VITALS: BP 127/69; PULSE 69; TEMP 36.4; O2SAT 97
[2017-10-13] MEDS: CEROVITE ADV FORMULA TAB PO SCH (08:34)
[2017-10-13] MEDS: PANTOprazole SOD 40 MG TAB PO SCH (08:34)
[2017-10-13] MEDS: METOPROLOL TARTRATE 25 MG TAB PO SCH (08:35)
[2017-10-13] MEDS: SACCHAROMYCES BOUL (FLORASTOR) 250 MG CAP PO SCH (08:35)
[2017-10-13] MEDS: FUROSEMIDE 20 MG TAB PO SCH (08:35)
[2017-10-13] MEDS: ATORVASTATIN 10 MG TAB PO SCH (08:35)
[2017-10-13] MEDS: POTASSIUM CHLORIDE 20 MEQ TABCR PO SCH (08:35)
[2017-10-13] MEDS: ASPIRIN 81 MG ECTAB PO SCH (08:35)
[2017-10-13] MEDS: ENOXAPARIN 100 MG/1ML SYR SC SCH (08:36)
[2017-10-13] MEDS: CEFTRIAXONE SOD INJ 1 GM in DEXTROSE 5% ADD-VANTAGE 50ML 50 ML IV SCH (10:19)
[2017-10-13] MEDS ORDERED: DOXYCYCLINE HYCLATE 100 MG CAP PO SCH (11:30)
[2017-10-13 11:43] VITALS: BP 106/68; PULSE 62; TEMP 36.5; O2SAT 97
[2017-10-13] MEDS ORDERED: AMOXICILLIN/CLAVULANATE TAB 875 MG TAB PO SCH (12:00)
[2017-10-13 13:34] VITALS: BP 106/68; PULSE 62; TEMP 36.5; O2SAT 97
[2017-10-13] MEDS ORDERED: AMOX1TAB43 PO ×2 (13:58)
[2017-10-13] MEDS ORDERED: DXY100 PO ×2 (13:58)
--- NOTE | 2017-10-13 14:00 | Discharge Instructions ---
Discharge Instructions Date of Service Oct 13, 2017. Admission Reason for Admission: Periorbital Cellulitis Discharge Discharge Diagnosis / Problem: Periorbital cellulitis Discharge Goals Goal(s): Decrease discomfort, Improve function, Increase independence Activity Recommendations Activity Limitations: resume your previous activity . Instructions / Follow-Up Instructions / Follow-Up Dr. Fontana in [address] Richards in [address] Mendez in 7 days Call your Primary Care doctor if any of the following symptoms or problems start or get worse: * Shortness of breath or difficulty breathing * Wake up at night short of breath * Chest pain * Cough * Swelling of your hands, feet, or legs * More fatigued or tired with your normal activity * Palpitations - sudden fast heart beats WEIGHT * Weigh yourself every morning after using the bathroom. * Use the same scale. * Wear the same amount of clothing. * Write your weight down on a chart. * Call your Primary Care doctor if you gain more than 2-3 pounds in 1-2 days. MEDICATIONS * Use this discharge instruction sheet for medication instructions. * Take your medications at the time your doctor ordered. * Do not skip a dose of your medicines. * If you miss a dose of medicine, take it as soon as possible, but DO NOT DOUBLE A DOSE. * Read your medicine information when you get home. * Know all of the side effects of your medicine. If in doubt, ask your pharmacist * Call your Primary Care doctor's office if you have any side effects. * Be sure all of your doctors know what medicine and herbs you take (including cold, flu, and herbal medicine). Take the following with you to your follow-up doctor appointments: * Weight Chart * Medication List * List of questions Do not drink excessive alcohol, beer or wine. Current Hospital Diet Patient's current hospital diet: Regular Diet Discharge Diet Recommended Diet: Regular Diet Pending Studies Studies pending at discharge: no Medical Emergencies . Who to Call and When: Call 911 or go to the Emergency Room if: * If at any time you feel your situation is an emergency * You have tightness or pain in your chest that does not go away with rest or Nitroglycerin * You are very short of breath even with rest . Non-Emergent Contact Non-Emergency issues call your: Primary Care Provider, [employer] . . "Provider Documentation" section prepared by Keena Interiano. .
--- NOTE | 2017-10-13 14:06 | Discharge Summary ---
Discharge Summary Date of Service Oct 13, 2017. 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 Mendez Medication Reconciliation New Medications: Amoxicillin & Pot Clavulanate (Amoxicillin/Clavulanate P) 1 Tab Tab 875 MG PO BIDM for 2 Days, #4 TAB Doxycycline Hyclate (Doxycycline Hyclate) 100 Mg Cap 100 MG PO Q12 for 3 Days, #6 CAP Continued Medications: Acetaminophen (Tylenol) 500 Mg Tab 500 MG PO Q4 PRN for Pain or Fever, TAB Aspirin (Aspirin Ec) 81 Mg Tab 81 MG PO DAILY Atorvastatin (Lipitor) 10 Mg Tab 10 MG PO DAILY, TAB Colestipol Hcl (Colestid) 1 Gm Tab 1 GM PO BID, TAB Enoxaparin (Lovenox) 100 Mg/Ml Inj 100 MG INJ BID Furosemide (Lasix) 40 Mg Tab 20 MG PO DAILY dose varies from 20-40mg Methotrexate (Trexall) 10 Mg Tab 20 MG PO WK, TAB Metoprolol Tartrate (Lopressor) (Lopressor) 25 Mg Tab 12.5 MG PO BID Multivitamins/Minerals (Certavite/Antioxidants) 1 Tab Tab 1 TAB PO QAM for 30 Days, TAB Pantoprazole (Protonix) 40 Mg Tab 40 MG PO DAILY, #30 TAB Potassium Chloride (Klor-Con M20) 20 Meq Tabcr 20 MEQ PO QD@1700 for 30 Days Potassium Ext Rel (Klor-Con) 20 Meq Tabcr 80 MEQ PO DAILY Prednisone (Prednisone) 20 Mg Tab 40 MG PO DAILY Tramadol (Ultram) 50 Mg Tab 50 MG PO Q4H PRN for Pain, TAB Discharge Exam Pt continues to feel improved. Ongoing blurry vision that is much improved from MANAGER CRISIS. Feels that redness and swelling continues to improve. Tolerating PO without issue. Pt denies fever, SOB, chest pain, abd pain, n/v/c/d, LE pain or swelling. Physical Exam: General Appearance: WD/WN, no apparent distress Eyes: sclerae normal, + pertinent finding (Redness and swelling inferior to L orbit that is improving) Respiratory/Chest: normal breath sounds, no respiratory distress Cardiovascular: regular rate, rhythm, no edema Abdomen / GI: non tender, soft Extremities: no calf tenderness, no pedal edema Neurologic/Psychiatric: alert, normal mood/affect, oriented x 3 Skin: normal color, warm/dry Hospital Course This patient is an 82-year-old male with history of large granular lymphocytic leukemia, recent acute bilateral lower extremity and right upper extremity DVTs on chronic Lovenox, pancytopenia, chronic diastolic CHF, lymphedema, history of fairly recent group A streptococcus pneumonia and bacteremia, here with left periorbital cellulitis and sepsis with tachycardia and tachypnea on admission. There is no evidence of abscess or orbital cellulitis on CT scan. Sepsis 2/2 Left Periorbital Cellulitis - POA: IMPROVING - BCx neg and pt remains afebrile Initial elevation in lactic acid on admission but since improved - Treated with Rocephin 1 g IV daily and Vancomycin, this will be changed to augmentin and doxy to complete course as above - Initially given stress dose steroids due to hypotension and sepsis - this has been D/Cd - Follows with Dr. Fontana - who was contacted earlier in admission and noted to have agreed with plan L Buttock Ulcer - Stage I - POA: - Seen by wound care Abn UA: cx with likely skin contaminant Current abx would cover for UTI, however seems less likely Large Granular Lymphocytic Leukemia and Anemia: Follows with Dr. Whittington - Transfused 1 units irradiated PRBCs on 10/09 with stabilization of Hgb; Procrit 40,000 SC weekly () - Continue Prednisone 40 mg daily; Methotrexate on hold until infection clears - Heme/Onc followed - recommending outpatient F/U and will discuss Methotrexate at that time Chronic Diastolic CHF/Paroxysmal Atrial Fibrillation/HLD: - ASA 81 mg daily - Lasix 20 mg daily, Metoprolol 12.5 mg BID - Atorvastatin 10 mg daily H/O DVT: - Lovenox 100 mg SC BID - Dr. Denise discussed with son for possible transition to Coumadin due to cost of Lovenox; Patient hesitant to switch at this time and this can be continued to be addressed by his PCP/Heme/Onc Code Status: DO NOT RESUSCITATE Home with HH on d/c Discussed with via phone and she is in agreement with this plan. She will pick pt up this afternoon after work. Total Time Spent: Greater than 30 minutes This includes examination of the patient, discharge planning, medication reconciliation, and communication with other providers. Discharge Instructions Please refer to the electronic Patient Visit Report (Discharge Instructions) for additional information. Follow-Up Dr. Fontana in [address] Richards in [address] Mendez in 7 days Additional Copies To Dinesh Fontana M.D.; Dinesh Richards M.D.
== END 2017-10-13 15:27 | disposition home health service (06) | DRG 872 ==
LOC: EDBD 01:00 → C.EDA 01:03 → C.4E 04:00 → ENRESERV 04:55 → CANRESERV 04:55 → ENRESERV 04:57
PROVIDERS: ADMIT Internal Medicine; ATTEND Family Medicine
DX: A41.9 Sepsis, unspecified organism (principal); L03.213 Periorbital cellulitis; E87.1 Hypo-osmolality and hyponatremia; C91.Z0 Other lymphoid leukemia not having achieved remission; I50.32 Chronic diastolic (congestive) heart failure; E87.6 Hypokalemia; L98.419 Non-pressure chronic ulcer of buttock with unspecified severity; I48.0 Paroxysmal atrial fibrillation; K21.9 Gastro-esophageal reflux disease without esophagitis; D64.9 Anemia, unspecified; E78.5 Hyperlipidemia, unspecified; Z66 Do not resuscitate; Z79.01 Long term (current) use of anticoagulants; Z79.52 Long term (current) use of systemic steroids; Z79.82 Long term (current) use of aspirin; Z79.899 Other long term (current) drug therapy; Z91.81 History of falling; Z87.891 Personal history of nicotine dependence; Z86.718 Personal history of other venous thrombosis and embolism; Z87.01 Personal history of pneumonia (recurrent)

== ENCOUNTER 2017-10-21 13:30 | Inpatient (IN) | payer OTHER, MEDICARE ==
[~2017-10-21] VITALS: Ht 182.9 cm; Wt 102.0 kg
[2017-10-21] VITALS (15 sets, daily range): BP systolic 97–129; BP diastolic 52–74; PULSE 65–92; TEMP 36.6–37; O2SAT 91–100; Ht 182.9 cm; Wt 102.0 kg
[~2017-10-21 13:30] MED LIST changes: +AMOX1TAB43 PO; -BENZ1LOZ PO; -BISACODYL SUPP RE; -Boost PO; -CLS1 PO; -DFL100 PO; +DXY100 PO; -GUAISYP5 PO; -LVNIS120 SQ; -OSEL75CA12 PO; +POTA-639 PO; -POTA20TA16 PO; -PRLSR20 PO; -SENN-61 PO; -SIMV20TA5 PO; -lovenox SC
[2017-10-21 14:14] LABS: INR 1.1 (0.9-1.1); PTT PATIENT 33.6 SECONDS (21.0-31.0)
[2017-10-21 14:15] LABS: ALBUMIN 2.7 gm/dl (3.4-5.0); ALT/SGPT 41 U/L (12-78); BLOOD UREA NITROGEN 24 mg/dl (7-18); CARBON DIOXIDE 25 mmol/L (21-32); CREATININE 0.93 mg/dl (0.60-1.40); GLUCOSE 154 mg/dl (70-99); SODIUM 134 mmol/L (136-145)
[2017-10-21 14:20] LABS: ALKALINE PHOSPHATASE 71 U/L (45-117); AST/SGOT 20 U/L (15-37); CKMB < 0.5 ng/ml (0.5-3.6); TOTAL PROTEIN 6.3 gm/dl (6.4-8.2)
[2017-10-21 14:24] LABS: HEMOGLOBIN 6.6 g/dL (14.0-18.0); MEAN CORPUSCULAR HEMOGLOBIN 32.7 pg (25-34); MEAN PLATELET VOLUME 9.3 fL (7.4-10.4); NUCLEATED RED BLOOD CELL ABS 0.07 K/uL (0-0); PLATELET COUNT 247 K/uL (130-400); RED CELL DISTRIBUTION WIDTH CV 27.6 % (11.5-14.5); RED CELL DISTRIBUTION WIDTH SD 88.1 fL (36.4-46.3); WHITE BLOOD COUNT 4.85 K/uL (4.8-10.8)
[2017-10-21 14:30] LABS: IG# 0.12 K/uL (0.00-0.02); LYMPH % 21.9 %; LYMPH ABS # 1.06 K/uL (1.2-3.4); MONO % 2.5 %; MONO ABS # 0.12 K/uL (0.11-0.59); NEUT % 73.1 %; NEUT ABS # 3.55 K/uL (1.4-6.5)
--- NOTE | 2017-10-21 14:46 | EMERGENCY ROOM VISIT NOTE ---
History Report prepared by Umm: Rajesh Johnson Under the Supervision of: Dr. Blade Junior D.O. First contact with patient: 13:38 Stated Complaint: FALL/WEAKNESS/SOB History of Present Illness The patient is an 82 year old male who presents to the Emergency Room via EMS from home with complaints of worsening weakness over the past few weeks. Per the nursing staff, the patient's home nurse noted that the patient's blood pressure was low this morning, and it was 96/52. En route, the patient's blood pressure was 100/60. He was also noted to be unable to get out of bed this morning due to the worsening weakness. The patient states that he has been a bit short of breath. He fell twice 2 weeks ago, and notes that he has had worsening redness and swelling of the left leg. Per the patient's , the patient's left leg has looked like this for a week. The patient has not been seen for this left leg yet. Any fevers were denied on behalf of the patient by the nursing staff. The patient denies any chest pain, blood in his stool, or melena. He notes that he has been anemic recently. The patient says that he is due for his Procrit injection tomorrow. He says that he was diagnosed with a blood clot in the right arm recently but does not remember exactly when he was diagnosed. Per the nursing staff, the patient had cellulitis of the left eye a week ago, and has a history of melanoma of the right arm years ago. He is on Lovenox. Source of History: patient, nursing staff Onset: Past few weeks Position: other (global) Symptom Intensity: has fallen twice recently Quality: other (weakness) Timing: worsening Associated Symptoms: + SOB, No fevers, No melena, No hematochezia Note: Low blood pressure. Redness and swelling of left leg. Review of Systems See HPI for pertinent positives & negatives. A total of 10 systems reviewed and were otherwise negative. Past Medical & Surgical Medical Problems: (1) Anemia (2) Elevated troponin (3) Hypotension (4) Large granular lymphocytic leukemia (5) Symptomatic anemia (6) Syncope and collapse Family History No pertinent family history Social History Smoking Status: Former Smoker Drug Use: none Marital Status: Housing Status: lives with significant other Occupation Status: retired Current/Historical Medications Scheduled Aspirin (Aspirin Ec), 81 MG PO DAILY Atorvastatin (Lipitor), 10 MG PO DAILY Colestipol Hcl (Colestid), 1 GM PO BID Enoxaparin (Lovenox), 100 MG INJ BID Furosemide (Lasix), 20 MG PO DAILY Methotrexate (Trexall), 20 MG PO WK Metoprolol Tartrate (Lopressor) (Lopressor), 12.5 MG PO BID Multivitamins/Minerals (Certavite/Antioxidants), 1 TAB PO QAM Pantoprazole (Protonix), 40 MG PO DAILY Potassium Chloride (Klor-Con M20), 20 MEQ PO QD@1700 Potassium Ext Rel (Klor-Con), 80 MEQ PO DAILY Prednisone (Prednisone), 40 MG PO DAILY Scheduled PRN Acetaminophen (Tylenol), 500 MG PO Q4 PRN for Pain or Fever Tramadol (Ultram), 50 MG PO Q4H PRN for Pain Allergies Coded Allergies: No Known Allergies (Unverified , 10/08/17) Physical Exam Vital Signs Date Time Temp Pulse Resp B/P (MAP) Pulse Ox O2 Delivery O2 Flow Rate FiO2 10/21/17 14:22 101/51 10/21/17 14:20 81 21 98 10/21/17 14:15 79 15 100 10/21/17 14:10 80 18 98 10/21/17 14:05 80 25 97 10/21/17 14:00 82 20 91 10/21/17 13:55 80 16 99 10/21/17 13:50 91 17 97 10/21/17 13:45 89 20 99 10/21/17 13:44 95 10/21/17 13:42 99 Room Air 10/21/17 13:42 36.9 91 16 101/41 100 Room Air 10/21/17 13:40 101/41 Physical Exam CONSTITUTIONAL/VITAL SIGNS: Reviewed / noted above. GENERAL: Non-toxic in appearance. INTEGUMENTARY: Redness and excoriation of the skin in the coccyx area. HEAD: Scab mid-upper lip, mild. EYES: without scleral icterus or trauma. ENT/OROPHARYNX: clear and moist. LYMPHADENOPATHY/NECK: Is supple without lymphadenopathy or meningismus. RESPIRATORY: Lungs clear and equal. CARDIOVASCULAR: Regular rate and rhythm. GI/ABDOMEN: Soft and nontender. No organomegaly or pulsatile mass. No rebound or guarding. Normal bowel sounds. EXTREMITIES: Moderate sized hematoma to the left lateral upper leg just below the knee. BACK: No CVA tenderness. NEUROLOGICAL: Intact without focal deficits. PSYCHIATRIC: normal affect. MUSCULOSKELETAL: Normally developed with good muscle tone. Medical Decision & Procedures ER Provider Diagnostic Interpretation: X ray results and stated below per my interpretation and radiology interpretation. CHEST ONE VIEW PORTABLE CLINICAL HISTORY: 82 years-old Male presenting with EVALUATE ALTERED MENTAL STATUS/WEAKNESS. TECHNIQUE: Portable upright AP view of the chest was obtained. COMPARISON: 10/08/2017. FINDINGS: The patient is LATVIAN rotated. Atherosclerosis of aortic arch. Cardiac silhouette enlarged. Mildly low lung volumes with hypoventilatory changes. No focal opacity. No large effusion or pneumothorax. Degenerative changes of the thoracic spine. Upper abdomen normal. IMPRESSION: 1. Mildly low lung volumes with hypoventilatory changes. 2. Cardiomegaly. Electronically signed by: Chetan Cabral M.D. 10/21/2017 2:46 PM Dictated Date/Time: 10/21/2017 2:45 PM LEFT TIBIA/FIBULA 4 VIEWS HISTORY: Left lower leg pain. fall COMPARISON: None. FINDINGS: There is no fracture or dislocation. Diffuse subcutaneous edema/swelling. No radiopaque foreign bodies. IMPRESSION: Diffuse soft tissue edema/swelling. No fractures within the left lower leg. Electronically signed by: Trace Goldsmith M.D. 10/21/2017 2:49 PM Dictated Date/Time: 10/21/2017 2:47 PM Laboratory Results 10/21/17 13:45 Red Blood Count 2.02, Mean Corpuscular Volume 99.0, Mean Corpuscular Hemoglobin 32.7, Mean Corpuscular Hemoglobin Concent 33.0, Mean Platelet Volume 9.3, Neutrophils (%) (Auto) 73.1, Lymphocytes (%) (Auto) 21.9, Monocytes (%) (Auto) 2.5, Eosinophils (%) (Auto) 0.0, Basophils (%) (Auto) 0.0, Neutrophils # (Auto) 3.55, Lymphocytes # (Auto) 1.06, Monocytes # (Auto) 0.12, Eosinophils # (Auto) 0.00, Basophils # (Auto) 0.00 10/21/17 13:45 Test 4/11/18 13:45 White Blood Count 4.85 K/uL (4.8-10.8) Red Blood Count 2.02 M/uL (4.7-6.1) Hemoglobin 6.6 g/dL (14.0-18.0) Hematocrit 20.0 % (42-52) Mean Corpuscular Volume 99.0 fL (80-100) Mean Corpuscular Hemoglobin 32.7 pg (25-34) Mean Corpuscular Hemoglobin Concent 33.0 g/dl (32-36) Platelet Count 247 K/uL (130-400) Mean Platelet Volume 9.3 fL (7.4-10.4) Neutrophils (%) (Auto) 73.1 % Lymphocytes (%) (Auto) 21.9 % Monocytes (%) (Auto) 2.5 % Eosinophils (%) (Auto) 0.0 % Basophils (%) (Auto) 0.0 % Neutrophils # (Auto) 3.55 K/uL (1.4-6.5) Lymphocytes # (Auto) 1.06 K/uL (1.2-3.4) Monocytes # (Auto) 0.12 K/uL (0.11-0.59) Eosinophils # (Auto) 0.00 K/uL (0-0.5) Basophils # (Auto) 0.00 K/uL (0-0.2) RDW Standard Deviation 88.1 fL (36.4-46.3) RDW Coefficient of Variation 27.6 % (11.5-14.5) Immature Granulocyte % (Auto) 2.5 % Immature Granulocyte # (Auto) 0.12 K/uL (0.00-0.02) Nucleated RBC Absolute Count (auto) 0.07 K/uL (0-0) Nucleated Red Blood Cells % 1.4 % Toxic Granulation 1+ Hypochromasia PRESENT Anisocytosis PRESENT Prothrombin Time 11.3 SECONDS (9.0-12.0) Prothromb Time International Ratio 1.1 (0.9-1.1) Activated Partial Thromboplast Time 33.6 SECONDS (21.0-31.0) Partial Thromboplastin Ratio 1.3 Anion Gap 8.0 mmol/L (3-11) Est Creatinine Clear Calc Drug Dose 73.1 ml/min Estimated GFR () 87.1 Estimated GFR (Non- 75.1 BUN/Creatinine Ratio 25.2 (10-20) Calcium Level 8.0 mg/dl (8.5-10.1) Magnesium Level 2.2 mg/dl (1.8-2.4) Total Bilirubin 1.2 mg/dl (0.2-1) Direct Bilirubin 0.3 mg/dl (0-0.2) Aspartate Amino Transf (AST/SGOT) 20 U/L (15-37) Alanine Aminotransferase (ALT/SGPT) 41 U/L (12-78) Alkaline Phosphatase 71 U/L (45-117) Total Creatine Kinase 9 U/L (39-308) Creatine Kinase MB < 0.5 ng/ml (0.5-3.6) Creatine Kinase MB Ratio (0-3.0) Troponin I 0.016 ng/ml (0-0.045) Total Protein 6.3 gm/dl (6.4-8.2) Albumin 2.7 gm/dl (3.4-5.0) Laboratory results as stated above per my review. ECG Per My Interpretation Indication: weakness Rate (beats per minute): 89 Rhythm: sinus rhythm Findings: no ectopy, other (no ST elevation) ED Course 1347: Previous medical records were reviewed. The patient was evaluated in room B7. A complete history and physical examination was performed. 1444: On reevaluation, the patient is resting. I discussed the results and findings with him. He verbalized agreement of the treatment plan. The patient will be evaluated for further management and care. 1453: Discussed the patient's case with Dr. Kei Lozada [facility] hospitalist. The patient will be evaluated for further treatment and disposition. Medical Decision Differentials include: Acute coronary syndrome, myocardial infarction, CVA, TIA , anemia, infection, pneumonia, UTI, pyelonephritis, poor nutrition, dehydration , electrolyte disturbance, and hypoglycemia. This is an 82-year-old male who presents to the ED with a chief complaint of generalized weakness, inability to get up and ambulate today and also shortness of breath with exertion. The patient was scheduled to have a Procrit injection tomorrow. He does have history of DVT and is currently on Lovenox. He also has a history of large granular lymphocytic leukemia. He denies bloody or black stools. The patient's vital signs are normal. His exam reveals clear lung sounds. Abdomen is soft and nontender. He does have some older bruises on the upper extremities. He has a larger contusion/hematoma on the left lateral leg as noted above. He states that he fell a couple of weeks ago and this was a cause for his hematoma. The patient denies any headaches or fevers. His hemoglobin today is 6.6. BUN is 24, troponin was negative and an EKG shows a sinus rhythm at a rate of 89. Chest x-ray did not show acute process. The patient was ordered 1 unit of blood transfusion. He will be seen by the hospitalist service for further inpatient evaluation and care. Medication Reconcilliation Current Medication List: was personally reviewed by me Blood Pressure Screening Patient's blood pressure: Low blood pressure Blood pressure disposition: Elevated BP felt to be situational Consults Time Called: 1450 Consulting Physician: Dr. Kei JOSEPH hospitalist Returned Call: 1453 Discussed the patient's case with Dr. Kei JOSEPH hospitalha. The patient will be evaluated for further treatment and disposition. Impression Primary Impression: Anemia Additional Impressions: Exertional dyspnea Weakness Scribe Attestation The scribe's documentation has been prepared under my direction and personally reviewed by me in its entirety. I confirm that the note above accurately reflects all work, treatment, procedures, and medical decision making performed by me. Departure Information Dispostion Being Evaluated By Hospitalist Referrals Dinesh Richards M.D. (PCP) Problem Qualifiers Primary Impression: Anemia Anemia type: unspecified type Qualified Codes: D64.9 - Anemia, unspecified
--- NOTE | 2017-10-21 14:50 | DIAGNOSTIC IMAGING REPORT ---
LEFT TIBIA/FIBULA 4 VIEWS HISTORY: Left lower leg pain. fall COMPARISON: None. FINDINGS: There is no fracture or dislocation. Diffuse subcutaneous edema/swelling. No radiopaque foreign bodies. IMPRESSION: Diffuse soft tissue edema/swelling. No fractures within the left lower leg. Electronically signed by: Trace Goldsmith M.D. 10/21/2017 2:49 PM Dictated Date/Time: 10/21/2017 2:47 PM
[2017-10-21] MEDS ORDERED: ACETAMINOPHEN 325 MG TAB PO PRN (15:30)
[2017-10-21] MEDS ORDERED: POLYETHYLENE (MIRALAX) 17 GM PACK PO PRN (15:30)
[2017-10-21] MEDS ORDERED: MAGNESIUM HYDROXIDE SUSP 30 ML UDC PO PRN (15:30)
[2017-10-21] MEDS ORDERED: ONDANSETRON INJ 2 MG/ML 2 ML VIAL IV PRN (15:30)
[2017-10-21] MEDS ORDERED: ALUMINUM/MAGNESIUM/SIMETH (MAALOX MAX) 30 ML UDC PO PRN (15:30)
[2017-10-21] MEDS ORDERED: IV FLUIDS COMPLETED PRN (15:45)
--- NOTE | 2017-10-21 15:47 | History and Physical ---
History & Physical Date & Time of Service: Oct 21, 2017 at 15:27 Chief Complaint: Fall/Weakness/Sob Primary Care Physician: Dinesh Richards M.D. History of Present Illness Source: patient, family ( at bedside ), clinic records, hospital records Patient is a pleasant 82 y/o male, with PMHx of large granular lymphocytic leukemia, hyponatremia, diastolic CHF, HLD, h/o DVT, paroxysmal a.fib, and GERD , who presented to the ED because of progressive weakness x1 week. Patient was most recently admitted 10/08-10/13 due to sepsis from periorbital cellulitis. He completed his course of abx. At discharge, it was recommended patient go to inpatient rehab due to weakness, but refused and went home w/ [facility]. L eye is healing well. 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 He most recently received 2 unit PRBCs on on . Today his hgb was 6.6. Him and his agree that he needs to return to inpatient rehab at discharge because he is just too weak to be at home at this time. Patient has LLE (lateral knee region) hematoma. He states it has been there since last admission- notes no significant improvement, but not worsening. LLE x-ray w/out fx, noted diffuse edema/swelling. +dyspnea on exertion. Patient denies any fever, chills, sweats, lightheadedness, dizziness, vision changes, CP, palpitations, edema, wheezing, cough, abdominal pain, nausea , vomiting, diarrhea, urinary symptoms, melena, numbness/tingling, muscle/joint pain, anxiety/depression, active bleeding, or new skin discoloration/changes. Past Medical/Surgical History Medical Problems: large granular lymphocytic leukemia Chronic anemia hyponatremia diastolic CHF HLD h/o DVT paroxysmal a.fib GERD Family History No pertinent family history Social History Smoking Status: Former Smoker Drug Use: none Marital Status: Housing status: lives with significant other Occupational Status: retired Immunizations History of Influenza Vaccine: Unknown History of Tetanus Vaccine?: Unknown History of Pneumococcal: Unknown Allergies Coded Allergies: No Known Allergies (Unverified , 10/08/17) Home Medications Scheduled Aspirin (Aspirin Ec), 81 MG PO DAILY Atorvastatin (Lipitor), 10 MG PO DAILY Colestipol Hcl (Colestid), 1 GM PO BID Enoxaparin (Lovenox), 100 MG INJ BID Furosemide (Lasix), 20 MG PO DAILY Methotrexate (Trexall), 20 MG PO WK Metoprolol Tartrate (Lopressor) (Lopressor), 12.5 MG PO BID Multivitamins/Minerals (Certavite/Antioxidants), 1 TAB PO QAM Pantoprazole (Protonix), 40 MG PO DAILY Potassium Chloride (Klor-Con M20), 20 MEQ PO QD@1700 Potassium Ext Rel (Klor-Con), 80 MEQ PO DAILY Prednisone (Prednisone), 40 MG PO DAILY Scheduled PRN Acetaminophen (Tylenol), 500 MG PO Q4 PRN for Pain or Fever Tramadol (Ultram), 50 MG PO Q4H PRN for Pain Physical Exam Vital Signs Date Time Temp Pulse Resp B/P (MAP) Pulse Ox O2 Delivery O2 Flow Rate FiO2 10/21/17 15:00 102/54 10/21/17 14:57 79 17 97 Room Air 10/21/17 14:30 96/50 10/21/17 14:27 85 18 100 10/21/17 14:22 101/51 10/21/17 14:20 81 21 98 10/21/17 14:15 79 15 100 10/21/17 14:10 80 18 98 10/21/17 14:05 80 25 97 10/21/17 14:00 82 20 91 10/21/17 13:55 80 16 99 10/21/17 13:50 91 17 97 10/21/17 13:45 89 20 99 10/21/17 13:44 95 10/21/17 13:42 99 Room Air 10/21/17 13:42 36.9 91 16 101/41 100 Room Air 10/21/17 13:40 101/41 General Appearance: no apparent distress, + obese Head: normocephalic, atraumatic Eyes: PERRL, + pertinent finding (swelling/healing bruise under L eye ) ENT: hearing grossly normal Neck: supple Respiratory/Chest: lungs clear, no respiratory distress, no accessory muscle use Cardiovascular: + irregularly irregular (rate controlled) Abdomen/GI: normal bowel sounds, non tender, soft Back: normal inspection Extremities/Musculoskelatal: no calf tenderness, + swelling (+1-2 pitting edema of BLEs), + pertinent finding (hematoma to LLE, lateral knee region ) Neurologic/Psych: alert, normal mood/affect, oriented x 3 Skin: warm/dry, no rash, + pallor Diagnostics Laboratory Results Results Past 24 Hours Test 10/21/17 13:45 Range/Units White Blood Count 4.85 4.8-10.8 K/uL Red Blood Count 2.02 4.7-6.1 M/uL Hemoglobin 6.6 14.0-18.0 g/dL Hematocrit 20.0 42-52 % Mean Corpuscular Volume 99.0 80-100 fL Mean Corpuscular Hemoglobin 32.7 25-34 pg Mean Corpuscular Hemoglobin Concent 33.0 32-36 g/dl Platelet Count 247 130-400 K/uL Mean Platelet Volume 9.3 7.4-10.4 fL Neutrophils (%) (Auto) 73.1 % Lymphocytes (%) (Auto) 21.9 % Monocytes (%) (Auto) 2.5 % Eosinophils (%) (Auto) 0.0 % Basophils (%) (Auto) 0.0 % Neutrophils # (Auto) 3.55 1.4-6.5 K/uL Lymphocytes # (Auto) 1.06 1.2-3.4 K/uL Monocytes # (Auto) 0.12 0.11-0.59 K/uL Eosinophils # (Auto) 0.00 0-0.5 K/uL Basophils # (Auto) 0.00 0-0.2 K/uL RDW Standard Deviation 88.1 36.4-46.3 fL RDW Coefficient of Variation 27.6 11.5-14.5 % Immature Granulocyte % (Auto) 2.5 % Immature Granulocyte # (Auto) 0.12 0.00-0.02 K/uL Nucleated RBC Absolute Count (auto) 0.07 0-0 K/uL Nucleated Red Blood Cells % 1.4 % Toxic Granulation 1+ Hypochromasia PRESENT Anisocytosis PRESENT Prothrombin Time 11.3 9.0-12.0 SECONDS Prothromb Time International Ratio 1.1 0.9-1.1 Activated Partial Thromboplast Time 33.6 21.0-31.0 SECONDS Partial Thromboplastin Ratio 1.3 Sodium Level 134 136-145 mmol/L Potassium Level 4.0 3.5-5.1 mmol/L Chloride Level 101 98-107 mmol/L Carbon Dioxide Level 25 21-32 mmol/L Anion Gap 8.0 3-11 mmol/L Blood Urea Nitrogen 24 7-18 mg/dl Creatinine 0.93 0.60-1.40 mg/dl Est Creatinine Clear Calc Drug Dose 73.1 ml/min Estimated GFR () 87.1 Estimated GFR (Non- 75.1 BUN/Creatinine Ratio 25.2 10-20 Random Glucose 154 70-99 mg/dl Calcium Level 8.0 8.5-10.1 mg/dl Magnesium Level 2.2 1.8-2.4 mg/dl Total Bilirubin 1.2 0.2-1 mg/dl Direct Bilirubin 0.3 0-0.2 mg/dl Aspartate Amino Transf (AST/SGOT) 20 15-37 U/L Alanine Aminotransferase (ALT/SGPT) 41 12-78 U/L Alkaline Phosphatase 71 45-117 U/L Total Creatine Kinase 9 39-308 U/L Creatine Kinase MB < 0.5 0.5-3.6 ng/ml Creatine Kinase MB Ratio 0-3.0 Troponin I 0.016 0-0.045 ng/ml Total Protein 6.3 6.4-8.2 gm/dl Albumin 2.7 3.4-5.0 gm/dl Diagnostic Radiology CHEST ONE VIEW PORTABLE CLINICAL HISTORY: 82 years-old Male presenting with EVALUATE ALTERED MENTAL STATUS/WEAKNESS. TECHNIQUE: Portable upright AP view of the chest was obtained. COMPARISON: 10/08/2017. FINDINGS: The patient is TURK[place] rotated. Atherosclerosis of aortic arch. Cardiac silhouette enlarged. Mildly low lung volumes with hypoventilatory changes. No focal opacity. No large effusion or pneumothorax. Degenerative changes of the thoracic spine. Upper abdomen normal. IMPRESSION: 1. Mildly low lung volumes with hypoventilatory changes. 2. Cardiomegaly. Electronically signed by: Chetan Cabral M.D. 10/21/2017 2:46 PM Dictated Date/Time: 10/21/2017 2:45 PM The status of this report is Signed. Draft = Not yet reviewed or approved by Radiologist. Signed = Reviewed and approved by Radiologist. LEFT TIBIA/FIBULA 4 VIEWS HISTORY: Left lower leg pain. fall COMPARISON: None. FINDINGS: There is no fracture or dislocation. Diffuse subcutaneous edema/swelling. No radiopaque foreign bodies. IMPRESSION: Diffuse soft tissue edema/swelling. No fractures within the left lower leg. Electronically signed by: Trace Goldsmith M.D. 10/21/2017 2:49 PM Dictated Date/Time: 10/21/2017 2:47 PM The status of this report is Signed. Draft = Not yet reviewed or approved by Radiologist. Signed = Reviewed and approved by Radiologist. Impression Assessment and Plan Patient is a pleasant 82 y/o male, with PMHx of large granular lymphocytic leukemia, hyponatremia, diastolic CHF, HLD, h/o DVT, paroxysmal a.fib, and GERD , who presented to the ED because of progressive weakness x1 week. Acute on chronic anemia secondary to leukemia, weakness: - Admit to med/surg - Follow H&H- hgb 6.6 today- consent obtained, type and cross- transfuse 2 unit radiated PRBCs today - PT/OT consulted- hoping for inpatient rehab at discharge Large granular lymphocytic leukemia, anemia- follows w/ Dr. Whittington: - Continue Prednisone 40 mg daily, Methotrexate on Fridays, Procrit 40,000 SQ on Chronic hyponatremia- STABLE: Follow PRP Chronic diastolic CHF- STABLE, HLD, paroxysmal a.fib: - Continue home ASA, Lipitor, Lopressor w/ hold parameters - Lasix 40 mg daily held due to low BPs - Continue 20 mEq KCL QPM; Hold 80 mEq QAM since holding Lasix - ECHO 08/2017- EF 55-60%, grade I diastolic CHF Recent periorbital cellulitis- RESOLVING: Completed abx treatment GERD: Protonix daily h/o DVT: Lovenox 100 mg SQ BID Code status: LEVEL V, DNR Dispo: From home, lives w/ - PT/OT and CM consulted Resuscitation Status LEVEL V, DNR VTE Prophylaxis Will order VTE Prophylaxis: Yes History Patient seen and examined, chart reviewed, case discussed with LYDIA Alberto and I agree with her assessment and plan. Briefly, patient is an 82yo male with large granular lymphocytic leukemia, recently admitted and treated for a preseptal cellulitis returning today with weakness and symptomatic anemia. Patient's Hg=6.6 which is lower than his baseline. No reported bleeding. On physical exam he is afebrile, hemodynamically stable. HEENT, Heart, Lung, Abdominal exam unremarkable Labs and imaging reviewed Assessment and plan -Transfuse with 2 units PRBCs, monitor CBC Remainder of plan as above.
[2017-10-21] MEDS: POTASSIUM CHLORIDE 20 MEQ TABCR PO SCH (17:48)
[2017-10-21] MEDS: METOPROLOL TARTRATE 25 MG TAB PO SCH (20:56)
[2017-10-21] MEDS: ENOXAPARIN 100 MG/1ML SYR SC SCH (20:56)
[2017-10-21] MEDS: COLESTIPOL HCL 1 GM TAB PO SCH (20:56)
[2017-10-22 00:32] VITALS: BP 97/56; PULSE 69; TEMP 36.8; O2SAT 98
[2017-10-22 00:41] VITALS: BP 104/65; PULSE 65; TEMP 36.5; O2SAT 97
[2017-10-22 07:50] VITALS: BP 89/52; PULSE 83; TEMP 36.5; O2SAT 97
[2017-10-22 07:51] LABS: HEMATOCRIT 24.2 % (42-52); HEMOGLOBIN 8.2 g/dL (14.0-18.0); MEAN CELL VOLUME 92.7 fL (80-100); MEAN CORPUSCULAR HEMOGLOBIN 31.4 pg (25-34); MEAN CORPUSCULAR HGB CONC 33.9 g/dl (32-36); MEAN PLATELET VOLUME 9.5 fL (7.4-10.4); NUCLEATED RED BLOOD CELL ABS 0.05 K/uL (0-0); PLATELET COUNT 207 K/uL (130-400); RED CELL DISTRIBUTION WIDTH CV 26.2 % (11.5-14.5); WHITE BLOOD COUNT 3.98 K/uL (4.8-10.8)
[2017-10-22 08:05] LABS: CREATININE 0.75 mg/dl (0.60-1.40); POTASSIUM 3.9 mmol/L (3.5-5.1)
[2017-10-22 08:06] LABS: CALCIUM 8.2 mg/dl (8.5-10.1)
[2017-10-22] MEDS: ASPIRIN 81 MG ECTAB PO SCH (08:13)
[2017-10-22] MEDS: METOPROLOL TARTRATE 25 MG TAB PO SCH ×2 (08:13→21:00)
[2017-10-22] MEDS: ATORVASTATIN 10 MG TAB PO SCH (08:13)
[2017-10-22] MEDS: PANTOprazole SOD 40 MG TAB PO SCH (08:14)
[2017-10-22] MEDS: ENOXAPARIN 100 MG/1ML SYR SC SCH ×2 (08:14→21:04)
[2017-10-22] MEDS: CEROVITE ADV FORMULA TAB PO SCH (08:14)
[2017-10-22 08:24] VITALS: BP 134/68
[2017-10-22] MEDS: COLESTIPOL HCL 1 GM TAB PO SCH ×2 (10:17→21:04)
[2017-10-22 15:09] VITALS: BP 101/61; PULSE 66; TEMP 36.5; O2SAT 99
--- NOTE | 2017-10-22 15:28 | Progress Note ---
Subjective Date of Service: Oct 22, 2017. Problem List Medical Problems: (1) Anemia Status: Chronic (2) Chronic anemia Status: Acute (3) Exertional dyspnea Status: Acute (4) Flu-like symptoms Status: Acute (5) Preseptal cellulitis Status: Acute (6) Sepsis Status: Acute (7) Weakness Status: Acute (8) Weakness Status: Acute Objective Vital Signs Date Time Temp Pulse Resp B/P (MAP) Pulse Ox O2 Delivery O2 Flow Rate FiO2 10/22/17 15:09 36.5 66 19 101/61 (74) 99 10/22/17 10:20 Room Air 10/22/17 08:24 134/68 (90) 10/22/17 07:50 36.5 83 18 89/52 (64) 97 10/22/17 00:41 36.5 65 20 104/65 (78) 97 Room Air 10/22/17 00:32 36.8 69 18 97/56 98 0.0 10/22/17 00:00 Room Air 10/21/17 22:50 36.9 70 16 105/70 97 10/21/17 22:36 36.7 74 20 123/67 96 10/21/17 22:20 36.7 65 20 114/72 97 10/21/17 22:08 37.0 77 20 129/63 97 0.0 10/21/17 21:50 36.8 77 18 114/65 97 10/21/17 20:56 72 111/54 (73) 10/21/17 18:58 36.6 92 20 108/69 (82) 98 Room Air 10/21/17 18:57 36.6 92 20 108/69 98 10/21/17 18:00 36.6 82 16 120/60 100 10/21/17 17:56 36.6 82 16 120/60 (80) 100 Room Air 10/21/17 17:30 36.9 82 16 107/74 (85) 99 Room Air 10/21/17 17:30 36.9 82 16 107/74 99 10/21/17 17:00 36.7 82 16 119/70 (86) 98 Room Air 10/21/17 17:00 36.7 82 16 119/70 98 10/21/17 16:45 36.8 83 16 113/73 (86) 98 Room Air 10/21/17 16:45 36.8 83 16 113/73 98 10/21/17 16:31 36.8 79 20 97/52 91 10/21/17 16:18 36.8 70 12 97/52 Room Air 10/21/17 16:15 Room Air 10/21/17 15:53 36.9 77 19 104/50 99 10/21/17 15:35 77 19 99 Room Air 10/21/17 15:30 104/50 Laboratory Results Last 24 Hours Test 10/21/17 17:45 10/22/17 07:07 10/22/17 12:58 Urine Color DK YELLOW Urine Appearance CLEAR Urine pH 6.0 Urine Specific [place] 1.017 Urine Protein NEG Urine Glucose (UA) NEG Urine Ketones NEG Urine Occult Blood NEG Urine Nitrite NEG Urine Bilirubin NEG Urine Urobilinogen NEG Urine Leukocyte Esterase NEG Urine WBC (Auto) 0 /hpf Urine RBC (Auto) 0-4 /hpf Urine Hyaline Casts (Auto) 1-5 /lpf Urine Epithelial Cells (Auto) 0-5 /lpf Urine Bacteria (Auto) NEG White Blood Count 3.98 K/uL Red Blood Count 2.61 M/uL Hemoglobin 8.2 g/dL Hematocrit 24.2 % Mean Corpuscular Volume 92.7 fL Mean Corpuscular Hemoglobin 31.4 pg Mean Corpuscular Hemoglobin Concent 33.9 g/dl RDW Standard Deviation 78.0 fL RDW Coefficient of Variation 26.2 % Platelet Count 207 K/uL Mean Platelet Volume 9.5 fL Nucleated RBC Absolute Count (auto) 0.05 K/uL Nucleated Red Blood Cells % 1.4 % Sodium Level 135 mmol/L Potassium Level 3.9 mmol/L Chloride Level 102 mmol/L Carbon Dioxide Level 26 mmol/L Anion Gap 7.0 mmol/L Blood Urea Nitrogen 22 mg/dl Creatinine 0.75 mg/dl Est Creatinine Clear Calc Drug Dose 90.6 ml/min Estimated GFR () 97.6 Estimated GFR (Non- 84.2 BUN/Creatinine Ratio 29.1 Random Glucose 101 mg/dl Calcium Level 8.2 mg/dl Iron Level 171 mcg/dl Total Iron Binding Capacity 178 mcg/dl Ferritin 1278.5 ng/ml Vitamin B12 Level 695 pg/mL Folate 11.16 ng/mL Assessment and Plan 82 y/o male admitted because of progressive weakness x1 week was found has acute on 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 Whittington: Continue Prednisone 40 mg daily, Methotrexate on Fridays, Procrit 40,000 SQ on Consult hematology if needed, otherwise made just want to have outpatient follow -up Chronic hyponatremia- STABLE: Follow PRP Chronic diastolic CHF- STABLE, HLD, paroxysmal a.fib: Continue home ASA, Lipitor , Lopressor w/ hold parameters, continue Lasix 40 mg daily held due to low BPs, Continue 20 mEq KCL QPM; Hold 80 mEq QAM since holding Lasix ECHO 08/2017- EF 55-60%, grade I diastolic CHF Recent periorbital cellulitis RESOLVING: Completed abx treatment GERD: Protonix daily h/o DVT: Lovenox 100 mg SQ BID Code status: LEVEL V, DNR Dispo: From home, lives w/ - PT/OT and CM consulted, Per PT OT patient need rehab or senior care Continued [facility] stay due to: home environment unsafe for pt Discharge planning: rehab hospital, alf facility
[2017-10-22] MEDS: POTASSIUM CHLORIDE 20 MEQ TABCR PO SCH (17:19)
[2017-10-22] MEDS: TRAMADOL HCL 50 MG TAB PO PRN (19:14)
[2017-10-22 23:47] VITALS: BP 108/64; PULSE 75; TEMP 36.8; O2SAT 98
[2017-10-23] MEDS: TRAMADOL HCL 50 MG TAB PO PRN ×2 (03:29→12:06)
[2017-10-23 07:33] VITALS: BP 101/57; PULSE 77; TEMP 36.5; O2SAT 98
[2017-10-23] MEDS: METOPROLOL TARTRATE 25 MG TAB PO SCH ×2 (07:50→20:34)
[2017-10-23] MEDS: PANTOprazole SOD 40 MG TAB PO SCH (07:57)
[2017-10-23] MEDS: CEROVITE ADV FORMULA TAB PO SCH (07:57)
[2017-10-23] MEDS: ASPIRIN 81 MG ECTAB PO SCH (07:57)
[2017-10-23] MEDS: ENOXAPARIN 100 MG/1ML SYR SC SCH ×2 (07:57→20:33)
[2017-10-23] MEDS: ATORVASTATIN 10 MG TAB PO SCH (07:58)
[2017-10-23 08:29] LABS: HEMATOCRIT 23.1 % (42-52); HEMOGLOBIN 7.9 g/dL (14.0-18.0); MEAN CELL VOLUME 92.4 fL (80-100); MEAN CORPUSCULAR HEMOGLOBIN 31.6 pg (25-34); MEAN CORPUSCULAR HGB CONC 34.2 g/dl (32-36); NUCLEATED RED BLOOD CELL ABS 0.04 K/uL (0-0); PLATELET COUNT 190 K/uL (130-400); RED CELL DISTRIBUTION WIDTH CV 26.3 % (11.5-14.5); RED CELL DISTRIBUTION WIDTH SD 76.4 fL (36.4-46.3); WHITE BLOOD COUNT 3.95 K/uL (4.8-10.8)
[2017-10-23 08:57] LABS: CALCIUM 8.1 mg/dl (8.5-10.1); CREATININE 0.71 mg/dl (0.60-1.40); POTASSIUM 3.8 mmol/L (3.5-5.1)
[2017-10-23] MEDS ORDERED: METHOTREXATE 2.5 MG TAB PO SCH (09:00)
[2017-10-23] MEDS: COLESTIPOL HCL 1 GM TAB PO SCH ×2 (09:59→20:33)
--- NOTE | 2017-10-23 14:22 | Progress Note ---
Subjective Date of Service: Oct 23, 2017. Subjective Pt evaluation today including: conversation w/ patient, conversation w/ family , physical exam, chart review, lab review, review of studies, review of inpatient medication list Sitting up in chair, feeling good, complaint above left knee lateral knee bluish and pain and spasm, denies fever and chills, has been eating drinking good Problem List Medical Problems: (1) Anemia Status: Chronic (2) Chronic anemia Status: Acute (3) Exertional dyspnea Status: Acute (4) Flu-like symptoms Status: Acute (5) Preseptal cellulitis Status: Acute (6) Sepsis Status: Acute (7) Weakness Status: Acute (8) Weakness Status: Acute Review of Systems Constitutional: + weakness, + fatigue, No fever, No chills, No sweats, No weight loss, No problem reported Eyes: No worsening of vision, No eye pain, No redness, No discharge, No diplopia ENT: No hearing loss, No unusual epistaxis, No nasal symptoms, No sore throat, No tinnitus, No dental problems, No trouble swallowing Respiratory: No cough, No sputum, No wheezing, No shortness of breath, No dyspnea on exertion, No dyspnea at rest, No hemoptysis Cardiac: No chest pain, No orthopnea, No PND, No edema, No claudication, No palpitations Abdomen: No pain, No nausea, No vomiting, No diarrhea, No constipation Musculoskeletal: No joint pain, No muscle pain, No swelling, No calf pain Male : No dysuria, No urinary frequency, No incontinence, No nocturia more than once/night, No slowing stream, No hematuria Neurologic: No memory loss, No paralysis, No weakness, No numbness/tingling, No vertigo, No balance problems Psychiatric: No depression symptoms, No anhedonism, No anxiety, No insomnia, No substance abuse Heme: No abnormal bleeding/bruising, No clotting problems, No swollen lymph nodes, No night sweats Endo: No fatigue, No excessive thirst, No excessive urination Skin: No rash, No itch, No new/changing skin lesions, No color change, No bleeding Objective Vital Signs Date Time Temp Pulse Resp B/P (MAP) Pulse Ox O2 Delivery O2 Flow Rate FiO2 10/23/17 13:26 Room Air 98.0 10/23/17 07:33 36.5 77 20 101/57 (72) 98 10/23/17 00:00 Room Air 10/22/17 23:47 36.8 75 20 108/64 (79) 98 Room Air 10/22/17 16:00 Room Air 10/22/17 15:09 36.5 66 19 101/61 (74) 99 Physical Exam General Appearance: WD/WN, no apparent distress, + obese Eyes: normal inspection, PERRL, EOMI, sclerae normal ENT: normal ENT inspection, hearing grossly normal, pharynx normal Neck: supple, no adenopathy, thyroid normal, no JVD, no carotid bruits, trachea midline Respiratory/Chest: chest non-tender, normal breath sounds, no respiratory distress, no accessory muscle use, + decreased breath sounds Cardiovascular: regular rate, rhythm, no gallop, no JVD, no murmur, + pertinent finding (2+ edema) Abdomen: normal bowel sounds, non tender, soft, no organomegaly, no pulsatile mass Extremities: normal range of motion, non-tender, normal inspection, no pedal edema, no calf tenderness, normal capillary refill, pelvis stable, + swelling (2 +) Neurologic/Psychiatric: pill packer II-XII nml as tested, no motor/sensory deficits, alert, normal mood/affect, oriented x 3 Skin: normal color, warm/dry, no rash Lymphatic: no adenopathy Laboratory Results Last 24 Hours Test 10/23/17 07:52 10/23/17 09:26 White Blood Count 3.95 K/uL Red Blood Count 2.50 M/uL Hemoglobin 7.9 g/dL Hematocrit 23.1 % Mean Corpuscular Volume 92.4 fL Mean Corpuscular Hemoglobin 31.6 pg Mean Corpuscular Hemoglobin Concent 34.2 g/dl RDW Standard Deviation 76.4 fL RDW Coefficient of Variation 26.3 % Platelet Count 190 K/uL Mean Platelet Volume 9.0 fL Nucleated RBC Absolute Count (auto) 0.04 K/uL Nucleated Red Blood Cells % 1.0 % Sodium Level 133 mmol/L Potassium Level 3.8 mmol/L Chloride Level 103 mmol/L Carbon Dioxide Level 26 mmol/L Anion Gap 5.0 mmol/L Blood Urea Nitrogen 22 mg/dl Creatinine 0.71 mg/dl Est Creatinine Clear Calc Drug Dose 95.7 ml/min Estimated GFR () 99.9 Estimated GFR (Non- 86.2 BUN/Creatinine Ratio 31.6 Random Glucose 95 mg/dl Calcium Level 8.1 mg/dl Stool Occult Blood NEGATIVE Assessment and Plan 82 y/o male admitted because of progressive weakness x1 week was found has acute on chronic anemia 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, hyponatremia, diastolic CHF, HLD, h /o DVT, paroxysmal a.fib, and GERD Acute on chronic anemia secondary to leukemia, Was having severe anemia with Hgb 6.6 upon admission transfused 2 unit radiated PRBCs upon admission However hemoglobin drop again from 8.2-7.9 today, patient reports prior to this admission his previous hemoglobin was 9.3 which was dropped to 6.6 in 6 days, before he got 1 transfusion as well Therefore patient possible become transfusion dependent Patient reported has comprehensive evaluations which include several upper and lower GI evaluation from [facility] in [place] by Dr. Porter, which was unremarkable Labs in this admission include vitamin B12, folate acid, ferritin, iron panels, stool Hemoccult were negative for this admission, on the studies has been unremarkable Large granular lymphocytic leukemia, anemia- follows w/ Dr. Whittington: Patient on the above condition, I request hematology consultation, patient is getting Procrit 40,000 SQ on every , will Continue Prednisone 40 mg daily, Methotrexate on Fridays, Chronic hyponatremia- STABLE: Follow PRP Chronic diastolic CHF- STABLE, HLD, paroxysmal a.fib: Continue home ASA, Lipitor , Lopressor w/ hold parameters, continue Lasix 40 mg daily held due to low BPs, Continue 20 mEq KCL QPM; Hold 80 mEq QAM since holding Lasix ECHO 08/2017- EF 55-60%, grade I diastolic CHF Recent periorbital cellulitis RESOLVING: Completed abx treatment GERD: Protonix daily Right knee total knee bluish and contusion and pain: Continue current regimens, heating pack was ordered h/o DVT: Lovenox 100 mg SQ BID Code status: LEVEL V, DNR Dispo: From home, lives w/ - PT/OT and CM consulted, Per PT OT patient need rehab or [facility] Continued [facility] stay due to: home environment unsafe for pt Discharge planning: rehab hospital, correction facility
[2017-10-23 15:05] VITALS: BP 103/62; PULSE 71; TEMP 36.5; O2SAT 97
[2017-10-23] MEDS ORDERED: EPOETIN ALFA 40,000 UNITS/ML VIAL SQ ONE (16:00)
[2017-10-23 16:19] VITALS: O2SAT 98
[2017-10-23] MEDS: POTASSIUM CHLORIDE 20 MEQ TABCR PO SCH (17:00)
--- NOTE | 2017-10-23 21:24 | HEMATOLOGY CONSULTATION ---
DATE OF CONSULTATION: 10/23/2017 REASON FOR CONSULTATION: Worsening anemia. HISTORY OF PRESENT ILLNESS: Emory is a pleasant 82-year-old gentleman with history of T-cell large granular lymphocytic leukemia, who presents to the Emergency Room on October 21 with progressive weakness x1 week. Apparently, this gentleman was admitted back in late September, hospitalized for about 5 days with periorbital cellulitis. He was recommended to be discharged to inpatient rehab because of generalized weakness, but ultimately refused and went home with home nursing services. According to the hospitalist note, this gentleman has received multiple transfusions thought to be secondary to his hematologic malignancy. It is my understanding Mr. Merlos continues to receive Procrit at the [facility]. At his last dosing about 1 week prior to admission, his hemoglobin was in the 9 gram per deciliter range. Upon admission, it had dropped to 6.6. He received 2 units of packed RBCs. He denies any overt gastrointestinal or genitourinary bleeding. Mr. Merlos is yet to see Dr. Whittington. Apparently he was diagnosed back in April of 2017 and was originally managed by Dr. 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 Nonetheless, he has had [address] Whittington, both missed because of hospitalizations. He does continue weekly methotrexate which I assume was started by Dr. Johnson. Primary service is requesting assistance in the care of this very pleasant gentleman. PAST MEDICAL HISTORY: Again significant for T-cell large granular lymphocytic leukemia, chronic anemia, hyponatremia, diastolic CHF, hyperlipidemia, previous history of DVT, paroxysmal atrial fibrillation, and gastroesophageal reflux disease. MEDICATIONS: Prior to admission include aspirin 81 mg p.o. daily, atorvastatin 10 mg p.o. daily, Colestid 1 gram p.o. b.i.d., Lovenox 100 mg injected b.i.d., furosemide 20 mg p.o. daily, methotrexate 20 mg p.o. q. weekly, metoprolol 12.5 mg p.o. b.i.d., Protonix 40 mg p.o. daily, potassium chloride 20 mEq p.o. daily, prednisone 40 mg p.o. daily. ALLERGIES: No known drug allergies. SOCIAL HISTORY: Patient is and lives with his . Reformed smoker, nondrinker. FAMILY HISTORY: Noncontributory. REVIEW OF SYSTEMS: CONSTITUTIONAL: Again, generalized weakness for the most part, decreased exercise tolerance. SKIN: Negative for skin rashes or dermatoses. He does have multiple senile purpura encompassing his forearms. HEENT: Negative for headaches, lightheadedness, or dizziness. No acute visual or hearing deficits. No sinus symptoms, sore throat, or dysphagia. LYMPH: No history of lymphoproliferative disease or peripheral lymphadenopathy. CARDIAC: No current angina or palpitations. PULMONARY: He is not short of breath, dyspneic, or orthopneic. GASTROINTESTINAL: Negative for abdominal pain, nausea, vomiting, diarrhea, constipation, hematochezia, or melena stools. GENITOURINARY: No history of prostate disease. No hematuria, dysuria, urinary incontinence. PSYCHIATRIC: Negative for anxiety, depression, or psychoses. ENDOCRINE: Negative for diabetes or thyroid disease. NEUROLOGIC: Negative for seizure, stroke, or migraine headache. HEMATOLOGIC: As per HPI. PHYSICAL EXAMINATION: GENERAL: A very pleasant 82-year-old gentleman, awake, alert, and appropriate, in no acute distress. VITAL SIGNS: Temperature 36.5, pulse 71, respiratory rate 20, blood pressure 103/62. SKIN: Again, multiple senile purpura noted in the dorsum of his forearms bilaterally. HEENT: Head is atraumatic, normocephalic. Eyes, PERRLA, EOMI. Sclerae nonicteric. No conjunctival injection. Nares are patent without rhinorrhea or discharge. Throat is clear. Tongue is midline. Mucous membranes are moist. NECK: Supple without JVD or thyromegaly. HEART: Regular rate and rhythm. No clicks, rubs, murmurs, gallops. LUNGS: Clear to auscultation bilaterally. ABDOMEN: Soft, nontender, nondistended, without palpable hepatosplenomegaly. EXTREMITIES: 1-2+ peripheral edema bilaterally. Pulses and strength were equal in all 4 quadrants. NEUROLOGIC: Awake, alert and oriented x3. Cranial nerves grossly intact. LABORATORY DATA: WBC count 3950, hemoglobin 7.9, platelet count 190,000. Sodium 133, potassium 3.8, chloride 103, carbon dioxide 26, creatinine 0.71, BUN 22. Coags, PT 11.3, PTT 33.6 seconds. IMPRESSION: 1. Gvurq-[id number] anemia. 2. T-cell large granular lymphocytic leukemia. 3. Chronic hyponatremia. 4. Chronic diastolic congestive heart failure. 5. Periorbital cellulitis. 6. History of deep venous thrombosis. PLAN: Mr. Merlos is a pleasant 82-year-old gentleman who is yet to be established formally with [facility]. Apparently was originally diagnosed by Dr. John Johnson and placed on weekly methotrexate. He was scheduled to see Dr. Whittington as a new patient on successive recently. Unfortunately, the patient ended up hospitalized. He now presents with generalized weakness and a precipitous drop in hemoglobin, which would certainly be suspicious for active bleeding. According to the patient, he is under the care of Dr. Khurram Porter, sas programmer remote at [facility]. He has had multiple upper and lower GI evaluations revealing no evidence of active bleeding or significant pathology. He continues to receive Procrit in our clinic. The patient is on chronic anticoagulation and certainly at high risk for bleeding episode. May want to consider radio-labeled RBC scan which sometimes is helpful in detecting occult bleeding such as arteriovenous malformations. It may be helpful to obtain iron studies at this point and consider iron replacement therapy if indicated. I will formally discuss Mr. Merlos's case with Dr. Whittington and arrange for expedient outpatient followup. For now, I would continue transfusional support and watch his peripheral counts daily. I would not object to holding his methotrexate until he is seen by Dr. Whittington. Thank you very much for allowing me to participate in his care. If you have any questions or concerns, contact me at any time. I will be available over the weekend. MARICHUY
[2017-10-23 23:47] VITALS: BP 99/56; PULSE 69; TEMP 36.8; O2SAT 95
[2017-10-24] VITALS (10 sets, daily range): BP systolic 96–107; BP diastolic 53–69; PULSE 64–74; TEMP 36.2–36.6; O2SAT 96–98
[2017-10-24 07:41] LABS: HEMATOCRIT 22.6 % (42-52); HEMOGLOBIN 7.7 g/dL (14.0-18.0); MEAN CORPUSCULAR HEMOGLOBIN 31.7 pg (25-34); MEAN CORPUSCULAR HGB CONC 34.1 g/dl (32-36); NUCLEATED RED BLOOD CELL ABS 0.04 K/uL (0-0); PLATELET COUNT 187 K/uL (130-400); RED CELL DISTRIBUTION WIDTH CV 26.1 % (11.5-14.5); RED CELL DISTRIBUTION WIDTH SD 78.8 fL (36.4-46.3); WHITE BLOOD COUNT 3.76 K/uL (4.8-10.8)
[2017-10-24 08:16] LABS: CALCIUM 8.1 mg/dl (8.5-10.1); CREATININE 0.73 mg/dl (0.60-1.40); POTASSIUM 3.9 mmol/L (3.5-5.1)
[2017-10-24] MEDS: PANTOprazole SOD 40 MG TAB PO SCH (08:46)
[2017-10-24] MEDS: ENOXAPARIN 100 MG/1ML SYR SC SCH ×2 (08:46→20:18)
[2017-10-24] MEDS: ATORVASTATIN 10 MG TAB PO SCH (08:47)
[2017-10-24] MEDS: METOPROLOL TARTRATE 25 MG TAB PO SCH ×2 (08:47→20:18)
[2017-10-24] MEDS: CEROVITE ADV FORMULA TAB PO SCH (08:47)
[2017-10-24] MEDS: COLESTIPOL HCL 1 GM TAB PO SCH ×2 (08:47→21:44)
[2017-10-24] MEDS: ASPIRIN 81 MG ECTAB PO SCH (08:47)
[2017-10-24] MEDS: TRAMADOL HCL 50 MG TAB PO PRN ×2 (11:07→20:18)
[2017-10-24] MEDS ORDERED: FUROSEMIDE INJ 20 MG in SYRINGE 0 ML IV ONE (13:15)
--- NOTE | 2017-10-24 14:31 | Progress Note ---
Subjective Date of Service: Oct 24, 2017. Subjective Pt evaluation today including: conversation w/ patient, conversation w/ family , physical exam, chart review, lab review, review of studies, conversation w/ urban design consultant, review of inpatient medication list Sitting in chair, complaining generalized weakness, denies bloody stools or diarrhea denied dizziness Problem List Medical Problems: (1) Anemia Status: Chronic (2) Chronic anemia Status: Acute (3) Exertional dyspnea Status: Acute (4) Flu-like symptoms Status: Acute (5) Preseptal cellulitis Status: Acute (6) Sepsis Status: Acute (7) Weakness Status: Acute (8) Weakness Status: Acute Review of Systems Constitutional: + weakness, + fatigue, No fever, No chills, No sweats, No weight loss, No problem reported Eyes: No worsening of vision, No eye pain, No redness, No discharge, No diplopia ENT: No hearing loss, No unusual epistaxis, No nasal symptoms, No sore throat, No tinnitus, No dental problems, No trouble swallowing Respiratory: No cough, No sputum, No wheezing, No shortness of breath, No dyspnea on exertion, No dyspnea at rest, No hemoptysis Cardiac: No chest pain, No orthopnea, No PND, No edema, No claudication, No palpitations Abdomen: No pain, No nausea, No vomiting, No diarrhea, No constipation Musculoskeletal: No joint pain, No muscle pain, No swelling, No calf pain Male : No dysuria, No urinary frequency, No incontinence, No nocturia more than once/night, No slowing stream, No hematuria Neurologic: No memory loss, No paralysis, No weakness, No numbness/tingling, No vertigo, No balance problems Psychiatric: No depression symptoms, No anhedonism, No anxiety, No insomnia, No substance abuse Heme: No abnormal bleeding/bruising, No clotting problems, No swollen lymph nodes, No night sweats Endo: No fatigue, No excessive thirst, No excessive urination Skin: No rash, No itch, No new/changing skin lesions, No color change, No bleeding Objective Vital Signs Date Time Temp Pulse Resp B/P (MAP) Pulse Ox O2 Delivery O2 Flow Rate FiO2 10/24/17 08:15 Room Air 10/24/17 07:40 36.6 69 18 103/69 (80) 96 Room Air 10/24/17 00:00 98 Room Air 10/23/17 23:47 36.8 69 21 99/56 (70) 95 Room Air 10/23/17 16:19 98 Room Air 10/23/17 15:05 36.5 71 20 103/62 (76) 97 Physical Exam General Appearance: WD/WN, no apparent distress, + pertinent finding (Mild pale ) Eyes: normal inspection, PERRL, EOMI, sclerae normal ENT: normal ENT inspection, hearing grossly normal, pharynx normal Neck: supple, no adenopathy, thyroid normal, no JVD, no carotid bruits, trachea midline Respiratory/Chest: chest non-tender, normal breath sounds, no respiratory distress, no accessory muscle use, + decreased breath sounds Cardiovascular: regular rate, rhythm, no gallop, no JVD, no murmur, + pertinent finding (2+ edema) Abdomen: normal bowel sounds, non tender, soft, no organomegaly, no pulsatile mass Extremities: normal range of motion, non-tender, normal inspection, no pedal edema, no calf tenderness, normal capillary refill, pelvis stable Neurologic/Psychiatric: life insurance agent II-XII nml as tested, no motor/sensory deficits, alert, normal mood/affect, oriented x 3 Skin: normal color, warm/dry, no rash Lymphatic: no adenopathy Laboratory Results Last 24 Hours Test 10/24/17 07:16 White Blood Count 3.76 K/uL Red Blood Count 2.43 M/uL Hemoglobin 7.7 g/dL Hematocrit 22.6 % Mean Corpuscular Volume 93.0 fL Mean Corpuscular Hemoglobin 31.7 pg Mean Corpuscular Hemoglobin Concent 34.1 g/dl RDW Standard Deviation 78.8 fL RDW Coefficient of Variation 26.1 % Platelet Count 187 K/uL Mean Platelet Volume 9.0 fL Nucleated RBC Absolute Count (auto) 0.04 K/uL Nucleated Red Blood Cells % 1.1 % Sodium Level 134 mmol/L Potassium Level 3.9 mmol/L Chloride Level 103 mmol/L Carbon Dioxide Level 25 mmol/L Anion Gap 6.0 mmol/L Blood Urea Nitrogen 24 mg/dl Creatinine 0.73 mg/dl Est Creatinine Clear Calc Drug Dose 93.1 ml/min Estimated GFR () 98.7 Estimated GFR (Non- 85.2 BUN/Creatinine Ratio 32.5 Random Glucose 94 mg/dl Calcium Level 8.1 mg/dl Assessment and Plan 82 y/o male admitted on October 21, 2017 because of progressive weakness x1 week was found has acute on chronic anemia 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, hyponatremia, diastolic CHF, HLD, h /o DVT, paroxysmal a.fib, and GERD Acute on chronic anemia possible secondary to leukemia, Was having severe anemia with Hgb 6.6 upon admission transfused 2 unit radiated PRBCs upon admission However hemoglobin drop again from 7.7 from 0.79 from 8.2 today, patient reports prior to this admission his previous hemoglobin was 9.3 which was dropped to 6.6 in 6 days, before he got 1 transfusion as well Therefore patient possible become transfusion dependent Patient reported has comprehensive evaluations which include several upper and lower GI evaluation from [facility] in [place] by Dr. Porter, which was unremarkable Labs in this admission include vitamin B12, folate acid, ferritin, iron panels, stool Hemoccult were negative for this admission, on the studies has been unremarkable Large granular lymphocytic leukemia, anemia- follows w/ Dr. Whittington: Patient on the above condition, Patient called Procrit 40,000 SQ on every , chronic dose yesterday Continue Prednisone 40 mg daily, Dental Professional input appreciated, hold methotrexate until seen by Dr. Whittington, Transfuse 1 unit Obtain medical records GI bleeding scanning by nuclear medicine which can be done on Thursday Chronic hyponatremia- STABLE: Follow PRP Chronic diastolic CHF- STABLE, HLD, paroxysmal a.fib: Continue home ASA, Lipitor , Lopressor w/ hold parameters, Lasix 40 mg daily held due to low BPs, will restart at 20 mg p.o. daily, will continue continue 20 mEq KCL QPM; ECHO 08/2017- EF 55-60%, grade I diastolic CHF Recent periorbital cellulitis RESOLVING: Completed abx treatment GERD: Protonix daily Right knee total knee bluish and contusion and pain: Continue current regimens, heating pack was ordered h/o DVT: Lovenox 100 mg SQ BID Code status: LEVEL V, DNR Dispo: From home, lives w/ - PT/OT and CM consulted, Per PT OT patient need rehab or senior living, may be early next week Continued [facility] stay due to: home environment unsafe for pt Discharge planning: rehab hospital, residential facility
[2017-10-24] MEDS: POTASSIUM CHLORIDE 20 MEQ TABCR PO SCH (16:50)
[2017-10-24 18:40] LABS: HEMOGLOBIN 8.3 g/dL (14.0-18.0); IG# 0.04 K/uL (0.00-0.02); LYMPH % 30.4 %; LYMPH ABS # 1.08 K/uL (1.2-3.4); MEAN CELL VOLUME 91.2 fL (80-100); MEAN CORPUSCULAR HEMOGLOBIN 30.3 pg (25-34); MEAN CORPUSCULAR HGB CONC 33.2 g/dl (32-36); MEAN PLATELET VOLUME 9.1 fL (7.4-10.4); MONO % 3.9 %; MONO ABS # 0.14 K/uL (0.11-0.59); NEUT % 64.6 %; NEUT ABS # 2.29 K/uL (1.4-6.5); NUCLEATED RED BLOOD CELL ABS 0.02 K/uL (0-0); PLATELET COUNT 181 K/uL (130-400); RED CELL DISTRIBUTION WIDTH CV 24.9 % (11.5-14.5); RED CELL DISTRIBUTION WIDTH SD 71.8 fL (36.4-46.3); WHITE BLOOD COUNT 3.55 K/uL (4.8-10.8)
[2017-10-25] VITALS: O2SAT 98
[2017-10-25 07:21] VITALS: BP 120/71; PULSE 62; TEMP 36.4; O2SAT 98
[2017-10-25] MEDS: METOPROLOL TARTRATE 25 MG TAB PO SCH ×2 (07:32→22:12)
[2017-10-25] MEDS: ATORVASTATIN 10 MG TAB PO SCH (07:32)
[2017-10-25] MEDS: PANTOprazole SOD 40 MG TAB PO SCH (07:32)
[2017-10-25] MEDS: CEROVITE ADV FORMULA TAB PO SCH (07:32)
[2017-10-25] MEDS: FUROSEMIDE 20 MG TAB PO SCH (07:32)
[2017-10-25] MEDS: ENOXAPARIN 100 MG/1ML SYR SC SCH ×2 (07:33→21:41)
[2017-10-25] MEDS: ASPIRIN 81 MG ECTAB PO SCH (07:33)
[2017-10-25 07:37] LABS: CALCIUM 7.9 mg/dl (8.5-10.1); CREATININE 0.65 mg/dl (0.60-1.40); POTASSIUM 3.7 mmol/L (3.5-5.1)
[2017-10-25 08:10] LABS: HEMATOCRIT 23.1 % (42-52)
[2017-10-25] MEDS: COLESTIPOL HCL 1 GM TAB PO SCH ×2 (09:50→22:53)
[2017-10-25 12:04] LABS: RETIC COUNT % 4.5 % (0.5-2.0)
--- NOTE | 2017-10-25 12:54 | HEME/ONC PROGRESS NOTE ---
DATE: 10/25/2017 DIAGNOSES: 1. Acute on chronic anemia. 2. T-cell large granular lymphocytic leukemia. 3. Hyponatremia. 4. Chronic diastolic congestive heart failure. 5. Periorbital cellulitis. 6. History of deep vein thromboses. SUBJECTIVE: I saw Emory at bedside today. Clinically, seems to be doing well. Hemoglobin has stabilized post-transfusion. This gentleman who suffers from a T-cell large granular leukemia had been on methotrexate and recommend holding the agent until he is seen by Dr. Whittington. He had a precipitous drop in hemoglobin prior to admission. He has had multiple GI procedures performed by Dr. Khurram Porter at [facility] in the past without finding evidence of bleeding. I suggested a radiolabeled RBC scan, which will be done tomorrow. I will check reticulocyte count today as well. PHYSICAL EXAM: GENERAL: Pleasant 82-year-old gentleman in no acute distress. VITAL SIGNS: Temperature 36.4, pulse 62, respiratory rate 18, blood pressure 120/71. SKIN: Again, no rashes or lesions. Residual left periorbital cellulitic plaque noted. HEENT: Oral mucosa without erythema or ulceration. NECK: Supple. HEART: Regular rate and rhythm. No clicks, rubs or murmurs. LUNGS: Clear to auscultation bilaterally. ABDOMEN: Soft, nontender, nondistended. EXTREMITIES: 1+ peripheral edema bilaterally. NEUROLOGIC: Grossly intact. LABORATORY DATA: WBC count 3550, hemoglobin 8.3, platelet count 181,000. Sodium 134, potassium 3.7, chloride 104, carbon dioxide 27, creatinine 0.65, BUN 25. IMPRESSION: 1. Acute on chronic anemia. 2. T-large granular lymphocytic leukemia. 3. Chronic hyponatremia. 4. Periorbital cellulitis. 5. History of deep venous thrombosis. PLAN: I saw Mr. Merlos in consultation yesterday. He was originally diagnosed with T-large granular lymphocytic leukemia by Dr. John Johnson who placed him on methotrexate. He is yet to establish care under Dr. Whittington, but he is scheduled to do so in the near future. He presented with precipitous drop in hemoglobin. He has had multiple GI workups evaluations in the past without evidence of active bleeding or pathology. He was transfused two units upon admission. He seems to be holding his hemoglobin steady; however, we will proceed with radiolabeled bleeding scan. I also will check reticulocyte count today to rule out an active hemolytic process. Today is my last day on service and will sign Mr. Merlos out to the physician taking over. I have nothing further to add at this juncture. We will continue to follow him periodically during his hospital stay.
[2017-10-25] MEDS: TRAMADOL HCL 50 MG TAB PO PRN (13:34)
--- NOTE | 2017-10-25 15:38 | Progress Note ---
Subjective Date of Service: Oct 25, 2017. Subjective Pt evaluation today including: conversation w/ patient, conversation w/ family , physical exam, chart review, lab review, review of studies, conversation w/ foreign legal consultant, review of inpatient medication list Doing the same, up to the chair, conversational, follow-up commands, no other complaint Problem List Medical Problems: (1) Anemia Status: Chronic (2) Chronic anemia Status: Acute (3) Exertional dyspnea Status: Acute (4) Flu-like symptoms Status: Acute (5) Preseptal cellulitis Status: Acute (6) Sepsis Status: Acute (7) Weakness Status: Acute (8) Weakness Status: Acute Review of Systems Constitutional: + weakness, + fatigue, No fever, No chills, No sweats, No weight loss, No problem reported Eyes: No worsening of vision, No eye pain, No redness, No discharge, No diplopia ENT: No hearing loss, No unusual epistaxis, No nasal symptoms, No sore throat, No tinnitus, No dental problems, No trouble swallowing Respiratory: No cough, No sputum, No wheezing, No shortness of breath, No dyspnea on exertion, No dyspnea at rest, No hemoptysis Cardiac: + edema (Trace edema), No chest pain, No orthopnea, No PND, No claudication, No palpitations Abdomen: No pain, No nausea, No vomiting, No diarrhea, No constipation Musculoskeletal: No joint pain, No muscle pain, No swelling, No calf pain Male : No dysuria, No urinary frequency, No incontinence, No nocturia more than once/night, No slowing stream, No hematuria Neurologic: No memory loss, No paralysis, No weakness, No numbness/tingling, No vertigo, No balance problems Psychiatric: No depression symptoms, No anhedonism, No anxiety, No insomnia, No substance abuse Heme: No abnormal bleeding/bruising, No clotting problems, No swollen lymph nodes, No night sweats Endo: No fatigue, No excessive thirst, No excessive urination Skin: No rash, No itch, No new/changing skin lesions, No color change, No bleeding Objective Vital Signs Date Time Temp Pulse Resp B/P (MAP) Pulse Ox O2 Delivery O2 Flow Rate FiO2 10/25/17 08:00 Room Air 10/25/17 07:21 36.4 62 18 120/71 (87) 98 Room Air 10/25/17 00:00 98 Room Air 10/24/17 22:55 36.5 72 18 105/58 (74) 98 Room Air 10/24/17 20:20 72 96/58 (71) 10/24/17 17:15 36.6 71 18 104/61 97 10/24/17 16:15 Room Air 10/24/17 16:15 36.3 64 18 100/53 96 10/24/17 15:45 36.2 66 18 107/63 97 Physical Exam General Appearance: WD/WN, no apparent distress, + pertinent finding (Mild pale ) Eyes: normal inspection, PERRL, EOMI, sclerae normal ENT: normal ENT inspection, hearing grossly normal, pharynx normal Neck: supple, no adenopathy, thyroid normal, no JVD, no carotid bruits, trachea midline Respiratory/Chest: chest non-tender, normal breath sounds, no respiratory distress, no accessory muscle use, + decreased breath sounds Cardiovascular: regular rate, rhythm, no gallop, no JVD, no murmur, + pertinent finding (Trace edema) Abdomen: normal bowel sounds, non tender, soft, no organomegaly, no pulsatile mass Extremities: normal range of motion, non-tender, normal inspection, no pedal edema, no calf tenderness, normal capillary refill, pelvis stable, + swelling ( Trace edema) Neurologic/Psychiatric: edge roller II-XII nml as tested, no motor/sensory deficits, alert, normal mood/affect, oriented x 3 Skin: normal color, warm/dry, no rash Lymphatic: no adenopathy Laboratory Results Last 24 Hours Test 10/24/17 18:27 10/25/17 06:38 White Blood Count 3.55 K/uL Red Blood Count 2.74 M/uL Hemoglobin 8.3 g/dL 8.0 g/dL Hematocrit 25.0 % 23.1 % Mean Corpuscular Volume 91.2 fL Mean Corpuscular Hemoglobin 30.3 pg Mean Corpuscular Hemoglobin Concent 33.2 g/dl Platelet Count 181 K/uL Mean Platelet Volume 9.1 fL Neutrophils (%) (Auto) 64.6 % Lymphocytes (%) (Auto) 30.4 % Monocytes (%) (Auto) 3.9 % Eosinophils (%) (Auto) 0.0 % Basophils (%) (Auto) 0.0 % Neutrophils # (Auto) 2.29 K/uL Lymphocytes # (Auto) 1.08 K/uL Monocytes # (Auto) 0.14 K/uL Eosinophils # (Auto) 0.00 K/uL Basophils # (Auto) 0.00 K/uL RDW Standard Deviation 71.8 fL RDW Coefficient of Variation 24.9 % Immature Granulocyte % (Auto) 1.1 % Immature Granulocyte # (Auto) 0.04 K/uL Nucleated RBC Absolute Count (auto) 0.02 K/uL Nucleated Red Blood Cells % 0.6 % Anisocytosis PRESENT Absolute Reticulocyte Count 0.11 10^6/uL Percent Reticulocyte Count 4.5 % Sodium Level 134 mmol/L Potassium Level 3.7 mmol/L Chloride Level 104 mmol/L Carbon Dioxide Level 27 mmol/L Anion Gap 3.0 mmol/L Blood Urea Nitrogen 25 mg/dl Creatinine 0.65 mg/dl Est Creatinine Clear Calc Drug Dose 104.5 ml/min Estimated GFR () 103.5 Estimated GFR (Non- 89.3 BUN/Creatinine Ratio 37.5 Random Glucose 99 mg/dl Calcium Level 7.9 mg/dl Magnesium Level 2.3 mg/dl Assessment and Plan 82 y/o male admitted on October 21, 2017 because of progressive weakness x1 week was found has acute on chronic anemia 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, hyponatremia, diastolic CHF, HLD, h /o DVT, paroxysmal a.fib, and GERD Acute on chronic anemia possible multiple factorial, such as GI bleeding, all secondary to secondary to leukemia, medication use such as methotrexate Was having severe anemia with Hgb 6.6 upon admission transfused 2 unit radiated PRBCs upon admission However hemoglobin drop again from 8.3 to 8 today, patient reports prior to this admission his previous hemoglobin was 9.3 which was dropped to 6.6 in 6 days, before he got 1 transfusion as well Therefore patient possible become transfusion dependent Patient reported has comprehensive evaluations which include several upper and lower GI evaluation from [facility] in [place] by Dr. Porter, which was unremarkable Labs in this admission include vitamin B12, folate acid, ferritin, iron panels, stool Hemoccult were negative for this admission, on the studies has been unremarkable, has requested medical record, not arriving yet, per hematology oncologist he also recommended to have GI bleeding scan, which is ordered, will be done tomorrow Large granular lymphocytic leukemia, anemia- follows w/ Dr. Whittington: Patient on the above condition, Patient got Procrit 40,000 SQ on every , chronic dose 2 days ago Continue Prednisone 40 mg daily, Academic Advising Director input appreciated, hold methotrexate until seen by Dr. Whittington, Transfusion if needed Obtain medical records GI bleeding scanning by nuclear medicine which can be done on Thursday Chronic hyponatremia- STABLE: Follow PRP Chronic diastolic CHF- STABLE, HLD, paroxysmal a.fib: Continue home ASA, Lipitor , Lopressor w/ hold parameters, Lasix 40 mg daily held due to low BPs, will restart at 20 mg p.o. daily ECHO 08/2017- EF 55-60%, grade I diastolic CHF Recent periorbital cellulitis RESOLVING: Completed abx treatment GERD: Protonix daily Right knee total knee bluish and contusion and pain: Continue current regimens, heating pack was ordered h/o DVT: Lovenox 100 mg SQ BID Code status: LEVEL V, DNR Dispo: From home, lives w/ - PT/OT and CM consulted, patient can be displaced to "[facility]" if medicine stable Possible can be discharged if negative GI bleeding scan and review medical records from [facility] Continued [facility] stay due to: home environment unsafe for pt Discharge planning: rehab hospital, detention facility
[2017-10-25 15:41] VITALS: BP 125/63; PULSE 83; TEMP 36.4; O2SAT 97
[2017-10-25] MEDS: POTASSIUM CHLORIDE 20 MEQ TABCR PO SCH (16:40)
[2017-10-25 22:12] VITALS: BP 107/59; PULSE 66
[2017-10-25 22:50] VITALS: BP 107/63; PULSE 65; TEMP 36.5; O2SAT 98
[2017-10-26] VITALS (11 sets, daily range): BP systolic 94–116; BP diastolic 53–64; PULSE 58–68; TEMP 36.3–36.7; O2SAT 96–99
[2017-10-26 06:03] LABS: HEMATOCRIT 23.9 % (42-52)
[2017-10-26 06:40] LABS: CALCIUM 8.4 mg/dl (8.5-10.1); CREATININE 0.64 mg/dl (0.60-1.40); PHOSPHORUS 3.2 mg/dl (2.5-4.9); POTASSIUM 3.7 mmol/L (3.5-5.1)
[2017-10-26] MEDS: FUROSEMIDE 20 MG TAB PO SCH (07:32)
[2017-10-26] MEDS: METOPROLOL TARTRATE 25 MG TAB PO SCH ×2 (07:32→20:25)
[2017-10-26] MEDS: ASPIRIN 81 MG ECTAB PO SCH (07:32)
[2017-10-26] MEDS: ENOXAPARIN 100 MG/1ML SYR SC SCH ×2 (07:32→20:25)
[2017-10-26] MEDS: PANTOprazole SOD 40 MG TAB PO SCH (07:32)
--- NOTE | 2017-10-26 08:00 | Progress Note ---
Subjective Date of Service: Oct 26, 2017. Subjective pt has no concerns is eating lunch, was disappointed to hear that he had a negative bleeding scan as he knows this may mean that his anemia is now transfusion dependent, did not have much change with procrit staying at hgb of 8 , he remains fatigued and dyspneic with minimal activity with this anemia making him symptomatic Problem List Medical Problems: (1) Anemia Status: Chronic (2) Chronic anemia Status: Acute (3) Exertional dyspnea Status: Acute (4) Flu-like symptoms Status: Acute (5) Preseptal cellulitis Status: Acute (6) Sepsis Status: Acute (7) Weakness Status: Acute (8) Weakness Status: Acute Review of Systems Constitutional: + weakness, + fatigue, No fever, No chills Eyes: No worsening of vision, No eye pain Respiratory: + dyspnea on exertion, No cough, No shortness of breath, No dyspnea at rest Cardiac: No chest pain, No edema Abdomen: No pain, No nausea, No vomiting, No diarrhea Male : No dysuria, No urinary frequency Psychiatric: No depression symptoms, No anhedonism Objective Vital Signs Date Time Temp Pulse Resp B/P (MAP) Pulse Ox O2 Delivery O2 Flow Rate FiO2 10/26/17 07:27 36.4 66 18 116/64 (81) 98 Room Air 10/26/17 00:00 98 Room Air 98.0 10/25/17 22:50 36.5 65 18 107/63 (78) 98 Room Air 10/25/17 22:12 66 107/59 (75) 10/25/17 16:00 Room Air 10/25/17 15:41 36.4 83 20 125/63 (83) 97 Room Air 10/25/17 08:00 Room Air Physical Exam General Appearance: WD/WN, + mild distress Eyes: normal inspection, sclerae normal Neck: supple, no JVD Respiratory/Chest: chest non-tender, lungs clear, normal breath sounds Cardiovascular: regular rate, rhythm, no murmur Abdomen: normal bowel sounds, non tender, soft Extremities: no pedal edema, no calf tenderness Neurologic/Psychiatric: alert, oriented x 3 Laboratory Results Last 24 Hours Test 10/26/17 05:51 Hemoglobin 8.0 g/dL Hematocrit 23.9 % Sodium Level 134 mmol/L Potassium Level 3.7 mmol/L Chloride Level 102 mmol/L Carbon Dioxide Level 28 mmol/L Anion Gap 4.0 mmol/L Blood Urea Nitrogen 23 mg/dl Creatinine 0.64 mg/dl Est Creatinine Clear Calc Drug Dose 106.2 ml/min Estimated GFR () 104.2 Estimated GFR (Non- 89.9 BUN/Creatinine Ratio 36.3 Random Glucose 92 mg/dl Calcium Level 8.4 mg/dl Phosphorus Level 3.2 mg/dl Magnesium Level 2.4 mg/dl Assessment and Plan 82 y/o male admitted on October 21, 2017 because of progressive weakness x1 week was found has 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 Porter, which were unremarkable Labs in this admission include vitamin B12, folate acid, ferritin, iron panels, stool Hemoccult were negative or unremarkable, hematology oncologist he also recommended to have GI bleeding scan, which does not suggest acute blood loss Large granular lymphocytic leukemia, anemia- scheduled to follow w/ Dr. Sanjuana Prather, but has not seen yet: [employer] input appreciated, hold methotrexate Chronic hyponatremia- follow especially with transfusions Chronic diastolic CHF- STABLE, HLD, paroxysmal a.fib: Continue ASA, Lipitor, Lopressor w/ hold parameters, Lasix 40 mg daily held restart at 20 mg p.o. daily ECHO 08/2017- EF 55-60%, grade I diastolic CHF Recent periorbital cellulitis RESOLVING: Completed abx treatment GERD: Protonix daily Right knee total knee contusion with pain: local measures and pain control h/o DVT: Lovenox 100 mg SQ BID Code status: LEVEL V, DNR Dispo: From home, lives w/ - PT/OT and CM consulted, Per Dr Bledsoe patient can be displaced to "[facility]" if medicine stable, will re evaluate hgb after transfusion Continued [facility] stay due to: home environment unsafe for pt Discharge planning: rehab hospital, fdc facility
[2017-10-26] MEDS: ATORVASTATIN 10 MG TAB PO SCH (08:14)
[2017-10-26] MEDS: CEROVITE ADV FORMULA TAB PO SCH (08:14)
[2017-10-26] MEDS: COLESTIPOL HCL 1 GM TAB PO SCH ×2 (08:33→21:51)
[2017-10-26] MEDS ORDERED: FUROSEMIDE 40 MG TAB PO SCH (09:00)
[2017-10-26] MEDS: TRAMADOL HCL 50 MG TAB PO PRN ×2 (10:02→21:54)
--- NOTE | 2017-10-26 11:44 | DIAGNOSTIC IMAGING REPORT ---
GI BLEEDING SCAN CLINICAL HISTORY: chronic anemia, possible GI bleeding COMPARISON STUDY: KUB 10/08/2017. TECHNIQUE: Immediately following the intravenous administration of 25.5 mCi of technetium 99 M ultra tag, dynamic abdominal imaging was performed for total 60 minutes to evaluate the bowel. FINDINGS: No abnormal radiotracer uptake seen within the abdomen or pelvis to suggest active GI bleeding. IMPRESSION: No evidence for active GI bleeding. Electronically signed by: Trace Goldsmith M.D. 10/26/2017 11:42 AM Dictated Date/Time: 10/26/2017 11:41 AM
[2017-10-26] MEDS: POTASSIUM CHLORIDE 20 MEQ TABCR PO SCH (17:26)
[2017-10-27 07:09] VITALS: BP 134/69; PULSE 60; TEMP 36.5; O2SAT 98
[2017-10-27 07:29] LABS: HEMATOCRIT 25.5 % (42-52); HEMOGLOBIN 8.7 g/dL (14.0-18.0); MEAN CELL VOLUME 91.4 fL (80-100); MEAN CORPUSCULAR HEMOGLOBIN 31.2 pg (25-34); MEAN CORPUSCULAR HGB CONC 34.1 g/dl (32-36); MEAN PLATELET VOLUME 8.9 fL (7.4-10.4); PLATELET COUNT 138 K/uL (130-400); RED CELL DISTRIBUTION WIDTH CV 24.6 % (11.5-14.5); RED CELL DISTRIBUTION WIDTH SD 72.5 fL (36.4-46.3); WHITE BLOOD COUNT 2.76 K/uL (4.8-10.8)
[2017-10-27] MEDS: ATORVASTATIN 10 MG TAB PO SCH (07:46)
[2017-10-27] MEDS: PANTOprazole SOD 40 MG TAB PO SCH (07:46)
[2017-10-27] MEDS: METOPROLOL TARTRATE 25 MG TAB PO SCH (07:47)
[2017-10-27] MEDS: CEROVITE ADV FORMULA TAB PO SCH (07:47)
[2017-10-27] MEDS: FUROSEMIDE 20 MG TAB PO SCH (07:48)
[2017-10-27] MEDS: ASPIRIN 81 MG ECTAB PO SCH (07:48)
[2017-10-27] MEDS: ENOXAPARIN 100 MG/1ML SYR SC SCH (07:49)
--- NOTE | 2017-10-27 09:47 | Discharge Instructions ---
Discharge Instructions Date of Service Oct 27, 2017. Admission Reason for Admission: Anemia, Weakness Discharge Discharge Diagnosis / Problem: anemia associated with leukemia Discharge Goals Goal(s): Diagnostic testing, Therapeutic intervention Activity Recommendations Activity Level: Assistance Required Therapies: Physical Therapy, Occupational Therapy . 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 Porter, which were unremarkable Labs in this admission include vitamin B12, folate acid, ferritin, iron panels, stool Hemoccult were negative or unremarkable, hematology oncologist he also recommended to have GI bleeding scan, which does not suggest acute blood loss Large granular lymphocytic leukemia, anemia- scheduled to follow w/ Dr. Sanjuana Prather, [employer] input appreciated, hold methotrexate Chronic hyponatremia- follow especially with transfusions Chronic diastolic CHF- STABLE, HLD, paroxysmal a.fib: Continue ASA, Lipitor, Lopressor w/ hold parameters, Lasix 20 mg p.o. daily ECHO 08/2017- EF 55-60%, grade I diastolic CHF Recent periorbital cellulitis RESOLVING: Completed abx treatment GERD: Protonix daily Right knee total knee contusion with pain: local measures and pain control h/o DVT: Lovenox 100 mg SQ BID Code status: LEVEL V, DNR Current Hospital Diet Patient's current hospital diet: AHA Diet (Heart Healthy) Discharge Diet Recommended Diet: Regular Diet Pending Studies Studies pending at discharge: no Medical Emergencies . Who to Call and When: Medical Emergencies: If at any time you feel your situation is an emergency, please call 911 immediately. . Non-Emergent Contact Non-Emergency issues call your: Primary Care Provider, Oncologist Call Non-Emergent contact if: temperature is above 101, your pain is unusual for you . . "Provider Documentation" section prepared by Kusahl Brady. . Core Measure Problem Core Measures: None
[2017-10-27] MEDS: COLESTIPOL HCL 1 GM TAB PO SCH (10:02)
[2017-10-27 12:59] VITALS: BP 134/69; PULSE 60; TEMP 36.5; O2SAT 98
--- NOTE | 2017-10-27 15:31 | Discharge Summary ---
Discharge Summary Date of Service Oct 27, 2017. Discharge Summary Admission Date: Oct 22, 2017 at 12:44 Discharge Date: Oct 27, 2017 Discharge Disposition: senior care facility Principal Diagnosis: acute on chronic anemia, leukemia Problems/Secondary Diagnoses: (1) Anemia Status: Chronic Immunizations: Have You Had Influenza Vaccine: Unknown History of Tetanus Vaccine?: Unknown History of Pneumococcal: Unknown Consultations: oncology Medication Reconciliation Continued Medications: Acetaminophen (Tylenol) 500 Mg Tab 500 MG PO Q4 PRN for Pain or Fever, TAB Aspirin (Aspirin Ec) 81 Mg Tab 81 MG PO DAILY Atorvastatin (Lipitor) 10 Mg Tab 10 MG PO DAILY, TAB Colestipol Hcl (Colestid) 1 Gm Tab 1 GM PO BID, TAB Enoxaparin (Lovenox) 100 Mg/Ml Inj 100 MG INJ BID Furosemide (Lasix) 40 Mg Tab 20 MG PO DAILY dose varies from 20-40mg Metoprolol Tartrate (Lopressor) (Lopressor) 25 Mg Tab 12.5 MG PO BID Multivitamins/Minerals (Certavite/Antioxidants) 1 Tab Tab 1 TAB PO QAM for 30 Days, TAB Pantoprazole (Protonix) 40 Mg Tab 40 MG PO DAILY, #30 TAB Potassium Chloride (Klor-Con M20) 20 Meq Tabcr 20 MEQ PO QD@1700 for 30 Days Potassium Ext Rel (Klor-Con) 20 Meq Tabcr 80 MEQ PO DAILY Prednisone (Prednisone) 20 Mg Tab 40 MG PO DAILY Tramadol (Ultram) 50 Mg Tab 50 MG PO Q4H PRN for Pain, TAB Discontinued Medications: Methotrexate (Trexall) 10 Mg Tab 20 MG PO WK, TAB Discharge Exam Review of Systems: Constitutional: + weakness, + fatigue, No fever, No chills Abdomen: No pain, No nausea, No diarrhea, No constipation Physical Exam: General Appearance: WD/WN, + mild distress Eyes: normal inspection, sclerae normal Respiratory/Chest: chest non-tender, lungs clear, normal breath sounds Cardiovascular: regular rate, rhythm, no murmur Abdomen / GI: normal bowel sounds, non tender, soft Hospital Course 82 y/o male admitted on October 21, 2017 because of progressive weakness x1 week was found has 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 Porter, which were unremarkable Labs in this admission include vitamin B12, folate acid, ferritin, iron panels, stool Hemoccult were negative or unremarkable, hematology oncologist he also recommended to have GI bleeding scan, which does not suggest acute blood loss Large granular lymphocytic leukemia, anemia- scheduled to follow w/ Dr. Sanjuana Prather, [employer] input appreciated, hold methotrexate Chronic hyponatremia- follow especially with transfusions Chronic diastolic CHF- STABLE, HLD, paroxysmal a.fib: Continue ASA, Lipitor, Lopressor w/ hold parameters, Lasix 20 mg p.o. daily ECHO 08/2017- EF 55-60%, grade I diastolic CHF Recent periorbital cellulitis RESOLVING: Completed abx treatment GERD: Protonix daily Right knee total knee contusion with pain: local measures and pain control h/o DVT: Lovenox 100 mg SQ BID Code status: LEVEL V, DNR Total Time Spent: Greater than 30 minutes This includes examination of the patient, discharge planning, medication reconciliation, and communication with other providers. Discharge Instructions Please refer to the electronic Patient Visit Report (Discharge Instructions) for additional information.
== END 2017-10-27 14:06 | DRG 841 ==
LOC: EDBD 13:30 → C.EDB 13:32 → C.MS2W 15:26 → ENRESERV 15:39 → OBSVTOIN 10-22 12:44
PROVIDERS: ADMIT Internal Medicine; ATTEND Internal Medicine
DX: C91.Z0 Other lymphoid leukemia not having achieved remission (principal); I50.32 Chronic diastolic (congestive) heart failure; E87.1 Hypo-osmolality and hyponatremia; L03.213 Periorbital cellulitis; Z87.891 Personal history of nicotine dependence; S80.11XA Contusion of right lower leg, initial encounter; E78.5 Hyperlipidemia, unspecified; Z86.718 Personal history of other venous thrombosis and embolism; I48.0 Paroxysmal atrial fibrillation; K21.9 Gastro-esophageal reflux disease without esophagitis; Z96.651 Presence of right artificial knee joint; W19.XXXA Unspecified fall, initial encounter; Y92.019 Unspecified place in single-family (private) house as the place of occurrence of the external cause

== ENCOUNTER 2017-11-03 12:17 | Inpatient (IN) | payer OTHER, MEDICARE ==
[2017-11-03] VITALS (17 sets, daily range): BP systolic 93–176; BP diastolic 46–75; PULSE 59–68; TEMP 36.1–36.7; O2SAT 95–99; BMI 31.7
[~2017-11-03] VITALS: Ht 182.9 cm; Wt 105.8 kg
[~2017-11-03 12:17] MED LIST changes: -AMOX1TAB43 PO; -DXY100 PO; -METH10TA32 PO
[2017-11-03] MEDS ORDERED: ACETAMINOPHEN 325 MG TAB PO STA (13:01)
[2017-11-03] MEDS ORDERED: FENTANYL CITRATE INJ 50 MCG/1 ML 2 ML VIAL IV ONE (13:15)
[2017-11-03 13:21] LABS: HEMATOCRIT 20.2 % (42-52); HEMOGLOBIN 6.6 g/dL (14.0-18.0); MEAN CELL VOLUME 97.6 fL (80-100); MEAN CORPUSCULAR HEMOGLOBIN 31.9 pg (25-34); MEAN CORPUSCULAR HGB CONC 32.7 g/dl (32-36); MEAN PLATELET VOLUME 9.1 fL (7.4-10.4); NUCLEATED RED BLOOD CELL ABS 0.09 K/uL (0-0); PLATELET COUNT 223 K/uL (130-400); RED CELL DISTRIBUTION WIDTH CV 27.4 % (11.5-14.5); RED CELL DISTRIBUTION WIDTH SD 85.4 fL (36.4-46.3); WHITE BLOOD COUNT 4.29 K/uL (4.8-10.8)
[2017-11-03 13:22] LABS: CALCIUM 8.2 mg/dl (8.5-10.1); CREATININE 0.74 mg/dl (0.60-1.40); INR 1.1 (0.9-1.1); POTASSIUM 4.5 mmol/L (3.5-5.1); PTT PATIENT 30.6 SECONDS (21.0-31.0)
--- NOTE | 2017-11-03 13:39 | DIAGNOSTIC IMAGING REPORT ---
CHEST ONE VIEW PORTABLE HISTORY: calf pain, venous insufficiency changes, leg swelling COMPARISON: Chest 10/21/2017. FINDINGS: No pneumothorax. No pleural effusions. The heart remains enlarged. Right basilar linear densities favor subsegmental atelectasis. This has improved. There is mild central pulmonary vascular congestion without overt edema. There are low lung volumes. IMPRESSION: Cardiomegaly with mild central pulmonary vascular congestion. Electronically signed by: Trace Goldsmith M.D. 11/03/2017 1:38 PM Dictated Date/Time: 11/03/2017 1:36 PM
[2017-11-03] MEDS ORDERED: CALCIUM CARBONATE 500 MG CHEWABLE PO STA (13:53)
[2017-11-03 14:05] LABS: BASO % 0.2 %; BASO ABS # 0.01 K/uL (0-0.2); EOS % 0.2 %; EOS ABS # 0.01 K/uL (0-0.5); IG# 0.08 K/uL (0.00-0.02); LYMPH ABS # 1.03 K/uL (1.2-3.4); MONO % 5.8 %; MONO ABS # 0.25 K/uL (0.11-0.59); NEUT % 67.9 %; NEUT ABS # 2.91 K/uL (1.4-6.5)
--- NOTE | 2017-11-03 15:05 | EMERGENCY ROOM VISIT NOTE ---
History Report prepared by Umm: Fred German Under the Supervision of: Dr. Ye Luque M.D. First contact with patient: 12:36 Chief Complaint: LEG PAIN,LEG INJURY Stated Complaint: LEG PAIN History of Present Illness The patient is a 82 year old white male with a past medical history of leukemia who presents to the ED with a cc of worsening right leg pain beginning four days ago. [facility] is a [facility] at [facility]. Patient notes that he was doing knee bend exercises on his right leg five days ago. He was seen in the ED last week for anemia. Positive shortness of breath, right leg swelling. Negative vomiting , or chest pain. Patient was scheduled for a lower extremity ultrasound today. Source of History: patient Onset: Four days ago Position: leg (right) Quality: other (pain and swelling. ) Timing: worsening Associated Symptoms: + SOB, No chest pain, No vomiting Review of Systems See HPI for pertinent positives and negatives. A total of ten systems were reviewed and were otherwise negative. Past Medical & Surgical Medical Problems: (1) Anemia (2) Elevated troponin (3) Hypotension (4) Large granular lymphocytic leukemia (5) severe anemia, weakness, (6) Symptomatic anemia (7) Syncope and collapse Family History No pertinent family history Social History Smoking Status: Former Smoker Drug Use: none Marital Status: Housing Status: lives with significant other Occupation Status: retired Current/Historical Medications Scheduled Aspirin (Aspirin Ec), 81 MG PO DAILY Atorvastatin (Lipitor), 10 MG PO DAILY Colestipol Hcl (Colestid), 1 GM PO BID Enoxaparin (Lovenox), 100 MG INJ BID Furosemide (Lasix), 20 MG PO DAILY Metoprolol Tartrate (Lopressor) (Lopressor), 12.5 MG PO BID Multivitamins/Minerals (Certavite/Antioxidants), 1 TAB PO QAM Pantoprazole (Protonix), 40 MG PO DAILY Potassium Chloride (Klor-Con M20), 20 MEQ PO QD@1700 Potassium Ext Rel (Klor-Con), 80 MEQ PO DAILY Prednisone (Prednisone), 40 MG PO DAILY Scheduled PRN Acetaminophen (Tylenol), 500 MG PO Q4 PRN for Pain or Fever Tramadol (Ultram), 50 MG PO Q4H PRN for Pain Allergies Coded Allergies: No Known Allergies (Unverified , 10/08/17) Physical Exam Vital Signs Date Time Temp Pulse Resp B/P (MAP) Pulse Ox O2 Delivery O2 Flow Rate FiO2 11/03/17 15:52 64 19 100 11/03/17 15:31 116/56 11/03/17 15:31 Room Air 11/03/17 15:22 60 99 11/03/17 15:01 115/58 11/03/17 14:52 58 20 97 11/03/17 14:32 108/59 11/03/17 14:22 68 11 100 11/03/17 14:17 62 19 98 11/03/17 13:47 61 19 97 11/03/17 13:17 62 21 96 11/03/17 13:03 98 Room Air 11/03/17 12:52 68 11/03/17 12:47 71 17 100 11/03/17 12:24 36.9 68 18 101/50 98 Room Air 11/03/17 12:20 101/50 Physical Exam GENERAL: Awake, alert, well-appearing, NAD HENT: Normocephalic, atraumatic. False teeth in place. EYES: Normal conjunctiva. Sclera non-icteric. NECK: Supple. No nuchal rigidity. FROM. RESPIRATORY: CTAB, no rhonchi, wheezing, crackles CARDIAC: RRR, no MRG ABDOMEN: Soft, NTND, BS+ MSK: No chest wall TTP. Pain to palpation between the knee and ankle on the right. No warmth or calor. Venous insufficiency changes. NVI to sensory and motor. Calf pain present. Large bruise to the left lateral knee. NVI distally. NEURO: GCS 15, CN 2-12 intact, moves all 4s on command SKIN: No rash or jaundice noted. Medical Decision & Procedures ER Provider Diagnostic Interpretation: Radiology results as stated below per my review and radiologist interpretation: CHEST ONE VIEW PORTABLE FINDINGS: No pneumothorax. No pleural effusions. The heart remains enlarged. Right basilar linear densities favor subsegmental atelectasis. This has improved. There is mild central pulmonary vascular congestion without overt edema. There are low lung volumes. IMPRESSION: Cardiomegaly with mild central pulmonary vascular congestion. Electronically signed by: Trace Goldsmith M.D. 11/03/2017 1:38 PM Laboratory Results Test 11/03/17 12:30 Prothrombin Time 11.4 SECONDS (9.0-12.0) Prothromb Time International Ratio 1.1 (0.9-1.1) Activated Partial Thromboplast Time 30.6 SECONDS (21.0-31.0) Partial Thromboplastin Ratio 1.2 Pro-B-Type Natriuretic Peptide 684 pg/ml (0-1800) Laboratory results reviewed by me Medications Administered Medications (Trade) Dose Ordered Sig/Rosendo Route Start Time Stop Time Status Last Admin Dose Admin Fentanyl Citrate (Fentanyl Inj) 50 mcg NOW ONCE IV 11/03/17 13:15 11/03/17 13:16 DC 11/03/17 13:21 50 MCG Acetaminophen (Tylenol Tab) 650 mg NOW STAT PO 11/03/17 13:01 11/03/17 13:02 DC 11/03/17 13:21 650 MG Calcium Carbonate (Tums Chew Tab) 1,500 mg ONE STAT PO 11/03/17 13:53 11/03/17 13:54 DC 11/03/17 14:23 1,500 MG Acetaminophen (Tylenol Tab) 650 mg Q4H PRN PO 11/03/17 15:45 12/03/17 15:44 11/04/17 10:14 650 MG Tramadol HCl (Ultram Tab) 50 mg Q4H PRN PO 11/03/17 15:45 12/03/17 15:44 11/04/17 08:50 50 MG ED Course 1245: The patient was evaluated in room B4B. A complete history and physical exam was performed. 1301: Ordered Tylenol Tab 650 mg PO. 1315: Ordered Fentanyl Inj 50 mcg IV. 1353: Ordered Tums Chew Tab 1500 mg PO. 1450: Upon reexamination, the patient was resting comfortably. I discussed the test results and treatment plan with him. The patient will be evaluated for further management. Medical Decision Nursing notes reviewed. Ancillary studies and prior records reviewed. The patient is a 82 year old white male with a past medical history of leukemia who presents to the ED with a cc of worsening right leg pain beginning four days ago. Differential diagnosis: Etiologies such as DVT, musculoskeletal, infection, joint effusion, trauma, lymphedema, idiopathic, CHF, as well as others were entertained. Patient was seen and evaluated the bedside. Patient does have a history of leukemia as well as some symptomatic anemia. Patient was recently seen and discharged for some similar symptoms on Kirti 17. Patient did receive 3 units of PRBCs irradiated. Patient also does have a history of A. fib and is being treated still on Lovenox. Patient was complaining of some leg pain. Patient does have some venous insufficiency changes as well as some calf pain. There is some scant redness but it is not necessarily cellulitic in nature. Patient did have blood work completed along with a chest x-ray and DVT ultrasound. Patient's blood work did show that the patient does have an anemia. Patient's hemoglobin is dropped 2 points since discharge. Patient was typed and screened as well as type and cross for 2 units of irradiated PRBCs. Patient was still pending a DVT ultrasound. I did discuss with the on-call hospitalist that given the necessity for 2 units of irradiated PRBCs as well as the time of transfusion would likely be of benefit to the patient to be observed. The hospitalist will further evaluate and treat the patient. We also did discuss the risk-benefit of staying on Lovenox for his history of A. fib and his anemia. Patient denies any bright red blood per rectum or melenic stool. Patient did sign consent the patient was started on his 2 units of irradiated PRBCs. Medication Reconcilliation Current Medication List: was personally reviewed by me Blood Pressure Screening Patient's blood pressure: Normal blood pressure Blood pressure disposition: Did not require urgent referral Consults Time Called: [phone] Consulting Physician: Dr. John Lozada [facility] – [place], [place] Hospitalist Returned Call: [phone] Discussed the patient's case. The patient will be evaluated for further treatment and disposition. Impression Primary Impression: Anemia Additional Impressions: Leg pain, right Venous insufficiency of right leg Critical Care I have personally spent greater than 38 minutes of critical care time in the direct management of this patient. This includes bedside care, interpretation of diagnostic studies, and testing, discussion with consultants, patient, and family members, and other required patient management activities. This 38 minutes is in excess of all separately billable procedures. Scribe Attestation The scribe's documentation has been prepared under my direction and personally reviewed by me in its entirety. I confirm that the note above accurately reflects all work, treatment, procedures, and medical decision making performed by me. Departure Information Dispostion Being Evaluated By Hospitalist Referrals Pro,Dinesh Teixeira M.D. (PCP) Patient Instructions My [facility] Problem Qualifiers Primary Impression: Anemia Anemia type: unspecified type Qualified Codes: D64.9 - Anemia, unspecified
[2017-11-03] MEDS ORDERED: ONDANSETRON INJ 2 MG/ML 2 ML VIAL IV PRN (15:45)
[2017-11-03] MEDS ORDERED: ACETAMINOPHEN 500 MG TAB PO PRN (15:45)
--- NOTE | 2017-11-03 16:28 | History and Physical ---
History & Physical Date & Time of Service: Nov 03, 2017 at 15:28 Chief Complaint: Leg Pain Primary Care Physician: Dinesh Richards M.D. History of Present Illness Source: patient This is an 82 yo M with PMHx of T-cell large granular lymphocytic leukemia, hyponatremia, diastolic CHF, hx NSTEMI, HLD, h/o DVT on lovenox inj, paroxysmal a.fib, and GERD. Pt presents with acute on chronic anemia secondary to leukemia with hemoglobin of 6.6. The patient is a resident of [facility] and had routine blood work checked this morning. He denies any acute onset of shortness of breath, lightheadedness, dizziness. He reports he was recently here and received 3 U PRBCs during a hospital admission within the past 2 weeks. He follows with Dr. Whittington as an outpatient and was seen there on where they discussed needs for outpatient transfusions as well as changing his chemo regimen, pt is unable to tell me what chemotherapy. Pt also notes acute onset of a tight calf pain which started last Thursday, which has been so painful recently that he has not ambulating. He denies any injury sustained to the leg and has been taking tramadol/tylenol for pain relief however it is not significantly helping. Hgb here is 6.6 Past Medical/Surgical History T cell Large granular lymphocytic leukemia hyponatremia diastolic CHF HLD hx NSTEMI h/o DVT paroxysmal a.fib GERD Family History FHx: breast cancer FHx: colon cancer Social History Smoking Status: Former Smoker (20 years, 3 packs in 1 week. Quit around age 48 ) Drug Use: none Marital Status: Housing status: lives with significant other Occupational Status: retired Immunizations History of Influenza Vaccine: Unknown History of Tetanus Vaccine?: Unknown History of Pneumococcal: Unknown Allergies Coded Allergies: No Known Allergies (Unverified , 10/08/17) Home Medications Scheduled Aspirin (Aspirin Ec), 81 MG PO DAILY Atorvastatin (Lipitor), 10 MG PO DAILY Colestipol Hcl (Colestid), 1 GM PO BID Enoxaparin (Lovenox), 100 MG INJ BID Furosemide (Lasix), 20 MG PO DAILY Metoprolol Tartrate (Lopressor) (Lopressor), 12.5 MG PO BID Multivitamins/Minerals (Certavite/Antioxidants), 1 TAB PO QAM Pantoprazole (Protonix), 40 MG PO DAILY Potassium Chloride (Klor-Con M20), 20 MEQ PO QD@1700 Potassium Ext Rel (Klor-Con), 80 MEQ PO DAILY Prednisone (Prednisone), 40 MG PO DAILY Scheduled PRN Acetaminophen (Tylenol), 500 MG PO Q4 PRN for Pain or Fever Tramadol (Ultram), 50 MG PO Q4H PRN for Pain Review of Systems Constitutional: No fever, sweats or chills Eyes: No diplopia, no worsening or blurred vision ENT: normal hearing, no trouble swallowing Respiratory: No cough, sputum, dyspnea at rest or on exertion Cardiovascular: No chest pain, tightness or palpitations Abdomen: No pain, nausea, vomiting, diarrhea or constipation Musculoskeletal: See HPI Neurologic: No weakness, numbness/tingling, or balance problems, typically ambulates without assistance but recently has been nonambulatory due to the right calf pain. Skin: No rash or itch Physical Exam Vital Signs Date Time Temp Pulse Resp B/P (MAP) Pulse Ox O2 Delivery O2 Flow Rate FiO2 11/03/17 14:17 62 19 98 11/03/17 13:47 61 19 97 11/03/17 13:17 62 21 96 11/03/17 13:03 98 Room Air 11/03/17 12:52 68 11/03/17 12:47 71 17 100 11/03/17 12:24 36.9 68 18 101/50 98 Room Air 11/03/17 12:20 101/50 General: awake, alert, no apparent distress, + pallor Head: Normocephalic, atraumatic ENT: PERRL, EOMI, no pharyngeal exudate, mucous membranes moist Chest: Clear to auscultation, on room air, no adventitious breath sounds Cardiac: Regular rate and rhythm, no murmur, no JVD, normal peripheral pulses, good capillary refill Abdominal: NABS x 4 quadrants, soft, nontender to palpation, no rebound, guarding or tenderness Extremities: 2+ pitting edema BLE, chronic venous stasis changes BLE, skin is slightly erythematous over right calf, significant pain with light palpation of the right calf +, no calf tenderness in the left Psych: Normal mood and affect Neuro: AAO x 3, no motor deficits, speech is clear, no peripheral sensory deficits Diagnostics Laboratory Results Results Past 24 Hours Test 11/03/17 12:30 Range/Units White Blood Count 4.29 4.8-10.8 K/uL Red Blood Count 2.07 4.7-6.1 M/uL Hemoglobin 6.6 14.0-18.0 g/dL Hematocrit 20.2 42-52 % Mean Corpuscular Volume 97.6 80-100 fL Mean Corpuscular Hemoglobin 31.9 25-34 pg Mean Corpuscular Hemoglobin Concent 32.7 32-36 g/dl Platelet Count 223 130-400 K/uL Mean Platelet Volume 9.1 7.4-10.4 fL Neutrophils (%) (Auto) 67.9 % Lymphocytes (%) (Auto) 24.0 % Monocytes (%) (Auto) 5.8 % Eosinophils (%) (Auto) 0.2 % Basophils (%) (Auto) 0.2 % Neutrophils # (Auto) 2.91 1.4-6.5 K/uL Lymphocytes # (Auto) 1.03 1.2-3.4 K/uL Monocytes # (Auto) 0.25 0.11-0.59 K/uL Eosinophils # (Auto) 0.01 0-0.5 K/uL Basophils # (Auto) 0.01 0-0.2 K/uL RDW Standard Deviation 85.4 36.4-46.3 fL RDW Coefficient of Variation 27.4 11.5-14.5 % Immature Granulocyte % (Auto) 1.9 % Immature Granulocyte # (Auto) 0.08 0.00-0.02 K/uL Nucleated RBC Absolute Count (auto) 0.09 0-0 K/uL Nucleated Red Blood Cells % 2.1 % Anisocytosis PRESENT Prothrombin Time 11.4 9.0-12.0 SECONDS Prothromb Time International Ratio 1.1 0.9-1.1 Activated Partial Thromboplast Time 30.6 21.0-31.0 SECONDS Partial Thromboplastin Ratio 1.2 Sodium Level 137 136-145 mmol/L Potassium Level 4.5 3.5-5.1 mmol/L Chloride Level 104 98-107 mmol/L Carbon Dioxide Level 25 21-32 mmol/L Anion Gap 8.0 3-11 mmol/L Blood Urea Nitrogen 20 7-18 mg/dl Creatinine 0.74 0.60-1.40 mg/dl Est Creatinine Clear Calc Drug Dose 93.6 ml/min Estimated GFR () 98.2 Estimated GFR (Non- 84.7 BUN/Creatinine Ratio 26.6 10-20 Random Glucose 126 70-99 mg/dl Calcium Level 8.2 8.5-10.1 mg/dl Pro-B-Type Natriuretic Peptide 684 0-1800 pg/ml Diagnostic Radiology CHEST ONE VIEW PORTABLE HISTORY: calf pain, venous insufficiency changes, leg swelling COMPARISON: Chest 10/21/2017. FINDINGS: No pneumothorax. No pleural effusions. The heart remains enlarged. Right basilar linear densities favor subsegmental atelectasis. This has improved. There is mild central pulmonary vascular congestion without overt edema. There are low lung volumes. IMPRESSION: Cardiomegaly with mild central pulmonary vascular congestion. Electronically signed by: Trace Goldsmith M.D. 11/03/2017 1:38 PM Dictated Date/Time: 11/03/2017 1:36 PM The status of this report is Signed. Impression Assessment and Plan This is an 82 yo M with PMHx of large granular lymphocytic leukemia, hyponatremia, diastolic CHF, HLD, h/o DVT, paroxysmal a.fib, and GERD. 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 Porter, which were unremarkable - during recent hospitalization vitamin B12, folate acid, ferritin, iron panels, stool Hemoccult were negative or unremarkable - pt had underwent GI bleeding scan per heme/onc - will consult heme/onc during this admission - hold methotrexate - per outpt records pt has been on for 4 months without much response so discussion regarding oral Cytoxan was held and pt consented. He has not yet begun this. Approach to this is palliative treatment per Dr. Sanjuana Golden note, - will ask heme/onc to discuss code with the pt again as he is hesitant to agree to DNR at this time. Also would consider a palliative consultation. - Trend cbc - Type and screen/ transfuse 2 U PRBC irrad at this time, follow am hgb. Transfuse for hgb <8 - caution with volume considering CHF hx. No acute respiratory sx at this time. Continue on lasix PO. RLE calf pain - Evaluate w U/S for DVT - pt is currently on lovenox 100 mg BID for hx of DVT - Heme/onc to provide recommendations anticoagulation pending duplex u/s results. Chronic hyponatremia - follow especially with transfusions Chronic diastolic CHF- STABLE - CXR reviewed - good breath sounds and sats are adequate on RA, no signs of decompensation. - Cont lopressor 12.5 mg BID, lasix 20 mg daily, HLD, paroxysmal a.fib: - Continue ASA, Lipitor, Lopressor w/ hold parameters, Lasix 20 mg p.o. daily - Last ECHO 08/2017- EF 55-60%, grade I diastolic CHF GERD: Protonix daily Right knee total knee contusion with pain: local measures and pain control DVT ppx with h/o DVT: Lovenox 100 mg SQ BID CODE STATUS: Full - pt would like to discuss with his and have prognosis discussion with heme/onc as he would want quality of life. Disposition: PT/OT ty, from [facility] I personally interviewed and examined the patient. I agree with history of present illness and physical exam mentioned above, I also performed my own history taking and examination. Past medical history and review of system has been obtained by myself I reviewed all pertinent labs and studies Reviewed current medications I discussed and formulated of the assessment and plan mentioned above. Please refer to the Summary mentioned below. 82-year-old man with medical history of T-cell large granular lymphocytic leukemia and chronic diastolic congestive heart failure. Patient has been having drops and his hemoglobin supported by intermittent blood transfusions. Was sent to the hospital as he was found on blood work to have hemoglobin of 6.6. He has been having significant weakness and shortness of breath. His right lower extremity is tender he also has swollen with pitting edema +3 in both lower extremities. Patient was admitted for irradiated blood transfusion. On physical exam he noticed to have acute on chronic diastolic congestive heart failure that might be contributing to some of his anemia by dilution. Also LDH was ordered to rule out hemolytic element to his anemia His Lasix p.o. was held, he was started on low-dose Lasix drip giving his borderline low blood pressure. Calculate I/O's Consult inspector receiving for further investigating the cause of his persistent anemia, and to look at benefits versus risks of his anticoagulation. Ultrasound right lower extremity was ordered to rule out DVT, despite of being on Lovenox could represent Lovenox failure. General Appearance: not in acute distress, but appears extremely weak Eyes: normal Sclerae, extraocular muscle intact ENT: hearing grossly normal Neck: supple Respiratory/Chest: normal air entry bilateral ,no respiratory distress, no accessory muscle use Cardiovascular: regular rate, rhythm,4/6 pansystolic murmur left parasternal Abdomen: non tender, soft, no masses Extremities: +3 pitting edema, pain in right lower extremity musculoskeletal: no significant swelling or inflammation in any joint Neurologic/Psychiatric: Awake alert oriented times place and person moves all extremities sensation intact cranial nerves II-12 appear to be intact Skin: normal color, warm/dry, no rash Jovana Aguilar MD, [facility] Resuscitation Status VTE Prophylaxis Will order VTE Prophylaxis: Yes
[2017-11-03] MEDS ORDERED: FUROSEMIDE INJ 100 MG in DEXTROSE 5% 100ML 90 ML IV SCH (18:00)
[2017-11-03] MEDS: POTASSIUM CHLORIDE 20 MEQ TABCR PO SCH (18:23)
[2017-11-03] MEDS: METOPROLOL TARTRATE 25 MG TAB PO SCH (19:28)
[2017-11-03] MEDS: ENOXAPARIN 100 MG/1ML SYR SC SCH (19:29)
[2017-11-03] MEDS: TRAMADOL HCL 50 MG TAB PO PRN (22:20)
[2017-11-03] MEDS: COLESTIPOL HCL 1 GM TAB PO SCH (22:20)
[2017-11-04] VITALS (7 sets, daily range): BP systolic 104–148; BP diastolic 60–76; PULSE 65–82; TEMP 36.3–36.9; O2SAT 93–99; Ht 182.9 cm; Wt 105.8 kg
[2017-11-04 06:30] LABS: EOS % 0.3 %; EOS ABS # 0.01 K/uL (0-0.5); HEMATOCRIT 24.1 % (42-52); HEMOGLOBIN 8.3 g/dL (14.0-18.0); IG# 0.04 K/uL (0.00-0.02); LYMPH % 33.7 %; LYMPH ABS # 1.19 K/uL (1.2-3.4); MEAN CELL VOLUME 94.9 fL (80-100); MEAN CORPUSCULAR HEMOGLOBIN 32.7 pg (25-34); MEAN CORPUSCULAR HGB CONC 34.4 g/dl (32-36); MEAN PLATELET VOLUME 9.4 fL (7.4-10.4); MONO % 7.6 %; MONO ABS # 0.27 K/uL (0.11-0.59); NEUT % 57.3 %; NEUT ABS # 2.02 K/uL (1.4-6.5); NUCLEATED RED BLOOD CELL ABS 0.05 K/uL (0-0); PLATELET COUNT 192 K/uL (130-400); RED CELL DISTRIBUTION WIDTH SD 66.6 fL (36.4-46.3); WHITE BLOOD COUNT 3.53 K/uL (4.8-10.8)
--- NOTE | 2017-11-04 07:00 | DIAGNOSTIC IMAGING REPORT ---
ULTRASOUND RIGHT LOWER EXTREMITY VENOUS CLINICAL HISTORY: Calf pain. Right leg swelling. COMPARISON STUDY: Bilateral lower extremity venous ultrasound dated 09/04/2017. TECHNIQUE: Real-time, grayscale, and color Doppler sonography of the deep veins of the right lower extremity was performed from the inguinal crease to the calf. Compression and augmentation were utilized. FINDINGS: There is no sonographic evidence of deep venous thrombosis identified in the right lower extremity. The common femoral, superficial femoral, and popliteal veins are patent and normally compressible. The greater saphenous vein and the profunda femoris vein at the junction with the common femoral vein are clear. The visualized calf veins are patent. There is a complex nonvascular collection in the medial right calf which measures 15.7 x 6.0 x 6.3 cm. IMPRESSION: 1. There is no sonographic evidence of deep venous thrombosis identified in the right lower extremity. 2. There is a large complex nonvascular collection in medial right calf, typical in appearance for a resolving hematoma. Abscess would be impossible to exclude. Clinical correlation will be essential and clinical follow-up to resolution is recommended. Electronically signed by: Julien Palacio M.D. 11/04/2017 6:58 AM Dictated Date/Time: 11/04/2017 6:57 AM
[2017-11-04 07:11] LABS: CALCIUM 8.3 mg/dl (8.5-10.1); CREATININE 0.76 mg/dl (0.60-1.40); POTASSIUM 3.4 mmol/L (3.5-5.1)
[2017-11-04] MEDS: ATORVASTATIN 10 MG TAB PO SCH (08:33)
[2017-11-04] MEDS: CEROVITE ADV FORMULA TAB PO SCH (08:34)
[2017-11-04] MEDS: ASPIRIN 81 MG ECTAB PO SCH (08:34)
[2017-11-04] MEDS: ENOXAPARIN 100 MG/1ML SYR SC SCH ×2 (08:35→19:53)
[2017-11-04] MEDS: PANTOprazole SOD 40 MG TAB PO SCH (08:35)
[2017-11-04] MEDS: POTASSIUM CHLORIDE 20 MEQ TABCR PO SCH ×2 (08:40→18:06)
[2017-11-04] MEDS: METOPROLOL TARTRATE 25 MG TAB PO SCH ×2 (08:42→19:53)
[2017-11-04] MEDS: TRAMADOL HCL 50 MG TAB PO PRN ×2 (08:50→19:53)
[2017-11-04] MEDS ORDERED: FUROSEMIDE 40 MG TAB PO SCH (09:00)
[2017-11-04] MEDS ORDERED: POTASSIUM CHLORIDE 10 MEQ TABCR PO ONE (09:15)
[2017-11-04] MEDS: COLESTIPOL HCL 1 GM TAB PO SCH ×2 (10:08→21:53)
[2017-11-04] MEDS: ACETAMINOPHEN 325 MG TAB PO PRN (10:14)
--- NOTE | 2017-11-04 11:17 | Hospitalist Progress Note ---
Hospitalist Progress Note Date of Service Nov 04, 2017. (Trixie Sands ., TK) Subjective Pt evaluation today including: conversation w/ patient, physical exam, chart review, lab review, review of inpatient medication list Voiding: no voiding problems Mr. Merlos is having some pain in his right lower extremity, he states this began hurting after working with physical therapy on knee exercise Thursday night but otherwise did not have any trauma to his leg. He otherwise does not have complaints. He was not particularly symptomatic when he was alerted to his low blood count but has had multiple recent health issues so has not been feeling great lately overall. ROS Constitutional: no chills, aches, sweats or fever Respiratory: no sob,cough, sputum, or wheezing Cardiac: no chest pain, palpitations, edema, orthopnea or lightheadedness GI: no abdominal pain, nausea, vomiting, diarrhea or constipation : no dysuria or hesitancy Extremities: see HPI Skin: no rash All other systems reviewed and negative (Trixie Sands CRNP) Medications Medications Administered Medications (Trade) Dose Ordered Sig/Rosendo Route Start Time Stop Time Status Last Admin Dose Admin Fentanyl Citrate (Fentanyl Inj) 50 mcg NOW ONCE IV 11/03/17 13:15 11/03/17 13:16 DC 11/03/17 13:21 50 MCG Acetaminophen (Tylenol Tab) 650 mg NOW STAT PO 11/03/17 13:01 11/03/17 13:02 DC 11/03/17 13:21 650 MG Calcium Carbonate (Tums Chew Tab) 1,500 mg ONE STAT PO 11/03/17 13:53 11/03/17 13:54 DC 11/03/17 14:23 1,500 MG Acetaminophen (Tylenol Tab) 650 mg Q4H PRN PO 11/03/17 15:45 12/03/17 15:44 11/04/17 10:14 650 MG Aspirin (Ecotrin Tab) 81 mg DAILY PO 11/04/17 08:00 12/04/17 08:59 11/04/17 08:34 81 MG Atorvastatin Calcium (Lipitor Tab) 10 mg DAILY PO 11/04/17 08:00 12/04/17 08:59 11/04/17 08:33 10 MG Colestipol HCl (Colestid Tab) 1 gm BID@1000,2200 PO 11/03/17 22:00 12/03/17 21:59 11/04/17 10:08 1 GM Metoprolol Tartrate (Lopressor Tab) 12.5 mg BID PO 11/03/17 20:00 12/03/17 20:59 11/04/17 08:42 12.5 MG Multivitamins/ Minerals (Multivitamin W/ Minerals Tab) 1 tab QAM PO 11/04/17 08:00 12/04/17 08:59 11/04/17 08:34 1 TAB Pantoprazole Sodium (Protonix Tab) 40 mg DAILY PO 11/04/17 08:00 12/04/17 08:59 11/04/17 08:35 40 MG Potassium Chloride (Klor-Con Tab) 20 meq QD@1700 PO 11/03/17 17:00 12/03/17 16:59 11/03/17 18:23 20 MEQ Potassium Chloride (Klor-Con Tab) 80 meq DAILY PO 11/04/17 08:00 12/04/17 08:59 11/04/17 08:40 80 MEQ Prednisone (PredniSONE TAB) 40 mg DAILY PO 11/04/17 08:00 12/04/17 08:59 11/04/17 08:34 40 MG Tramadol HCl (Ultram Tab) 50 mg Q4H PRN PO 11/03/17 15:45 12/03/17 15:44 11/04/17 08:50 50 MG Enoxaparin Sodium (Lovenox Inj) 100 mg BID SC 11/03/17 20:00 12/03/17 20:59 11/04/17 08:35 100 MG Furosemide 100 mg/ Dextrose 100 ml @ 3 mls/hr Q24H IV 11/03/17 18:00 12/03/17 17:59 11/04/17 00:57 3 MLS/HR Potassium Chloride (Klor-Con M10) 40 meq NOW ONCE PO 11/04/17 09:15 11/04/17 09:16 DC 11/04/17 10:08 40 MEQ (Trixie Sands, TK) Objective Vital Signs Date Time Temp Pulse Resp B/P (MAP) Pulse Ox O2 Delivery O2 Flow Rate FiO2 11/04/17 07:40 36.6 82 18 148/73 (98) 93 11/04/17 04:21 36.9 65 20 133/67 (89) 97 Room Air 11/04/17 01:42 Room Air 11/03/17 23:46 36.3 60 16 176/75 97 11/03/17 23:45 36.3 60 16 176/75 (108) 97 Room Air 11/03/17 23:08 36.3 63 18 120/60 (80) 99 Room Air 11/03/17 22:46 36.6 63 18 107/64 98 11/03/17 22:15 36.3 61 18 96/46 95 11/03/17 21:48 36.7 64 18 105/64 97 11/03/17 21:18 36.6 66 18 101/56 96 11/03/17 21:02 36.7 61 18 109/63 97 11/03/17 20:46 36.7 68 18 96/51 97 11/03/17 19:31 36.3 63 18 93/53 96 11/03/17 19:25 Room Air 11/03/17 18:35 36.6 66 20 100/62 99 11/03/17 18:05 36.5 59 20 100/61 99 11/03/17 17:35 36.1 60 18 109/67 99 11/03/17 17:13 36.4 63 19 126/58 97 11/03/17 17:10 36.5 61 23 121/56 96 11/03/17 17:02 36.5 61 23 121/56 96 11/03/17 17:01 121/56 11/03/17 16:56 121/57 11/03/17 16:52 59 19 96 11/03/17 16:51 115/59 11/03/17 16:46 36.7 66 14 114/62 97 11/03/17 16:35 114/62 11/03/17 16:22 58 20 97 11/03/17 15:52 64 19 100 11/03/17 15:31 116/56 11/03/17 15:31 Room Air 11/03/17 15:22 60 99 11/03/17 15:01 115/58 11/03/17 14:52 58 20 97 11/03/17 14:32 108/59 11/03/17 14:22 68 11 100 11/03/17 14:17 62 19 98 11/03/17 13:47 61 19 97 11/03/17 13:17 62 21 96 11/03/17 13:03 98 Room Air 11/03/17 12:52 68 11/03/17 12:47 71 17 100 11/03/17 12:24 36.9 68 18 101/50 98 Room Air 11/03/17 12:20 101/50 (Trixie Sands CRNP) Physical Exam Notes: General: no distress Eyes: normal inspection, PERLL Respiratory: chest non tender, clear to auscultation, normal breath sounds, no respiratory distress, no accessory muscle use Cardiac: regular rate and rhythm, no rub or gallop, no murmur,+3 pitting edema bilateral lower extremities, left elbow edema GI/: active bowel sounds, no abd pain or tenderness, soft, non distended Extremities: normal range of motion, normal strength, non tender Neuro/Psych: alert and oriented x 3, normal mood and affect Skin: normal color, dry, bilateral pvd skin changes lower extremity, right lower extremity with erythema over valencia that does not extend to the posterior leg, no drainage, skin is slightly warm but not hot (Trixie Sands CRNP) Laboratory Results Last 24 Hours Test 11/03/17 12:30 11/04/17 05:26 White Blood Count 4.29 K/uL 3.53 K/uL Red Blood Count 2.07 M/uL 2.54 M/uL Hemoglobin 6.6 g/dL 8.3 g/dL Hematocrit 20.2 % 24.1 % Mean Corpuscular Volume 97.6 fL 94.9 fL Mean Corpuscular Hemoglobin 31.9 pg 32.7 pg Mean Corpuscular Hemoglobin Concent 32.7 g/dl 34.4 g/dl Platelet Count 223 K/uL 192 K/uL Mean Platelet Volume 9.1 fL 9.4 fL Neutrophils (%) (Auto) 67.9 % 57.3 % Lymphocytes (%) (Auto) 24.0 % 33.7 % Monocytes (%) (Auto) 5.8 % 7.6 % Eosinophils (%) (Auto) 0.2 % 0.3 % Basophils (%) (Auto) 0.2 % 0.0 % Neutrophils # (Auto) 2.91 K/uL 2.02 K/uL Lymphocytes # (Auto) 1.03 K/uL 1.19 K/uL Monocytes # (Auto) 0.25 K/uL 0.27 K/uL Eosinophils # (Auto) 0.01 K/uL 0.01 K/uL Basophils # (Auto) 0.01 K/uL 0.00 K/uL RDW Standard Deviation 85.4 fL 66.6 fL RDW Coefficient of Variation 27.4 % 25.0 % Immature Granulocyte % (Auto) 1.9 % 1.1 % Immature Granulocyte # (Auto) 0.08 K/uL 0.04 K/uL Nucleated RBC Absolute Count (auto) 0.09 K/uL 0.05 K/uL Nucleated Red Blood Cells % 2.1 % 1.4 % Anisocytosis PRESENT PRESENT Prothrombin Time 11.4 SECONDS Prothromb Time International Ratio 1.1 Activated Partial Thromboplast Time 30.6 SECONDS Partial Thromboplastin Ratio 1.2 Sodium Level 137 mmol/L 135 mmol/L Potassium Level 4.5 mmol/L 3.4 mmol/L Chloride Level 104 mmol/L 102 mmol/L Carbon Dioxide Level 25 mmol/L 26 mmol/L Anion Gap 8.0 mmol/L 7.0 mmol/L Blood Urea Nitrogen 20 mg/dl 21 mg/dl Creatinine 0.74 mg/dl 0.76 mg/dl Est Creatinine Clear Calc Drug Dose 93.6 ml/min 89.9 ml/min Estimated GFR () 98.2 97.1 Estimated GFR (Non- 84.7 83.8 BUN/Creatinine Ratio 26.6 27.8 Random Glucose 126 mg/dl 91 mg/dl Calcium Level 8.2 mg/dl 8.3 mg/dl Pro-B-Type Natriuretic Peptide 684 pg/ml Lactate Dehydrogenase 334 U/L (Trixie Sands, TK) Assessment and Plan Mr. Merlos is a very pleasant 82 year old man with PMHx of large granular lymphocytic leukemia, hyponatremia, diastolic CHF, HLD, h/o DVT, paroxysmal a.fib, and GERD. 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 Porter, which were unremarkable - during recent hospitalization vitamin B12, folate acid, ferritin, iron panels, stool Hemoccult were negative or unremarkable - pt had underwent GI bleeding scan per heme/onc - consulted heme/onc - hold methotrexate - per outpt records pt has been on for 4 months without much response so discussion regarding oral Cytoxan was held and pt consented. He has not yet begun this. Approach to this is palliative treatment per Dr. Sanjuana Golden note, - patient wishes to remain full code and does not want to consult palliative care - Trend cbc - hgb 8.3 this am - Type and screen/ transfuse 2 U PRBC irrad at this time, follow am hgb. Transfuse for hgb <8 - caution with volume considering CHF hx. No acute respiratory sx at this time. Continue on lasix gtt for now RLE calf pain, edema right elbow -DVT showed no dvt - pt is currently on lovenox 100 mg BID for hx of DVT - US showed resolving hematoma vs abscess. Will hold off on further imaging for now given patient's description of pain starting after exercises with PT, seems more likely that hematoma is a result of some trauma from that rather than an abscess. However, should the patient have increased redness, fevers or aches and chills, will need to reassess for infectious source of pain. - will send for doppler of right upper extremity due to asymmetrical swelling Chronic hyponatremia - follow especially with transfusions - Na 135 today Hypokalemia - K 3.4, replaced Chronic diastolic CHF- STABLE - Cont lopressor 12.5 mg BID, dc lasix gtt and restart po lasix now that bps have improved. HLD, paroxysmal a.fib: - Continue ASA, Lipitor, Lopressor w/ hold parameters, will discontinue lasix gtt now that bps have improved - restart po lasix - Last ECHO 08/2017- EF 55-60%, grade I diastolic CHF GERD: Protonix daily Left knee total knee contusion with pain due to fall: local measures and pain control DVT ppx with h/o DVT: Lovenox 100 mg SQ BID CODE STATUS: Full Disposition: PT/OT ty, from [facility] (Trixie Sands ., TK) Supervising Note Dr. Polanco I performed a history and physical examination on the patient. I reviewed above note and agree with it. I discussed plan with APC and patient. During my face to face encounter with the patient, I answered all of the patient's questions. No signs of compartment syndrome. Mild tenderness on calf. Does not appear to have cellulitis at this time. (Luis Carlos Polanco M.D.)
[2017-11-04] MEDS ORDERED: FUROSEMIDE 20 MG TAB PO ONE (11:30)
--- NOTE | 2017-11-04 17:52 | Oncology Consultation ---
Oncology/Heme Consultation Date of Consultation: Nov 04, 2017. Attending Physician: Jovana Howard MD Reason for Consultation: Pancytopenia LGL Leukemia RLE hematoma vs cellulitis History of Present Illness Mr. 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 He was recently treated with methotrexate but was not responding. We are in the process of switching to oral Cytoxan. He was admitted yesterday with redness, tenderness, and swelling of his right lower extremity that started a few days before hand. He recalls some tenderness in his calf following some physical therapy he did a day or two prior. He had a doppler ultrasound that was negative for DVT. However, it did appear to show a large, resolving hematoma in his calf. He denies any fevers, chills, or sweats. Past Medical/Surgical History Medical Problems: (1) Anemia Status: Chronic (2) Chronic anemia Status: Acute (3) Exertional dyspnea Status: Acute (4) Flu-like symptoms Status: Acute (5) Leg pain, right Status: Acute (6) Preseptal cellulitis Status: Acute (7) Sepsis Status: Acute (8) Venous insufficiency of right leg Status: Acute (9) Weakness Status: Acute (10) Weakness Status: Acute Family History FHx: breast cancer FHx: colon cancer Social History Smoking Status: Former Smoker (20 years, 3 packs in 1 week. Quit around age 48 ) Drug Use: none Marital Status: Housing Status: lives with significant other Occupation Status: retired Allergies Coded Allergies: No Known Allergies (Unverified , 10/08/17) Home Medications Scheduled Aspirin (Aspirin Ec), 81 MG PO DAILY Atorvastatin (Lipitor), 10 MG PO DAILY Colestipol Hcl (Colestid), 1 GM PO BID Enoxaparin (Lovenox), 100 MG INJ BID Furosemide (Lasix), 20 MG PO DAILY Metoprolol Tartrate (Lopressor) (Lopressor), 12.5 MG PO BID Multivitamins/Minerals (Certavite/Antioxidants), 1 TAB PO QAM Pantoprazole (Protonix), 40 MG PO DAILY Potassium Chloride (Klor-Con M20), 20 MEQ PO QD@1700 Potassium Ext Rel (Klor-Con), 80 MEQ PO DAILY Prednisone (Prednisone), 40 MG PO DAILY Scheduled PRN Acetaminophen (Tylenol), 500 MG PO Q4 PRN for Pain or Fever Tramadol (Ultram), 50 MG PO Q4H PRN for Pain Current Inpatient Medications Current Inpatient Medications Medications (Trade) Dose Ordered Sig/Rosendo Route Start Time Stop Time Status Last Admin Dose Admin Acetaminophen (Tylenol Tab) 650 mg Q4H PRN PO 11/03/17 15:45 12/03/17 15:44 11/04/17 10:14 650 MG Polyethylene (Miralax Powder Packet) 17 gm DAILY PRN PO 11/03/17 15:45 12/03/17 15:44 Ondansetron HCl (Zofran Inj) 4 mg Q6H PRN IV 11/03/17 15:45 12/03/17 15:44 Aspirin (Ecotrin Tab) 81 mg DAILY PO 11/04/17 08:00 12/04/17 08:59 11/04/17 08:34 81 MG Atorvastatin Calcium (Lipitor Tab) 10 mg DAILY PO 11/04/17 08:00 12/04/17 08:59 11/04/17 08:33 10 MG Colestipol HCl (Colestid Tab) 1 gm BID@1000,2200 PO 11/03/17 22:00 12/03/17 21:59 11/04/17 10:08 1 GM Metoprolol Tartrate (Lopressor Tab) 12.5 mg BID PO 11/03/17 20:00 12/03/17 20:59 11/04/17 08:42 12.5 MG Multivitamins/ Minerals (Multivitamin W/ Minerals Tab) 1 tab QAM PO 11/04/17 08:00 12/04/17 08:59 11/04/17 08:34 1 TAB Pantoprazole Sodium (Protonix Tab) 40 mg DAILY PO 11/04/17 08:00 12/04/17 08:59 11/04/17 08:35 40 MG Potassium Chloride (Klor-Con Tab) 20 meq QD@1700 PO 11/03/17 17:00 12/03/17 16:59 11/03/17 18:23 20 MEQ Potassium Chloride (Klor-Con Tab) 80 meq DAILY PO 11/04/17 08:00 12/04/17 08:59 11/04/17 08:40 80 MEQ Prednisone (PredniSONE TAB) 40 mg DAILY PO 11/04/17 08:00 12/04/17 08:59 11/04/17 08:34 40 MG Tramadol HCl (Ultram Tab) 50 mg Q4H PRN PO 11/03/17 15:45 12/03/17 15:44 11/04/17 08:50 50 MG Enoxaparin Sodium (Lovenox Inj) 100 mg BID SC 11/03/17 20:00 12/03/17 20:59 11/04/17 08:35 100 MG Furosemide (Lasix Tab) 20 mg QAM PO 11/05/17 08:00 12/05/17 07:59 Review of Systems Constitutional: No fever, No chills ENT: No unusual epistaxis Respiratory: No cough, No shortness of breath Cardiovascular: No chest pain Abdomen: No pain, No nausea, No vomiting Musculoskeletal: + swelling, + calf pain Neurologic: No weakness, No numbness/tingling Hematologic / Lymphatic: No abnormal bleeding/bruising Physical Exam Date Time Temp Pulse Resp B/P (MAP) Pulse Ox O2 Delivery O2 Flow Rate FiO2 11/04/17 14:11 36.5 74 18 110/74 (86) 94 11/04/17 11:46 99 11/04/17 11:00 36.6 70 18 115/76 (89) 94 11/04/17 08:40 Room Air 11/04/17 07:40 36.6 82 18 148/73 (98) 93 11/04/17 04:21 36.9 65 20 133/67 (89) 97 Room Air 11/04/17 01:42 Room Air 11/03/17 23:46 36.3 60 16 176/75 97 11/03/17 23:45 36.3 60 16 176/75 (108) 97 Room Air 11/03/17 23:08 36.3 63 18 120/60 (80) 99 Room Air 11/03/17 22:46 36.6 63 18 107/64 98 11/03/17 22:15 36.3 61 18 96/46 95 11/03/17 21:48 36.7 64 18 105/64 97 11/03/17 21:18 36.6 66 18 101/56 96 11/03/17 21:02 36.7 61 18 109/63 97 11/03/17 20:46 36.7 68 18 96/51 97 11/03/17 19:31 36.3 63 18 93/53 96 11/03/17 19:25 Room Air 11/03/17 18:35 36.6 66 20 100/62 99 11/03/17 18:05 36.5 59 20 100/61 99 General Appearance: no apparent distress (chronically ill-appearing) ENT: pharynx normal Respiratory/Chest: lungs clear Cardiovascular: regular rate, rhythm Abdomen/GI: non tender, soft Extremities/Musculoskelatal: + pertinent finding (his right calf is erythematous and blanching. It is also markedly edematous with shiny overlying skin. ) Neurologic/Psych: alert, normal reflexes Skin: no rash Laboratory Results Last 24 Hours Test 11/04/17 05:26 White Blood Count 3.53 K/uL Red Blood Count 2.54 M/uL Hemoglobin 8.3 g/dL Hematocrit 24.1 % Mean Corpuscular Volume 94.9 fL Mean Corpuscular Hemoglobin 32.7 pg Mean Corpuscular Hemoglobin Concent 34.4 g/dl Platelet Count 192 K/uL Mean Platelet Volume 9.4 fL Neutrophils (%) (Auto) 57.3 % Lymphocytes (%) (Auto) 33.7 % Monocytes (%) (Auto) 7.6 % Eosinophils (%) (Auto) 0.3 % Basophils (%) (Auto) 0.0 % Neutrophils # (Auto) 2.02 K/uL Lymphocytes # (Auto) 1.19 K/uL Monocytes # (Auto) 0.27 K/uL Eosinophils # (Auto) 0.01 K/uL Basophils # (Auto) 0.00 K/uL RDW Standard Deviation 66.6 fL RDW Coefficient of Variation 25.0 % Immature Granulocyte % (Auto) 1.1 % Immature Granulocyte # (Auto) 0.04 K/uL Nucleated RBC Absolute Count (auto) 0.05 K/uL Nucleated Red Blood Cells % 1.4 % Anisocytosis PRESENT Sodium Level 135 mmol/L Potassium Level 3.4 mmol/L Chloride Level 102 mmol/L Carbon Dioxide Level 26 mmol/L Anion Gap 7.0 mmol/L Blood Urea Nitrogen 21 mg/dl Creatinine 0.76 mg/dl Est Creatinine Clear Calc Drug Dose 89.9 ml/min Estimated GFR () 97.1 Estimated GFR (Non- 83.8 BUN/Creatinine Ratio 27.8 Random Glucose 91 mg/dl Calcium Level 8.3 mg/dl Lactate Dehydrogenase 334 U/L Assessment & Plan Mr. Merlos's leg looks very much like a cellulitis. Given the evidence of hematoma by US, that could also be the issue. However, his leg is somewhat warm and is blanching, which are findings I would not expect of a resolving hematoma. 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 I might consider a course of empiric antibiotics for this reason. Otherwise, I agree with supportive care. He is chronically anemic and often has a hemoglobin in the 7 range. Given the numerous transfusions he has required, I would be more restrictive in our use of blood products in his case. I would only transfuse him for a hemoglobin under 7 or for any symptoms. I would also generally give 1 unit instead of 2.
--- NOTE | 2017-11-04 17:58 | DIAGNOSTIC IMAGING REPORT ---
RIGHT UPPER EXTREMITY VENOUS DOPPLER ULTRASOUND CLINICAL HISTORY: Edema. Previous right upper extremity venous thrombus. COMPARISON STUDY: Right upper extremity venous Doppler ultrasound September 04, 2017. FINDINGS: No venous thrombus is identified within the right upper extremity. The right PICC has been removed. The thrombus shown on exam of September 04, 2017 is no longer visualized. IMPRESSION: No venous thrombus within the right upper extremity. Electronically signed by: Eamon Pop M.D. 11/04/2017 5:57 PM Dictated Date/Time: 11/04/2017 5:56 PM
[2017-11-04] MEDS ORDERED: NURSING DECISION MEDICATION ORDER PRN (23:30)
[2017-11-05] VITALS (7 sets, daily range): BP systolic 90–115; BP diastolic 56–75; PULSE 61–130; TEMP 36.4–36.7; O2SAT 97–99
[2017-11-05] MEDS ORDERED: MICONAZOLE NITRATE POWDER 43 GM EXT PRN (01:00)
[2017-11-05 05:58] LABS: EOS % 0.2 %; EOS ABS # 0.01 K/uL (0-0.5); HEMATOCRIT 25.8 % (42-52); HEMOGLOBIN 8.7 g/dL (14.0-18.0); IG# 0.04 K/uL (0.00-0.02); LYMPH % 46.2 %; LYMPH ABS # 1.94 K/uL (1.2-3.4); MEAN CELL VOLUME 95.9 fL (80-100); MEAN CORPUSCULAR HEMOGLOBIN 32.3 pg (25-34); MEAN CORPUSCULAR HGB CONC 33.7 g/dl (32-36); MEAN PLATELET VOLUME 9.1 fL (7.4-10.4); MONO % 12.4 %; MONO ABS # 0.52 K/uL (0.11-0.59); NEUT % 40.2 %; NEUT ABS # 1.69 K/uL (1.4-6.5); NUCLEATED RED BLOOD CELL ABS 0.05 K/uL (0-0); PLATELET COUNT 194 K/uL (130-400); RED CELL DISTRIBUTION WIDTH CV 25.9 % (11.5-14.5); RED CELL DISTRIBUTION WIDTH SD 73.6 fL (36.4-46.3)
[2017-11-05 06:30] LABS: CALCIUM 8.3 mg/dl (8.5-10.1); CREATININE 0.74 mg/dl (0.60-1.40); POTASSIUM 4.6 mmol/L (3.5-5.1)
[2017-11-05] MEDS: ATORVASTATIN 10 MG TAB PO SCH (08:25)
[2017-11-05] MEDS: ENOXAPARIN 100 MG/1ML SYR SC SCH (08:26)
[2017-11-05] MEDS: PANTOprazole SOD 40 MG TAB PO SCH (08:26)
[2017-11-05] MEDS: CEROVITE ADV FORMULA TAB PO SCH (08:26)
[2017-11-05] MEDS: ASPIRIN 81 MG ECTAB PO SCH (08:27)
[2017-11-05] MEDS: POTASSIUM CHLORIDE 20 MEQ TABCR PO SCH ×2 (08:27→17:18)
[2017-11-05] MEDS: FUROSEMIDE 20 MG TAB PO SCH (08:27)
[2017-11-05] MEDS: METOPROLOL TARTRATE 25 MG TAB PO SCH ×2 (08:28→20:34)
[2017-11-05] MEDS: TRAMADOL HCL 50 MG TAB PO PRN ×2 (08:37→12:44)
[2017-11-05] MEDS: COLESTIPOL HCL 1 GM TAB PO SCH ×3 (10:00→21:54)
[2017-11-05] MEDS ORDERED: VANCOMYCIN CONSULT ACTIVE PRN (10:00)
[2017-11-05] MEDS ORDERED: EPOETIN ALFA 40,000 UNITS/ML VIAL SQ ONE (10:15)
[2017-11-05] MEDS: ACETAMINOPHEN 325 MG TAB PO PRN (10:41)
[2017-11-05] MEDS ORDERED: VANCOMYCIN IV 2,500 MG in SODIUM CHLORIDE 0.9% 500ML 500 ML IV ONE (11:00)
--- NOTE | 2017-11-05 13:34 | Hospitalist Progress Note ---
Hospitalist Progress Note Date of Service Nov 05, 2017. (Trixie Sands ., TK) Subjective Pt evaluation today including: conversation w/ patient, physical exam, chart review, lab review, conversation w/ consumer services consultant (general surgery) Voiding: no voiding problems Mr. Merlos is having worsening pain of his right lower extremity. He otherwise denies other symptoms. ROS Constitutional: no chills, aches, sweats or fever Respiratory: no sob,cough, sputum, or wheezing Cardiac: no chest pain, palpitations, edema, orthopnea or lightheadedness GI: no abdominal pain, nausea, vomiting, diarrhea or constipation : no dysuria or hesitancy Extremities: see HPI Skin: no rash All other systems reviewed and negative (Trixie Sands CRNP) Medications Medications Administered Medications (Trade) Dose Ordered Sig/Rosendo Route Start Time Stop Time Status Last Admin Dose Admin Fentanyl Citrate (Fentanyl Inj) 50 mcg NOW ONCE IV 11/03/17 13:15 11/03/17 13:16 DC 11/03/17 13:21 50 MCG Acetaminophen (Tylenol Tab) 650 mg NOW STAT PO 11/03/17 13:01 11/03/17 13:02 DC 11/03/17 13:21 650 MG Calcium Carbonate (Tums Chew Tab) 1,500 mg ONE STAT PO 11/03/17 13:53 11/03/17 13:54 DC 11/03/17 14:23 1,500 MG Acetaminophen (Tylenol Tab) 650 mg Q4H PRN PO 11/03/17 15:45 12/03/17 15:44 11/05/17 10:41 650 MG Aspirin (Ecotrin Tab) 81 mg DAILY PO 11/04/17 08:00 12/04/17 08:59 11/05/17 08:27 81 MG Atorvastatin Calcium (Lipitor Tab) 10 mg DAILY PO 11/04/17 08:00 12/04/17 08:59 11/05/17 08:25 10 MG Colestipol HCl (Colestid Tab) 1 gm BID@1000,2200 PO 11/03/17 22:00 12/03/17 21:59 11/04/17 21:53 1 GM Metoprolol Tartrate (Lopressor Tab) 12.5 mg BID PO 11/03/17 20:00 5/24/18 20:59 11/05/17 08:28 12.5 MG Multivitamins/ Minerals (Multivitamin W/ Minerals Tab) 1 tab QAM PO 11/04/17 08:00 12/04/17 08:59 11/05/17 08:26 1 TAB Pantoprazole Sodium (Protonix Tab) 40 mg DAILY PO 11/04/17 08:00 12/04/17 08:59 11/05/17 08:26 40 MG Potassium Chloride (Klor-Con Tab) 20 meq QD@1700 PO 11/03/17 17:00 12/03/17 16:59 11/04/17 18:06 20 MEQ Potassium Chloride (Klor-Con Tab) 80 meq DAILY PO 11/04/17 08:00 12/04/17 08:59 11/05/17 08:27 80 MEQ Prednisone (PredniSONE TAB) 40 mg DAILY PO 11/04/17 08:00 12/04/17 08:59 11/05/17 08:26 40 MG Tramadol HCl (Ultram Tab) 50 mg Q4H PRN PO 11/03/17 15:45 12/03/17 15:44 11/05/17 12:44 50 MG Enoxaparin Sodium (Lovenox Inj) 100 mg BID SC 11/03/17 20:00 12/03/17 20:59 Future Hold 11/05/17 08:26 100 MG Furosemide 100 mg/ Dextrose 100 ml @ 3 mls/hr Q24H IV 11/03/17 18:00 11/04/17 11:15 DC 11/04/17 00:57 3 MLS/HR Potassium Chloride (Klor-Con M10) 40 meq NOW ONCE PO 11/04/17 09:15 11/04/17 09:16 DC 11/04/17 10:08 40 MEQ Furosemide (Lasix Tab) 20 mg QAM PO 11/05/17 08:00 12/05/17 07:59 11/05/17 08:27 20 MG Furosemide (Lasix Tab) 20 mg 1130 ONCE PO 11/04/17 11:30 11/04/17 11:31 DC 11/04/17 11:50 20 MG Vancomycin HCl 2500 mg/Sodium Chloride 550 ml @ 200 mls/hr 1100 ONCE IV 11/05/17 11:00 11/05/17 13:44 11/05/17 11:16 200 MLS/HR Epoetin Andrea (Procrit Inj) 40,000 units ONE ONCE SQ 11/05/17 10:15 11/05/17 10:33 DC 11/05/17 11:31 40,000 UNITS (Trixie Sands CRNP) Objective Vital Signs Date Time Temp Pulse Resp B/P (MAP) Pulse Ox O2 Delivery O2 Flow Rate FiO2 11/05/17 11:32 36.6 130 20 114/68 (83) 97 11/05/17 07:57 36.4 69 18 115/75 (88) 97 Room Air 11/05/17 04:52 36.7 61 20 100/66 (77) 99 Room Air 11/05/17 00:00 Room Air 11/04/17 23:23 36.8 69 20 104/65 (78) 97 Room Air 11/04/17 19:11 36.3 80 20 117/74 (88) 97 Room Air 11/04/17 16:00 Room Air 11/04/17 14:11 36.5 74 18 110/74 (86) 94 (Trixie Sands CRNP) Physical Exam Notes: General: no distress Eyes: normal inspection, PERLL Respiratory: chest non tender, clear to auscultation, normal breath sounds, no respiratory distress, no accessory muscle use Cardiac: regular rate and rhythm, no rub or gallop, no murmur, +3 pitting edema bilaterally GI/: active bowel sounds, no abd pain or tenderness, soft, non distended Extremities: left lower extremity warm to touch, erythematous with taught skin all the way around the leg, very painful to manipulation. Neuro/Psych: alert and oriented x 3, normal mood and affect Skin: normal color, dry (Trixie Sands CRNP) Laboratory Results Last 24 Hours Test 11/05/17 05:33 White Blood Count 4.20 K/uL Red Blood Count 2.69 M/uL Hemoglobin 8.7 g/dL Hematocrit 25.8 % Mean Corpuscular Volume 95.9 fL Mean Corpuscular Hemoglobin 32.3 pg Mean Corpuscular Hemoglobin Concent 33.7 g/dl Platelet Count 194 K/uL Mean Platelet Volume 9.1 fL Neutrophils (%) (Auto) 40.2 % Lymphocytes (%) (Auto) 46.2 % Monocytes (%) (Auto) 12.4 % Eosinophils (%) (Auto) 0.2 % Basophils (%) (Auto) 0.0 % Neutrophils # (Auto) 1.69 K/uL Lymphocytes # (Auto) 1.94 K/uL Monocytes # (Auto) 0.52 K/uL Eosinophils # (Auto) 0.01 K/uL Basophils # (Auto) 0.00 K/uL RDW Standard Deviation 73.6 fL RDW Coefficient of Variation 25.9 % Immature Granulocyte % (Auto) 1.0 % Immature Granulocyte # (Auto) 0.04 K/uL Nucleated RBC Absolute Count (auto) 0.05 K/uL Nucleated Red Blood Cells % 1.1 % Anisocytosis PRESENT Microcytosis PRESENT Sodium Level 135 mmol/L Potassium Level 4.6 mmol/L Chloride Level 105 mmol/L Carbon Dioxide Level 28 mmol/L Anion Gap 2.0 mmol/L Blood Urea Nitrogen 27 mg/dl Creatinine 0.74 mg/dl Est Creatinine Clear Calc Drug Dose 92.4 ml/min Estimated GFR () 98.2 Estimated GFR (Non- 84.7 BUN/Creatinine Ratio 36.1 Random Glucose 106 mg/dl Calcium Level 8.3 mg/dl (Trixie Sands, TK) Assessment and Plan Mr. Merlos is a very pleasant 82 year old man with PMHx of large granular lymphocytic leukemia, hyponatremia, diastolic CHF, HLD, h/o DVT, paroxysmal a.fib, and GERD. Pt presented with acute on chronic anemia secondary to leukemia Acute on chronic anemia, severe anemia with Hgb 6.6 upon admission T-cell Large granular lymphocytic leukemia dx 05/08/17 - Was recently admitted October 21- for same issues and was transfused 3 units radiated PRBCs - Pt appears to be transfusion dependent and will likely require wkly hgb checks - at time of last dc pt 10/27/17 was 8.7 - Patient reported has comprehensive evaluations which include several upper and lower GI evaluation from [facility] in [place] by Dr. Porter, which were unremarkable - during recent hospitalization vitamin B12, folate acid, ferritin, iron panels, stool Hemoccult were negative or unremarkable - pt had underwent GI bleeding scan per heme/ onc - consulted heme/onc - hold methotrexate - per outpt records pt has been on for 4 months without much response so discussion regarding oral Cytoxan was held and pt consented. He has not yet begun this. Approach to this is palliative treatment per Dr. Sanjuana Golden note, - patient wishes to remain full code and does not want to consult palliative care - Trend cbc - hgb 8.7 this am - Type and screen/ transfuse 2 U PRBC irrad 11/04. Per heme onc rec, transfuse for hgb less than 7 and only 1 unit at a time as patient will likely be transfusion dependent from here on out RLE calf pain, edema right elbow - US showed resolving hematoma vs abscess, no dvt, with increased erythema and pain today - repeat US, consulted general surgery who is bedside to see patient and will follow up with recs, started Vanc and Unasyn as patient is immunocompromised due to leukemia - Surgery took patient for needle aspiration - Ultrasound guided aspiration of 45 cc of serosanguineous fluid from a medial right calf fluid collection suggestive of a hematoma. Fluid sent to the laboratory for analysis. - pt is currently on lovenox 100 mg BID for hx of DVT - will hold for now - pain control, leg elevation and compression or right leg - doppler of right upper extremity negative for dvt Chronic hyponatremia - follow especially with transfusions - Na 135 today Hypokalemia - K 3.4, replaced Chronic diastolic CHF- STABLE - Cont lopressor 12.5 mg BID, dc'd lasix gtt and restart po lasix now that bps have improved. HLD, paroxysmal a.fib: - Continue ASA, Lipitor, Lopressor w/ hold parameters, will discontinue lasix gtt now that bps have improved - restart po lasix - Last ECHO 08/2017- EF 55-60%, grade I diastolic CHF GERD: Protonix daily Left knee total knee contusion with pain due to fall: local measures and pain control DVT ppx with h/o DVT: Lovenox 100 mg SQ BID CODE STATUS: Full Disposition: PT/OT ty, with plans for Bre Stoner (Trixie Sands, TK) Supervising Note Dr. Polanco I performed a history and physical examination on the patient. I reviewed above note and agree with it. I discussed plan with APC and patient. During my face to face encounter with the patient, I answered all of the patient's questions. Affected leg appears more tight today. With some warmth to palpation. Concern over possible compartment syndrome, will consult gen surgery. Placed patient on antibiotics for possible cellulitis. (Luis Carlos Polanco M.D.)
[2017-11-05] MEDS: AMPICILLIN/SULBACTAM SOD INJ 3,000 MG in SODIUM CHLORIDE 0.9% 100ML 100 ML IV SCH ×2 (13:53→20:25)
[2017-11-05] MEDS ORDERED: CEFTAZIDIME IV 1 GM in DEXTROSE 5% ADD-VANTAGE 50ML 50 ML IV SCH (14:00)
[2017-11-05] MEDS: MoRPHine SULFATE 2 MG/ML CARP IV PRN (14:31)
--- NOTE | 2017-11-05 14:38 | Pharmacy Progress Note ---
Pharmacy Abx Initial Consult Date of Service Nov 05, 2017. Pharmacy Dosing Scope Date of Consult: 11/05/17 Consultation requested by: Jimena Sands Pharmacy is consulted to initiate vancomycin IV dosing therapy, order appropriate labs and adjust drug dose/frequency. Subjective The patient is a 82 year old male admitted on Nov 03, 2017 at 15:57. Objective Height (Feet): 6 Height (Inches): 0.00 Weight (Kilograms): 98.800 Vital Signs (Past 12Hrs) Vital Signs Past 12 Hours Date Time Temp Pulse Resp B/P (MAP) Pulse Ox O2 Delivery O2 Flow Rate FiO2 11/05/17 11:32 36.6 130 20 114/68 (83) 97 11/05/17 08:40 Room Air 11/05/17 07:57 36.4 69 18 115/75 (88) 97 Room Air 11/05/17 04:52 36.7 61 20 100/66 (77) 99 Room Air Lab Results (24Hrs) Laboratory Tests (24 Hours) Test 11/05/17 05:33 White Blood Count 4.20 K/uL (4.8-10.8) L Red Blood Count 2.69 M/uL (4.7-6.1) L Hemoglobin 8.7 g/dL (14.0-18.0) L Hematocrit 25.8 % (42-52) L Mean Corpuscular Volume 95.9 fL (80-100) Mean Corpuscular Hemoglobin 32.3 pg (25-34) Mean Corpuscular Hemoglobin Concent 33.7 g/dl (32-36) Platelet Count 194 K/uL (130-400) Mean Platelet Volume 9.1 fL (7.4-10.4) Neutrophils (%) (Auto) 40.2 % Lymphocytes (%) (Auto) 46.2 % Monocytes (%) (Auto) 12.4 % Eosinophils (%) (Auto) 0.2 % Basophils (%) (Auto) 0.0 % Neutrophils # (Auto) 1.69 K/uL (1.4-6.5) Lymphocytes # (Auto) 1.94 K/uL (1.2-3.4) Monocytes # (Auto) 0.52 K/uL (0.11-0.59) Eosinophils # (Auto) 0.01 K/uL (0-0.5) Basophils # (Auto) 0.00 K/uL (0-0.2) Risk Factors for Resistance * Hospitalization for 48 hours or more within the past 90 days * Immunocompromised (chronic steroid therapy, chemotherapy, immunomodulators) * Antimicrobial use within the last 90 days : vancomycin + Rocephin in 09/2017 for preseptal cellulitis Assessment & Plan Assessment 82 year old male with history of T-cell large granular lymphocytic leukemia, admitted with acute on chronic anemia and R calf pain. DVT has been ruled out and antibiotics are being initiated for possible RLE cellulitis/abscess. Broad spectrum antibiotics are being initiated d/t risk factors for drug resistant organisms as noted above. Plan Vancomycin IV * From previous dosing, 1500 mg IV q10h produced a supratherapeutic level on one admission but a therapeutic level on a previous admission. Current weight is somewhat lower than previous weights, but patient was just on a Lasix drip. Will plan to use current weight but extend dosing interval. * Loading dose: 2500 mg (25 mg/kg) * Maintenance dose: 1500 mg IV (15.2 mg/kg) every 12 hours * Goal trough level for cellulitis/abscess with possible MRSA : ~15 mcg/mL * Trough level ordered for 11/07/17 prior to the 5th dose Unasyn * Not being dosed by pharmacy but is appropriate for renal function Pharmacy will continue to follow and will adjust dose/frequency as necessary. Thank you.
--- NOTE | 2017-11-05 15:02 | DIAGNOSTIC IMAGING REPORT ---
RIGHT LEG ULTRASOUND CLINICAL HISTORY: right leg edema/erythema COMPARISON STUDY: Right lower extremity venous Doppler 11/04/2017. FINDINGS: There is again noted a 17 x 10 x 5 cm complex fluid collection within the right calf. This appears to be deep to the subcutaneous fat but not clearly intramuscular. There is no internal color flow. This has slightly increased in size. IMPRESSION: Slight increase in size in a 17 x 10 x 5 cm complex fluid collection within the right calf. This favors a hematoma. An abscess would be considered less likely but not entirely excluded by ultrasound. The location of this fluid collection raises the possibility of a degloving injury. Electronically signed by: Trace Goldsmith M.D. 11/05/2017 3:01 PM Dictated Date/Time: 11/05/2017 2:59 PM
--- NOTE | 2017-11-05 16:31 | Surgery Consultation ---
Consultation Date of Consultation: Nov 05, 2017. Attending Physician: Jovana Howard MD Reason for Consultation: Right lower extremity hematoma vs abscess (Keena Avila PA-C) History of Present Illness Emory is an 82 yo M with PMHx of T-cell large granular lymphocytic leukemia, hyponatremia, diastolic CHF, hx NSTEMI, HLD, h/o DVT on lovenox inj, paroxysmal a.fib, and GERD. Patient presented to emergency department yesterday with hemoglobin of 6.6 in the setting of acute on chronic anemia in the setting of Leukemia. Pt noted acute onset of a tight calf pain which started last Thursday, which has been so painful recently that he has not ambulating. He denies any injury sustained to the leg and has been taking tramadol/Tylenol for pain relief however it is not significantly helping. Our services consulted as patient was complaining of increasing pain in his right lower extremity with redness and increasing edema. Emory again denies of any injury to his right lower extremity. States he was working with PT and was doing knee bending exercises and then next morning he noticed pain in the calf. Sustained a fall and has a hematoma of the left lower extremity which is stable. US of the right lower extremity 11/04/2017: There is a large complex nonvascular collection in medial right calf, typical in appearance for a resolving hematoma. Abscess would be impossible to exclude. Clinical correlation will be essential and clinical follow-up to resolution is recommended. Repeat US of the right lower extremity today: IMPRESSION: Slight increase in size in a 17 x 10 x 5 cm complex fluid collection within the right calf. This favors a hematoma. An abscess would be considered less likely but not entirely excluded by ultrasound. The location of this fluid collection raises the possibility of a degloving injury. (Keena Avila PA-C) Past Medical/Surgical History Medical Problems: (1) Anemia (2) T-cell large granular lymphocytic leukemia (3) Hyponatremia (4) Diastolic CHF (5) NSTEMI (6) Hyperlipidemia (7) Left eye cellulitis (8) GERD (Keena Avila PA-C) Family History FHx: breast cancer FHx: colon cancer (Keena Avila PA-C) FHx: breast cancer FHx: colon cancer (Pranav Moss M.D.) Social History Smoking Status: Former Smoker (20 years, 3 packs in 1 week. Quit around age 48 ) Drug Use: none Marital Status: Housing Status: lives with significant other Occupation Status: retired (Keena Avila ., [employer]) Allergies Coded Allergies: No Known Allergies (Unverified , 10/08/17) Home Medications Scheduled Aspirin (Aspirin Ec), 81 MG PO DAILY Atorvastatin (Lipitor), 10 MG PO DAILY Colestipol Hcl (Colestid), 1 GM PO BID Enoxaparin (Lovenox), 100 MG INJ BID Furosemide (Lasix), 20 MG PO DAILY Metoprolol Tartrate (Lopressor) (Lopressor), 12.5 MG PO BID Multivitamins/Minerals (Certavite/Antioxidants), 1 TAB PO QAM Pantoprazole (Protonix), 40 MG PO DAILY Potassium Chloride (Klor-Con M20), 20 MEQ PO QD@1700 Potassium Ext Rel (Klor-Con), 80 MEQ PO DAILY Prednisone (Prednisone), 40 MG PO DAILY Scheduled PRN Acetaminophen (Tylenol), 500 MG PO Q4 PRN for Pain or Fever Tramadol (Ultram), 50 MG PO Q4H PRN for Pain Current Inpatient Medications Current Inpatient Medications Medications (Trade) Dose Ordered Sig/Rosendo Route Start Time Stop Time Status Last Admin Dose Admin Acetaminophen (Tylenol Tab) 650 mg Q4H PRN PO 11/03/17 15:45 12/03/17 15:44 11/05/17 10:41 650 MG Polyethylene (Miralax Powder Packet) 17 gm DAILY PRN PO 11/03/17 15:45 12/03/17 15:44 Ondansetron HCl (Zofran Inj) 4 mg Q6H PRN IV 11/03/17 15:45 12/03/17 15:44 Aspirin (Ecotrin Tab) 81 mg DAILY PO 11/04/17 08:00 12/04/17 08:59 11/05/17 08:27 81 MG Atorvastatin Calcium (Lipitor Tab) 10 mg DAILY PO 11/04/17 08:00 12/04/17 08:59 11/05/17 08:25 10 MG Colestipol HCl (Colestid Tab) 1 gm BID@1000,2200 PO 11/03/17 22:00 12/03/17 21:59 11/04/17 21:53 1 GM Metoprolol Tartrate (Lopressor Tab) 12.5 mg BID PO 11/03/17 20:00 12/03/17 20:59 11/05/17 08:28 12.5 MG Multivitamins/ Minerals (Multivitamin W/ Minerals Tab) 1 tab QAM PO 11/04/17 08:00 12/04/17 08:59 11/05/17 08:26 1 TAB Pantoprazole Sodium (Protonix Tab) 40 mg DAILY PO 11/04/17 08:00 12/04/17 08:59 11/05/17 08:26 40 MG Potassium Chloride (Klor-Con Tab) 20 meq QD@1700 PO 11/03/17 17:00 12/03/17 16:59 11/04/17 18:06 20 MEQ Potassium Chloride (Klor-Con Tab) 80 meq DAILY PO 11/04/17 08:00 12/04/17 08:59 11/05/17 08:27 80 MEQ Prednisone (PredniSONE TAB) 40 mg DAILY PO 11/04/17 08:00 12/04/17 08:59 11/05/17 08:26 40 MG Tramadol HCl (Ultram Tab) 50 mg Q4H PRN PO 11/03/17 15:45 12/03/17 15:44 11/05/17 12:44 50 MG Enoxaparin Sodium (Lovenox Inj) 100 mg BID SC 11/03/17 20:00 12/03/17 20:59 Future Hold 11/05/17 08:26 100 MG Furosemide (Lasix Tab) 20 mg QAM PO 11/05/17 08:00 12/05/17 07:59 11/05/17 08:27 20 MG Miconazole Nitrate (Desenex Powder) 1 appln PRN PRN EXT 11/05/17 01:00 12/05/17 00:59 Miscellaneous Information (Consult) 1 ea UD PRN N/A 11/05/17 10:00 12/05/17 09:59 Morphine Sulfate (MoRPHine SULFATE INJ) 2 mg Q4H PRN IV 11/05/17 12:45 11/19/17 12:44 11/05/17 14:31 2 MG Ampicillin Sodium/ Sulbactam Sodium 3000 mg/Sodium Chloride 108 ml @ 200 mls/hr Q6H IV 11/05/17 14:00 11/15/17 13:59 11/05/17 13:53 200 MLS/HR Vancomycin HCl 1500 mg/Sodium Chloride 530 ml @ 200 mls/hr Q12H IV 11/06/17 00:00 11/16/17 00:00 (Keena Avila PA-C) Review of Systems Constitutional: No fever, No chills Respiratory: No cough, No shortness of breath Cardiovascular: No chest pain Abdomen: No pain, No nausea, No vomiting, No diarrhea, No constipation Musculoskeletal: + problem reported (right calf pain) Hematologic / Lymphatic: No abnormal bleeding/bruising Integumentary: No rash (Keena Avila PA-C) Physical Exam Date Time Temp Pulse Resp B/P (MAP) Pulse Ox O2 Delivery O2 Flow Rate FiO2 11/05/17 11:32 36.6 130 20 114/68 (83) 97 11/05/17 08:40 Room Air 11/05/17 07:57 36.4 69 18 115/75 (88) 97 Room Air 11/05/17 04:52 36.7 61 20 100/66 (77) 99 Room Air 11/05/17 00:00 Room Air 11/04/17 23:23 36.8 69 20 104/65 (78) 97 Room Air 11/04/17 19:11 36.3 80 20 117/74 (88) 97 Room Air 11/04/17 16:00 Room Air General Appearance: WD/WN, no apparent distress Head: normocephalic, atraumatic Eyes: sclerae normal ENT: hearing grossly normal Neck: trachea midline Back: normal inspection Extremities/Musculoskelatal: + pedal edema (bilaterally +2), + pertinent finding (RLE with cellulitis of the medial calf with +2 pitting edema, tender to palpation. THere is thin skin with blister formation at the anterior valencia. No definitive fluctuance palpated. Tenderness to palpation of the calf) Neurologic/Psych: alert, normal mood/affect, oriented x 3 Skin: normal color, warm/dry (Keena Avila PA-C) Laboratory Results Last 24 Hours Test 4/26/18 05:33 White Blood Count 4.20 K/uL Red Blood Count 2.69 M/uL Hemoglobin 8.7 g/dL Hematocrit 25.8 % Mean Corpuscular Volume 95.9 fL Mean Corpuscular Hemoglobin 32.3 pg Mean Corpuscular Hemoglobin Concent 33.7 g/dl Platelet Count 194 K/uL Mean Platelet Volume 9.1 fL Neutrophils (%) (Auto) 40.2 % Lymphocytes (%) (Auto) 46.2 % Monocytes (%) (Auto) 12.4 % Eosinophils (%) (Auto) 0.2 % Basophils (%) (Auto) 0.0 % Neutrophils # (Auto) 1.69 K/uL Lymphocytes # (Auto) 1.94 K/uL Monocytes # (Auto) 0.52 K/uL Eosinophils # (Auto) 0.01 K/uL Basophils # (Auto) 0.00 K/uL RDW Standard Deviation 73.6 fL RDW Coefficient of Variation 25.9 % Immature Granulocyte % (Auto) 1.0 % Immature Granulocyte # (Auto) 0.04 K/uL Nucleated RBC Absolute Count (auto) 0.05 K/uL Nucleated Red Blood Cells % 1.1 % Anisocytosis PRESENT Microcytosis PRESENT Sodium Level 135 mmol/L Potassium Level 4.6 mmol/L Chloride Level 105 mmol/L Carbon Dioxide Level 28 mmol/L Anion Gap 2.0 mmol/L Blood Urea Nitrogen 27 mg/dl Creatinine 0.74 mg/dl Est Creatinine Clear Calc Drug Dose 92.4 ml/min Estimated GFR () 98.2 Estimated GFR (Non- 84.7 BUN/Creatinine Ratio 36.1 Random Glucose 106 mg/dl Calcium Level 8.3 mg/dl (Keena Avila ., LYDIA-Adriana) Assessment & Plan RLE swelling and hematoma of the medal right calf now with some erythema and concern for abscess formation. Patient has history of DVT and is on Lovenox Injections. Ultrasound yesterday showed a large complex fluid collection of the right calf measuring up to 15 cm. Repeat US today showing slight increase in size in a 17 x 10 x 5 cm complex fluid collection within the right calf. This favors a hematoma. Examination there is cellulitis of the right medial calf with +2 pitting edema and some blister formation on anterior valencia. Unable to palpate area of fluctuance to suggest evelio abscess however per radiology fluid collection is below the fascia. Plan: Recommend Ultrasound guidance aspiration to assess for hematoma vs abscess. If there is any purulence present will need incision and drainage. If no purulence present would recommend conservative treatment: Leg elevation and compression, hold anticoagulation, pain medication as needed and IV antibiotics for cellulitis. Continue current medical management Dr. Moss has seen and examined patient, agrees with above. Addendum: 4:[address] Pop in radiology. US guidance aspiration showed aspiration of blood and no pus. Plan to send off to lab to be sure. Continue conservative management with pain control, leg elevation and compression, holding Lovenox, and IV antibiotics for cellulitis. (Keena Avila ., LYDIA-C) I interviewed and examined this patient and I agree with the above note. He had an ultrasound that demonstrated a heterogeneous fluid collection. He underwent an aspiration under ultrasound guidance and it proved to be old blood. There was no evidence of purulence but we will send the fluid for culture. I do not feel that there is any need for any further surgical intervention. I would hold his anticoagulation. (Pranav Moss M.D.)
--- NOTE | 2017-11-05 17:03 | DIAGNOSTIC IMAGING REPORT ---
ULTRASOUND GUIDED ASPIRATION OF MEDIAL RIGHT CALF COLLECTION CLINICAL HISTORY: RLE cellulitis, hematoma vs abscess? COMPARISON STUDY: Right lower extremity ultrasound November 05, 2017 at 2:40 PM. PROCEDURE: Procedure, risks and benefits were discussed with the patient including the risk of bleeding, infection and injury to adjacent structures. The patient agreed to the procedure and informed written consent was obtained. The procedure was performed by Dr. Pop following a timeout. The large complex medial right calf fluid collection was identified. Skin was prepped and draped in sterile fashion and local anesthesia was achieved with 1% lidocaine. Under direct ultrasound guidance, an 18-gauge 3 1/2 inch needle was directed into the fluid collection. There was immediate return of serosanguineous fluid. A total 45 cc of fluid was aspirated and sent to laboratory for analysis. The needle was removed. The patient tolerated the procedure well and no immediate complications were evident. IMPRESSION: Ultrasound guided aspiration of 45 cc of serosanguineous fluid from a medial right calf fluid collection suggestive of a hematoma. Fluid sent to the laboratory for analysis. Electronically signed by: Eamon Pop M.D. 11/05/2017 5:01 PM Dictated Date/Time: 11/05/2017 4:59 PM
[2017-11-06] MEDS: VANCOMYCIN IV 1,500 MG in SODIUM CHLORIDE 0.9% 500ML 500 ML IV SCH ×2 (00:16→11:57)
[2017-11-06] MEDS: AMPICILLIN/SULBACTAM SOD INJ 3,000 MG in SODIUM CHLORIDE 0.9% 100ML 100 ML IV SCH ×4 (01:51→20:21)
[2017-11-06 04:03] VITALS: BP 106/61; PULSE 64; TEMP 36.7; O2SAT 98
[2017-11-06 06:01] LABS: MEAN CORPUSCULAR HGB CONC 33.6 g/dl (32-36)
[2017-11-06 06:53] LABS: HEMATOCRIT 23.2 % (42-52); HEMOGLOBIN 7.8 g/dL (14.0-18.0); MEAN CELL VOLUME 97.5 fL (80-100); MEAN CORPUSCULAR HEMOGLOBIN 32.8 pg (25-34); RED CELL DISTRIBUTION WIDTH CV 26.6 % (11.5-14.5); RED CELL DISTRIBUTION WIDTH SD 82.9 fL (36.4-46.3); WHITE BLOOD COUNT 2.34 K/uL (4.8-10.8)
[2017-11-06 06:58] LABS: BASO % 1.3 %; BASO ABS # 0.03 K/uL (0-0.2); IG# 0.02 K/uL (0.00-0.02); LYMPH % 18.4 %; LYMPH ABS # 0.43 K/uL (1.2-3.4); MEAN PLATELET VOLUME 9.5 fL (7.4-10.4); MONO ABS # 0.28 K/uL (0.11-0.59); NEUT % 67.4 %; NEUT ABS # 1.58 K/uL (1.4-6.5); PLATELET COUNT 168 K/uL (130-400)
[2017-11-06 07:04] VITALS: BP 124/64; PULSE 62; TEMP 36.8; O2SAT 97
[2017-11-06] MEDS: METOPROLOL TARTRATE 25 MG TAB PO SCH ×2 (08:30→20:22)
[2017-11-06] MEDS: TRAMADOL HCL 50 MG TAB PO PRN (08:30)
[2017-11-06] MEDS: ASPIRIN 81 MG ECTAB PO SCH (08:31)
[2017-11-06] MEDS: CEROVITE ADV FORMULA TAB PO SCH (08:31)
[2017-11-06] MEDS: ATORVASTATIN 10 MG TAB PO SCH (08:31)
[2017-11-06] MEDS: FUROSEMIDE 20 MG TAB PO SCH (08:31)
[2017-11-06] MEDS: PANTOprazole SOD 40 MG TAB PO SCH (08:31)
[2017-11-06] MEDS: POTASSIUM CHLORIDE 20 MEQ TABCR PO SCH ×2 (08:32→17:25)
--- NOTE | 2017-11-06 09:50 | History & Physical Bridge Note ---
H&P Re-Evaluation Bridge Note: I have examined the patient, reviewed the History & Physical and in the interval since the performance of the History & Physical I have noted the following changes of clinical significance: No changes noted
[2017-11-06] MEDS: COLESTIPOL HCL 1 GM TAB PO SCH ×2 (10:00→22:04)
[2017-11-06] MEDS: POLYETHYLENE (MIRALAX) 17 GM PACK PO PRN (10:14)
[2017-11-06 11:08] VITALS: BP 104/65; PULSE 65; TEMP 36.7; O2SAT 97
--- NOTE | 2017-11-06 13:48 | Surgery Progress Note ---
Surgery Progress Note Date of Service Nov 06, 2017. Subjective No nausea, No vomiting Less pain in right calf today Objective Vital Signs: Date Time Temp Pulse Resp B/P (MAP) Pulse Ox O2 Delivery O2 Flow Rate FiO2 11/06/17 11:08 36.7 65 20 104/65 (78) 97 11/06/17 08:30 Room Air 11/06/17 07:04 36.8 62 18 124/64 (84) 97 Room Air 11/06/17 04:03 36.7 64 20 106/61 (76) 98 Room Air 11/06/17 00:00 Room Air 11/05/17 23:45 36.4 62 20 93/59 (70) 99 Room Air 11/05/17 20:31 63 109/60 (76) 11/05/17 19:35 36.5 65 20 90/56 (67) 98 Room Air 11/05/17 16:00 Room Air 11/05/17 15:58 36.6 62 20 95/60 (72) 98 Room Air Extremities: no calf tenderness (unchanged, edema unchsnge), + pertinent finding (Less pink today, tenderness and edema unchanged) Laboratory Results: Results Past 24 Hours Test 11/06/17 05:38 Range/Units White Blood Count 2.34 4.8-10.8 K/uL Red Blood Count 2.38 4.7-6.1 M/uL Hemoglobin 7.8 14.0-18.0 g/dL Hematocrit 23.2 42-52 % Mean Corpuscular Volume 97.5 80-100 fL Mean Corpuscular Hemoglobin 32.8 25-34 pg Mean Corpuscular Hemoglobin Concent 33.6 32-36 g/dl Platelet Count 168 130-400 K/uL Mean Platelet Volume 9.5 7.4-10.4 fL Neutrophils (%) (Auto) 67.4 % Lymphocytes (%) (Auto) 18.4 % Monocytes (%) (Auto) 12.0 % Eosinophils (%) (Auto) 0.0 % Basophils (%) (Auto) 1.3 % Neutrophils # (Auto) 1.58 1.4-6.5 K/uL Lymphocytes # (Auto) 0.43 1.2-3.4 K/uL Monocytes # (Auto) 0.28 0.11-0.59 K/uL Eosinophils # (Auto) 0.00 0-0.5 K/uL Basophils # (Auto) 0.03 0-0.2 K/uL RDW Standard Deviation 82.9 36.4-46.3 fL RDW Coefficient of Variation 26.6 11.5-14.5 % Immature Granulocyte % (Auto) 0.9 % Immature Granulocyte # (Auto) 0.02 0.00-0.02 K/uL Platelet Estimate NORMAL Anisocytosis PRESENT Microbiology Results 11/05/17 Gram Stain - Final, Resulted 11/05/17 Bacterial Culture - Preliminary, Resulted NO GROWTH TO DATE. Assessment & Plan Subfascial hemaatoma Cultures negative to this point No surgical drainage needed at this time
[2017-11-06 14:44] VITALS: BP 96/59; PULSE 65; TEMP 36.5; O2SAT 98
[2017-11-06] MEDS: MoRPHine SULFATE 2 MG/ML CARP IV PRN (14:49)
--- NOTE | 2017-11-06 15:04 | Hospitalist Progress Note ---
Hospitalist Progress Note Date of Service Nov 06, 2017. (Trixie Sands ., TK) Subjective Pt evaluation today including: conversation w/ patient, physical exam, chart review, lab review, review of inpatient medication list Voiding: no voiding problems Mr. Washington leg is much less painful today. He has no other complaints. ROS Constitutional: no chills, aches, sweats or fever Respiratory: no sob,cough, sputum, or wheezing Cardiac: no chest pain, palpitations, edema, orthopnea or lightheadedness GI: no abdominal pain, nausea, vomiting, diarrhea or constipation : no dysuria or hesitancy Extremities: see HPI Skin: no rash All other systems reviewed and negative (Trixie Sands CRNP) Medications Medications Administered Medications (Trade) Dose Ordered Sig/Rosendo Route Start Time Stop Time Status Last Admin Dose Admin Fentanyl Citrate (Fentanyl Inj) 50 mcg NOW ONCE IV 11/03/17 13:15 11/03/17 13:16 DC 11/03/17 13:21 50 MCG Acetaminophen (Tylenol Tab) 650 mg NOW STAT PO 11/03/17 13:01 11/03/17 13:02 DC 11/03/17 13:21 650 MG Calcium Carbonate (Tums Chew Tab) 1,500 mg ONE STAT PO 11/03/17 13:53 11/03/17 13:54 DC 11/03/17 14:23 1,500 MG Acetaminophen (Tylenol Tab) 650 mg Q4H PRN PO 11/03/17 15:45 12/03/17 15:44 11/05/17 10:41 650 MG Polyethylene (Miralax Powder Packet) 17 gm DAILY PRN PO 11/03/17 15:45 12/03/17 15:44 11/06/17 10:14 17 GM Aspirin (Ecotrin Tab) 81 mg DAILY PO 11/04/17 08:00 12/04/17 08:59 11/06/17 08:31 81 MG Atorvastatin Calcium (Lipitor Tab) 10 mg DAILY PO 11/04/17 08:00 12/04/17 08:59 11/06/17 08:31 10 MG Colestipol HCl (Colestid Tab) 1 gm BID@1000,2200 PO 11/03/17 22:00 12/03/17 21:59 11/05/17 21:54 1 GM Metoprolol Tartrate (Lopressor Tab) 12.5 mg BID PO 11/03/17 20:00 12/03/17 20:59 11/06/17 08:30 12.5 MG Multivitamins/ Minerals (Multivitamin W/ Minerals Tab) 1 tab QAM PO 11/04/17 08:00 12/04/17 08:59 11/06/17 08:31 1 TAB Pantoprazole Sodium (Protonix Tab) 40 mg DAILY PO 11/04/17 08:00 12/04/17 08:59 11/06/17 08:31 40 MG Potassium Chloride (Klor-Con Tab) 20 meq QD@1700 PO 11/03/17 17:00 12/03/17 16:59 11/05/17 17:18 20 MEQ Potassium Chloride (Klor-Con Tab) 80 meq DAILY PO 11/04/17 08:00 12/04/17 08:59 11/06/17 08:32 80 MEQ Prednisone (PredniSONE TAB) 40 mg DAILY PO 11/04/17 08:00 12/04/17 08:59 11/06/17 08:31 40 MG Tramadol HCl (Ultram Tab) 50 mg Q4H PRN PO 11/03/17 15:45 12/03/17 15:44 11/06/17 08:30 50 MG Enoxaparin Sodium (Lovenox Inj) 100 mg BID SC 11/03/17 20:00 12/03/17 20:59 Future Hold 11/05/17 08:26 100 MG Furosemide 100 mg/ Dextrose 100 ml @ 3 mls/hr Q24H IV 11/03/17 18:00 11/04/17 11:15 DC 11/04/17 00:57 3 MLS/HR Potassium Chloride (Klor-Con M10) 40 meq NOW ONCE PO 11/04/17 09:15 11/04/17 09:16 DC 11/04/17 10:08 40 MEQ Furosemide (Lasix Tab) 20 mg QAM PO 11/05/17 08:00 12/05/17 07:59 11/06/17 08:31 20 MG Furosemide (Lasix Tab) 20 mg 1130 ONCE PO 11/04/17 11:30 11/04/17 11:31 DC 11/04/17 11:50 20 MG Vancomycin HCl 2500 mg/Sodium Chloride 550 ml @ 200 mls/hr 1100 ONCE IV 11/05/17 11:00 11/05/17 13:44 DC 11/05/17 11:16 200 MLS/HR Epoetin Andrea (Procrit Inj) 40,000 units ONE ONCE SQ 11/05/17 10:15 11/05/17 10:33 DC 11/05/17 11:31 40,000 UNITS Morphine Sulfate (MoRPHine SULFATE INJ) 2 mg Q4H PRN IV 11/05/17 12:45 11/19/17 12:44 11/06/17 14:49 2 MG Ampicillin Sodium/ Sulbactam Sodium 3000 mg/Sodium Chloride 108 ml @ 200 mls/hr Q6H IV 11/05/17 14:00 11/15/17 13:59 11/06/17 14:49 200 MLS/HR Vancomycin HCl 1500 mg/Sodium Chloride 530 ml @ 200 mls/hr Q12H IV 11/06/17 00:00 11/16/17 00:00 11/06/17 11:57 200 MLS/HR (Trixie Sands CRNP) Objective Vital Signs Date Time Temp Pulse Resp B/P (MAP) Pulse Ox O2 Delivery O2 Flow Rate FiO2 11/06/17 14:44 36.5 65 20 96/59 (71) 98 11/06/17 11:08 36.7 65 20 104/65 (78) 97 11/06/17 08:30 Room Air 11/06/17 07:04 36.8 62 18 124/64 (84) 97 Room Air 11/06/17 04:03 36.7 64 20 106/61 (76) 98 Room Air 11/06/17 00:00 Room Air 11/05/17 23:45 36.4 62 20 93/59 (70) 99 Room Air 11/05/17 20:31 63 109/60 (76) 11/05/17 19:35 36.5 65 20 90/56 (67) 98 Room Air 11/05/17 16:00 Room Air 11/05/17 15:58 36.6 62 20 95/60 (72) 98 Room Air (Trixie Sands, TK) Physical Exam Notes: General: no distress Eyes: normal inspection, PERLL Respiratory: chest non tender, clear to auscultation, normal breath sounds, no respiratory distress, no accessory muscle use Cardiac: regular rate and rhythm, no rub or gallop, no murmur, +3 lower extremity edema, no jvd GI/: active bowel sounds, no abd pain or tenderness, soft, non distended Extremities: normal range of motion, normal strength, non tender Neuro/Psych: alert and oriented x 3, normal mood and affect Skin: normal color, dry, right leg less erythematous and tight (Trixie Sands CRNP) Laboratory Results Last 24 Hours Test 11/06/17 05:38 White Blood Count 2.34 K/uL Red Blood Count 2.38 M/uL Hemoglobin 7.8 g/dL Hematocrit 23.2 % Mean Corpuscular Volume 97.5 fL Mean Corpuscular Hemoglobin 32.8 pg Mean Corpuscular Hemoglobin Concent 33.6 g/dl Platelet Count 168 K/uL Mean Platelet Volume 9.5 fL Neutrophils (%) (Auto) 67.4 % Lymphocytes (%) (Auto) 18.4 % Monocytes (%) (Auto) 12.0 % Eosinophils (%) (Auto) 0.0 % Basophils (%) (Auto) 1.3 % Neutrophils # (Auto) 1.58 K/uL Lymphocytes # (Auto) 0.43 K/uL Monocytes # (Auto) 0.28 K/uL Eosinophils # (Auto) 0.00 K/uL Basophils # (Auto) 0.03 K/uL RDW Standard Deviation 82.9 fL RDW Coefficient of Variation 26.6 % Immature Granulocyte % (Auto) 0.9 % Immature Granulocyte # (Auto) 0.02 K/uL Platelet Estimate NORMAL Anisocytosis PRESENT (Trixie Sands CRNP) Assessment and Plan Mr. Merlos is a very pleasant 82 year old man with PMHx of large granular lymphocytic leukemia, hyponatremia, diastolic CHF, HLD, h/o DVT, paroxysmal a.fib, and GERD. 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 Porter, which were unremarkable - during recent hospitalization vitamin B12, folate acid, ferritin, iron panels, stool Hemoccult were negative or unremarkable - pt had underwent GI bleeding scan per heme/ onc - consulted heme/onc - hold methotrexate - per outpt records pt has been on for 4 months without much response so discussion regarding oral Cytoxan was held and pt consented. He has not yet begun this. Approach to this is palliative treatment per Dr. Sanjuana Galindo note, - patient wishes to remain full code and does not want to consult palliative care - Trend cbc - hgb 7.8 this am - Type and screen/ transfuse 2 U PRBC irrad 11/04. Per heme onc rec, transfuse for hgb less than 7 and only 1 unit at a time as patient will likely be transfusion dependent from here on out RLE calf pain, edema right elbow - US showed hematoma vs abscess, no dvt, 11/05 with increased erythema and pain - repeat US showed slightly larger fluid collection, consulted general surgery and started Vanc and Unasyn as patient is immunocompromised due to leukemia - Surgery took patient for needle aspiration - Ultrasound guided aspiration of 45 cc of serosanguineous fluid from a medial right calf fluid collection suggestive of a hematoma. Fluid sent to the laboratory for analysis. - pt is currently on lovenox 100 mg BID for hx of DVT - continue to hold for now - pain control, leg elevation of right leg Chronic hyponatremia - follow especially with transfusions - Na 135 today Hypokalemia - resolved Chronic diastolic CHF- STABLE - Cont lopressor 12.5 mg BID, dc'd lasix gtt and restarted po lasix HLD, paroxysmal a.fib: - Continue ASA, Lipitor, Lopressor w/ hold parameters, will discontinue lasix gtt now that bps have improved - restart po lasix - Last ECHO 08/2017- EF 55-60%, grade I diastolic CHF GERD: Protonix daily Left knee total knee contusion with pain due to fall: local measures and pain control DVT ppx with h/o DVT: lovenox held for hematoma CODE STATUS: Full Disposition: PT/OT ty, with plans for Bre Stoner (Trixie Sands, TK) Supervising Note Dr. Polanco I performed a history and physical examination on the patient. I reviewed above note and agree with it. I discussed plan with APC and patient. During my face to face encounter with the patient, I answered all of the patient's questions. Will order repeat labs for AM to monitor Anemia. (Luis Carlos Polanco M.D.)
--- NOTE | 2017-11-06 16:42 | Hematology/Oncology Prog Note ---
Hematology/Onc Progress Note Date of Service Nov 06, 2017. Diagnoses T-cell LGL leukemia Chronic anemia Right calf hematoma Medications Medications Administered Medications (Trade) Dose Ordered Sig/Rosendo Route Start Time Stop Time Status Last Admin Dose Admin Fentanyl Citrate (Fentanyl Inj) 50 mcg NOW ONCE IV 11/03/17 13:15 11/03/17 13:16 DC 11/03/17 13:21 50 MCG Acetaminophen (Tylenol Tab) 650 mg NOW STAT PO 11/03/17 13:01 11/03/17 13:02 DC 11/03/17 13:21 650 MG Calcium Carbonate (Tums Chew Tab) 1,500 mg ONE STAT PO 11/03/17 13:53 11/03/17 13:54 DC 11/03/17 14:23 1,500 MG Acetaminophen (Tylenol Tab) 650 mg Q4H PRN PO 11/03/17 15:45 12/03/17 15:44 11/05/17 10:41 650 MG Polyethylene (Miralax Powder Packet) 17 gm DAILY PRN PO 11/03/17 15:45 12/03/17 15:44 11/06/17 10:14 17 GM Aspirin (Ecotrin Tab) 81 mg DAILY PO 11/04/17 08:00 12/04/17 08:59 11/06/17 08:31 81 MG Atorvastatin Calcium (Lipitor Tab) 10 mg DAILY PO 11/04/17 08:00 12/04/17 08:59 11/06/17 08:31 10 MG Colestipol HCl (Colestid Tab) 1 gm BID@1000,2200 PO 11/03/17 22:00 12/03/17 21:59 11/05/17 21:54 1 GM Metoprolol Tartrate (Lopressor Tab) 12.5 mg BID PO 11/03/17 20:00 12/03/17 20:59 11/06/17 08:30 12.5 MG Multivitamins/ Minerals (Multivitamin W/ Minerals Tab) 1 tab QAM PO 11/04/17 08:00 12/04/17 08:59 11/06/17 08:31 1 TAB Pantoprazole Sodium (Protonix Tab) 40 mg DAILY PO 11/04/17 08:00 12/04/17 08:59 11/06/17 08:31 40 MG Potassium Chloride (Klor-Con Tab) 20 meq QD@1700 PO 11/03/17 17:00 12/03/17 16:59 11/05/17 17:18 20 MEQ Potassium Chloride (Klor-Con Tab) 80 meq DAILY PO 11/04/17 08:00 12/04/17 08:59 11/06/17 08:32 80 MEQ Prednisone (PredniSONE TAB) 40 mg DAILY PO 11/04/17 08:00 12/04/17 08:59 11/06/17 08:31 40 MG Tramadol HCl (Ultram Tab) 50 mg Q4H PRN PO 11/03/17 15:45 12/03/17 15:44 11/06/17 08:30 50 MG Enoxaparin Sodium (Lovenox Inj) 100 mg BID SC 11/03/17 20:00 12/03/17 20:59 Future Hold 11/05/17 08:26 100 MG Furosemide 100 mg/ Dextrose 100 ml @ 3 mls/hr Q24H IV 11/03/17 18:00 11/04/17 11:15 DC 11/04/17 00:57 3 MLS/HR Potassium Chloride (Klor-Con M10) 40 meq NOW ONCE PO 11/04/17 09:15 11/04/17 09:16 DC 11/04/17 10:08 40 MEQ Furosemide (Lasix Tab) 20 mg QAM PO 11/05/17 08:00 12/05/17 07:59 11/06/17 08:31 20 MG Furosemide (Lasix Tab) 20 mg 1130 ONCE PO 11/04/17 11:30 11/04/17 11:31 DC 11/04/17 11:50 20 MG Vancomycin HCl 2500 mg/Sodium Chloride 550 ml @ 200 mls/hr 1100 ONCE IV 11/05/17 11:00 11/05/17 13:44 DC 11/05/17 11:16 200 MLS/HR Epoetin Andrea (Procrit Inj) 40,000 units ONE ONCE SQ 11/05/17 10:15 11/05/17 10:33 DC 11/05/17 11:31 40,000 UNITS Morphine Sulfate (MoRPHine SULFATE INJ) 2 mg Q4H PRN IV 11/05/17 12:45 11/19/17 12:44 11/06/17 14:49 2 MG Ampicillin Sodium/ Sulbactam Sodium 3000 mg/Sodium Chloride 108 ml @ 200 mls/hr Q6H IV 11/05/17 14:00 11/15/17 13:59 11/06/17 14:49 200 MLS/HR Vancomycin HCl 1500 mg/Sodium Chloride 530 ml @ 200 mls/hr Q12H IV 11/06/17 00:00 11/16/17 00:00 11/06/17 11:57 200 MLS/HR Subjective Mr. Washington leg looks better after the drainage yesterday. The cultures from the aspiration fluid are negative so far. His energy is up since the transfusion. Review of Systems: Constitutional: + fatigue (chronic), No fever Respiratory: No cough, No shortness of breath Cardiovascular: No chest pain Abdomen: No pain, No nausea Musculoskeletal: + calf pain, No joint pain Male : No hematuria Heme: No abnormal bleeding/bruising, No night sweats Vital Signs Vital Signs Past 12 Hours Date Time Temp Pulse Resp B/P (MAP) Pulse Ox O2 Delivery O2 Flow Rate FiO2 11/06/17 14:44 36.5 65 20 96/59 (71) 98 11/06/17 11:08 36.7 65 20 104/65 (78) 97 11/06/17 08:30 Room Air 11/06/17 07:04 36.8 62 18 124/64 (84) 97 Room Air Physical Exam Constitutional: General Apperance: obese Level of Distress: NAD, chronically ill Psychiatric: Mental Status: active & alert Orientation: oriented except where noted Lungs: Auscuitation: breath sounds normal Cardiovascular: Heart Auscultation: RRR Abdomen: Inspection & Palpation: soft, no tenderness, guarding & rebound Extremities: pertinent finding (Both lower extremities are markedly edematous. The right appears less erythematous today. ) Laboratory Last 24 Hours Test 11/06/17 05:38 White Blood Count 2.34 K/uL Red Blood Count 2.38 M/uL Hemoglobin 7.8 g/dL Hematocrit 23.2 % Mean Corpuscular Volume 97.5 fL Mean Corpuscular Hemoglobin 32.8 pg Mean Corpuscular Hemoglobin Concent 33.6 g/dl Platelet Count 168 K/uL Mean Platelet Volume 9.5 fL Neutrophils (%) (Auto) 67.4 % Lymphocytes (%) (Auto) 18.4 % Monocytes (%) (Auto) 12.0 % Eosinophils (%) (Auto) 0.0 % Basophils (%) (Auto) 1.3 % Neutrophils # (Auto) 1.58 K/uL Lymphocytes # (Auto) 0.43 K/uL Monocytes # (Auto) 0.28 K/uL Eosinophils # (Auto) 0.00 K/uL Basophils # (Auto) 0.03 K/uL RDW Standard Deviation 82.9 fL RDW Coefficient of Variation 26.6 % Immature Granulocyte % (Auto) 0.9 % Immature Granulocyte # (Auto) 0.02 K/uL Platelet Estimate NORMAL Anisocytosis PRESENT Assessment & Plan He does appear to have had a hematoma and it is improved with drainage. Cultures are so far negative. I agree with holding his Lovenox for the time being. His hemoglobin is holding steady but will likely trend down over time. We will continue with the same transfusion parameters (transfuse for Hgb <7 or symptoms). He will begin Cytoxan for his LGL-leukemia when he returns to [facility]. We will sign off for now, as he is mostly stabilized, but would be happy to check back in if issues arise.
[2017-11-06 20:05] VITALS: BP 87/48; PULSE 74; TEMP 36.9; O2SAT 96
[2017-11-06 20:20] VITALS: BP 104/58; PULSE 80
[2017-11-07] VITALS (9 sets, daily range): BP systolic 88–122; BP diastolic 52–77; PULSE 52–91; TEMP 36.3–36.7; O2SAT 96–99
[2017-11-07] MEDS: VANCOMYCIN IV 1,500 MG in SODIUM CHLORIDE 0.9% 500ML 500 ML IV SCH ×2 (00:43→12:18)
[2017-11-07] MEDS: AMPICILLIN/SULBACTAM SOD INJ 3,000 MG in SODIUM CHLORIDE 0.9% 100ML 100 ML IV SCH ×4 (04:05→20:06)
[2017-11-07 06:19] LABS: CREATININE 0.56 mg/dl (0.60-1.40)
--- NOTE | 2017-11-07 07:34 | Surgery Progress Note ---
Surgery Progress Note Date of Service Nov 07, 2017. Subjective + feeling well, + bowel movement, + flatus, + pain controlled, + diet (Regular diet), No nausea, No vomiting Patient reports his pain is much improved from yesterday. Objective Vital Signs: Date Time Temp Pulse Resp B/P (MAP) Pulse Ox O2 Delivery O2 Flow Rate FiO2 11/07/17 04:54 36.7 60 20 93/55 (68) 99 Room Air 11/07/17 00:02 36.7 78 20 88/52 (64) 96 Room Air 11/07/17 00:00 Room Air 11/06/17 20:20 80 104/58 (73) 11/06/17 20:05 36.9 74 20 87/48 (61) 96 Room Air 11/06/17 16:00 Room Air 11/06/17 14:44 36.5 65 20 96/59 (71) 98 11/06/17 11:08 36.7 65 20 104/65 (78) 97 11/06/17 08:30 Room Air General Appearance: WD/WN, no apparent distress Head: normocephalic, atraumatic Respiratory/Chest: no respiratory distress, no accessory muscle use Extremities: + pertinent finding (erythema and swelling at site of previous drained right calf hematoma, TTP. - no palpable collection of fluid appreciated on exam. ) Laboratory Results: Results Past 24 Hours Test 11/07/17 05:12 Range/Units Creatinine 0.56 0.60-1.40 mg/dl Est Creatinine Clear Calc Drug Dose 121.2 ml/min Estimated GFR () 110.1 Estimated GFR (Non- 95.0 Assessment & Plan subfascial hematoma Covering for [facility] general surgery. Pain improved per patient. Doing well. cultures negative 11/05. No evidence of drainable collection on exam at this time. Continue IV Abx for now. Will discuss findings with Dr. Carolina. Will continue to follow.
[2017-11-07] MEDS: ATORVASTATIN 10 MG TAB PO SCH (07:59)
[2017-11-07] MEDS: FUROSEMIDE 20 MG TAB PO SCH (07:59)
[2017-11-07] MEDS: CEROVITE ADV FORMULA TAB PO SCH (07:59)
[2017-11-07] MEDS: ASPIRIN 81 MG ECTAB PO SCH (07:59)
[2017-11-07] MEDS: PANTOprazole SOD 40 MG TAB PO SCH (07:59)
[2017-11-07] MEDS: POTASSIUM CHLORIDE 20 MEQ TABCR PO SCH ×2 (07:59→17:12)
[2017-11-07] MEDS: METOPROLOL TARTRATE 25 MG TAB PO SCH ×2 (08:00→20:21)
[2017-11-07] MEDS: COLESTIPOL HCL 1 GM TAB PO SCH ×2 (10:07→22:00)
[2017-11-07] MEDS ORDERED: VANCOMYCIN TROUGH ONE (11:30)
--- NOTE | 2017-11-07 14:30 | Pharmacy Progress Note ---
Pharmacy Antibiotic Prog Note Date of Service Nov 07, 2017. Subjective The patient is currently receiving vancomycin 1500 mg iv q 12 hrs The patient is currently on day # 3 of IV therapy. Objective Height (Feet): 6 Height (Inches): 0.00 Weight (Kilograms): 103.900 Levels: Item Value Date Time Vancomycin Level Trough 17.4 mcg/ml 11/07/17 1131 Lab Results (24hrs): Test 11/07/17 05:12 11/07/17 11:31 Creatinine 0.56 mg/dl (0.60-1.40) Est Creatinine Clear Calc Drug Dose 121.2 ml/min Estimated GFR () 110.1 Estimated GFR (Non- 95.0 Vancomycin Level Trough 17.4 mcg/ml (SEE COMMENT) Micro Results: Item Value Date Time Gram Stain - Final Resulted 11/05/17 1645 Drainage-Deep Leg Lower Left Assessment & Plan Vancomycin: * Trough level today came back therapeutic at ~17 mcg/ml (goal 15-20 mcg/ml) * Will continue with current vancomycin regimen * Scr stable - will plan to obtain a trough in next 2-3 days if vancomycin is to be continued * Drainage cx's showing no growth Pharmacy will continue to follow and will adjust dose/frequency as necessary. Thank you
--- NOTE | 2017-11-07 22:36 | Progress Note ---
Subjective Date of Service: Nov 07, 2017. Subjective Pt evaluation today including: conversation w/ patient, physical exam 82 yo male reports tat his right calf pain has improved significantly. Patient denies any fever, chills, nausea, vomiting. Problem List Medical Problems: (1) Anemia Status: Chronic (2) Chronic anemia Status: Acute (3) Exertional dyspnea Status: Acute (4) Flu-like symptoms Status: Acute (5) Leg pain, right Status: Acute (6) Preseptal cellulitis Status: Acute (7) Sepsis Status: Acute (8) Venous insufficiency of right leg Status: Acute (9) Weakness Status: Acute (10) Weakness Status: Acute Review of Systems Constitutional: no chills, aches, sweats or fever Respiratory: no sob,cough, sputum, or wheezing Cardiac: no chest pain, palpitations, edema, orthopnea or lightheadedness GI: no abdominal pain, nausea, vomiting, diarrhea or constipation : no dysuria or hesitancy Extremities: see HPI Skin: no rash All Other Systems: Reviewed and Negative Medications Current Inpatient Medications Medications (Trade) Dose Ordered Sig/Rosendo Route Start Time Stop Time Status Last Admin Dose Admin Acetaminophen (Tylenol Tab) 650 mg Q4H PRN PO 11/03/17 15:45 12/03/17 15:44 11/05/17 10:41 650 MG Polyethylene (Miralax Powder Packet) 17 gm DAILY PRN PO 11/03/17 15:45 12/03/17 15:44 11/06/17 10:14 17 GM Ondansetron HCl (Zofran Inj) 4 mg Q6H PRN IV 11/03/17 15:45 12/03/17 15:44 Aspirin (Ecotrin Tab) 81 mg DAILY PO 11/04/17 08:00 12/04/17 08:59 11/07/17 07:59 81 MG Atorvastatin Calcium (Lipitor Tab) 10 mg DAILY PO 11/04/17 08:00 12/04/17 08:59 11/07/17 07:59 10 MG Colestipol HCl (Colestid Tab) 1 gm BID@1000,2200 PO 11/03/17 22:00 12/03/17 21:59 11/07/17 10:07 1 GM Metoprolol Tartrate (Lopressor Tab) 12.5 mg BID PO 11/03/17 20:00 12/03/17 20:59 11/07/17 20:21 12.5 MG Multivitamins/ Minerals (Multivitamin W/ Minerals Tab) 1 tab QAM PO 11/04/17 08:00 12/04/17 08:59 11/07/17 07:59 1 TAB Pantoprazole Sodium (Protonix Tab) 40 mg DAILY PO 11/04/17 08:00 12/04/17 08:59 11/07/17 07:59 40 MG Potassium Chloride (Klor-Con Tab) 20 meq QD@1700 PO 11/03/17 17:00 12/03/17 16:59 11/07/17 17:12 20 MEQ Potassium Chloride (Klor-Con Tab) 80 meq DAILY PO 11/04/17 08:00 12/04/17 08:59 11/07/17 07:59 80 MEQ Prednisone (PredniSONE TAB) 40 mg DAILY PO 11/04/17 08:00 12/04/17 08:59 11/07/17 07:59 40 MG Tramadol HCl (Ultram Tab) 50 mg Q4H PRN PO 11/03/17 15:45 12/03/17 15:44 11/06/17 08:30 50 MG Enoxaparin Sodium (Lovenox Inj) 100 mg BID SC 11/03/17 20:00 12/03/17 20:59 Future Hold 11/05/17 08:26 100 MG Furosemide (Lasix Tab) 20 mg QAM PO 11/05/17 08:00 12/05/17 07:59 11/07/17 07:59 20 MG Miconazole Nitrate (Desenex Powder) 1 appln PRN PRN EXT 11/05/17 01:00 12/05/17 00:59 Miscellaneous Information (Consult) 1 ea UD PRN N/A 11/05/17 10:00 12/05/17 09:59 Morphine Sulfate (MoRPHine SULFATE INJ) 2 mg Q4H PRN IV 11/05/17 12:45 11/19/17 12:44 11/06/17 14:49 2 MG Ampicillin Sodium/ Sulbactam Sodium 3000 mg/Sodium Chloride 108 ml @ 200 mls/hr Q6H IV 11/05/17 14:00 11/15/17 13:59 11/07/17 20:06 200 MLS/HR Vancomycin HCl 1500 mg/Sodium Chloride 530 ml @ 200 mls/hr Q12H IV 11/06/17 00:00 11/16/17 00:00 11/07/17 12:18 200 MLS/HR Objective Vital Signs Date Time Temp Pulse Resp B/P (MAP) Pulse Ox O2 Delivery O2 Flow Rate FiO2 11/07/17 20:21 68 20 122/77 (92) 97 Room Air 11/07/17 20:00 36.4 80 20 106/55 (72) 96 Room Air 11/07/17 16:44 Room Air 11/07/17 14:36 36.4 66 20 97/60 (72) 97 11/07/17 11:17 36.3 91 20 93/55 (68) 97 11/07/17 08:40 Room Air 11/07/17 08:06 65 11/07/17 07:49 36.6 52 20 121/66 (84) 97 Room Air 11/07/17 04:54 36.7 60 20 93/55 (68) 99 Room Air 11/07/17 00:02 36.7 78 20 88/52 (64) 96 Room Air 11/07/17 00:00 Room Air Physical Exam Comments: General: no distress Eyes: normal inspection, PERLL Respiratory: chest non tender, clear to auscultation, normal breath sounds, no respiratory distress, no accessory muscle use Cardiac: regular rate and rhythm, no rub or gallop, no murmur, +3 lower extremity edema, no jvd GI/: active bowel sounds, no abd pain or tenderness, soft, non distended Extremities: normal range of motion, normal strength, non tender Neuro/Psych: alert and oriented x 3, normal mood and affect Skin: normal color, dry, right leg less erythematous and tight Laboratory Results Last 24 Hours Test 11/07/17 05:12 11/07/17 11:31 Creatinine 0.56 mg/dl Est Creatinine Clear Calc Drug Dose 121.2 ml/min Estimated GFR () 110.1 Estimated GFR (Non- 95.0 Vancomycin Level Trough 17.4 mcg/ml Assessment and Plan Mr. Merlos is a very pleasant 82 year old man with PMHx of large granular lymphocytic leukemia, hyponatremia, diastolic CHF, HLD, h/o DVT, paroxysmal a.fib, and GERD. 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 Porter, which were unremarkable - during recent hospitalization vitamin B12, folate acid, ferritin, iron panels, stool Hemoccult were negative or unremarkable - pt had underwent GI bleeding scan per heme/ onc - consulted heme/onc - hold methotrexate - per outpt records pt has been on for 4 months without much response so discussion regarding oral Cytoxan was held and pt consented. He has not yet begun this. Approach to this is palliative treatment per Dr. Sanjuana Galindo note, - patient wishes to remain full code and does not want to consult palliative care - Trend cbc - hgb 7.8. will recheck tomorrow - Type and screen/ transfuse 2 U PRBC irrad 11/04. Per heme onc rec, transfuse for hgb less than 7 and only 1 unit at a time as patient will likely be transfusion dependent from here on out RLE calf pain, edema right elbow - US showed hematoma vs abscess, no dvt, 11/05 with increased erythema and pain - repeat US showed slightly larger fluid collection, consulted general surgery and started Vanc and Unasyn as patient is immunocompromised due to leukemia - Surgery took patient for needle aspiration - Ultrasound guided aspiration of 45 cc of serosanguineous fluid from a medial right calf fluid collection suggestive of a hematoma. Fluid sent to the laboratory for analysis. - pt is currently on lovenox 100 mg BID for hx of DVT - continue to hold for now - pain control, leg elevation of right leg -Leg looks significantly better. Will monitor Chronic hyponatremia - follow especially with transfusions - Na 135 yesterday Hypokalemia - resolved Chronic diastolic CHF- STABLE - Cont lopressor 12.5 mg BID, dc'd lasix gtt and restarted po lasix HLD, paroxysmal a.fib: - Continue ASA, Lipitor, Lopressor w/ hold parameters, will discontinue lasix gtt now that bps have improved - restart po lasix - Last ECHO 08/2017- EF 55-60%, grade I diastolic CHF GERD: Protonix daily Left knee total knee contusion with pain due to fall: local measures and pain control DVT ppx with h/o DVT: lovenox held for hematoma CODE STATUS: Full Disposition: PT/OT ty, with plans for [facility] Continued [facility] stay due to: other (anemia)
[2017-11-08] VITALS (9 sets, daily range): BP systolic 94–136; BP diastolic 52–83; PULSE 65–101; TEMP 36.3–37.2; O2SAT 93–99
[2017-11-08] MEDS: VANCOMYCIN IV 1,500 MG in SODIUM CHLORIDE 0.9% 500ML 500 ML IV SCH (00:16)
[2017-11-08] MEDS: AMPICILLIN/SULBACTAM SOD INJ 3,000 MG in SODIUM CHLORIDE 0.9% 100ML 100 ML IV SCH ×2 (04:06→07:54)
[2017-11-08 06:04] LABS: HEMATOCRIT 22.1 % (42-52); HEMOGLOBIN 7.5 g/dL (14.0-18.0); MEAN CELL VOLUME 100.9 fL (80-100); MEAN CORPUSCULAR HEMOGLOBIN 34.2 pg (25-34); MEAN CORPUSCULAR HGB CONC 33.9 g/dl (32-36); MEAN PLATELET VOLUME 9.5 fL (7.4-10.4); NUCLEATED RED BLOOD CELL ABS 0.02 K/uL (0-0); PLATELET COUNT 165 K/uL (130-400); RED CELL DISTRIBUTION WIDTH CV 27.8 % (11.5-14.5); RED CELL DISTRIBUTION WIDTH SD 92.5 fL (36.4-46.3); WHITE BLOOD COUNT 2.37 K/uL (4.8-10.8)
[2017-11-08 06:35] LABS: CALCIUM 7.9 mg/dl (8.5-10.1); CREATININE 0.48 mg/dl (0.60-1.40); POTASSIUM 3.9 mmol/L (3.5-5.1)
[2017-11-08] MEDS: ASPIRIN 81 MG ECTAB PO SCH (07:54)
[2017-11-08] MEDS: FUROSEMIDE 20 MG TAB PO SCH (07:54)
[2017-11-08] MEDS: POTASSIUM CHLORIDE 20 MEQ TABCR PO SCH ×2 (07:54→17:34)
[2017-11-08] MEDS: CEROVITE ADV FORMULA TAB PO SCH (07:55)
[2017-11-08] MEDS: ATORVASTATIN 10 MG TAB PO SCH (07:55)
[2017-11-08] MEDS: METOPROLOL TARTRATE 25 MG TAB PO SCH ×2 (07:55→20:22)
[2017-11-08] MEDS: PANTOprazole SOD 40 MG TAB PO SCH (07:56)
[2017-11-08] MEDS: COLESTIPOL HCL 1 GM TAB PO SCH ×2 (12:38→21:59)
[2017-11-08] MEDS: POLYETHYLENE (MIRALAX) 17 GM PACK PO PRN (13:13)
[2017-11-08] MEDS: CEFTRIAXONE SOD INJ 1 GM in DEXTROSE 5% ADD-VANTAGE 50ML 50 ML IV SCH (14:40)
--- NOTE | 2017-11-08 23:51 | Progress Note ---
Subjective Date of Service: Nov 08, 2017. Subjective Pt evaluation today including: conversation w/ patient Patient reports less pain in calf. He reports however, that it is present. But is now mild. Problem List Medical Problems: (1) Anemia Status: Chronic (2) Chronic anemia Status: Acute (3) Exertional dyspnea Status: Acute (4) Flu-like symptoms Status: Acute (5) Leg pain, right Status: Acute (6) Preseptal cellulitis Status: Acute (7) Sepsis Status: Acute (8) Venous insufficiency of right leg Status: Acute (9) Weakness Status: Acute (10) Weakness Status: Acute Review of Systems Constitutional: no chills, aches, sweats or fever Respiratory: no sob,cough, sputum, or wheezing Cardiac: no chest pain, palpitations, edema, orthopnea or lightheadedness GI: no abdominal pain, nausea, vomiting, diarrhea or constipation : no dysuria or hesitancy Extremities: see HPI Skin: no rash All Other Systems: Reviewed and Negative Medications Current Inpatient Medications Medications (Trade) Dose Ordered Sig/Rosendo Route Start Time Stop Time Status Last Admin Dose Admin Acetaminophen (Tylenol Tab) 650 mg Q4H PRN PO 11/03/17 15:45 12/03/17 15:44 11/05/17 10:41 650 MG Polyethylene (Miralax Powder Packet) 17 gm DAILY PRN PO 11/03/17 15:45 12/03/17 15:44 11/08/17 13:13 17 GM Ondansetron HCl (Zofran Inj) 4 mg Q6H PRN IV 11/03/17 15:45 12/03/17 15:44 Aspirin (Ecotrin Tab) 81 mg DAILY PO 11/04/17 08:00 12/04/17 08:59 11/08/17 07:54 81 MG Atorvastatin Calcium (Lipitor Tab) 10 mg DAILY PO 11/04/17 08:00 12/04/17 08:59 11/08/17 07:55 10 MG Colestipol HCl (Colestid Tab) 1 gm BID@1000,2200 PO 11/03/17 22:00 12/03/17 21:59 11/08/17 21:59 1 GM Metoprolol Tartrate (Lopressor Tab) 12.5 mg BID PO 11/03/17 20:00 12/03/17 20:59 11/08/17 20:22 12.5 MG Multivitamins/ Minerals (Multivitamin W/ Minerals Tab) 1 tab QAM PO 11/04/17 08:00 12/04/17 08:59 11/08/17 07:55 1 TAB Pantoprazole Sodium (Protonix Tab) 40 mg DAILY PO 11/04/17 08:00 12/04/17 08:59 11/08/17 07:56 40 MG Potassium Chloride (Klor-Con Tab) 20 meq QD@1700 PO 11/03/17 17:00 12/03/17 16:59 11/08/17 17:34 20 MEQ Potassium Chloride (Klor-Con Tab) 80 meq DAILY PO 11/04/17 08:00 12/04/17 08:59 11/08/17 07:54 80 MEQ Prednisone (PredniSONE TAB) 40 mg DAILY PO 11/04/17 08:00 12/04/17 08:59 11/08/17 07:56 40 MG Tramadol HCl (Ultram Tab) 50 mg Q4H PRN PO 11/03/17 15:45 12/03/17 15:44 11/06/17 08:30 50 MG Enoxaparin Sodium (Lovenox Inj) 100 mg BID SC 11/03/17 20:00 12/03/17 20:59 Future Hold 11/05/17 08:26 100 MG Furosemide (Lasix Tab) 20 mg QAM PO 11/05/17 08:00 12/05/17 07:59 11/08/17 07:54 20 MG Miconazole Nitrate (Desenex Powder) 1 appln PRN PRN EXT 11/05/17 01:00 12/05/17 00:59 Morphine Sulfate (MoRPHine SULFATE INJ) 2 mg Q4H PRN IV 11/05/17 12:45 11/19/17 12:44 11/06/17 14:49 2 MG Ceftriaxone Sodium 1 gm/ Dextrose 50 ml @ 100 mls/hr Q24H IV 11/08/17 14:00 11/18/17 13:59 11/08/17 14:40 100 MLS/HR Objective Vital Signs Date Time Temp Pulse Resp B/P (MAP) Pulse Ox O2 Delivery O2 Flow Rate FiO2 11/08/17 23:07 36.3 70 20 111/64 (80) 96 Room Air 11/08/17 20:22 80 102/52 (69) 11/08/17 19:56 36.4 73 18 94/55 (68) 97 Room Air 11/08/17 17:37 97 Room Air 11/08/17 16:00 97 Room Air 11/08/17 14:57 37.2 71 20 110/66 (81) 99 11/08/17 11:11 Nasal Cannula 2.0 11/08/17 11:08 36.5 101 20 136/83 (100) 93 11/08/17 07:33 36.3 65 20 120/68 (85) 95 11/08/17 04:00 36.5 85 20 111/60 (77) 97 Room Air 11/08/17 00:00 Room Air Physical Exam Comments: General: no distress Eyes: normal inspection, PERLL Respiratory: chest non tender, clear to auscultation, normal breath sounds, no respiratory distress, no accessory muscle use Cardiac: regular rate and rhythm, no rub or gallop, no murmur, +3 lower extremity edema, no jvd GI/: active bowel sounds, no abd pain or tenderness, soft, non distended Extremities: normal range of motion, normal strength, non tender Neuro/Psych: alert and oriented x 3, normal mood and affect Skin: normal color, dry, right leg less erythematous and is soft. Pain on dorsiflexion, Laboratory Results Last 24 Hours Test 11/08/17 05:26 White Blood Count 2.37 K/uL Red Blood Count 2.19 M/uL Hemoglobin 7.5 g/dL Hematocrit 22.1 % Mean Corpuscular Volume 100.9 fL Mean Corpuscular Hemoglobin 34.2 pg Mean Corpuscular Hemoglobin Concent 33.9 g/dl RDW Standard Deviation 92.5 fL RDW Coefficient of Variation 27.8 % Platelet Count 165 K/uL Mean Platelet Volume 9.5 fL Nucleated RBC Absolute Count (auto) 0.02 K/uL Nucleated Red Blood Cells % 1.0 % Sodium Level 138 mmol/L Potassium Level 3.9 mmol/L Chloride Level 106 mmol/L Carbon Dioxide Level 26 mmol/L Anion Gap 6.0 mmol/L Blood Urea Nitrogen 17 mg/dl Creatinine 0.48 mg/dl Est Creatinine Clear Calc Drug Dose 142.8 ml/min Estimated GFR () 117.3 Estimated GFR (Non- 101.2 BUN/Creatinine Ratio 34.8 Random Glucose 91 mg/dl Calcium Level 7.9 mg/dl Assessment and Plan Mr. Merlos is a very pleasant 82 year old man with PMHx of large granular lymphocytic leukemia, hyponatremia, diastolic CHF, HLD, h/o DVT, paroxysmal a.fib, and GERD. 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 Porter, which were unremarkable - during recent hospitalization vitamin B12, folate acid, ferritin, iron panels, stool Hemoccult were negative or unremarkable - pt had underwent GI bleeding scan per heme/ onc - consulted heme/onc - hold methotrexate - per outpt records pt has been on for 4 months without much response so discussion regarding oral Cytoxan was held and pt consented. He has not yet begun this. Approach to this is palliative treatment per Dr. Sanjuana Galindo note, - patient wishes to remain full code and does not want to consult palliative care - Trend cbc - hgb 7.5. will recheck tomorrow - Type and screen/ transfuse 2 U PRBC irrad 11/04. Per heme onc rec, transfuse for hgb less than 7 and only 1 unit at a time as patient will likely be transfusion dependent from here on out RLE calf pain, edema right elbow - US showed hematoma vs abscess, no dvt, 11/05 with increased erythema and pain - repeat US showed slightly larger fluid collection, consulted general surgery and started Vanc and Unasyn as patient is immunocompromised due to leukemia -now on ceftriaxone as it was suggestive to be a hematoma as noted below - Surgery took patient for needle aspiration - Ultrasound guided aspiration of 45 cc of serosanguineous fluid from a medial right calf fluid collection suggestive of a hematoma. Fluid sent to the laboratory for analysis. - pt is currently on lovenox 100 mg BID for hx of DVT - continue to hold for now - pain control, leg elevation of right leg -Leg looks significantly better. Will monitor -may consider trying to ambulate tomorrow. Chronic hyponatremia - follow especially with transfusions - Na 138 Hypokalemia - resolved Chronic diastolic CHF- STABLE - Cont lopressor 12.5 mg BID, dc'd lasix gtt and restarted po lasix HLD, paroxysmal a.fib: - Continue ASA, Lipitor, Lopressor w/ hold parameters, will discontinue lasix gtt now that bps have improved - restart po lasix - Last ECHO 08/2017- EF 55-60%, grade I diastolic CHF GERD: Protonix daily Left knee total knee contusion with pain due to fall: local measures and pain control DVT ppx with h/o DVT: lovenox held for hematoma CODE STATUS: Full Disposition: PT/OT ty, with plans for [facility] Continued [facility] stay due to: other (anemia)
[2017-11-09 06:17] LABS: HEMOGLOBIN 7.6 g/dL (14.0-18.0); MEAN PLATELET VOLUME 8.6 fL (7.4-10.4); NUCLEATED RED BLOOD CELL ABS 0.03 K/uL (0-0); PLATELET COUNT 177 K/uL (130-400); RED CELL DISTRIBUTION WIDTH CV 27.7 % (11.5-14.5); RED CELL DISTRIBUTION WIDTH SD 93.4 fL (36.4-46.3); WHITE BLOOD COUNT 2.96 K/uL (4.8-10.8)
[2017-11-09 06:54] LABS: CALCIUM 7.9 mg/dl (8.5-10.1); CREATININE 0.57 mg/dl (0.60-1.40); POTASSIUM 3.9 mmol/L (3.5-5.1)
[2017-11-09 07:43] VITALS: BP 102/60; PULSE 65; TEMP 36.8; O2SAT 98
[2017-11-09] MEDS: ASPIRIN 81 MG ECTAB PO SCH (08:32)
[2017-11-09] MEDS: METOPROLOL TARTRATE 25 MG TAB PO SCH ×2 (08:33→20:11)
[2017-11-09] MEDS: ATORVASTATIN 10 MG TAB PO SCH (08:33)
[2017-11-09] MEDS: POTASSIUM CHLORIDE 20 MEQ TABCR PO SCH ×2 (08:33→17:30)
[2017-11-09] MEDS: FUROSEMIDE 20 MG TAB PO SCH (08:33)
[2017-11-09] MEDS: PANTOprazole SOD 40 MG TAB PO SCH (08:34)
[2017-11-09] MEDS: CEROVITE ADV FORMULA TAB PO SCH (08:34)
[2017-11-09] MEDS: TRAMADOL HCL 50 MG TAB PO PRN (08:35)
[2017-11-09 12:08] VITALS: BP 102/75; PULSE 78; TEMP 36.6; O2SAT 93
[2017-11-09] MEDS: COLESTIPOL HCL 1 GM TAB PO SCH ×2 (12:14→22:10)
[2017-11-09] MEDS ORDERED: FUROSEMIDE INJ 20 MG in SYRINGE 0 ML IV ONE (13:15)
[2017-11-09 13:39] VITALS: BP 89/56; PULSE 85
[2017-11-09] MEDS: CEFTRIAXONE SOD INJ 1 GM in DEXTROSE 5% ADD-VANTAGE 50ML 50 ML IV SCH (13:40)
--- NOTE | 2017-11-09 15:03 | Hospitalist Progress Note ---
Hospitalist Progress Note Date of Service Nov 09, 2017. (Trixie Sands .TK) Subjective Pt evaluation today including: conversation w/ patient, physical exam, chart review, lab review, review of studies, conversation w/ healthcare market consultant, review of inpatient medication list Voiding: no voiding problems Mr. Merlos is feeling very fatigued. His leg is much less painful though still edematous and weeping. ROS Constitutional: no chills, aches, sweats or fever Respiratory: no sob,cough, sputum, or wheezing Cardiac: no chest pain, palpitations, edema, orthopnea or lightheadedness GI: no abdominal pain, nausea, vomiting, diarrhea or constipation : no dysuria or hesitancy Extremities: no joint pain or weakness Skin: no rash All other systems reviewed and negative (Trixie Sands CRNP) Medications Medications Administered Medications (Trade) Dose Ordered Sig/Rosendo Route Start Time Stop Time Status Last Admin Dose Admin Fentanyl Citrate (Fentanyl Inj) 50 mcg NOW ONCE IV 11/03/17 13:15 11/03/17 13:16 DC 11/03/17 13:21 50 MCG Acetaminophen (Tylenol Tab) 650 mg NOW STAT PO 11/03/17 13:01 11/03/17 13:02 DC 11/03/17 13:21 650 MG Calcium Carbonate (Tums Chew Tab) 1,500 mg ONE STAT PO 11/03/17 13:53 11/03/17 13:54 DC 11/03/17 14:23 1,500 MG Acetaminophen (Tylenol Tab) 650 mg Q4H PRN PO 11/03/17 15:45 12/03/17 15:44 11/05/17 10:41 650 MG Polyethylene (Miralax Powder Packet) 17 gm DAILY PRN PO 11/03/17 15:45 12/03/17 15:44 11/08/17 13:13 17 GM Aspirin (Ecotrin Tab) 81 mg DAILY PO 11/04/17 08:00 12/04/17 08:59 11/09/17 08:32 81 MG Atorvastatin Calcium (Lipitor Tab) 10 mg DAILY PO 11/04/17 08:00 12/04/17 08:59 11/09/17 08:33 10 MG Colestipol HCl (Colestid Tab) 1 gm BID@1000,2200 PO 11/03/17 22:00 12/03/17 21:59 11/09/17 12:14 1 GM Metoprolol Tartrate (Lopressor Tab) 12.5 mg BID PO 11/03/17 20:00 12/03/17 20:59 11/09/17 08:33 12.5 MG Multivitamins/ Minerals (Multivitamin W/ Minerals Tab) 1 tab QAM PO 11/04/17 08:00 12/04/17 08:59 11/09/17 08:34 1 TAB Pantoprazole Sodium (Protonix Tab) 40 mg DAILY PO 11/04/17 08:00 12/04/17 08:59 11/09/17 08:34 40 MG Potassium Chloride (Klor-Con Tab) 20 meq QD@1700 PO 11/03/17 17:00 12/03/17 16:59 11/08/17 17:34 20 MEQ Potassium Chloride (Klor-Con Tab) 80 meq DAILY PO 11/04/17 08:00 12/04/17 08:59 11/09/17 08:33 80 MEQ Prednisone (PredniSONE TAB) 40 mg DAILY PO 11/04/17 08:00 12/04/17 08:59 11/09/17 08:34 40 MG Tramadol HCl (Ultram Tab) 50 mg Q4H PRN PO 11/03/17 15:45 12/03/17 15:44 11/09/17 08:35 50 MG Enoxaparin Sodium (Lovenox Inj) 100 mg BID SC 11/03/17 20:00 12/03/17 20:59 Future Hold 11/05/17 08:26 100 MG Furosemide 100 mg/ Dextrose 100 ml @ 3 mls/hr Q24H IV 11/03/17 18:00 11/04/17 11:15 DC 11/04/17 00:57 3 MLS/HR Potassium Chloride (Klor-Con M10) 40 meq NOW ONCE PO 11/04/17 09:15 11/04/17 09:16 DC 11/04/17 10:08 40 MEQ Furosemide (Lasix Tab) 20 mg QAM PO 11/05/17 08:00 12/05/17 07:59 11/09/17 08:33 20 MG Furosemide (Lasix Tab) 20 mg 1130 ONCE PO 11/04/17 11:30 11/04/17 11:31 DC 11/04/17 11:50 20 MG Vancomycin HCl 2500 mg/Sodium Chloride 550 ml @ 200 mls/hr 1100 ONCE IV 11/05/17 11:00 11/05/17 13:44 DC 11/05/17 11:16 200 MLS/HR Epoetin Andrea (Procrit Inj) 40,000 units ONE ONCE SQ 11/05/17 10:15 11/05/17 10:33 DC 11/05/17 11:31 40,000 UNITS Morphine Sulfate (MoRPHine SULFATE INJ) 2 mg Q4H PRN IV 11/05/17 12:45 11/19/17 12:44 11/06/17 14:49 2 MG Ampicillin Sodium/ Sulbactam Sodium 3000 mg/Sodium Chloride 108 ml @ 200 mls/hr Q6H IV 11/05/17 14:00 11/08/17 11:45 DC 11/08/17 07:54 200 MLS/HR Vancomycin HCl 1500 mg/Sodium Chloride 530 ml @ 200 mls/hr Q12H IV 11/06/17 00:00 11/08/17 11:45 DC 11/08/17 00:16 200 MLS/HR Ceftriaxone Sodium 1 gm/ Dextrose 50 ml @ 100 mls/hr Q24H IV 11/08/17 14:00 11/18/17 13:59 11/09/17 13:40 100 MLS/HR (Trixie Sands, TK) Objective Vital Signs Date Time Temp Pulse Resp B/P (MAP) Pulse Ox O2 Delivery O2 Flow Rate FiO2 11/09/17 13:39 85 89/56 (67) 11/09/17 12:08 36.6 78 20 102/75 (84) 93 11/09/17 07:43 36.8 65 20 102/60 (74) 98 Room Air 11/09/17 00:00 Room Air 11/08/17 23:07 36.3 70 20 111/64 (80) 96 Room Air 11/08/17 20:22 80 102/52 (69) 11/08/17 19:56 36.4 73 18 94/55 (68) 97 Room Air 11/08/17 17:37 97 Room Air 11/08/17 16:00 97 Room Air 11/08/17 14:57 37.2 71 20 110/66 (81) 99 (Trixie Sands CRNP) Physical Exam Notes: General: no distress Eyes: normal inspection, PERLL Respiratory: chest non tender, clear to auscultation, normal breath sounds, no respiratory distress, no accessory muscle use Cardiac: regular rate and rhythm, no rub or gallop, no murmur, +3 pitting edema , no jvd GI/: active bowel sounds, no abd pain or tenderness, soft, non distended Extremities: normal range of motion, normal strength, non tender Neuro/Psych: drowsy and oriented x 3, normal mood and affect Skin: normal color, dry, right leg erythema much improved (Trixie Sands CRNP) Laboratory Results Last 24 Hours Test 11/09/17 06:05 White Blood Count 2.96 K/uL Red Blood Count 2.30 M/uL Hemoglobin 7.6 g/dL Hematocrit 23.0 % Mean Corpuscular Volume 100.0 fL Mean Corpuscular Hemoglobin 33.0 pg Mean Corpuscular Hemoglobin Concent 33.0 g/dl RDW Standard Deviation 93.4 fL RDW Coefficient of Variation 27.7 % Platelet Count 177 K/uL Mean Platelet Volume 8.6 fL Nucleated RBC Absolute Count (auto) 0.03 K/uL Nucleated Red Blood Cells % 1.0 % Sodium Level 138 mmol/L Potassium Level 3.9 mmol/L Chloride Level 105 mmol/L Carbon Dioxide Level 28 mmol/L Anion Gap 5.0 mmol/L Blood Urea Nitrogen 16 mg/dl Creatinine 0.57 mg/dl Est Creatinine Clear Calc Drug Dose 120.9 ml/min Estimated GFR () 109.3 Estimated GFR (Non- 94.3 BUN/Creatinine Ratio 27.9 Random Glucose 93 mg/dl Calcium Level 7.9 mg/dl (Trixie Sands CRNP) Assessment and Plan Mr. Merlos is a very pleasant 82 year old man with PMHx of large granular lymphocytic leukemia, hyponatremia, diastolic CHF, HLD, h/o DVT, paroxysmal a.fib, and GERD. 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 Porter, which were unremarkable - during recent hospitalization vitamin B12, folate acid, ferritin, iron panels, stool Hemoccult were negative or unremarkable - pt had underwent GI bleeding scan per heme/ onc - consulted heme/onc - hold methotrexate - per outpt records pt has been on for 4 months without much response so discussion regarding oral Cytoxan was held and pt consented. He has not yet begun this, plan is to start once returns to [facility]. - patient wishes to remain full code and does not want to consult palliative care - Type and screen/ transfuse 2 U PRBC irrad 11/04. Per heme onc rec, transfuse for hgb less than 7 and only 1 unit at a time as patient will likely be transfusion dependent from here on out - Trend cbc - hgb 7.5 this am - discussed with as patient is symptomatic - to receive one unit, likely in the am as irradiated units won't arrive until director of early childhood education today RLE calf pain, edema right elbow - US showed hematoma vs abscess, no dvt, 11/05 with increased erythema and pain - repeat US showed slightly larger fluid collection, consulted general surgery and started Vanc and Unasyn - now on ceftriaxone - Surgery took patient for needle aspiration - Ultrasound guided aspiration of 45 cc of serosanguineous fluid from a medial right calf fluid collection suggestive of a hematoma. Fluid culture showed no growth. - pt is currently on lovenox 100 mg BID for hx of DVT - continue to hold for now - pain control, leg elevation of right leg - edema may benefit from some increased diuresis, however patient' systolic bp this afternoon in the 80s. Will re-evaluate in the am Chronic hyponatremia - resolved Hypokalemia - resolved Chronic diastolic CHF- STABLE - Cont lopressor 12.5 mg BID, continue po lasix HLD, paroxysmal a.fib: - Continue ASA, Lipitor, Lopressor w/ hold parameters - Last ECHO 08/2017- EF 55-60%, grade I diastolic CHF GERD: Protonix daily Left knee total knee contusion with pain due to fall: local measures and pain control DVT ppx with h/o DVT: lovenox held for hematoma CODE STATUS: Full Disposition: PT/OT evals, with plans for [facility] (Trixie Sands ., TK) CHIEF LIFESTYLE OFFICER Physician Supervision Note: I interviewed and examined the patient. Discussed with Trixie Sands CHIEF LIFESTYLE OFFICER and agree with findings and plan as documented in the note. Any exceptions or clarifications are listed here: None Patient is here with a symptomatic hematoma which she sustained from being on chronic anticoagulation for his atrial fibrillation this is compounded by his history of CLL and is now transfusion dependent for his red blood cell count he over does have preserved platelet counts Hematoma was drained and it deemed to be noninfectious by orthopedics currently has significant peripheral edema and is dyspneic on exertion due to his hemoglobin be in the mid 7 range 36.8 68 20 102/60 Patient is marked peripheral edema his cardiac exam sounds to be regular with a systolic murmur his decreased breath sounds at the bases but is not taking very deep breaths his lower extremities he has got a large bruise to the lateral aspect of his left knee however he says his right leg is on is more tender for him Patient is here with a traumatic hematoma from chronic anticoagulation for atrial fibrillation, this anticoagulation is held he has persistent anemia likely from decreased production from his CLL and is scheduled to receive another Leukopore irradiated unit packed red blood cells his blood pressure is low on preventing diuresis to help his peripheral edema and he is is he is having some shortness of breath and also some weeping of his swollen legs overall scheduled for placement continue consideration for hospice care Documented By: Kushal Brady (Kushal Brady M.D.)
[2017-11-09 15:56] VITALS: BP 98/62; PULSE 66; TEMP 36.5; O2SAT 97
[2017-11-09 19:18] VITALS: BP 131/64; PULSE 68; TEMP 36.4; O2SAT 95
[2017-11-10] VITALS (10 sets, daily range): BP systolic 99–137; BP diastolic 55–70; PULSE 54–99; TEMP 36.2–36.8; O2SAT 95–99
[2017-11-10] MEDS: FUROSEMIDE 20 MG TAB PO SCH (08:26)
[2017-11-10] MEDS: ASPIRIN 81 MG ECTAB PO SCH (08:26)
[2017-11-10] MEDS: CEROVITE ADV FORMULA TAB PO SCH (08:26)
[2017-11-10] MEDS: POTASSIUM CHLORIDE 20 MEQ TABCR PO SCH (08:26)
[2017-11-10] MEDS: ATORVASTATIN 10 MG TAB PO SCH (08:26)
[2017-11-10] MEDS: PANTOprazole SOD 40 MG TAB PO SCH (08:27)
[2017-11-10] MEDS: METOPROLOL TARTRATE 25 MG TAB PO SCH (08:29)
[2017-11-10] MEDS: TRAMADOL HCL 50 MG TAB PO PRN (11:08)
[2017-11-10] MEDS: COLESTIPOL HCL 1 GM TAB PO SCH (11:10)
--- NOTE | 2017-11-10 11:16 | Hospitalist Progress Note ---
Hospitalist Progress Note Date of Service November 10, 2017. Subjective Pt evaluation today including: conversation w/ patient, physical exam, chart review, lab review, review of inpatient medication list Voiding: no voiding problems Mr. Merlos is feeling less fatigued and no long sob following his blood transfusion. His leg is no longer painful. ROS Constitutional: no chills, aches, sweats or fever Respiratory: no sob,cough, sputum, or wheezing Cardiac: no chest pain, palpitations, edema, orthopnea or lightheadedness GI: no abdominal pain, nausea, vomiting, diarrhea or constipation : no dysuria or hesitancy Extremities: no joint pain or weakness Skin: no rash All other systems reviewed and negative Medications Medications Administered Medications (Trade) Dose Ordered Sig/Rosendo Route Start Time Stop Time Status Last Admin Dose Admin Fentanyl Citrate (Fentanyl Inj) 50 mcg NOW ONCE IV 11/03/17 13:15 11/03/17 13:16 DC 11/03/17 13:21 50 MCG Acetaminophen (Tylenol Tab) 650 mg NOW STAT PO 11/03/17 13:01 11/03/17 13:02 DC 11/03/17 13:21 650 MG Calcium Carbonate (Tums Chew Tab) 1,500 mg ONE STAT PO 11/03/17 13:53 11/03/17 13:54 DC 11/03/17 14:23 1,500 MG Acetaminophen (Tylenol Tab) 650 mg Q4H PRN PO 11/03/17 15:45 12/03/17 15:44 11/05/17 10:41 650 MG Polyethylene (Miralax Powder Packet) 17 gm DAILY PRN PO 11/03/17 15:45 12/03/17 15:44 11/08/17 13:13 17 GM Aspirin (Ecotrin Tab) 81 mg DAILY PO 11/04/17 08:00 12/04/17 08:59 11/10/17 08:26 81 MG Atorvastatin Calcium (Lipitor Tab) 10 mg DAILY PO 11/04/17 08:00 12/04/17 08:59 11/10/17 08:26 10 MG Colestipol HCl (Colestid Tab) 1 gm BID@1000,2200 PO 11/03/17 22:00 12/03/17 21:59 11/09/17 22:10 1 GM Metoprolol Tartrate (Lopressor Tab) 12.5 mg BID PO 11/03/17 20:00 12/03/17 20:59 11/10/17 08:29 12.5 MG Multivitamins/ Minerals (Multivitamin W/ Minerals Tab) 1 tab QAM PO 11/04/17 08:00 12/04/17 08:59 11/10/17 08:26 1 TAB Pantoprazole Sodium (Protonix Tab) 40 mg DAILY PO 11/04/17 08:00 12/04/17 08:59 11/10/17 08:27 40 MG Potassium Chloride (Klor-Con Tab) 20 meq QD@1700 PO 11/03/17 17:00 12/03/17 16:59 11/09/17 17:30 20 MEQ Potassium Chloride (Klor-Con Tab) 80 meq DAILY PO 11/04/17 08:00 12/04/17 08:59 11/10/17 08:26 80 MEQ Prednisone (PredniSONE TAB) 40 mg DAILY PO 11/04/17 08:00 12/04/17 08:59 11/10/17 08:27 40 MG Tramadol HCl (Ultram Tab) 50 mg Q4H PRN PO 11/03/17 15:45 12/03/17 15:44 11/10/17 11:08 50 MG Enoxaparin Sodium (Lovenox Inj) 100 mg BID SC 11/03/17 20:00 12/03/17 20:59 Future Hold 11/05/17 08:26 100 MG Furosemide 100 mg/ Dextrose 100 ml @ 3 mls/hr Q24H IV 11/03/17 18:00 11/04/17 11:15 DC 11/04/17 00:57 3 MLS/HR Potassium Chloride (Klor-Con M10) 40 meq NOW ONCE PO 11/04/17 09:15 11/04/17 09:16 DC 11/04/17 10:08 40 MEQ Furosemide (Lasix Tab) 20 mg QAM PO 11/05/17 08:00 12/05/17 07:59 11/10/17 08:26 20 MG Furosemide (Lasix Tab) 20 mg 1130 ONCE PO 11/04/17 11:30 11/04/17 11:31 DC 11/04/17 11:50 20 MG Vancomycin HCl 2500 mg/Sodium Chloride 550 ml @ 200 mls/hr 1100 ONCE IV 11/05/17 11:00 11/05/17 13:44 DC 11/05/17 11:16 200 MLS/HR Epoetin Andrea (Procrit Inj) 40,000 units ONE ONCE SQ 11/05/17 10:15 11/05/17 10:33 DC 11/05/17 11:31 40,000 UNITS Morphine Sulfate (MoRPHine SULFATE INJ) 2 mg Q4H PRN IV 11/05/17 12:45 11/19/17 12:44 11/06/17 14:49 2 MG Ampicillin Sodium/ Sulbactam Sodium 3000 mg/Sodium Chloride 108 ml @ 200 mls/hr Q6H IV 11/05/17 14:00 11/08/17 11:45 DC 11/08/17 07:54 200 MLS/HR Vancomycin HCl 1500 mg/Sodium Chloride 530 ml @ 200 mls/hr Q12H IV 11/06/17 00:00 11/08/17 11:45 DC 11/08/17 00:16 200 MLS/HR Ceftriaxone Sodium 1 gm/ Dextrose 50 ml @ 100 mls/hr Q24H IV 11/08/17 14:00 11/18/17 13:59 11/09/17 13:40 100 MLS/HR Objective Vital Signs Date Time Temp Pulse Resp B/P (MAP) Pulse Ox O2 Delivery O2 Flow Rate FiO2 11/10/17 09:20 36.5 68 20 122/55 11/10/17 08:20 64 11/10/17 08:20 119/55 11/10/17 08:20 36.3 99 18 99 11/10/17 07:20 36.2 54 18 137/70 99 11/10/17 06:50 36.5 56 20 99/59 97 11/10/17 06:33 36.4 57 18 112/68 95 11/10/17 04:00 36.5 62 20 121/68 (85) 97 Room Air 11/10/17 00:00 Room Air 11/10/17 00:00 36.4 69 20 114/66 (82) 96 Room Air 11/09/17 19:18 36.4 68 19 131/64 (86) 95 Room Air 11/09/17 16:00 Room Air 11/09/17 15:56 36.5 66 18 98/62 (74) 97 Room Air 11/09/17 13:39 85 89/56 (67) 11/09/17 12:08 36.6 78 20 102/75 (84) 93 Physical Exam Notes: General: no distress Eyes: normal inspection, PERLL Respiratory: chest non tender, clear to auscultation, normal breath sounds, no respiratory distress, no accessory muscle use Cardiac: regular rate and rhythm, no rub or gallop, no murmur, +3 pitting edema bilaterally GI/: active bowel sounds, no abd pain or tenderness, soft, non distended Extremities: normal range of motion, normal strength, non tender Neuro/Psych: alert and oriented x 3, normal mood and affect Skin: normal color, dry Laboratory Results Last 24 Hours Test 11/10/17 08:19 Assessment and Plan Mr. Merlos is a very pleasant 82 year old man with PMHx of large granular lymphocytic leukemia, hyponatremia, diastolic CHF, HLD, h/o DVT, paroxysmal a.fib, and GERD. Pt presented with acute on chronic anemia secondary to leukemia Acute on chronic anemia, severe anemia with Hgb 6.6 upon admission T-cell Large granular lymphocytic leukemia dx 05/08/17 - Was recently admitted October 21- for same issues and was transfused 3 units radiated PRBCs - Pt appears to be transfusion dependent and will likely require wkly hgb checks - Patient reported has comprehensive evaluations which include several upper and lower GI evaluation from [facility] in [place] by Dr. Porter, which were unremarkable - during recent hospitalization vitamin B12, folate acid, ferritin, iron panels, stool Hemoccult were negative or unremarkable - pt had underwent GI bleeding scan per heme/ onc - consulted heme/onc - hold methotrexate - per outpt records pt has been on for 4 months without much response so discussion regarding oral Cytoxan was held and pt consented. He has not yet begun this, plan is to start once returns to [facility]. - patient wishes to remain full code and does not want to consult palliative care - Type and screen/ transfuse 2 U PRBC irrad 11/04. Per heme onc rec, transfuse for hgb less than 7 and only 1 unit at a time as patient will likely be transfusion dependent from here on out - Trend cbc - given 1 unit irradiated prbcs this am for hgb 7.5 and symptomatic RLE calf pain, edema right elbow - US showed hematoma vs abscess, no dvt, 11/05 with increased erythema and pain - repeat US showed slightly larger fluid collection, consulted general surgery and started Vanc and Unasyn - now on ceftriaxone, final day of abx 11/11 - Surgery took patient for needle aspiration - Ultrasound guided aspiration of 45 cc of serosanguineous fluid from a medial right calf fluid collection suggestive of a hematoma. Fluid culture showed no growth. - pt is currently on lovenox 100 mg BID for hx of DVT - continue to hold for now - pain control, leg elevation of right leg - will give 1x dose of IV lasix to help with le edema Chronic hyponatremia - resolved Hypokalemia - resolved Chronic diastolic CHF- STABLE - Cont lopressor 12.5 mg BID, continue po lasix HLD, paroxysmal a.fib: - Continue ASA, Lipitor, Lopressor w/ hold parameters - Last ECHO 08/2017- EF 55-60%, grade I diastolic CHF GERD: Protonix daily Left knee total knee contusion with pain due to fall: local measures and pain control DVT ppx with h/o DVT: lovenox held for hematoma - will restart tomorrow as symptoms have resolved and it has been a week since hematoma developed CODE STATUS: Full Disposition: PT/OT ty, with plans for [facility]
[2017-11-10 11:19] LABS: BASO % 0.3 %; BASO ABS # 0.01 K/uL (0-0.2); HEMOGLOBIN 8.8 g/dL (14.0-18.0); LYMPH % 28.6 %; MEAN CELL VOLUME 99.3 fL (80-100); MEAN CORPUSCULAR HEMOGLOBIN 32.4 pg (25-34); MEAN CORPUSCULAR HGB CONC 32.6 g/dl (32-36); MEAN PLATELET VOLUME 8.8 fL (7.4-10.4); MONO % 10.6 %; MONO ABS # 0.37 K/uL (0.11-0.59); NEUT % 57.6 %; NEUT ABS # 2.02 K/uL (1.4-6.5); NUCLEATED RED BLOOD CELL ABS 0.05 K/uL (0-0); PLATELET COUNT 203 K/uL (130-400); RED CELL DISTRIBUTION WIDTH CV 26.6 % (11.5-14.5); RED CELL DISTRIBUTION WIDTH SD 88.1 fL (36.4-46.3)
[2017-11-10] MEDS ORDERED: CEPH-571 PO (12:06)
--- NOTE | 2017-11-10 12:12 | Discharge Instructions ---
Discharge Instructions Date of Service November 10, 2017. Admission Reason for Admission: Large Granular Lymphocytic Leukemia, Severe Anemia Discharge Discharge Diagnosis / Problem: Large granular lymphocytic leukemia, severe anemia Discharge Goals Goal(s): Improve disease control Activity Recommendations Activity Level: Assistance Required Therapies: Physical Therapy, Occupational Therapy . Additional Information Patient informed of condition: Yes Advance Directives: No DNR: No Level of Care: Acute Rehab Communicable Disease: No Prognosis: Stable [place] Catheter: No Instructions / Follow-Up Instructions / Follow-Up Mr. Merlos has a right leg hematoma which is resolving. Please continue to hold Lovenox until after follow up with Dr. Whittington whom the patient should see in about a week. Patient needs at least weekly hgb lab draws as he is chronically low and transfusion dependent. He also needs one more day of Keflex to complete a 7 day regimen for possible cellulitis in the right lower extremity. He can bear weight on the right leg but should proceed carefully as it is slurry tank tender. Current Hospital Diet Patient's current hospital diet: Regular Diet Discharge Diet Recommended Diet: Regular Diet Procedures Procedures Performed: US aspiration of right leg hematoma LE venous doppler right leg UE venous doppler right arm CXR Pending Studies Studies pending at discharge: no Physician Orders On Transfer POLST Discussion: without POLST completion Laboratory Results Last 24 Hours Test 11/10/17 11:08 White Blood Count 3.50 K/uL Red Blood Count 2.72 M/uL Hemoglobin 8.8 g/dL Hematocrit 27.0 % Mean Corpuscular Volume 99.3 fL Mean Corpuscular Hemoglobin 32.4 pg Mean Corpuscular Hemoglobin Concent 32.6 g/dl Platelet Count 203 K/uL Mean Platelet Volume 8.8 fL Neutrophils (%) (Auto) 57.6 % Lymphocytes (%) (Auto) 28.6 % Monocytes (%) (Auto) 10.6 % Eosinophils (%) (Auto) 0.0 % Basophils (%) (Auto) 0.3 % Neutrophils # (Auto) 2.02 K/uL Lymphocytes # (Auto) 1.00 K/uL Monocytes # (Auto) 0.37 K/uL Eosinophils # (Auto) 0.00 K/uL Basophils # (Auto) 0.01 K/uL RDW Standard Deviation 88.1 fL RDW Coefficient of Variation 26.6 % Immature Granulocyte % (Auto) 2.9 % Immature Granulocyte # (Auto) 0.10 K/uL Nucleated RBC Absolute Count (auto) 0.05 K/uL Nucleated Red Blood Cells % 1.5 % Medical Emergencies . Who to Call and When: Medical Emergencies: If at any time you feel your situation is an emergency, please call 911 immediately. . Non-Emergent Contact Non-Emergency issues call your: Primary Care Provider Call Non-Emergent contact if: you have a fever, you have any medication questions . . "Provider Documentation" section prepared by Trixie Sands. . Core Measure Problem Core Measures: None
--- NOTE | 2017-11-10 12:20 | Discharge Summary ---
Discharge Summary Date of Service November 10, 2017. Discharge Summary Admission Date: Nov 03, 2017 at 15:57 Discharge Date: November 10, 2017 Discharge Disposition: Rehab Principal Diagnosis: large granular lymphocytic leukemia, anemia Problems/Secondary Diagnoses: RLE calf hematoma, cellulitis, edema right elbow, Chronic hyponatremia, Hypokalemia, Chronic diastolic CHF, HLD, paroxysmal a.fib, GERD, Immunizations: Have You Had Influenza Vaccine: Unknown History of Tetanus Vaccine?: Unknown History of Pneumococcal: Unknown Procedures: ULTRASOUND GUIDED ASPIRATION OF MEDIAL RIGHT CALF COLLECTION CLINICAL HISTORY: RLE cellulitis, hematoma vs abscess? COMPARISON STUDY: Right lower extremity ultrasound November 05, 2017 at 2:40 PM. PROCEDURE: Procedure, risks and benefits were discussed with the patient including the risk of bleeding, infection and injury to adjacent structures. The patient agreed to the procedure and informed written consent was obtained. The procedure was performed by Dr. Pop following a timeout. The large complex medial right calf fluid collection was identified. Skin was prepped and draped in sterile fashion and local anesthesia was achieved with 1% lidocaine. Under direct ultrasound guidance, an 18-gauge 3 1/2 inch needle was directed into the fluid collection. There was immediate return of serosanguineous fluid. A total 45 cc of fluid was aspirated and sent to laboratory for analysis. The needle was removed. The patient tolerated the procedure well and no immediate complications were evident. IMPRESSION: Ultrasound guided aspiration of 45 cc of serosanguineous fluid from a medial right calf fluid collection suggestive of a hematoma. Fluid sent to the laboratory for analysis. Electronically signed by: Eamon Pop M.D. 11/05/2017 5:01 PM [~ rep ct add3]] RIGHT LEG ULTRASOUND CLINICAL HISTORY: right leg edema/erythema COMPARISON STUDY: Right lower extremity venous Doppler 11/04/2017. FINDINGS: There is again noted a 17 x 10 x 5 cm complex fluid collection within the right calf. This appears to be deep to the subcutaneous fat but not clearly intramuscular. There is no internal color flow. This has slightly increased in size. IMPRESSION: Slight increase in size in a 17 x 10 x 5 cm complex fluid collection within the right calf. This favors a hematoma. An abscess would be considered less likely but not entirely excluded by ultrasound. The location of this fluid collection raises the possibility of a degloving injury. Electronically signed by: Trace Goldsmith M.D. 11/05/2017 3:01 PM RIGHT UPPER EXTREMITY VENOUS DOPPLER ULTRASOUND CLINICAL HISTORY: Edema. Previous right upper extremity venous thrombus. COMPARISON STUDY: Right upper extremity venous Doppler ultrasound September 04, 2017. FINDINGS: No venous thrombus is identified within the right upper extremity. The right PICC has been removed. The thrombus shown on exam of September 04, 2017 is no longer visualized. IMPRESSION: No venous thrombus within the right upper extremity. Electronically signed by: Eamon Pop M.D. 11/04/2017 5:57 PM ULTRASOUND RIGHT LOWER EXTREMITY VENOUS CLINICAL HISTORY: Calf pain. Right leg swelling. COMPARISON STUDY: Bilateral lower extremity venous ultrasound dated 09/04/2017. TECHNIQUE: Real-time, grayscale, and color Doppler sonography of the deep veins of the right lower extremity was performed from the inguinal crease to the calf. Compression and augmentation were utilized. FINDINGS: There is no sonographic evidence of deep venous thrombosis identified in the right lower extremity. The common femoral, superficial femoral, and popliteal veins are patent and normally compressible. The greater saphenous vein and the profunda femoris vein at the junction with the common femoral vein are clear. The visualized calf veins are patent. There is a complex nonvascular collection in the medial right calf which measures 15.7 x 6.0 x 6.3 cm. IMPRESSION: 1. There is no sonographic evidence of deep venous thrombosis identified in the right lower extremity. 2. There is a large complex nonvascular collection in medial right calf, typical in appearance for a resolving hematoma. Abscess would be impossible to exclude. Clinical correlation will be essential and clinical follow-up to resolution is recommended. Electronically signed by: Julien Palacio M.D. 11/04/2017 6:58 AM [~ rep ct add3]] CHEST ONE VIEW PORTABLE HISTORY: calf pain, venous insufficiency changes, leg swelling COMPARISON: Chest 10/21/2017. FINDINGS: No pneumothorax. No pleural effusions. The heart remains enlarged. Right basilar linear densities favor subsegmental atelectasis. This has improved. There is mild central pulmonary vascular congestion without overt edema. There are low lung volumes. IMPRESSION: Cardiomegaly with mild central pulmonary vascular congestion. Electronically signed by: Trace Goldsmith M.D. 11/03/2017 1:38 PM Consultations: Dr. Whittington from heme/onc Dr. Moss from general surgery Medication Reconciliation New Medications: Cephalexin (Keflex) 500 Mg Cap 1 CAP PO TID for 1 Day, #3 CAP Continued Medications: Acetaminophen (Tylenol) 500 Mg Tab 500 MG PO Q4 PRN for Pain or Fever, TAB Aspirin (Aspirin Ec) 81 Mg Tab 81 MG PO DAILY Atorvastatin (Lipitor) 10 Mg Tab 10 MG PO DAILY, TAB Colestipol Hcl (Colestid) 1 Gm Tab 1 GM PO BID, TAB Enoxaparin (Lovenox) 100 Mg/Ml Inj 100 MG INJ BID Furosemide (Lasix) 40 Mg Tab 20 MG PO DAILY dose varies from 20-40mg Metoprolol Tartrate (Lopressor) (Lopressor) 25 Mg Tab 12.5 MG PO BID Multivitamins/Minerals (Certavite/Antioxidants) 1 Tab Tab 1 TAB PO QAM for 30 Days, TAB Pantoprazole (Protonix) 40 Mg Tab 40 MG PO DAILY, #30 TAB Potassium Chloride (Klor-Con M20) 20 Meq Tabcr 20 MEQ PO QD@1700 for 30 Days Potassium Ext Rel (Klor-Con) 20 Meq Tabcr 80 MEQ PO DAILY Prednisone (Prednisone) 20 Mg Tab 40 MG PO DAILY Tramadol (Ultram) 50 Mg Tab 50 MG PO Q4H PRN for Pain, TAB Discharge Exam ROS Constitutional: no chills, aches, sweats or fever Respiratory: no sob,cough, sputum, or wheezing Cardiac: no chest pain, palpitations, edema, orthopnea or lightheadedness GI: no abdominal pain, nausea, vomiting, diarrhea or constipation : no dysuria or hesitancy Extremities: no joint pain or weakness Skin: no rash All other systems reviewed and negative General: no distress Eyes: normal inspection, PERLL Respiratory: chest non tender, clear to auscultation, normal breath sounds, no respiratory distress, no accessory muscle use Cardiac: regular rate and rhythm, no rub or gallop, no murmur, +3 pitting edema bilateral lower extremities GI/: active bowel sounds, no abd pain or tenderness, soft, non distended Extremities: normal range of motion, normal strength, non tender Neuro/Psych: alert and oriented x 3, normal mood and affect Skin: normal color, dry Hospital Course Mr. Merlos is a very pleasant 82 year old man with PMHx of large granular lymphocytic leukemia, hyponatremia, diastolic CHF, HLD, h/o DVT, paroxysmal a.fib, and GERD. 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 Porter, which were unremarkable - during recent hospitalization vitamin B12, folate acid, ferritin, iron panels, stool Hemoccult were negative or unremarkable - pt had underwent GI bleeding scan per heme/ onc - consulted heme/onc - hold methotrexate - per outpt records pt has been on for 4 months without much response so discussion regarding oral Cytoxan was held and pt consented. He has not yet begun this, plan is to start once returns to [facility]. - patient wishes to remain full code and does not want to consult palliative care - Type and screen/ transfuse 2 U PRBC irrad 11/04. Per heme onc rec, transfuse for hgb less than 7 and only 1 unit at a time as patient will likely be transfusion dependent from here on out - Trend cbc - given 1 unit irradiated prbcs this am for hgb 7.5 and symptomatic - repeat hgb is 8.8 RLE calf pain, edema right elbow - US showed hematoma vs abscess in RLE, no dvt, 11/05 with increased erythema and pain - repeat US showed slightly larger fluid collection, consulted general surgery and started Vanc and Unasyn - now on ceftriaxone, final day of abx 11/11 - will send with 1 day of Keflex for dc - Surgery took patient for needle aspiration - Ultrasound guided aspiration of 45 cc of serosanguineous fluid from a medial right calf fluid collection suggestive of a hematoma. Fluid culture showed no growth. - pt is currently on lovenox 100 mg BID for hx of DVT - continue to hold for now - pain control, leg elevation of right leg - RUE US negative for DVT Chronic hyponatremia - resolved Hypokalemia - resolved Chronic diastolic CHF- STABLE - Cont lopressor 12.5 mg BID, continue po lasix HLD, paroxysmal a.fib: - Continue ASA, Lipitor, Lopressor w/ hold parameters - Last ECHO 08/2017- EF 55-60%, grade I diastolic CHF GERD: Protonix daily Left knee total knee contusion with pain due to fall: local measures and pain control DVT ppx with h/o DVT: Lovenox held for hematoma - continue to hold until follow up with Dr. 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 Discussed with Trixie Sands NAIL SETTER and agree with findings and plan as documented in the note. Any exceptions or clarifications are listed here: None Patient is here with a symptomatic hematoma which she sustained from being on chronic anticoagulation for his atrial fibrillation/dvt, this is compounded by his history of CLL and is now transfusion dependent for his red blood cell count he over does have preserved platelet counts Hematoma was drained and it deemed to be noninfectious by orthopedics currently has significant peripheral edema and is dyspneic on exertion due to his hemoglobin be in the mid 7 range Vitals reviewed and stable Patient is marked peripheral edema his cardiac exam sounds to be regular with a systolic murmur his decreased breath sounds at the bases his lower extremities he has got a large bruise to the lateral aspect of his left knee however he says his right leg is on is more tender for him Patient is here with a traumatic hematoma from chronic anticoagulation for atrial fibrillation/DVT, this anticoagulation is held at time of discharge and he has persistent anemia likely from decreased production from his CLL and did receive another Leukopore irradiated unit packed red blood cells for a total of 3 overall scheduled for placement continue consideration for hospice care Documented By: Kushal Brady Total Time Spent: Greater than 30 minutes This includes examination of the patient, discharge planning, medication reconciliation, and communication with other providers. Discharge Instructions Please refer to the electronic Patient Visit Report (Discharge Instructions) for additional information.
[2017-11-10] MEDS: CEFTRIAXONE SOD INJ 1 GM in DEXTROSE 5% ADD-VANTAGE 50ML 50 ML IV SCH (13:17)
--- NOTE | 2017-11-11 08:48 | EDITING REQUIRED CODING QUERY ---
To promote full compliance with coding requirements relating to patient care, provider participation is requested in all cases of teacher of the sight impaired uncertainty. Please assist us with the question(s) below: Coding Question(s): The diagnosis(es) below was documented in the H&P (the supervising physician documented that on physical exam the patient was noticed to have acute on chronic diastolic congestive heart failure) then subsequently fell off all further documentation. Please indicate if it is still a possible diagnosis or ruled out. Physician's Response(s): Acute on Chronic Diastolic Congestive Heart Failure ( xx ) Diagnosed and POA ( ) Diagnosed and not POA ( ) Ruled out ( ) Other (please specify)
== END 2017-11-10 14:30 | DRG 840 ==
LOC: EDBD 12:17 → C.EDB 12:20 → C.4E 15:57 → EDBEDREQSVC 16:00 → ENRESERV 16:36
PROVIDERS: ADMIT Internal Medicine; ATTEND Internal Medicine
PROC: 0J9N3ZX Drainage of Right Lower Leg Subcutaneous Tissue and Fascia, Percutaneous Approach, Diagnostic (ICD-10-PCS; principal; 2017-11-05)
DX: C91.Z0 Other lymphoid leukemia not having achieved remission (principal); I50.33 Acute on chronic diastolic (congestive) heart failure; L03.115 Cellulitis of right lower limb; E87.1 Hypo-osmolality and hyponatremia; D68.32 Hemorrhagic disorder due to extrinsic circulating anticoagulants; T45.515A Adverse effect of anticoagulants, initial encounter; D63.0 Anemia in neoplastic disease; S80.11XA Contusion of right lower leg, initial encounter; E87.6 Hypokalemia; M25.422 Effusion, left elbow; S80.02XA Contusion of left knee, initial encounter; I87.2 Venous insufficiency (chronic) (peripheral); I48.0 Paroxysmal atrial fibrillation; K21.9 Gastro-esophageal reflux disease without esophagitis; I25.2 Old myocardial infarction; Z51.81 Encounter for therapeutic drug level monitoring; Z79.899 Other long term (current) drug therapy; Z79.82 Long term (current) use of aspirin; Z79.01 Long term (current) use of anticoagulants; Z79.52 Long term (current) use of systemic steroids; Z86.718 Personal history of other venous thrombosis and embolism; Z87.891 Personal history of nicotine dependence; Z80.3 Family history of malignant neoplasm of breast; Z80.0 Family history of malignant neoplasm of digestive organs; X58.XXXA Exposure to other specified factors, initial encounter; W19.XXXA Unspecified fall, initial encounter